=== PATIENT | female | born 1960 | race Caucasian/White ===

== ENCOUNTER 2017-01-16 11:20 | Inpatient (IN) | payer OTHER, SELFPAY ==
[2017-01-16] MEDS ORDERED: methylPREDNISolone Sod Succ/PF 125 MG/2 ML VIAL ONE (12:02)
[2017-01-16] MEDS ORDERED: Nitroglycerin 2% Ointment 1 INCH/1 GM Packet ONE (12:02)
[2017-01-16] MEDS ORDERED: Water For Inject, Bacteriostat 30 ML ONE (12:03)
[2017-01-16 12:16] LABS: #Basophils 0.1 thou/uL (0.0-0.2); #Eosinphils 0.1 thou/uL (0.0-0.7); #Lymphocytes 2.2 thou/uL (1.20-3.40); #Monocytes 0.7 thou/uL (0.11-0.59); #Neutrophils 12.1 thou/uL (1.40-6.50); %Basophils 0.4 % (0.0-1.0); %Eosinophils 0.7 % (0.0-10.0); %Lymphocytes 14.3 % (21.0-51.0); %Monocytes 4.8 % (0.0-10.0); Hematocrit 49.2 % (36.0-47.0); Mean Platelet Volume 9.8 fL (7.4-10.4); Red Blood Cell (RBC) Count 5.67 mill/uL (4.20-5.40); White Blood Cell (WBC) Count 15.2 thou/uL (4.8-10.8)
[2017-01-16 12:44] LABS: Troponin I 0.015 ng/mL (< 0.028)
[2017-01-16 12:56] LABS: Calcium 8.9 mg/dL (7.8-10.44); Chloride 83 mmol/L (98-107)
[2017-01-16 12:57] LABS: Globulin 3.5 g/dL (2.4-3.5); Protein, Total 7.4 g/dL (6.0-8.3)
[2017-01-16 12:59] LABS: Anion Gap 14 mmol/L (10-20); Bilirubin, Total 1.8 mg/dL (0.2-1.2); Carbon Dioxide 23 mmol/L (22-29)
[2017-01-16 13:00] LABS: Alkaline Phosphatase 88 U/L (40-150)
[2017-01-16 13:01] LABS: BUN (Urea Nitrogen) 6 mg/dL (9.8-20.1); Calc. Creatinine Clearance 0 mL/min (70-130); Estimated GFR-MDRD Greater than 90
[2017-01-16 13:02] LABS: AST (SGOT) 30 U/L (5-34)
[2017-01-16 13:03] LABS: ALT (SGPT) 16 U/L (8-55)
[2017-01-16 13:04] LABS: Lactic Acid - Sepsis 1.1 mmol/L (0.5-2.2)
[2017-01-16] MEDS ORDERED: Labetalol HCl 100 MG/20 ML VIAL ONE (14:28)
[2017-01-16] MEDS ORDERED: Fentanyl 100 MCG/2 ML VIAL ONE ×2 (14:31→14:43)
[2017-01-16] MEDS ORDERED: EPINEPHrine 1 MG/ML AMP ONE (14:41)
[2017-01-16] MEDS ORDERED: Lidocaine 1% w/Epinephrine 1:200K 30 ML VIAL ONE (14:41)
[2017-01-16] MEDS ORDERED: Midazolam HCl 2 mg/2 ml Vial ONE (14:43)
[2017-01-16] MEDS ORDERED: Lidocaine 2% Jelly 5 ML TUBE ONE (15:14)
[2017-01-16] MEDS ORDERED: Heparin 1,000 UNITS/ML VIAL ONE (15:18)
[2017-01-16] MEDS ORDERED: Oxymetazoline HCl 0.05% ( 15 ML ) ONE (15:20)
[2017-01-16] MEDS ORDERED: Lidocaine Viscous Sol 2% 15 ml UD Cup ONE (15:22)
[2017-01-16] MEDS ORDERED: SUGAMMADEX SODIUM 500 MG/5 ML VIAL ONE (15:26)
--- NOTE | 2017-01-16 15:38 | RAD ---
SOFT TISSUES TWO VIEWS: HISTORY: Dyspnea. FINDINGS: The airway is patent on the frontal view. There is prominence of the tongue base and the tonsils on the lateral view. The epiglottis is obscured. No radiopaque foreign bodies are evident. IMPRESSION: Some soft tissue prominence at the tongue base and tonsils. POS: [facility]
--- NOTE | 2017-01-16 15:40 | RAD ---
CHEST ONE VIEW: HISTORY: Dyspnea. FINDINGS: The cardiac silhouette is magnified by projection. The pulmonary vasculature is slightly engorged. The mediastinum is midline. There is no lobar consolidation or evidence of pneumothorax. IMPRESSION: Mild pulmonary vascular congestion. POS: [facility]
[2017-01-16] MEDS ORDERED: ePHEDrine/0.9% NaCl/PF SYRINGE 50 mg/10 ml ONE (15:49)
[2017-01-16] MEDS ORDERED: PHENYLEPHRINE-NS 100 MCG/ML 10 ML SYRINGE ONE (15:49)
[2017-01-16] MEDS ORDERED: Ondansetron HCl/PF 4 MG/2 ML Vial ONE (15:49)
[2017-01-16] MEDS ORDERED: Propofol 200 MG/20 ML VIAL ONE ×2 (15:49)
[2017-01-16] MEDS ORDERED: Dexamethasone 20 MG/5 ML VIAL ONE (15:49)
[2017-01-16] MEDS ORDERED: Succinylcholine Chloride 20 MG/ML 10 ml SYRINGE FS ONE (15:49)
--- NOTE | 2017-01-16 17:23 | CON ---
DATE OF CONSULTATION: 01/16/2017 REASON FOR CONSULTATION: Airway distress or shortness of breath and stridor. CONSULTING PHYSICIAN: Dr. Bangura. HISTORY OF PRESENT ILLNESS: Ms. Parker is a 56-year-old obese female who has had a long history of th roat problems that has progressively worsened over the last 4 days and now presents with inability t o breathe. She has been complaining of a throat pain for at least a year and over the last 4 months she has been complaining of some hoarseness. Over the last 4 days she has had increased dysphagia to the point where she is not able to eat or drink very well and progressively worsening airway obst ruction. She is an 34-dylf-zpbv history of smoker. She denies any weight loss. She does not have a regular doctor and does not seek medical care and has no significant past medical history. I was asked to evaluate for her worsening airway. PAST MEDICAL HISTORY: Negative. PAST SURGICAL HISTORY: Negative. MEDICATIONS: She uses Astelin, and Tessalon Perles for her cough. ALLERGIES: No known allergies. SOCIAL HISTORY: She is an 73-ztyh-weed history smoker, denies alcohol use. PHYSICAL EXAMINATION: GENERAL: Obese white female in moderate distress, having difficulty breathing with increased respir atory effort and rate. HEENT: Head is normocephalic, atraumatic. Eyes: Pupils are equal, round, reactive to light. Extr aocular movements are intact. Ears: Tympanic membranes intact, mobile and clear. Nose: Mucosa lo oks normal without any drainage or obstruction. Oral cavity and oropharynx shows very poor dentitio n with multiple missing teeth and remaining appeared to be very carious. There was no mucosal lesio ns in the mouth. The tongue appears to be normal with normal mobility. Palate also shows normal mo bility, no lesions noted. There is no postnasal drainage, erythema or exudate, ulcerations or leuko plakia. NECK: Without significant lymphadenopathy or masses. Thyroid is palpably normal. LUNGS: Breath sounds are equal, but she has inspiratory and expiratory stridor and wheezing. HEART: Rate and rhythm regular, without murmur or gallop. ABDOMEN: Soft, without mass, distention, or hepatosplenomegaly. EXTREMITIES: She has venous stasis in her legs, but no evidence of any cyanosis, clubbing, or edema . Flexible laryngoscopy was performed using a flexible laryngoscope after spraying down the nose with Gabo-Synephrine and 4% lidocaine. The scope was passed through the right nostril. The nose appeared to be open without any evidence of infection or lesions. Nasopharynx was also clear. Hypopharynx showed a large mass encompassing the left aryepiglottic fold and covering over the false vocal cord and the glottis. I was able to see some of the right vocal cord, there seem to be adequate movement of the right vocal cord, but could not visualize the airway very well. The lesion did appear to be involving the left piriform sinus. There was no other lesions in the vallecula, right side appeare d to be clear. No other lesions were noted. 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 PLAN: Take her to the OR emergently and secure airway with tracheostomy. Do a direct laryngoscopy and biopsy and then admitted to the hospital for trach care. She appears to have other medical prob lems such as she is hyponatremic, is hypertensive in the ER, does have some venous stasis in her leg s and will need to be evaluated for those problems also. Hospitalist consult will be made to help mary torres with those problems. The patient understands the indications, benefits, risks and complications and consents to the procedure.
[2017-01-16 17:50] LABS: Oxyhemoglobin 89.2 % (94.0-97.0); Sodium 117 mmol/L (135-148)
[2017-01-16 17:51] LABS: Mechanical Tidal Volume 500 ml; Mode SIMV.PSV; Modified Allen's Test POSITIVE; Pressure Support 10 cmH2O; Vent YES
[2017-01-16] MEDS ORDERED: Acetaminophen 325 MG Suppository PR PRN (17:54)
[2017-01-16] MEDS ORDERED: Morphine 10 MG/ML VIAL SLOW IVP PRN (17:54)
[2017-01-16] MEDS: NS 0.9% w/ 20 MEQ KCL 1,000 ML IV SCH (18:04)
--- NOTE | 2017-01-16 18:17 | RAD ---
SINGLE VIEW OF THE CHEST 01/16/17 COMPARISON: 01/16/17 HISTORY: Postoperative patient status post tracheostomy. Respiratory failure. FINDINGS: Single view of the chest shows a cardiomediastinal silhouette which is upper limits of normal in siz e. There has been interval placement of a tracheostomy with its tip in the midline overlying the tra edwin. No pneumothorax is seen. There is no evidence of consolidation, mass, or pleural effusion. IMPRESSION: Status post tracheostomy placement without evidence of complication. POS: [facility]
[2017-01-16] MEDS ORDERED: Fentanyl 20 MCG/ML 250 ML IVPB SCH (19:51)
[2017-01-16] MEDS ORDERED: DISCONTINUE PREVIOUS NARCOTIC PAIN MEDICATIONS AND BENZODIAZEPINES FS SCH (19:51)
[2017-01-16] MEDS ORDERED: Lorazepam 2 MG/ML VIAL SLOW IVP PRN (19:51)
[2017-01-16] MEDS: Propofol 1,000 MG/100 ML VIAL IV PRN (20:03)
--- NOTE | 2017-01-16 20:06 | OP ---
DATE OF OPERATION: 01/16/2017 PREOPERATIVE DIAGNOSIS: Airway obstruction, stridor and supraglottic mass. POSTOPERATIVE DIAGNOSIS: Airway obstruction, stridor and supraglottic mass. OPERATIVE PROCEDURE: Emergency tracheostomy and direct laryngoscopy with biopsy. ANESTHESIA: General: PREOPERATIVE NOTE: Ms. Parker is a 56-year-old female with an 20-[id number]-qqjt history of smoking who has had throat pain for about a year and had hoarseness for about 4 months and over last 4 days has pro gressively worsening airway and cough. She presented to the emergency room in respiratory distress and stridor. She was found to have a supraglottic mass, obstructing airway and now presents for tra cheostomy tube placement and direct laryngoscopy and biopsy. OPERATIVE NOTE: After the patient received adequate general anesthesia with an endotracheal tube, t he patient was placed in supine position. Shoulder roll was placed under shoulder and neck was exte nded. The area just below the cricoid was identified and an area was prepped and draped and an inci adair was then made just below the cricoid and carried down to the strap muscles. The right anterior jugular vein was ligated and the strap muscles were divided in the midline and retracted laterally. An incision was then made and soft tissue just below the cricoid and carried down to the trachea. A hemostat was used to elevate the isthmus and the isthmus was incised using a Bovie cautery in a s etting of 45. After incising through the isthmus, the thyroid was retracted laterally, exposing the trachea. Trach hook was placed underneath the cricoid. The space between the second and third tra cheal ring was identified. After putting cuff down, incision was made with Bovie cautery and then a window was created inferiorly with Solano scissors. The cuff was then reinflated, 2 stick ties were placed with 2-0 nylon sutures, one superiorly, one inferiorly. The endotracheal tube was then pulle d out at least partially. Once this was pulled past the tracheostomy opening, the #6 Shiley tracheo stomy tube was placed through the window and the cuff was inflated. The endotracheal tube was remov ed the rest of the way. She was hooked up to the ventilator and ventilated well. Breath sounds wer e equal on both sides. The trach tube was then sewn to the skin with 2-0 nylon sutures. Trach tie was applied and attention was then turned to the direct laryngoscopy. The table was turned. She fox d very poor dentition. Using a Jako laryngoscope, the oral cavity was examined, no lesions were not ed. Base of tongue was clear. Vallecula was clear. Epiglottis was clear on the left aryepiglottic fold, there was a large tumor involving the supraglottic structures. This tumor went down and inva ded into the vocal cord. Vocal cord was fixed in the midline, firm and involved with tumor, could n ot tell how far subglottically the tumor got restricted and how much I could visualize in this area. I took multiple biopsies of these lesions to be sent for pathology for identification. Postcricoi d area was clear. No other lesions were noted. Bimanual palpation of the floor of mouth, base of t ongue and pharynx showed no evidence of any other lesions or masses. The patient was then awakened and taken to ICU in stable condition. She tolerated the procedure well. ESTIMATED BLOOD LOSS: 30 mL. SPONGE AND NEEDLE COUNT: Correct at the end of the case. COMPLICATIONS: No complications.
[2017-01-17] MEDS: Propofol 1,000 MG/100 ML VIAL IV PRN ×2 (00:47→05:40)
[2017-01-17] MEDS: Morphine 2 MG/ML SYRINGE SLOW IVP PRN ×2 (00:48→05:26)
[2017-01-17] MEDS: NS 0.9% w/ 20 MEQ KCL 1,000 ML IV SCH ×2 (03:41→13:13)
[2017-01-17] MEDS ORDERED: Albuterol Sulfate 2.5 mg/3 ml Neb NEB PRN (12:53)
[2017-01-17 14:23] LABS: Anion Gap 17 mmol/L (10-20); BUN (Urea Nitrogen) 9 mg/dL (9.8-20.1); Calc. Creatinine Clearance 196 mL/min (70-130); Calcium 8.8 mg/dL (7.8-10.44); Carbon Dioxide 19 mmol/L (22-29); Chloride 105 mmol/L (98-107); Estimated GFR-MDRD 87
--- NOTE | 2017-01-17 14:57 | CON ---
DATE OF CONSULTATION: 01/17/2017 HISTORY OF PRESENT ILLNESS: Ms. Parker is a pleasant 56-year-old female, who has had a prolonged yari od of symptoms. Her daughter tells me she has been unable to lie down in bed. She has had difficul ty swallowing. She has been taken and ensure mashed potatoes and soup, but not been able to swallow for quite some time. She has been having throat discomfort for several months. She is heavy smoker. She presented with upper airway symptoms and underwent a tracheostomy with Dr. Dubois last night. S he slept all night on the ventilator and now has been weaned and is alert. She says she feels best she has felt in quite sometime. As I have explained to her, she probably was not getting good sleep with her upper airway obstructio n. PAST MEDICAL HISTORY: Prior to this was remarkable mainly for allergies. She is a smoker, nondrinker. PHYSICAL EXAMINATION: GENERAL: She is very pleasant. VITAL SIGNS: Afebrile, heart rate 76, respiratory rate is 22, and oximetry is 95. HEENT: Pupils are equal. Sclerae is anicteric. She has old blood around the tracheostomy, but she is breathing well for tracheostomy with humidity in place. LUNGS: Clear. HEART: Regular rhythm. ABDOMEN: Soft. EXTREMITIES: Without asymmetry. Chest radiograph shows no infiltrates or pulmonary nodules. IMPRESSION: Upper airway obstruction, most likely from malignancy. Pathology is obviously pending. She is doing well post-tracheostomy, she is off mechanical ventilation and I would think it would be unlikely that we would have to deal with mechanical ventilation again. We will start her on deep venous thrombosis prophylaxis. We will do a swallowing evaluation and see if we can just treat her with ensure and avoid placement of a feeding tube at this time. Speech Pathology will be consulted .
[2017-01-17] MEDS: Enoxaparin Sodium 40 MG/0.4 ML SYRINGE SC SCH (17:33)
[2017-01-17] MEDS: Sodium Chloride 0.9% 1,000 ML IV SCH (17:33)
[2017-01-17] MEDS: Famotidine/PF 20 mg/2ml Vial SLOW IVP SCH (21:12)
[2017-01-18] MEDS: Sodium Chloride 0.9% 1,000 ML IV SCH (02:30)
[2017-01-18] MEDS: Famotidine/PF 20 mg/2ml Vial SLOW IVP SCH ×2 (08:08→20:16)
[2017-01-18] MEDS ORDERED: Hydrocodone-Acetamin 15 ML UDCUP PO PRN ×2 (08:23→08:24)
[2017-01-18] MEDS ORDERED: Morphine 2 MG/ML SYRINGE SLOW IVP PRN (08:23)
[2017-01-18] MEDS: Dextrose 5 % And 0.9 % NaCl 1,000 ML IV SCH ×2 (08:24→18:03)
[2017-01-18 08:35] LABS: Anion Gap 16 mmol/L (10-20); BUN (Urea Nitrogen) 10 mg/dL (9.8-20.1); Calc. Creatinine Clearance 183 mL/min (70-130); Calcium 8.9 mg/dL (7.8-10.44); Carbon Dioxide 20 mmol/L (22-29); Chloride 105 mmol/L (98-107); Estimated GFR-MDRD 80
--- NOTE | 2017-01-18 08:51 | PRG ---
DATE OF SERVICE: 01/18/2017 The patient is doing well. She cannot speak with an occluded trachea yet. She does not indicate an y problems with her writing this morning. PHYSICAL EXAMINATION: VITAL SIGNS: Temperature 98.3, pulse 67, respirations 17, O2 saturation 97%, blood pressure 154/87. HEENT: Unremarkable. NECK: Trach in good position without bleeding. CARDIAC: S1 and S2 regular. LUNGS: Clear. ABDOMEN: Soft. EXTREMITIES: No edema. LABORATORY DATA: Sodium 136, potassium 4.5, chloride 105, CO2 20, BUN 10, creatinine 0.7, glucose 8 0. ASSESSMENT: Supraglottic tumor -- likely cancerous. PLAN: 1. Await biopsy results. 2. Tracheostomy has been placed and this will likely be permanent. 3. Could transfer out of ICU when okay with ENT.
--- NOTE | 2017-01-18 15:43 | CT ---
CT NECK WITH CONTRAST: HISTORY: Post tracheostomy placement due to supraglottic tumor. COMPARISON: No comparison. FINDINGS: Parotid glands, submandibular glands, and thyroid appear unremarkable. Nasopharynx unremarkable. Oropharynx and base of tongue show mild prominence of Waldeyer's ring. Tonsillar tissue is symmetri c, however, with no mass. There is abnormal soft tissue density on the left in the supraglottic region. This begins at the re gion of the aryepiglottic folds on the left and it obscures the left piriform sinus. This mass dens ity measures approximately 3 cm AP dimension and extends to the hyoid bone anteriorly. It extends i nferiorly to the glottis. Tracheostomy device in the subglottic region is noted in adequate position. Subcutaneous emphysema is seen at the site of the insertions. [place] Player space and parapharyngeal space appear unremarkable. Retropharyngeal space and carotid sp eugenie unremarkable. Nonspecific level I submandibular lymph nodes. Level II jugulodigastric nodes are also nonspecific measuring up to 1.2 cm on both sides. There is a posterior level II B node measuring a total dimension of 1.5 cm. No significant level III or leve l IV adenopathy. No significant level V adenopathy. Cervical spine shows degenerative change. Evidence of odontogenic disease with lucency seen at the roots of several of the remaining teeth. IMPRESSION: Supraglottic mass which begins at the aryepiglottic fold on the left and extends inferiorly to the s upraglottic region. Tracheostomy device appears adequately positioned. Nonspecific cervical chain lymph nodes. POS: [facility]
[2017-01-18] MEDS: Enoxaparin Sodium 40 MG/0.4 ML SYRINGE SC SCH (18:02)
--- NOTE | 2017-01-18 19:39 | PDOC.EVN ---
Event Note - Event Note Event Note: Patient seen and examined.
--- NOTE | 2017-01-18 20:02 | CON ---
DATE OF CONSULTATION: 01/18/2017 Please note that this consult was called on 01/18/2017 at 6:30 p.m. REASON FOR CONSULTATION: Medical management. HISTORY OF PRESENT ILLNESS: Patient is a 56-year-old female with ongoing tobacco abuse, who present ed to the emergency room on 01/16 with shortness of breath. Her workup was consistent with supraglo ttic mass with upper airway obstruction, requiring emergent tracheostomy with biopsy. She was monit ored in the Intensive Care Unit and was transferred to the surgical floor today. Patient denies any medical issues in the past. She has been smoking for a long time and has an 80-p ack-year smoking history. She denies any chest pain, shortness of breath, palpitations, fever or ch ills. No recent immobilization, travel, nausea, vomiting, diarrhea or weight loss reported. PAST MEDICAL HISTORY: 1. Tobacco abuse. 2. Morbid obesity with a BMI of 51.8. PAST SURGICAL HISTORY: Reviewed with the patient and none. ALLERGIES: Patient denies any drug allergies. CURRENT HOME MEDICATIONS: Jphv-ynn-[id number] cough and cold medication. SOCIAL HISTORY: As discussed above. No alcohol or drug use. FAMILY HISTORY: Positive for heart disease. REVIEW OF SYSTEMS: Review of systems was somewhat limited due to tracheostomy. She denies any foca l neurologic deficit. PHYSICAL EXAMINATION: VITAL SIGNS: Today showed temperature 100.2, pulse rate of 93, respiration of 22 with O2 saturation 93% on trach collar with blood pressure 158/81. GENERAL: A 56-year-old female status post tracheostomy. Denies any pain. HEENT: Head atraumatic, normocephalic. Sclerae are anicteric. Tracheostomy noted. NECK: Supple as discussed above. LUNGS: Clear to auscultation bilaterally. HEART: S1, S2 present. Regular rate and rhythm. No rubs or gallops appreciated. ABDOMEN: Soft, obese, bowel sounds present. EXTREMITIES: No edema or calf tenderness. NEUROLOGIC: Grossly nonfocal, moves all 4 extremities. PSYCHIATRY: Alert, awake, oriented x3. SKIN: Warm and dry. LYMPH NODES: No palpable lymph nodes in the neck. PERIPHERAL VASCULAR: Radial pulses palpable bilaterally. MUSCULOSKELETAL: No joint swelling or tenderness. LABORATORY FINDINGS Telemetry monitoring from the tracing earlier today showed sinus rhythm. CT sc an of the soft tissue of the neck was consistent with supraglottic mass. Chest x-ray by my review was negative for infiltrate. IMPRESSION: 1. Supraglottic mass causing airway obstruction, status post emergent tracheostomy. 2. Acute hypoxic and hypercapnic respiratory failure secondary to #1. ABGs in the ER showed pH 7.3 4 with a pO2 59.9, pCO2 of 47.9. 3. Hyponatremia with sodium of 116 on admission. Her sodium has normalized to 136 today. 4. Hyperkalemia with potassium 5.2 yesterday. The potassium is normal today. 5. Morbid obesity with a BMI of 51.8. 6. Abnormal liver function tests with total bilirubin 1.8 with normal AST, ALT, alkaline phosphatas e. 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 7. Leukocytosis on admission with low grade fever. Suspected systemic inflammatory response syndro me. 8. Ongoing tobacco abuse with 22-rply-pewc smoking history. 9. Family history of heart disease. PLAN: 1. The patient is currently admitted to the surgical floor. She underwent supraglottic mass biopsy , which is pending at this time. ENT and Pulmonary team is following. We will repeat labs in a.m. Tobacco cessation was extensively emphasized. Electrolytes have been normalized. 2. Due to low grade fever, we will continue to monitor. She may require antibiotics if she persist ently has fever. Continuous pulse oximetry. Plan of care was discussed with the patient. She stated understanding. Thank you Dr. Dubois for this consultation.
[2017-01-18] MEDS: Nystatin Powder 15 GM BOT TOP SCH (20:45)
[2017-01-19] MEDS: Dextrose 5 % And 0.9 % NaCl 1,000 ML IV SCH ×2 (04:04→21:55)
[2017-01-19 06:59] LABS: Band 15 % (5-11); Hematocrit 47.3 % (36.0-47.0); Mean Platelet Volume 9.3 fL (7.4-10.4); Neutrophil 81 % (42-75); Red Blood Cell (RBC) Count 5.15 mill/uL (4.20-5.40); White Blood Cell (WBC) Count 21.4 thou/uL (4.8-10.8)
[2017-01-19 07:06] LABS: ALT (SGPT) 15 U/L (8-55); AST (SGOT) 18 U/L (5-34); Alkaline Phosphatase 76 U/L (40-150); Anion Gap 16 mmol/L (10-20); BUN (Urea Nitrogen) 9 mg/dL (9.8-20.1); Bilirubin, Total 2.3 mg/dL (0.2-1.2); Calc. Creatinine Clearance 181 mL/min (70-130); Calcium 9.1 mg/dL (7.8-10.44); Carbon Dioxide 19 mmol/L (22-29); Chloride 103 mmol/L (98-107); Estimated GFR-MDRD 79; Globulin 3.5 g/dL (2.4-3.5); Magnesium 1.8 mg/dL (1.6-2.6); Protein, Total 6.8 g/dL (6.0-8.3)
[2017-01-19 07:11] LABS: Phosphorus 1.3 mg/dL (2.3-4.7)
[2017-01-19] MEDS ORDERED: Potassium Phosphate 15 MMOL in Sodium Chloride 0.9% 250 ML 250 ML IVPB SCH (07:30)
[2017-01-19] MEDS: Nystatin Powder 15 GM BOT TOP SCH ×3 (08:18→21:58)
[2017-01-19] MEDS: Famotidine/PF 20 mg/2ml Vial SLOW IVP SCH ×2 (08:18→21:50)
--- NOTE | 2017-01-19 13:57 | PRG ---
DATE OF SERVICE: 01/19/2017 SUBJECTIVE: Erika Parker is undergoing a swallowing evaluation. Both my gut feeling and speech pathol ogist's gut feeling is that of modified barium swallow. We will show that she is going to be able t o take in adequate nutrition with her swallowing dysfunction associated with her tumor. She is telling me she does not want to go through chemoradiation, but also not sure surgery is an op tion in this setting, as I have encouraged the family has to be discussed with Dr. Dubois. OBJECTIVE: LUNGS: From a lung standpoint, she is doing well. HEART: Regular rhythm. ABDOMEN: Soft. IMPRESSION: Laryngeal carcinoma with pathology pending, status post tracheostomy done semi-emergent ly. PLAN: Continue current care, modified barium swallow. Further recommendations to follow.
--- NOTE | 2017-01-19 15:58 | RAD ---
MODIFIED BARIUM SWALLOW: 01/19/17 CLINICAL HISTORY: Dysphagia oropharyngeal phase. Feeding difficult. RADIATION EXPOSURE DATA: 0.9 minutes of intermittent fluoroscopy. 0.582 Gy*cm2. Evaluation performed in conjunction with speech pathology. Reference speech pathology report for fur ther details. FINDINGS: Varying consistencies of barium contrast were administered to the patient with real time fluoroscopy performed. There is tracheal aspiration visualized during each swallowing attempt. IMPRESSION: Recurrent tracheal aspiration. Reference speech pathology report for further detail. POS: [facility]
[2017-01-19] MEDS ORDERED: EPINEPHrine 1 MG/10 ML Abboject SYRINGE ONE (18:00)
[2017-01-19] MEDS ORDERED: Heparin 5,000 UNITS/ML VIAL SC SCH (18:45)
--- NOTE | 2017-01-19 18:48 | PDOC.EVN ---
Event Note - Event Note Event Note: Patient was sitting up talking to her and then suddenly lost consciousness- code blue called- ACLS performed, and pulse recovered and transferred to the ICU. Dr. braden who is on-call for Pulmonary has been notified, EKG noted some ST- Elevation- II, AVF, V5 and V6- Dr. Street has been Consulted, and notified.
[2017-01-19] MEDS: Albuterol Sulfate 2.5 mg/3 ml Neb NEB SCH (19:36)
[2017-01-19] MEDS ORDERED: Aspirin 300 MG Suppository PR SCH (19:45)
[2017-01-19 20:05] LABS: Oxyhemoglobin 84.6 % (94.0-97.0); Sodium 138 mmol/L (135-148)
[2017-01-19 20:07] LABS: Mechanical Tidal Volume 530 ml; Mode SIMV; Pressure Support 10 cmH2O; Vent YES
--- NOTE | 2017-01-19 20:15 | RAD ---
PORTABLE CHEST: 01/19/17 PROVIDED CLINICAL HISTORY: Status post Code Blue. FINDINGS: Comparison is made with the study dated 01/16/17. Interval development of moderate right sided pneumothorax. There is probable passive atelectatic mikel nge versus infiltrate at the right lower lung zone. Pleural opacity at the right lung base cannot be excluded versus overlying material. The cardiac and mediastinal silhouette is not definitely change d in appearance. Tracheostomy appearance is again seen in similar position. External defibrillator p ad overlies the left chest. Blunting of the left costophrenic angle may reflect left sided pleural f luid. IMPRESSION: Moderate right sided pneumothorax with pleural and/or parenchymal opacity at the right lung base. Th e findings regarding the presence of pneumothorax were communicated to the charge nurse of the CCU gabriel t 7:49 p.m., 01/19/17. Code CR POS: [facility]
--- NOTE | 2017-01-19 20:33 | PDOC.PN ---
- Subjective Encounter Start Date: 01/19/17 Encounter Start Time: 11:00 Patient seen and examined around 11 am. Sitting on chair. No CP/SOB. No new complaints. No overnight events - Objective MAR Reviewed: Yes Vital Signs & Weight: Vital Signs (12 hours) Temp Pulse Resp BP BP Pulse Ox 01/19/17 19:36 105 H 29 H 88 L 01/19/17 19:05 111 H 93/53 L 01/19/17 17:27 91 28 H 88 L 01/19/17 16:49 97.9 F 95 22 H 104/72 92 L 01/19/17 11:25 99.8 F H 84 22 H 95 Weight Admit Weight 301 lb Weight 301 lb 9.478 oz Most Recent Monitor Data Heart Rate from ECG 92 NIBP 172/97 NIBP BP-Mean 122 Respiration from ECG 15 SpO2 91 I&O: 01/18/17 01/19/17 01/20/17 06:59 06:59 06:59 Intake Total 1700 800 Output Total 2982 790 Balance -1282 10 Result Diagrams: 01/19/17 19:01 01/20/17 04:20 Phys Exam - Physical Examination Constitutional: NAD tracheostomy + Respiratory: no wheezing, no rales B/L rhonchi Cardiovascular: RRR, no rub Gastrointestinal: soft, non-tender, positive bowel sounds Musculoskeletal: no edema Neurological: non-focal, moves all 4 limbs Psychiatric: A&O x 3 Dx/Plan - Plan cont current plan of care, DVT proph w/lovenox, DVT proph w/SCDs IMPRESSION: 1. Supraglottic mass causing airway obstruction, status post emergent tracheostomy. ENT/Pulmo following. 2. Acute hypoxic and hypercapnic respiratory failure secondary to #1. 3. Hyponatremia with sodium of 116 on admission. improved 4. Hyperkalemia. improved 6. Abnormal liver function tests with total bilirubin 1.8 with normal AST, ALT , alkaline phosphatase. 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 7. Leukocytosis on admission with low grade fever. Suspected systemic inflammatory response syndrome. 8. Ongoing tobacco abuse with 94-hwir-pmzn smoking history. Counselled. 9. Family history of heart disease. PLAN : * Cont to monitor * Cont supportive care * COMPLIANCE CLERK following * Cont current meds as below Review of Systems - Review of Systems Constitutional: negative: Fever, Chills, Sweats, Weakness, Malaise, Other Respiratory: negative: Cough, Dry, Shortness of Breath, Hemoptysis, SOB with Excertion, Pleuritic Pain, Sputum, Wheezing Cardiovascular: negative: Chest Pain, Palpitations, Orthopnea, Paroxysmal Noc. Dyspnea, Edema, Light Headedness, Other Gastrointestinal: negative: Nausea, Vomiting, Abdominal Pain, Diarrhea, Constipation, Melena, Hematochezia, Other Genitourinary: negative: Dysuria, Frequency, Incontinence, Hematuria, Retention , Other - Medications/Allergies Allergies/Adverse Reactions: Allergies Allergy/AdvReac Type Severity Reaction Status Date / Time No Known Drug Allergies Allergy Verified 01/16/17 18:32 Medications: Current Medications Acetaminophen (Tylenol) 500 mg PO Q4H PRN PRN Reason: TEMP>=101.5 Hydrocodone Bitart/Acetaminophen (Hydrocodone-Apap 7.5-325/15) 15 ml PO Q6H PRN PRN Reason: PAIN 1-5 Hydrocodone Bitart/Acetaminophen (Hydrocodone-Apap 7.5-325/15) 30 ml PO Q6H PRN PRN Reason: PAIN 6-10 Albuterol Sulfate (Ventolin) 2.5 mg NEB Q6H PRN PRN Reason: SOB &/or Wheezing Last Admin: 01/19/17 17:27 Dose: 2.5 mg Albuterol Sulfate (Ventolin) 2.5 mg NEB [id number]-AR [facility] Last Admin: 01/19/17 19:36 Dose: 2.5 mg Aspirin (Aspirin) 300 mg ME NOW [facility] Stop: 01/19/17 21:00 Last Admin: 01/19/17 19:39 Dose: 300 mg Enoxaparin Sodium (Lovenox) 40 mg SC 1800 [facility] Last Admin: 01/18/17 18:02 Dose: 40 mg Famotidine (Pepcid) 20 mg SLOW IVP BID [facility] Last Admin: 01/19/17 08:18 Dose: 20 mg Dextrose/Sodium Chloride (D5 0.9% Ns) 1,000 mls @ 100 mls/hr IV .Q10H [facility] Last Admin: 01/19/17 04:04 Dose: 1,000 mls Meropenem 1 gm/ Sodium (Chloride) 100 mls @ 200 mls/hr IVPB Q8H [facility] Morphine Sulfate (Morphine Sulfate) 2 mg SLOW IVP Q2H PRN PRN Reason: Pain Last Admin: 01/19/17 00:30 Dose: 2 mg Nystatin (Mycostatin Powder) 0 gm TOP BID [facility] Last Admin: 01/19/17 09:23 Dose: Not Given
[2017-01-19] MEDS ORDERED: Heparin 20,000 units/D5W 500 ML IVPB SCH (21:00)
--- NOTE | 2017-01-19 21:15 | RAD ---
PORTABLE CHEST 01/19/17 PROVIDED CLINICAL HISTORY: Central line and chest tube placement. FINDINGS: Comparison is made with the study performed earlier same date, time 7:43 p.m. Current study is timed 9 p.m. Interval placement of the small caliber right sided chest tube without residual right sided pneumoth orax apparent. Interval placement of right subclavian central line, the tip of which projects over t he expected location of the right atrium. Persistent right basilar pleural parenchymal opacity. No e vidence for left sided pneumothorax. Tracheostomy appliance remains in similar position. IMPRESSION: 1. Interval placement of right sided chest tube without residual pneumothorax apparent. 2. Interval placement of right sided central line. POS: [facility]
[2017-01-19 21:18] LABS: Hematocrit 47.9 % (36.0-47.0); Mean Platelet Volume 10.1 fL (7.4-10.4)
[2017-01-19 21:25] LABS: PTT 208.4 SEC (22.9-36.1)
[2017-01-19 21:41] LABS: Band 16 % (5-11); Metamyelocyte 4 % (0-0); Neutrophil 68 % (42-75)
[2017-01-19 21:42] LABS: ALT (SGPT) 77 U/L (8-55); AST (SGOT) 122 U/L (5-34); Alkaline Phosphatase 73 U/L (40-150); Anion Gap 23 mmol/L (10-20); BUN (Urea Nitrogen) 19 mg/dL (9.8-20.1); Bilirubin, Total 2.4 mg/dL (0.2-1.2); Calc. Creatinine Clearance 91 mL/min (70-130); Carbon Dioxide 10 mmol/L (22-29); Chloride 108 mmol/L (98-107); Estimated GFR-MDRD 36; Globulin 3.4 g/dL (2.4-3.5); Magnesium 2.1 mg/dL (1.6-2.6); Phosphorus 4.6 mg/dL (2.3-4.7); Protein, Total 6.4 g/dL (6.0-8.3)
[2017-01-19] MEDS: Enoxaparin Sodium 40 MG/0.4 ML SYRINGE SC SCH (21:45)
[2017-01-19] MEDS: Meropenem 1 GM, Admixture Fee 1 EACH in Sodium Chloride 0.9% 100 ML IVPB SCH (21:50)
[2017-01-19] MEDS: Sodium Chloride 0.9% 1,000 ML IV SCH ×3 (21:51→22:14)
[2017-01-19] MEDS: Heparin 5,000 UNITS/ML VIAL SLOW IVP SCH (22:15)
[2017-01-19 22:24] LABS: BF Reference Range Comment Note:
--- NOTE | 2017-01-19 22:27 | PRG ---
DATE OF SERVICE: 01/19/2017 SERVICE: Pulmonary Medicine. INTERVAL HISTORY: The patient had a ventricular tachycardia arrest on the floor. Shortly following this, she had spontaneous return of circulation. She was ultimately placed on mechanical ventilati on. A tracheostomy and/or cricothyroidotomy was already in place. Following the code event, she st arted to wake up a little bit. I was called in because of difficult IV access. She became increasi ngly hypoxemic and we got a chest x-ray demonstrating right-sided pneumothorax. Under emergent cond itions, the right-sided chest tube and a central line was placed. The right-sided chest tube was sm all bore catheter as I was under the impression, this was just a simple pneumothorax. That being sa id, purulent material was withdrawn from the chest tube and an empyema was considered. As such, bro ad spectrum antibiotics were initiated and a mcduffie culture was obtained. Because her blood pressures were extremely marginal/very low, central line was placed, so that pressors could be emergently prov ided if necessary after her fluid bolus. ASSESSMENT: 1. Acute hypoxic respiratory failure. 2. Hydropneumothorax, likely secondary to empyema. 3. Community-acquired pneumonia. 4. Pharyngeal mass. 5. Septic shock. PLAN: The patient really is requiring much in the way of sedation. As such, we will put her on pre ssure control ventilation. She seems to tolerate this best for the time being. A repeat chest x-ra y demonstrated reexpansion of the lung. I will put a Cardiothoracic Surgery consultation in place. Empiric antibiotics for both meropenem and vancomycin will be initiated as we got report that there was gram positive cocci on the Gram stain. Pressors will be initiated if her MAPs are not above 65 after her bolus. Critical care time: 95 minutes, unbundled from procedures.
[2017-01-19 23:05] LABS: BF Color Brown
[2017-01-19 23:06] LABS: RBC Count-Automated 180000 /cumm
[2017-01-19] MEDS: Norepinephrine 8 MG/250 ML BAG IVPB PRN ×2 (23:32)
[2017-01-20] MEDS: Albuterol Sulfate 2.5 mg/3 ml Neb NEB SCH ×2 (01:05→07:25)
[2017-01-20] MEDS: Dextrose 5 % And 0.9 % NaCl 1,000 ML IV SCH ×2 (02:01→08:19)
[2017-01-20 04:03] LABS: Blood, Urine Large (Negative); Glucose, Urine (Dipstick) Negative (Negative); Ketone, Urine Trace mg/dL (Negative); Nitrite Positive (Negative); Protein, Urine (Dipstick) 100 mg/dL (Neg-Trace)
[2017-01-20 04:07] LABS: Bacteria/HPF 1+ HPF (None Seen); Bilirubin Positive (Negative)
[2017-01-20 04:31] LABS: Hyaline Casts/LPF 0-3 HYALINE CAST LPF (0-3 Hyaline)
[2017-01-20 04:33] LABS: Renal Epithelial 0-3 HPF (0-3)
[2017-01-20 05:07] LABS: ALT (SGPT) 559 U/L (8-55); AST (SGOT) 758 U/L (5-34); Alkaline Phosphatase 54 U/L (40-150); Anion Gap 16 mmol/L (10-20); BUN (Urea Nitrogen) 28 mg/dL (9.8-20.1); Bilirubin, Total 2.1 mg/dL (0.2-1.2); Calc. Creatinine Clearance 68 mL/min (70-130); Calcium 8.1 mg/dL (7.8-10.44); Carbon Dioxide 16 mmol/L (22-29); Chloride 110 mmol/L (98-107); Estimated GFR-MDRD 26; Globulin 2.8 g/dL (2.4-3.5); Magnesium 1.6 mg/dL (1.6-2.6); Phosphorus 4.4 mg/dL (2.3-4.7); Protein, Total 5.3 g/dL (6.0-8.3)
[2017-01-20 05:12] LABS: Troponin I 1.793 ng/mL (< 0.028)
[2017-01-20 05:30] LABS: Band 54 % (5-11); Hematocrit 43.3 % (36.0-47.0); Mean Platelet Volume 10.2 fL (7.4-10.4); Metamyelocyte 2 % (0-0); Neutrophil 14 % (42-75); Red Blood Cell (RBC) Count 4.64 mill/uL (4.20-5.40); White Blood Cell (WBC) Count 10.4 thou/uL (4.8-10.8)
[2017-01-20] MEDS: Meropenem 1 GM, Admixture Fee 1 EACH in Sodium Chloride 0.9% 100 ML IVPB SCH ×3 (05:43→20:28)
--- NOTE | 2017-01-20 06:38 | CON ---
DATE OF CONSULTATION: 01/19/2017 REASON FOR CONSULTATION: Possible myocardial infarction and ventricular fibrillation. HISTORY OF PRESENT ILLNESS: Ms. Erika Parker is a 56-year-old woman admitted to the hospital with uppe r airway obstruction and requiring an emergency tracheostomy. She was found to have mass of her tra edwin likely a malignancy. This evening, she had loss of consciousness and ventricular fibrillation and was defibrillated. Her EKG did show some ST elevation in the anterior chest leads, but she was also severely acidotic as will be outlined below. The patient denied chest pain or pressure. The patient was very short of breath. PAST MEDICAL HISTORY: The patient has morbid obesity. Her BMI is over 50. She has an 16-urum-hdly history of smoking. MEDICATIONS: She was given a dose of amiodarone upstairs, but this has not been continued. REVIEW OF SYSTEMS: Not obtainable. FAMILY HISTORY: Not obtainable currently. SOCIAL HISTORY: The patient is accompanied by a \\\\"significant other\\\\" and a young lady who she fox s been like a mother too. PHYSICAL EXAMINATION: GENERAL: A critically ill patient is a very obese, 5 foot 4 inches tall, 301 pounds. BMI is over 5 0. VITAL SIGNS: Blood pressure in the 90 systolic and pulse 110, sinus. LUNGS: Distant. I do not hear any wheezing. CARDIAC: Tachycardic for rest. No murmur, rub or gallop. Hard to hear as the heart sounds are dis tant. ABDOMEN: Very obese, nontender. EXTREMITIES: 1+ edema. Extremities are cool at her feet. Femoral pulses; I can feel right femoral pulse, but she is extremely obese, left femoral pulses palpable. I do not feel popliteal pulses. LABORATORY AND DIAGNOSTIC DATA: Arterial blood gas; pH 7.34 and the second is 7.17 on this admissio n. A pCO2 is 50, pO2 of 62 on 100% oxygen. Potassium was 3.6. EKG just after the code did show so me ST elevation in V3 and V4 and V5, Q-waves in lead II, ST elevation in lead II. Followup EKG show s ST segments have improved, EKG changes now are borderline. Chest x-ray reveals a right-sided pneu mothorax, she is very rotated, atelectasis. ASSESSMENT: 1. 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 2. Respiratory failure. 3. Pneumothorax. PLAN: 1. The chest tube is being placed as we speak. 2. We will do cardiac enzymes. 3. Discontinue amiodarone. 4. We will follow with you. At this time, I think the risk of going to the catheterization lab out weighs potential benefit, it is not clear. This is a myocardial infarction and also Dr. Yogi bird he aspirated some brownish foul smelling material from the right side of her chest. She may be se ptic as well. She has multiple medical problems. Prognosis guarded.
--- NOTE | 2017-01-20 07:29 | RAD ---
ABDOMEN 1 VIEW: Date: 01/20/17 HISTORY: 56-year-old female with shortness of breath. FINDINGS: There is considerable motion artifact. Dobbhoff tube has been placed with tip in the stomach. There is an abnormal, poorly circumscribed opacity overlying the left upper quadrant. There is pleural and parenchymal change in both lower lung zones, worse on the right side, certainly concerning for pneu monia with some effusion. No overt bowel obstruction. Lumbothoracic spondylosis. IMPRESSION: Dobbhoff tube with the tip in the stomach. Bilateral lower lobe pulmonary and pleural changes concer rosa isela for pneumonia. Abnormal opacity overlying the left upper quadrant. POS: [facility]
[2017-01-20 07:54] LABS: Oxyhemoglobin 81.6 % (94.0-97.0); Sodium 137 mmol/L (135-148)
[2017-01-20 07:56] LABS: I Time 0.79 sec; Mode AC/PC; PIP 21 cmH2O; Pressure Support 10 cmH2O; Vent YES
[2017-01-20] MEDS: Famotidine/PF 20 mg/2ml Vial SLOW IVP SCH ×2 (08:19→20:27)
[2017-01-20] MEDS: Nystatin Powder 15 GM BOT TOP SCH ×2 (08:19→20:30)
--- NOTE | 2017-01-20 08:34 | RAD ---
CHEST ONE VIEW: History: Dyspnea. Follow up. Comparison: 01-19-17 FINDINGS: Cardiac silhouette remains magnified, enlarged, and partially obscured by increasing patchy bibasila r infiltrates. Mediastinum is midline. Pulmonary vasculature is more engorged than on the previous s tudy. Lines and tubes appear unchanged in position. quality assurance monitor leads overlie the chest. IMPRESSION: 1. Worsening pulmonary edema. POS: [facility]
[2017-01-20] MEDS ORDERED: Vancomycin HCl 1 GM in Premix Bag 1 BAG IVPB SCH (09:00)
[2017-01-20] MEDS: Sodium Bicarbonate 150 MEQ in Dextrose 5% in Water 1,000 ML IV SCH ×6 (09:15→20:26)
[2017-01-20] MEDS: Sodium Bicarb 50 MEQ/50 ML Abboject 8.4% SYRINGE ONE ×2 (09:15→09:24)
[2017-01-20] MEDS: Heparin 5,000 UNITS/ML VIAL SLOW IVP SCH (09:16)
[2017-01-20] MEDS: Enoxaparin Sodium 80 MG/0.8 ML SYRINGE SC SCH ×2 (09:30→09:48)
[2017-01-20] MEDS ORDERED: Enoxaparin Sodium 40 MG/0.4 ML SYRINGE SC SCH (09:30)
--- NOTE | 2017-01-20 09:47 | PRG ---
DATE OF SERVICE: 01/20/2017 Ms. Parker is on the ventilator, intubated. She is on Levophed. PHYSICAL EXAMINATION: VITAL SIGNS: Blood pressure is in the 70s systolic. GENERAL: She is awake and alert. LUNGS: Clear anteriorly and laterally. CARDIAC: Distant. ABDOMEN: Obese, nontender. EXTREMITIES: Cool, but not cold. PERTINENT LABORATORY: The patient is still acidotic, pH 7.22. Creatinine went to 2.02. Lactic aci d is down to 3.8. Troponin level 1.793. EKG shows T-wave inversion now on echocardiogram. No pericardial effusion. Grossly normal left desiree tricular function. Technically limited study due to body size and intubated on the ventilator with pneumothorax. ASSESSMENT: 1. Laryngeal mass. 2. Infected pleural space. 3. Probable sepsis. 4. Hypotension. 5. Metabolic acidosis. 6. Morbid obesity. PLAN: Continue supportive care. Prognosis guarded to poor.
[2017-01-20] MEDS ORDERED: Enoxaparin Sodium 80 MG/0.8 ML SYRINGE SC SCH (10:00)
[2017-01-20] MEDS ORDERED: Sodium Chloride 0.9% 2,000 ML IV SCH (11:00)
[2017-01-20] MEDS ORDERED: Lidocaine 1% (PF) 30 ML VIAL ONE (11:21)
--- NOTE | 2017-01-20 11:23 | CON ---
DATE OF CONSULTATION: 01/20/2017 REASON FOR CONSULTATION: Right empyema. 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 She underwent emergent tracheostomy and biopsy. Pathology is pending. Last evening she had a V-tach arrest. She was moved to the ICU and placed on mechanical ventilation and vasopressor support. Chest x-ray at that time revealed a moderate right pneumothorax. A small pneumothorax catheter was placed which did provide reexpansion, however, did drain purulent fluid which on analysis had low pH, elevated LDH, and elevated WBC's. Drainage total at this time is 700 mL. PAST MEDICAL HISTORY: 1. Morbid obesity. 2. Longstanding tobacco abuse. PAST SURGICAL HISTORY: None. ALLERGIES: None. SOCIAL HISTORY: 80+ pack year history of cigarette smoking. REVIEW OF SYSTEMS: No documented medical problems, however, the patient apparently does not see a physician on a regular basis. MEDICATIONS PRIOR TO ADMISSION: None. CURRENT MEDICATIONS: Lovenox 80 mg q.12 h., aspirin 325 mg per rectum daily, Pepcid 20 mg b.i.d., meropenem 1 gram IV q.12 h., Levophed drip at 15 mcg per minute, bicarbonate drip, and vancomycin 1.5 grams IV daily. LABORATORY AND X-RAY FINDINGS: Current white blood cell count 10.4 down from high of 21.4 yesterday. Hemoglobin 13.9. Platelet count 188,000. Creatinine elevated today at 2.02 with normal creatinine on admission. Blood and pleural fluid cultures are pending. The pleural Gram stain does show many gram positive cocci in chains. PHYSICAL EXAMINATION: HEIGHT: 5 feet 7 inches. WEIGHT: 301 pounds. VITAL SIGNS: Blood pressure noninvasive 92/68, heart rate 90, temperature 98.6. GENERAL: Obese female, mechanically ventilated with tracheostomy. She is fully responsive. HEENT: Significant for extremely poor dentition. NECK: Neck with tracheostomy in place. LUNGS: Coarse breath sounds bilaterally. HEART: Regular rate and rhythm without murmur. ABDOMEN: Soft and nondistended. EXTREMITIES: Without appreciable edema. VASCULAR: Nonpalpable radial or ankle pulses bilaterally. NEUROLOGIC: No focal deficits. IMPRESSION: Right empyema. RECOMMENDATIONS: Discuss with the patient's kitchen designer, Dr. Lainez. At this juncture large bore chest tube placement would appear to be most prudent. She is currently too ill to take to formal decortication due to her hemodynamic instability and mechanical ventilation requirements including 100% FiO2 and 10 of PEEP. MTDD
[2017-01-20] MEDS: Norepinephrine 8 MG/250 ML BAG IVPB PRN ×4 (11:44→20:27)
[2017-01-20] MEDS ORDERED: Midazolam HCl 2 mg/2 ml Vial SLOW IVP SCH (11:45)
[2017-01-20] MEDS: Albumin 25% 25 GM/100 ML BOT IVPB SCH ×2 (12:05→17:58)
[2017-01-20 12:15] LABS: Oxyhemoglobin 90.2 % (94.0-97.0); Sodium 140 mmol/L (135-148)
[2017-01-20 12:16] LABS: I Time 0.79 sec; Mode AC/PC; PIP 21 cmH2O; Spontaneous Rate 15 min; Vent YES
--- NOTE | 2017-01-20 14:24 | RAD ---
RADIOGRAPH CHEST 1 VIEW: Date: 01/20/2017 Time: 1:04 p.m. HISTORY: A 56-year-old female, status post chest tube insertion. COMPARISON: 01/20/2017 at 5:40 a.m. FINDINGS: There is a new right-sided, large caliber chest tube entering the right mid to lower rib cage and as cending to the right upper lung zone, overlying the lateral aspect of the right lung. Then, this ch est tube becomes kinked at the right upper lung zone where it takes an abrupt turn, and then the dis shama 7.5 to 8 cm of this tube descends such that the distal tip overlies the right lower lobe bronchu s, and right cardiac shadow or right mediastinum. No pneumothorax is visualized, but the positionin g is supine, which would be insensitive for pneumothorax detection. Air space density/consolidation s remain at the base of the left lower lobe and at the medial base of the right lower lobe. The trac heostomy tube and a right subclavian central vascular catheter remain. A Dobhoff feeding tube has b een placed, with the distal tip inferior to the diaphragm, outside the field of view. IMPRESSION: 1. Right-sided, large caliber thoracostomy tube placement. 2. Dobhoff feeding tube placement. 3. No interval change in right subclavian central venous catheter and tracheostomy tube. 4. Broad air space densities/consolidations at the left lower lobe and the right medial base remain . DEUCE [] POS: [facility]
[2017-01-20] MEDS: Clindamycin/D5W 900 MG in Premix Bag 1 BAG IVPB SCH ×2 (14:26→21:34)
[2017-01-20] MEDS ORDERED: Vecuronium Bromide 20 MG VIAL IV PRN (14:39)
--- NOTE | 2017-01-20 14:50 | RAD ---
PORTABLE SUPINE CHEST: History: Tube adjustment. Comparison: 01-20-17 at 1:04 p.m. FINDINGS: Tracheostomy device is unchanged. NG tube is noted. The tip appears to pass through the EG junction and appears to overlie the upper gastric fundus, not completely imaged. Cardiomegaly. Bibasilar atelectasis and/or infiltrates. Volume loss in the right chest with right ch est tube. A central line on the right overlies the SVC and is unchanged. IMPRESSION: No significant interval change from earlier film. POS: [facility]
--- NOTE | 2017-01-20 15:11 | PDOC.PN ---
- Subjective Encounter Start Date: 01/20/17 Encounter Start Time: 15:07 Patient seen and examined. On [facility] Vent. - Objective MAR Reviewed: Yes Vital Signs & Weight: Vital Signs (12 hours) Temp Pulse Resp Pulse Ox 01/20/17 13:48 86 01/20/17 12:29 85 01/20/17 09:52 93 01/20/17 08:00 98.6 F 01/20/17 07:26 67 87 L 01/20/17 06:00 34 H 01/20/17 04:00 32 H 01/20/17 03:38 86 Weight Admit Weight 301 lb Weight 299 lb 13.259 oz Most Recent Monitor Data Heart Rate from ECG 86 NIBP 76/58 NIBP BP-Mean 61 Respiration from ECG 34 SpO2 95 I&O: 01/19/17 01/20/17 01/21/17 06:59 06:59 06:59 Intake Total 800 4511 2595.5 Output Total 790 725 225 Balance 10 3786 2370.5 Result Diagrams: 01/20/17 04:20 01/20/17 04:20 Additional Labs: Accuchecks 01/19/17 18:21 POC Glucose 169 H EKG Reviewed by me: Yes (Tele SR) Phys Exam - Physical Examination Sedated on Vent/ chest tube +, On Levophed/bicarb drip Respiratory: no wheezing B/L rhonchi/rales at bases Cardiovascular: RRR, no rub Gastrointestinal: soft, positive bowel sounds Musculoskeletal: no edema Dx/Plan - Plan IMPRESSION: 1. Severe sepsis with acute organ dysfunction/Septic shock due to Empyema - On Vanc/Meropenem/Clindamycin 2. Acute hypoxic and hypercapnic respiratory failurr. 3. 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 4. s/p Code blue/Vtach arrest 01/19/17 6. Hydropneumothorax s/p chest tube 7. Abn Cardiac enzyme due to demand ischemia 8. Ongoing tobacco abuse with [id number] smoking history. Counselled. 9. Family history of heart disease. 10 Abnormal liver function tests - prob due to sepsis PLAN: * Critical care/CT/ENT/Cardio following * On Empiric Atbx * Cont supportive care * AM labs * ABGs/CXR in AM Review of Systems - Review of Systems Other: Cannot obtain due to current clinical status - Medications/Allergies Allergies/Adverse Reactions: Allergies Allergy/AdvReac Type Severity Reaction Status Date / Time No Known Drug Allergies Allergy Verified 01/16/17 18:32 Medications: Current Medications Acetaminophen (Tylenol) 500 mg PO Q4H PRN PRN Reason: TEMP>=101.5 Hydrocodone Bitart/Acetaminophen (Hydrocodone-Apap 7.5-325/15) 15 ml PO Q6H PRN PRN Reason: PAIN 1-5 Hydrocodone Bitart/Acetaminophen (Hydrocodone-Apap 7.5-325/15) 30 ml PO Q6H PRN PRN Reason: PAIN 6-10 Albumin Human (Albumin 25%) 25 gm IVPB Q6HR [facility] Stop: 01/22/17 12:01 Last Admin: 01/20/17 12:05 Dose: 25 gm Albuterol Sulfate (Ventolin) 2.5 mg NEB Q6H PRN PRN Reason: SOB &/or Wheezing Last Admin: 01/19/17 17:27 Dose: 2.5 mg Albuterol/Ipratropium (Duoneb) 3 ml NEB [id number] [facility] Last Admin: 01/20/17 13:47 Dose: 3 ml Aspirin (Aspirin) 300 mg WV QPM JARROD Enoxaparin Sodium (Lovenox) 30 mg SC 0600,1800 [facility] Famotidine (Pepcid) 20 mg SLOW IVP BID [facility] Last Admin: 01/20/17 08:19 Dose: 20 mg Norepinephrine Bitartrate 8 mg (/ Sodium Chloride) 258 mls @ 0 mls/hr IVPB INF PRN; Protocol; Titrate PRN Reason: TO KEEP SBP > 90, MAP > 60 Last Admin: 01/20/17 11:44 Dose: 258 mls Vancomycin HCl 1.5 gm/ Sodium (Chloride) 300 mls @ 200 mls/hr IVPB 2200 JARROD Meropenem 1 gm/ Miscellaneous Medication 1 each/ Sodium Chloride 100 mls @ 200 mls/hr IVPB Q12HR [facility] Last Admin: 01/20/17 08:18 Dose: 100 mls Sodium Bicarbonate 150 meq/ (Dextrose/Water) 1,150 mls @ 100 mls/hr IV .[id number] [facility] Last Admin: 01/20/17 09:40 Dose: 1,150 mls Midazolam HCl (Versed) 100 mls @ 0 mls/hr IVPB INF PRN; Protocol; Titrate PRN Reason: Sedation Last Admin: 01/20/17 11:57 Dose: 100 mls Clindamycin Phosphate/Dextrose (900 mg/ Device) 50 mls @ 100 mls/hr IVPB Q8HR [facility] Last Admin: 01/20/17 14:26 Dose: 50 mls Methylprednisolone Sodium Succinate (Solu-Medrol) 40 mg IVP Q6HR [facility] Last Admin: 01/20/17 11:16 Dose: 40 mg Miscellaneous Medication (Pharmacy To Dose) 1 each IVPB ONE PRN PRN Reason: Pharmacy to dose Stop: 01/30/17 05:16 Morphine Sulfate (Morphine Sulfate) 10 mg SLOW IVP Q4H PRN PRN Reason: Pain Nystatin (Mycostatin Powder) 0 gm TOP BID [facility] Last Admin: 01/20/17 08:19 Dose: 1 applic Sodium Chloride (Flush - Normal Saline) 10 ml IVF Q12HR [facility] Sodium Chloride (Flush - Normal Saline) 10 ml IVF PRN PRN PRN Reason: Saline Flush Vecuronium [place] (Vecuronium M[place]ank) 10 mg IV Q1H PRN PRN Reason: Anxiety/Agitation
[2017-01-20] MEDS ORDERED: Vecuronium 10 MG VIAL ONE (15:14)
--- NOTE | 2017-01-20 15:25 | OP ---
DATE OF SURGERY: 01/20/2017 PREOPERATIVE DIAGNOSIS: Right empyema. POSTPROCEDURE DIAGNOSIS: Right empyema. INFORMATION SYSTEMS COORDINATOR: Barney Bauer M.D. ANESTHESIA: Intravenous sedation and local at tube insertion site. PROCEDURE PERFORMED: Right tube thoracostomy (36-Canadian straight chest tube). DESCRIPTION OF PROCEDURE: Large bore right tube thoracostomy was performed at the bedside in the CCU following informed consent from the patient's appointed guardian. The patient was sedated with intravenous Versed with ongoing mechanical ventilation. The patient was prepped and draped in the usual sterile fashion. At the proposed tube insertion site, local anesthesia was achieved with 1% Xylocaine. A small stab incision was made. Dissection was carried down to the chest wall. Over the decided upon rib, the pleural space was entered confirmed by digital exploration. The 36 Canadian straight chest tube was then positioned without difficulty. It was connected to pleurovac suction. It was secured to the skin with silk sutures. Standard dressing was applied. The patient appeared to tolerate the procedure without evident problems. Chest x-ray will be obtained immediately to ascertain position and result. BLOOD LOSS: None. MTDD
[2017-01-20] MEDS ORDERED: Vecuronium 10 MG VIAL IV PRN (15:29)
--- NOTE | 2017-01-20 17:08 | PRG ---
DATE OF SERVICE: 01/20/2017 SUBJECTIVE: Ms. Parker's events have been noted through the morning. I have examined her at the bedside multiple times throughout the day. She remains pressor dependent. She received 2 liters of saline boluses this morning. She has been switched to bilevel ventilation and is sedated with Versed drip and now she has been chemically paralyzed. We are having some difficulty getting good reliable oximetry reading, but gas exchange is reasonably intact, although she is still on a high FiO2. Surprisingly, she had pus in her pleural space with a pneumothorax catheter. A large bore chest tube was placed and only bloody fluid was removed out of the pleural space. Her last blood gas, pH 7.22, CO2 of 35, pO2 of 38, pCO2 of 62 and creatinine is 2.02. IMPRESSION: Gram stain shows gram-positive cocci in chains on the pleural fluid. I suspect this is an anaerobic strep, but it also could be pneumococcus. Hopefully, we can hold the vancomycin tomorrow. We have a better idea of what organisms are growing in her pleural space. I added Cleocin earlier today. Blood cultures from last night are negative. I met with the family and answered all their questions. 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 She did bump her troponin, but I doubt this is a myocardial infarction on top of pneumothorax and empyema, so we will cut her Lovenox dose back to 30 twice a day. Hopefully, we will see stabilization of her renal function. CRITICAL CARE TIME: 40 minutes. MTDD
[2017-01-20] MEDS: Enoxaparin Sodium 30 MG/0.3 ML SYRINGE SC SCH (17:58)
--- NOTE | 2017-01-20 20:06 | OP ---
DATE OF PROCEDURE: 01/19/2017 SERVICE: Pulmonary Medicine. PROCEDURE PERFORMED: Right-sided 8.5 Monegasque triple-lumen subclavian central venous catheter placeme nt under ultrasound guidance. CONSENT: The risks and benefits of the procedure were explained to the patient and medical decision maker prior to initiating this procedure. All questions were answered and alternative options expl ained. STAFF PHYSICIAN: Segundo Calix M.D. MEDICATIONS: Lidocaine 1% without epinephrine, total quantity 5 mL. PREOPERATIVE DIAGNOSES: 1. Septic shock. 2. Acute hypoxic respiratory failure. POSTPROCEDURE DIAGNOSES: 1. Septic shock. 2. Acute hypoxic respiratory failure. DESCRIPTION OF PROCEDURE: Vital sign monitoring was accomplished by noninvasive hemodynamic monitor ing, pulse oximetry, and telemetry. A timeout was performed. The patient was positively identified by name and date of . The procedure site was marked. The patient was placed in supine positi on and the right neck was prepped and draped in sterile fashion. The overlying skin was anesthetize d with 1% lidocaine, without epinephrine. Decannulation needle was passed in the subclavian vein on the second attempt with return of dark red, nonpulsatile blood. A J-shaped guidewire was threaded with minimal difficulty through the cannulation needle. A small incision was made and the dilator a nd 8.5-Monegasque triple-lumen central venous catheter were serially threaded over the guidewire. The c atheter was sutured to the skin at 17 cm with 3-0 silk sutures x4. All three ports withdrew and flu shed without difficulty. A sterile dressing was applied and the procedure was terminated. Post-pro cedure chest x-ray demonstrated adequate location with the tip of the catheter. ESTIMATED BLOOD LOSS: 4 mL COMPLICATIONS: None.
[2017-01-20] MEDS: Aspirin 300 MG Suppository PR SCH (20:27)
[2017-01-20] MEDS ORDERED: Vancomycin HCl 1.5 GM in Sodium Chloride 0.9% 250 ML 300 ML IVPB SCH (22:00)
[2017-01-21] MEDS: Albumin 25% 25 GM/100 ML BOT IVPB SCH ×4 (00:34→17:46)
[2017-01-21] MEDS: Norepinephrine 8 MG/250 ML BAG IVPB PRN ×2 (00:35)
--- NOTE | 2017-01-21 01:10 | OP ---
DATE OF SERVICE: 01/19/2017 SERVICE: Pulmonary Medicine. PROCEDURE: Right-sided chest tube placement in the second anterior intercostal space. CONSENT: I briefly discussed the risks and benefits of this procedure with the patient while she wa s on mechanical ventilation. Either way, it was under emergent circumstances that we perform this p rocedure. STAFF PHYSICIAN: Segundo Calix M.D. MEDICATIONS USED: Lidocaine 1% without epinephrine, total quantity 5 mL. PREOPERATIVE DIAGNOSES: 1. Acute hypoxic respiratory failure. 2. Pneumothorax. POSTPROCEDURE DIAGNOSES: 1. Acute hypoxic respiratory failure. 2. Empyema. DESCRIPTION OF PROCEDURE: A timeout was performed by the procedure team and the patient. The patie nt was positively identified using name and date of . The procedure site was marked. Vital si gn monitoring was accomplished by noninvasive hemodynamic monitoring, pulse oximetry, and telemetry. In the seated position, the right anterior chest was palpated to find the second rib. We went to th e mid clavicular line and a julianna was made. The skin was subsequently prepped and draped in usual st erile fashion and anesthetized with 1% lidocaine without epinephrine. A finder needle was inserted in the pleural space with return of air. A chest tube was then inserted in the same location and a significant amount of air came out of the chest. This was followed by a foul smelling, very cloudy/ yellow fluid. A sample was sent for analysis. The chest tube was then subsequently hooked up to ky cutainer and a total of 800 mL of the purulent fluid was evacuated. Oxygen saturation slowly improv ed. Post-procedure chest x-ray demonstrated reexpansion of the right lung. ESTIMATED BLOOD LOSS: 2 mL. COMPLICATIONS: None.
[2017-01-21 05:08] LABS: ALT (SGPT) 412 U/L (8-55); AST (SGOT) 256 U/L (5-34); Alkaline Phosphatase 49 U/L (40-150); Anion Gap 18 mmol/L (10-20); BUN (Urea Nitrogen) 43 mg/dL (9.8-20.1); Bilirubin, Total 2.2 mg/dL (0.2-1.2); Calc. Creatinine Clearance 53 mL/min (70-130); Calcium 8.3 mg/dL (7.8-10.44); Carbon Dioxide 19 mmol/L (22-29); Chloride 107 mmol/L (98-107); Estimated GFR-MDRD 19; Globulin 2.5 g/dL (2.4-3.5); Magnesium 1.7 mg/dL (1.6-2.6); Phosphorus 4.1 mg/dL (2.3-4.7); Protein, Total 5.6 g/dL (6.0-8.3)
[2017-01-21 05:25] LABS: Band 44 % (5-11); Dohle Bodies SLIGHT; Hematocrit 37.7 % (36.0-47.0); Mean Platelet Volume 9.6 fL (7.4-10.4); Metamyelocyte 24 % (0-0); Neutrophil 23 % (42-75); Red Blood Cell (RBC) Count 4.08 mill/uL (4.20-5.40)
[2017-01-21] MEDS: Enoxaparin Sodium 30 MG/0.3 ML SYRINGE SC SCH ×2 (05:43→17:47)
[2017-01-21] MEDS: Clindamycin/D5W 900 MG in Premix Bag 1 BAG IVPB SCH ×3 (05:43→21:16)
[2017-01-21 07:14] LABS: Oxyhemoglobin 92.4 % (94.0-97.0); Sodium 140 mmol/L (135-148)
[2017-01-21 07:16] LABS: Modified Allen's Test POSITIVE; Vent YES
[2017-01-21 07:17] LABS: Mode BILEVEL 38/12; Pressure Support 10 cmH2O
[2017-01-21] MEDS: Sodium Bicarbonate 150 MEQ in Dextrose 5% in Water 1,000 ML IV SCH ×4 (08:35→21:16)
[2017-01-21] MEDS: Meropenem 1 GM, Admixture Fee 1 EACH in Sodium Chloride 0.9% 100 ML IVPB SCH ×2 (08:35→21:29)
[2017-01-21] MEDS: Famotidine/PF 20 mg/2ml Vial SLOW IVP SCH (08:35)
[2017-01-21] MEDS: Nystatin Powder 15 GM BOT TOP SCH ×2 (08:36→21:17)
--- NOTE | 2017-01-21 08:40 | RAD ---
SINGLE VIEW OF THE CHEST: Comparison: 01-20-17 History: Shortness of breath. FINDINGS: Single view of the chest shows a normal sized cardiomediastinal silhouette. The lines and tubes are unchanged in position. There is a small to moderate right pleural effusion. Right sided chest tubes are seen without evidence of pneumothorax. IMPRESSION: Stable exam. POS: [facility]
--- NOTE | 2017-01-21 09:32 | PRG ---
DATE OF SERVICE: 01/21/2017 Ms. Parker is intubated and on the ventilator and sedated. Review of systems not available due to intubation. PHYSICAL EXAMINATION: VITAL SIGNS: Blood pressure 115/72. She is still on intravenous Levophed. Pulse 88. LUNGS: Clear anteriorly and laterally. CARDIAC: Distant, no new murmur, rub or gallop. ABDOMEN: Soft, nontender. EXTREMITIES: Warm and dry. PERTINENT LABORATORY DATA: Hemoglobin was 12.5. WBC 13, creatinine is 2.59. Liver function tests are decreasing, AST went from 758 to 256. The EKG yesterday did show biphasic T waves in V2, inverted T waves in lead II and AVF and inverted T waves in V4 through V6. ASSESSMENT: 1. Respiratory failure likely mostly related to a pneumothorax and a pulmonary infection. 2. Probable underlying coronary disease. 3. Morbid obesity. 4. Laryngeal mass. 5. Status post emergency tracheostomy for airway obstruction. PLAN: Continue supportive therapy. She is on aspirin and enoxaparin. We will continue to follow delonte coker. Prognosis remains guarded.
--- NOTE | 2017-01-21 10:23 | PRG ---
DATE OF SERVICE: 01/21/2017 Ms. Parker is sedated for mechanical ventilation. PHYSICAL EXAMINATION: VITAL SIGNS: Heart rate 88, blood pressure 115/72, respiratory rate 28. LUNGS: Lungs are Clear anteriorly. HEART: Regular rhythm. ABDOMEN: Abdomen is soft. Intake and output is positive 3786 yesterday, positive 5469 today. Chest tube drainage was 300 mL. Chest tube is inserted. Blood cultures remain negative. Identification of gram positives in the pleural space is not back y et. LABORATORY DATA: White count 13, hemoglobin 12.5, platelets 157. Sodium 140, potassium 3.7, chloride 107, bicarb 19, BUN 43, creatinine 2.59, pH 7.33, CO2 37, pO2 of 65, it had gone from 100% yesterday morning down to 50% FIO2 now. Chest radiograph is unchanged. IMPRESSION: 1. Empyema. 2. Status post transient arrest secondary to pneumothorax, now with a large bore chest tube. 3. Laryngeal carcinoma. 4. Status post emergent tracheostomy on admission after several months of symptoms. 5. Metabolic acidosis that is improving. 6. Acute kidney injury on top of ? chronic kidney disease. 7. Abnormal troponin likely stress mediated. 8. Elevated liver enzymes, most likely secondary to her clinical sepsis. It appears to be improvin g. PLAN: Continue current supportive care measures. Await cultures and sensitivities.
--- NOTE | 2017-01-21 14:07 | PDOC.PN ---
- Subjective Encounter Start Date: 01/21/17 Encounter Start Time: 11:15 Patient seen and examined. Intubated/Sedated on Vent. Tube feeds started today. On Pressors - Objective MAR Reviewed: Yes Vital Signs & Weight: Vital Signs (12 hours) Temp Pulse Resp BP 01/21/17 13:45 95 96/66 01/21/17 10:43 83 121/78 01/21/17 06:58 88 115/72 01/21/17 06:00 28 H 01/21/17 04:00 28 H 01/21/17 03:00 98.8 F 01/21/17 02:20 90 112/68 Weight Admit Weight 301 lb Weight 302 lb 7.587 oz Most Recent Monitor Data Heart Rate from ECG 87 NIBP 114/76 NIBP BP-Mean 88 Respiration from ECG 29 SpO2 97 I&O: 01/20/17 01/21/17 01/22/17 06:59 06:59 06:59 Intake Total 4511 6039.9 Output Total 725 570 Balance 3786 5469.9 Result Diagrams: 01/21/17 04:30 01/21/17 04:30 EKG Reviewed by me: Yes (Tele SR) Phys Exam - Physical Examination Intubated/Sedated on Vent/ Tube feeds/ Chest tube + Respiratory: no wheezing, no rhonchi Bibasilar rales with scat rhonchi Cardiovascular: RRR, no rub Gastrointestinal: soft, positive bowel sounds Musculoskeletal: no edema Dx/Plan - Plan IMPRESSION: 1. Severe sepsis with acute organ dysfunction/Septic shock due to Empyema - On Vanc/Meropenem/Clindamycin. Chest tube + 2. Acute hypoxic and hypercapnic respiratory failure - on Mech Ventilation 3. 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 4. s/p Code blue/Vtach arrest 01/19/17 6. Hydropneumothorax/Empyema s/p chest tube 7. Abn Cardiac enzyme due to demand ischemia 8. Ongoing tobacco abuse with [id number] smoking history. Counselled. 9. Family history of heart disease. 10 Abnormal liver function tests - prob due to sepsis PLAN: * Critical care/CT/ENT/Cardio following * On Empiric Atbx * Cont supportive care * AM labs * Cont current meds as below * Add Probiotics Review of Systems - Review of Systems Other: Cannot obtain due to sedation - Medications/Allergies Allergies/Adverse Reactions: Allergies Allergy/AdvReac Type Severity Reaction Status Date / Time No Known Drug Allergies Allergy Verified 01/16/17 18:32 Medications: Current Medications Acetaminophen (Tylenol) 500 mg PO Q4H PRN PRN Reason: TEMP>=101.5 Hydrocodone Bitart/Acetaminophen (Hydrocodone-Apap 7.5-325/15) 15 ml PO Q6H PRN PRN Reason: PAIN 1-5 Hydrocodone Bitart/Acetaminophen (Hydrocodone-Apap 7.5-325/15) 30 ml PO Q6H PRN PRN Reason: PAIN 6-10 Albumin Human (Albumin 25%) 25 gm IVPB Q6HR [facility] Stop: 01/22/17 12:01 Last Admin: 01/21/17 12:04 Dose: 25 gm Albuterol Sulfate (Ventolin) 2.5 mg NEB Q6H PRN PRN Reason: SOB &/or Wheezing Last Admin: 01/19/17 17:27 Dose: 2.5 mg Albuterol/Ipratropium (Duoneb) 3 ml NEB [id number] [facility] Last Admin: 01/21/17 10:43 Dose: 3 ml Aspirin (Aspirin) 300 mg RI QPM [facility] Last Admin: 01/20/17 20:27 Dose: 300 mg Enoxaparin Sodium (Lovenox) 30 mg SC 0600,1800 [facility] Last Admin: 01/21/17 05:43 Dose: 30 mg Famotidine (Pepcid) 20 mg SLOW IVP DAILY [facility] Norepinephrine Bitartrate 8 mg (/ Sodium Chloride) 258 mls @ 0 mls/hr IVPB INF PRN; Protocol; Titrate PRN Reason: TO KEEP SBP > 90, MAP > 60 Last Admin: 01/21/17 00:35 Dose: 258 mls Meropenem 1 gm/ Miscellaneous Medication 1 each/ Sodium Chloride 100 mls @ 200 mls/hr IVPB Q12HR [facility] Last Admin: 01/21/17 08:35 Dose: 100 mls Sodium Bicarbonate 150 meq/ (Dextrose/Water) 1,150 mls @ 100 mls/hr IV .[id number] [facility] Last Admin: 01/21/17 08:35 Dose: 1,150 mls Midazolam HCl (Versed) 100 mls @ 0 mls/hr IVPB INF PRN; Protocol; Titrate PRN Reason: Sedation Last Admin: 01/20/17 11:57 Dose: 100 mls Clindamycin Phosphate/Dextrose (900 mg/ Device) 50 mls @ 100 mls/hr IVPB Q8HR [facility] Last Admin: 01/21/17 05:43 Dose: 50 mls Methylprednisolone Sodium Succinate (Solu-Medrol) 20 mg IVP Q6HR [facility] Last Admin: 01/21/17 12:04 Dose: 20 mg Morphine Sulfate (Morphine Sulfate) 10 mg SLOW IVP Q4H PRN PRN Reason: Pain Nystatin (Mycostatin Powder) 0 gm TOP BID [facility] Last Admin: 01/21/17 08:36 Dose: 1 applic Saccharomyces Boulardii (Florastor) 250 mg PER TUBE DAILY [facility] Sodium Chloride (Flush - Normal Saline) 10 ml IVF Q12HR [facility] Last Admin: 01/21/17 08:41 Dose: 10 ml Sodium Chloride (Flush - Normal Saline) 10 ml IVF PRN PRN PRN Reason: Saline Flush
--- NOTE | 2017-01-21 15:02 | EKG ---
Test Reason : DIAGNOSING PURPOSES Blood Pressure : / mmHG Vent. Rate : 077 BPM Atrial Rate : 077 BPM P-R Int : 134 ms QRS Dur : 076 ms QT Int : 420 ms P-R-T Axes : 045 007 030 degrees QTc Int : 475 ms Normal sinus rhythm Possible Left atrial enlargement Nonspecific ST abnormality Abnormal ECG Confirmed by ROBERT HUDSON, ROGER ([id number]), clinical editor SHARONA EDOUARD ([id number]) on 01/21/2017 3:02:11 PM Referred By: Confirmed By:ROGER JONES MD
[2017-01-21] MEDS ORDERED: Norepinephrine 8 MG/250 ML BAG IVPB PRN (16:34)
[2017-01-21] MEDS ORDERED: Enoxaparin Sodium 60 MG/0.6 ML SYRINGE SC SCH (18:00)
--- NOTE | 2017-01-21 20:25 | EKG ---
Test Reason : Blood Pressure : / mmHG Vent. Rate : 142 BPM Atrial Rate : 142 BPM P-R Int : 128 ms QRS Dur : 094 ms QT Int : 286 ms P-R-T Axes : 074 070 039 degrees QTc Int : 439 ms Age and gender specific ECG analysis Sinus tachycardia with Premature atrial complexes ST elevation consider anterolateral injury or acute infarct ST elevation consider inferior injury or acute infarct ACUTE MN / STEMI Abnormal ECG When compared with ECG of 16-JAN-2017 11:26, (Unconfirmed) Significant changes have occurred Confirmed by AARON HUDSON, DR. Mckeon ([id number]) on 01/21/2017 8:24:53 PM Referred By: JEMIMA Confirmed By:DR. Mike WALKER MD
--- NOTE | 2017-01-21 20:25 | EKG ---
Test Reason : STAT Blood Pressure : / mmHG Vent. Rate : 108 BPM Atrial Rate : 108 BPM P-R Int : 114 ms QRS Dur : 098 ms QT Int : 364 ms P-R-T Axes : 045 005 017 degrees QTc Int : 487 ms Age and gender specific ECG analysis Sinus tachycardia ST elevation consider inferolateral injury or acute infarct ACUTE MS / STEMI Abnormal ECG When compared with ECG of 19-JAN-2017 18:30, (Unconfirmed) Premature atrial complexes are no longer Present Questionable change in QRS axis ST more elevated in Lateral leads Confirmed by AARON HUDSON, DR. Mckeon ([id number]) on 01/21/2017 8:25:32 PM Referred By: JOSEF Confirmed By:DR. Mike WALKER MD
--- NOTE | 2017-01-21 20:28 | EKG ---
Test Reason : Blood Pressure : / mmHG Vent. Rate : 091 BPM Atrial Rate : 091 BPM P-R Int : 116 ms QRS Dur : 094 ms QT Int : 408 ms P-R-T Axes : 053 047 264 degrees QTc Int : 501 ms Normal sinus rhythm T wave abnormality, consider inferior ischemia T wave abnormality, consider anterolateral ischemia Prolonged QT Abnormal ECG When compared with ECG of 19-JAN-2017 19:15, (Unconfirmed) ST no longer elevated in Anterolateral leads Inverted T waves have replaced nonspecific T wave abnormality in Inferior leads T wave inversion now evident in Anterolateral leads Confirmed by AARON HUDSON, DR. Mckeon ([id number]) on 01/21/2017 8:28:18 PM Referred By: KARLO Confirmed By:DR. Mike WALKER MD
[2017-01-21] MEDS: Aspirin 300 MG Suppository PR SCH (21:16)
[2017-01-22] MEDS: Albumin 25% 25 GM/100 ML BOT IVPB SCH ×2 (00:11→05:31)
[2017-01-22 05:18] LABS: Band 18 % (5-11); Hematocrit 32.4 % (36.0-47.0); Mean Platelet Volume 9.9 fL (7.4-10.4); Metamyelocyte 1 % (0-0); Neutrophil 62 % (42-75); Red Blood Cell (RBC) Count 3.55 mill/uL (4.20-5.40); White Blood Cell (WBC) Count 7.9 thou/uL (4.8-10.8)
[2017-01-22 05:24] LABS: ALT (SGPT) 271 U/L (8-55); AST (SGOT) 134 U/L (5-34); Alkaline Phosphatase 45 U/L (40-150); Anion Gap 15 mmol/L (10-20); BUN (Urea Nitrogen) 62 mg/dL (9.8-20.1); Bilirubin, Total 1.6 mg/dL (0.2-1.2); Calc. Creatinine Clearance 42 mL/min (70-130); Calcium 8.6 mg/dL (7.8-10.44); Carbon Dioxide 25 mmol/L (22-29); Chloride 103 mmol/L (98-107); Estimated GFR-MDRD 16; Globulin 2.2 g/dL (2.4-3.5); Protein, Total 5.6 g/dL (6.0-8.3)
[2017-01-22] MEDS: Enoxaparin Sodium 30 MG/0.3 ML SYRINGE SC SCH (05:31)
[2017-01-22] MEDS: Clindamycin/D5W 900 MG in Premix Bag 1 BAG IVPB SCH ×3 (05:31→17:12)
[2017-01-22] MEDS: Sodium Bicarbonate 150 MEQ in Dextrose 5% in Water 1,000 ML IV SCH ×4 (05:36→18:53)
[2017-01-22] MEDS ORDERED: Potassium Chloride 20 MEQ/100 ML PREMIX BAG IVPB SCH (07:30)
--- NOTE | 2017-01-22 08:07 | RAD ---
SINGLE VIEW OF THE CHEST: COMPARISON: 01/21/17. HISTORY: Shortness of breath. FINDINGS: A single view of the chest shows a normal-size cardiomediastinal silhouette. The lines and tubes ar e unchanged in position. There is a small right pleural effusion. There may also be a small left p leural effusion. IMPRESSION: Small bilateral pleural effusions. POS: [facility]
[2017-01-22] MEDS ORDERED: Potassium Chloride 40 MEQ in Premix Bag 1 BAG IVPB SCH (08:30)
--- NOTE | 2017-01-22 08:54 | PRG ---
DATE OF SERVICE: 01/22/2017 Ms. Parker appears more alert today. She is more comfortable. She is intubated. The review of systems is not available or obtainable. PHYSICAL EXAMINATION: VITAL SIGNS: Blood pressure is in the mid 90s systolic. Pulse is 80 and sinus. LUNGS: Clear of any wheezing. There is scattered rhonchi. CARDIAC: Normal S1 and S2. ABDOMEN: Obese, nontender. EXTREMITIES: Warm. LABORATORY: Potassium was 2.8. ASSESSMENT: 1. Status post respiratory arrest. 2. Laryngeal cancer. 3. Renal failure. Creatinine is 3.1. 4. Probable underlying coronary artery disease. PLAN: 1. Continue aspirin. 2. Reduce enoxaparin dose. 3. She has ET tube in place. 4. Replete potassium. Prognosis remains guarded.
[2017-01-22] MEDS ORDERED: Famotidine/PF 20 mg/2ml Vial SLOW IVP SCH (09:00)
[2017-01-22 10:20] LABS: Fungus Smear Status Final report (.)
[2017-01-22] MEDS: Meropenem 1 GM, Admixture Fee 1 EACH in Sodium Chloride 0.9% 100 ML IVPB SCH ×2 (11:03→20:44)
[2017-01-22] MEDS: Saccharomyces boulardii 250 MG CAP PER TUBE SCH (11:04)
[2017-01-22] MEDS: Nystatin Powder 15 GM BOT TOP SCH ×2 (11:05→20:46)
[2017-01-22] MEDS ORDERED: Famotidine 40 MG/4 ML VIAL SLOW IVP SCH (11:45)
--- NOTE | 2017-01-22 11:54 | PRG ---
DATE OF SERVICE: 01/22/2017 Ms. Parker remains sedated for mechanical ventilation. PHYSICAL EXAMINATION: VITAL SIGNS: Heart rate 82, blood pressure 95/67, respiratory rate 28. Oximetry is in the high 90s . Intake and output is positive 4338. Her urine output is only 198 mL for the last 24 hours. Nephrology has been consulted. LUNGS: Clear anteriorly. HEART: Regular rhythm. ABDOMEN: Abdomen is soft. EXTREMITIES: Without asymmetry. Chest radiograph shows bilateral effusions as expected with her positive fluid balance. Chest tube output is only 90 mL in the last 24 hours. LABORATORY DATA: White count 7.9, hemoglobin 10.9, platelets 103,000. Sodium 140, potassium 2.8, chloride 103, bicarbonate 25, BUN 16, creatinine 3.1. Liver enzymes are plateauing and trending shanique nward. Albumin is 3.4. Microbiology shows group B Strep agalactiae and nonhemolytic strep from the pleural fluid. There is one respiratory culture showing Staph. Blood cultures are negative. I cabello spect the Staph is an endotracheal tube colonizer. IMPRESSION: 1. Status post presentation after several months decline with head and neck cancer requiring emerge nt tracheostomy. 2. Empyema that is polymicrobial secondary to aspiration. 3. Poor nutritional intake leading up to this admission secondary to inability to swallow solids wi th her upper airway tumor. 4. Poor dentition. This contributes to her aspiration pneumonia risk. 5. Respiratory failure after a pneumothorax, now large bore chest tube. 6. Empyema that probably was a pneumonia that ate through into the pleural space. 7. Status post hypotension with pressor requirements leading to acute tubular necrosis. 8. Long history of smoking leading up to this on steroids and nebulizer treatments. 9. Abnormal EKG with her brief arrest. She was neurologically intact after her arrest. Cardiology is following and has a high index of suspicion that she may have coronary vascular disease. PLAN: Nephrology input. Hopefully, her renal function will plateau. Her blood gas has been reviewed and she still has an acid base disorder associated with her renal fa ilure and her sepsis so we will continue with bicarbonate drip for now. Critical care time was 30 minutes.
[2017-01-22] MEDS: Sterile Water 10 ML ONE (12:03)
--- NOTE | 2017-01-22 13:35 | CON ---
DATE OF CONSULTATION: 01/22/2017 HISTORY OF PRESENT ILLNESS: Ms. Parker is a 56-year-old white female who was admitted several days ag o for obstructing left supraglottic piriform sinus tumor. She underwent emergent tracheostomy at at time with the current pathologies pending. Her hospitalization has been marked by hemodynamic in stability, V-tach cardiac arrest. She was also noted to have a right empyema and has undergone a ch est tube placement. She has current acute respiratory arrest and currently is intubated. We are no w being consulted for her acute kidney injury. REVIEW OF SYSTEMS: Not obtainable since the patient is sedated and on ventilator support. PAST MEDICAL HISTORY: The patient has history of morbid obesity and recent diagnosis of laryngeal t umor. PAST SURGICAL HISTORY: 1. The patient recently has undergone chest tube placement. 2. She has undergone a tracheostomy. SOCIAL HISTORY: The patient has history of heavy smoking. No IV drug abuse. No previous blood tra nsfusion. Alcohol unknown. ALLERGIES: No known drug allergies. TRAUMA: None. IMMUNIZATIONS: Unknown. HOSPITALIZATIONS: Please see past medical history. FAMILY HISTORY: Positive history of coronary artery disease. PHYSICAL EXAMINATION: VITAL SIGNS: Blood pressure is 95/67 ranging to as high as 105/64, heart rate is 82, O2 sat 98%. GENERAL: Sedated on ventilator support. HEENT: The patient has pinkish conjunctivae, anicteric sclerae. NECK: No neck mass, no carotid bruits, no JVD. Positive for tracheostomy. LUNGS: Decreased breath sounds. CHEST: Positive for right chest tube. HEART: Normal sinus rhythm. No murmur, no gallops or rubs. ABDOMEN: Globular, soft, nontender, no masses. EXTREMITIES: Trace edema. MEDICATIONS: 01/22/2017 - Showed the following; albumin 25 grams IV q.6 h., Ventolin 2.5 mg q.6 h. neb treatment, aspirin 300 mg q.p.m., Pepcid 20 mg IV daily, Lovenox 30 mg subcu daily, meropenem 1 gram q.12 h., Solu-Medrol 20 mg IV q.6 h., p.r.n. Versed, sodium bicarbonate drip at 100 mL per hour . LABORATORY: 01/22/2017 - White count 7.9, hemoglobin 10.9. Sodium 140, potassium 2.8, chloride 103 , carbon dioxide 25, BUN 62, creatinine 3.1, glucose 232, calcium 8.6, AST 134, ALT 271, albumin 3.4 . White count 7.9, hemoglobin 10.9. Urinalysis of 01/20/2017, protein is 100. Positive for fine g ranular casts. ASSESSMENT AND PLAN: 1. Acute kidney injury - consider the possibility of ischemic acute tubular necrosis as suggested b y a history of hemodynamic instability and the findings of granular casts in the urine. The patient is still making some urine. She most likely has nonoliguric acute tubular necrosis. Continue supp ortive care, optimize hemodynamics. Currently on isotonic bicarbonate drip and add salt poor albumi n. I anticipate the kidney to worsen. We will anticipate possible dialysis with this patient. We will reevaluate her on a daily basis. 2. Hypokalemia p.r.n. correction. 3. Sepsis. Currently on IV antibiotics. I agree with current management.
--- NOTE | 2017-01-22 16:12 | PDOC.PN ---
- Subjective Encounter Start Date: 01/22/17 Encounter Start Time: 14:30 Patient seen and examined. Sedated on Vent. No overnight events - Objective MAR Reviewed: Yes Vital Signs & Weight: Vital Signs (12 hours) Temp Pulse Resp BP 01/22/17 15:15 83 115/75 01/22/17 14:00 28 H 01/22/17 13:00 98.5 F 01/22/17 12:00 28 H 01/22/17 11:09 83 103/66 01/22/17 10:00 28 H 01/22/17 08:31 82 95/67 01/22/17 08:00 98.4 F 28 H 01/22/17 06:00 28 H Weight Admit Weight 301 lb Weight 286 lb 9.615 oz Most Recent Monitor Data Heart Rate from ECG 79 NIBP 100/68 NIBP BP-Mean 79 Respiration from ECG 28 SpO2 96 I&O: 01/21/17 01/22/17 01/23/17 06:59 06:59 06:59 Intake Total 6039.9 4626.7 72.3 Output Total 570 288 137 Balance 5469.9 4338.7 -64.7 Result Diagrams: 01/22/17 04:46 01/22/17 04:46 EKG Reviewed by me: Yes (Tele SR) Phys Exam - Physical Examination on Vent Respiratory: no wheezing, no rales B/L rhonchi Cardiovascular: RRR, no rub Gastrointestinal: soft, positive bowel sounds Musculoskeletal: no edema Dx/Plan - Plan IMPRESSION: 1. Severe sepsis with acute organ dysfunction/Septic shock due to Empyema - On Meropenem/Clindamycin. Chest tube + 2. Acute hypoxic and hypercapnic respiratory failure - on Mech Ventilation 3. 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 4. s/p Code blue/Vtach arrest 01/19/17 6. Hydropneumothorax/Empyema s/p chest tube 7. Abn Cardiac enzyme due to demand ischemia 8. Ongoing tobacco abuse with [id number] smoking history. Counselled. 9. Family history of heart disease. 10 Abnormal liver function tests - prob due to sepsis PLAN: * Cont current supportive care * On Bicarb drip * Critical care/CT/ENT/Cardio following * AM labs * Cont current meds as below Review of Systems - Review of Systems Other: Cannot obtain due to sedation - Medications/Allergies Allergies/Adverse Reactions: Allergies Allergy/AdvReac Type Severity Reaction Status Date / Time No Known Drug Allergies Allergy Verified 01/16/17 18:32 Medications: Current Medications Acetaminophen (Tylenol) 500 mg PO Q4H PRN PRN Reason: TEMP>=101.5 Albuterol Sulfate (Ventolin) 2.5 mg NEB Q6H PRN PRN Reason: SOB &/or Wheezing Last Admin: 01/19/17 17:27 Dose: 2.5 mg Albuterol/Ipratropium (Duoneb) 3 ml NEB Q9CL-IE [facility] Last Admin: 01/22/17 15:14 Dose: 3 ml Aspirin (Aspirin) 300 mg HI QPM [facility] Last Admin: 01/21/17 21:16 Dose: 300 mg Enoxaparin Sodium (Lovenox) 30 mg SC 0600 [facility] Famotidine (Pepcid) 20 mg SLOW IVP DAILY [facility] Meropenem 1 gm/ Miscellaneous Medication 1 each/ Sodium Chloride 100 mls @ 200 mls/hr IVPB Q12HR [facility] Last Admin: 01/22/17 11:03 Dose: 100 mls Sodium Bicarbonate 150 meq/ (Dextrose/Water) 1,150 mls @ 100 mls/hr IV .[id number] [facility] Last Admin: 01/22/17 05:36 Dose: 1,150 mls Midazolam HCl (Versed) 100 mls @ 0 mls/hr IVPB INF PRN; Protocol; Titrate PRN Reason: Sedation Last Admin: 01/20/17 11:57 Dose: 100 mls Clindamycin Phosphate/Dextrose (900 mg/ Device) 50 mls @ 100 mls/hr IVPB Q8HR [facility] Last Admin: 01/22/17 05:31 Dose: 50 mls Methylprednisolone Sodium Succinate (Solu-Medrol) 20 mg IVP Q6HR [facility] Last Admin: 01/22/17 12:03 Dose: 20 mg Morphine Sulfate (Morphine Sulfate) 10 mg SLOW IVP Q4H PRN PRN Reason: Pain Nystatin (Mycostatin Powder) 0 gm TOP BID [facility] Last Admin: 01/22/17 11:05 Dose: 1 applic Saccharomyces Boulardii (Florastor) 250 mg PER TUBE DAILY [facility] Last Admin: 01/22/17 11:04 Dose: 250 mg Sodium Chloride (Flush - Normal Saline) 10 ml IVF Q12HR [facility] Last Admin: 01/22/17 11:05 Dose: 10 ml Sodium Chloride (Flush - Normal Saline) 10 ml IVF PRN PRN PRN Reason: Saline Flush
[2017-01-22] MEDS ORDERED: Sodium Bicarbonate Tab 325 MG TAB PER TUBE PRN (17:41)
[2017-01-22] MEDS ORDERED: Pancrelipase DR 12000 1 CAP FS PRN (17:41)
[2017-01-22] MEDS: Aspirin 300 MG Suppository PR SCH (20:44)
[2017-01-23] MEDS: Clindamycin/D5W 900 MG in Premix Bag 1 BAG IVPB SCH ×4 (01:30→19:01)
[2017-01-23 04:29] LABS: ALT (SGPT) 187 U/L (8-55); AST (SGOT) 70 U/L (5-34); Alkaline Phosphatase 48 U/L (40-150); Anion Gap 16 mmol/L (10-20); BUN (Urea Nitrogen) 79 mg/dL (9.8-20.1); Bilirubin, Total 1.2 mg/dL (0.2-1.2); Calc. Creatinine Clearance 47 mL/min (70-130); Calcium 8.4 mg/dL (7.8-10.44); Carbon Dioxide 28 mmol/L (22-29); Chloride 99 mmol/L (98-107); Estimated GFR-MDRD 18; Globulin 2.4 g/dL (2.4-3.5); Protein, Total 5.5 g/dL (6.0-8.3)
[2017-01-23 04:42] LABS: Band 11 % (5-11); Hematocrit 32.8 % (36.0-47.0); Mean Platelet Volume 10.4 fL (7.4-10.4); Neutrophil 71 % (42-75); White Blood Cell (WBC) Count 8.6 thou/uL (4.8-10.8)
[2017-01-23] MEDS: Enoxaparin Sodium 30 MG/0.3 ML SYRINGE SC SCH (05:48)
[2017-01-23] MEDS: Sodium Bicarbonate 150 MEQ in Dextrose 5% in Water 1,000 ML IV SCH ×2 (05:50)
[2017-01-23 07:44] LABS: Oxyhemoglobin 87.6 % (94.0-97.0); Sodium 137 mmol/L (135-148); Vent YES
[2017-01-23 07:45] LABS: Mode B-LEVEL; PIP 17 cmH2O; Pressure Support 10 cmH2O
[2017-01-23] MEDS ORDERED: Potassium Chloride 40 MEQ in Premix Bag 1 BAG IVPB SCH (09:30)
--- NOTE | 2017-01-23 09:38 | PRG ---
DATE OF SERVICE: 01/23/2017 CRITICAL CARE PROGRESS NOTE Thirty minutes of critical care time. SUBJECTIVE: Ms. Parker remains intubated on mechanical ventilation. She will arouse to and follow co mmands. PHYSICAL EXAMINATION: VITAL SIGNS: Her temperature is 98.8, pulse 86, blood pressure 109/70. A 24 hour intake 4583 and o utput 649 mL HEENT: Unremarkable. NECK: Trach in good position. LUNGS: Coarse breath sounds. She has a chest tube on the right draining purulent fluid. ABDOMEN: Soft, obese, nontender, nondistended. EXTREMITIES: Edematous throughout. LABORATORY DATA: White blood cell count 8.6, hematocrit 32.8, platelet count 86. A pH 7.48, pCO2 o f 38, pO2 of 51 as on bilevel rate 28, FiO2 40%, high pressure 32, low pressure 17. Sodium 140, pot assium 3.1, chloride 99, CO2 28, BUN 79, creatinine 2.7, and glucose 222. Cultures are growing out Streptococcus from the blood and pleural fluid. Additionally, she has Staphylococcus in the pleural fluid. ASSESSMENT: 1. Acute respiratory failure requiring mechanical ventilation. 2. Status post tracheostomy placement for head and neck cancer. 3. Empyema that it is polymicrobial and thought secondary to aspiration. 4. Morbid obesity. 5. Acute renal insufficiency. 6. Mild hypokalemia. PLAN: 1. I believe her bicarbonate drip can be stopped. 2. Continue bilevel at current settings. 3. Continue IV antibiotics, which include meropenem and clindamycin. 4. She is not weanable at this time.
[2017-01-23] MEDS: Meropenem 1 GM, Admixture Fee 1 EACH in Sodium Chloride 0.9% 100 ML IVPB SCH ×2 (10:21→21:05)
[2017-01-23] MEDS: Saccharomyces boulardii 250 MG CAP PER TUBE SCH (10:21)
[2017-01-23] MEDS: Nystatin Powder 15 GM BOT TOP SCH ×2 (10:24→21:14)
[2017-01-23] MEDS: Sodium Chloride 0.45% 1,000 ML IV SCH ×3 (10:27→23:42)
--- NOTE | 2017-01-23 10:27 | RAD ---
PORTABLE CHEST: Date: 01/23/17 COMPARISON: Prior day's study. HISTORY: Shortness of breath. FINDINGS: The tracheostomy tube is in place. A Dobbhoff tube is seen below the hemidiaphragm. Right chest tube and right-sided subclavian line remain in position. Pleural and parenchymal changes appear stable. IMPRESSION: Stable chest. POS: OFF
[2017-01-23] MEDS: Famotidine 40 MG/4 ML VIAL SLOW IVP SCH (10:29)
[2017-01-23] MEDS: Sterile Water 10 ML ONE (11:39)
--- NOTE | 2017-01-23 14:22 | PDOC.CTH ---
Cardiology Progress Note - Subjective Pt. seen and evaluated. Remains on ventilator. - ROS not able to obtain ROS - Objective Vital Signs Temp Pulse Resp BP Pulse Ox 01/23/17 13:44 84 114/71 01/23/17 11:20 85 128/76 01/23/17 07:31 84 01/23/17 06:00 28 H 01/23/17 04:00 98.8 F 28 H 01/23/17 02:23 78 28 H 94 L Admit Weight 301 lb Weight 323 lb 13.745 oz 01/22/17 01/23/17 01/24/17 06:59 06:59 06:59 Intake Total 4626.7 4583.3 Output Total 288 649 Balance 4338.7 3934.3 - Physical Examination General/Neuro: other: (sedated on the ventilator.) Neck: no JVD present Lungs: other: (clear anteriorly.) Heart: PMI normal Abdomen: no HSM - Labs Result Diagrams: 01/23/17 03:45 01/23/17 03:45 Troponin/CKMB CK-MB (CK-2) 11.0 ng/mL (0-6.6) H* 01/20/17 04:20 Troponin I 1.793 ng/mL (< 0.028) H* 01/20/17 04:20 - Assessment/Plan IMPRESSION: 1. Severe sepsis with acute organ dysfunction/Septic shock due to Empyema - On Meropenem/Clindamycin. Chest tube + 2. Acute hypoxic and hypercapnic respiratory failure - on Mech Ventilation 3. 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 4. s/p Code blue/Vtach arrest 01/19/17 6. Hydropneumothorax/Empyema s/p chest tube 7. Abn Cardiac enzyme due to demand ischemia 8. Ongoing tobacco abuse with [id number] smoking history.. 9. Family history of heart disease. 10 Abnormal liver function tests - prob due to sepsis 11. Hypokalemia. 12. Acute renal insuff.
--- NOTE | 2017-01-23 16:35 | PDOC.PN ---
- Subjective Encounter Start Date: 01/23/17 Encounter Start Time: 15:30 -: non-verbal Patient seen and examined. No overnight events. On [facility] Vent - Objective MAR Reviewed: Yes Vital Signs & Weight: Vital Signs (12 hours) Temp Pulse Resp BP Pulse Ox 01/23/17 14:00 28 H 01/23/17 13:44 84 114/71 01/23/17 12:00 99.0 F 28 H 01/23/17 11:20 85 128/76 01/23/17 10:00 28 H 01/23/17 08:00 98.7 F 79 28 H 96 01/23/17 07:31 84 01/23/17 06:00 28 H Weight Admit Weight 301 lb Weight 323 lb 13.745 oz Most Recent Monitor Data Heart Rate from ECG 82 NIBP 118/76 NIBP BP-Mean 84 Respiration from ECG 28 SpO2 96 I&O: 01/22/17 01/23/17 01/24/17 06:59 06:59 06:59 Intake Total 4626.7 4583.3 1029.5 Output Total 288 649 590 Balance 4338.7 3934.3 439.5 Result Diagrams: 01/24/17 04:45 01/24/17 04:45 EKG Reviewed by me: Yes (Tele SR) Phys Exam - Physical Examination Constitutional: NAD (on Vent) Respiratory: no wheezing, no rhonchi chest tube + Cardiovascular: RRR, no rub Gastrointestinal: soft, non-tender, positive bowel sounds Musculoskeletal: no edema Dx/Plan - Plan IMPRESSION: 1. Severe sepsis with acute organ dysfunction/Septic shock due to Empyema - On Meropenem/Clindamycin. Chest tube + 2. Acute hypoxic and hypercapnic respiratory failure - on [facility] Ventilation 3. 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 4. s/p Code blue/Vtach arrest 01/19/17 6. Hydropneumothorax/Empyema s/p chest tube 7. Abn Cardiac enzyme due to demand ischemia 8. Ongoing tobacco abuse with [id number] smoking history. 9. Family history of heart disease. 10 Abnormal liver function tests - prob due to sepsis PLAN: * Cont current supportive care * Cont current Atbx * Critical care/CT/ENT/Cardio following * AM labs * Cont current meds as below * On [facility] Vent Review of Systems - Review of Systems Other: Cannot obtain due to current clinical status - Medications/Allergies Allergies/Adverse Reactions: Allergies Allergy/AdvReac Type Severity Reaction Status Date / Time No Known Drug Allergies Allergy Verified 01/16/17 18:32 Medications: Current Medications Acetaminophen (Tylenol) 500 mg PO Q4H PRN PRN Reason: TEMP>=101.5 Albuterol Sulfate (Ventolin) 2.5 mg NEB Q6H PRN PRN Reason: SOB &/or Wheezing Last Admin: 01/19/17 17:27 Dose: 2.5 mg Albuterol/Ipratropium (Duoneb) 3 ml NEB [id number] [facility] Last Admin: 01/23/17 16:34 Dose: 3 ml Lipase/Protease/Amylase (Lisa Shaw [id number]) 1 cap FS .PER PROTOCOL PRN PRN Reason: TUBE OCCLUSION PROTOCOL Aspirin (Aspirin) 300 mg AR QPM [facility] Last Admin: 01/22/17 20:44 Dose: 300 mg Enoxaparin Sodium (Lovenox) 30 mg SC 0600 [facility] Last Admin: 01/23/17 05:48 Dose: 30 mg Famotidine (Pepcid) 20 mg SLOW IVP DAILY [facility] Last Admin: 01/23/17 10:29 Dose: 20 mg Meropenem 1 gm/ Miscellaneous Medication 1 each/ Sodium Chloride 100 mls @ 200 mls/hr IVPB Q12HR [facility] Last Admin: 01/23/17 10:21 Dose: 100 mls Midazolam HCl (Versed) 100 mls @ 0 mls/hr IVPB INF PRN; Protocol; Titrate PRN Reason: Sedation Last Admin: 01/22/17 15:21 Dose: 100 mls Clindamycin Phosphate/Dextrose (900 mg/ Device) 50 mls @ 100 mls/hr IVPB 0100, 0900,1700 [facility] Last Admin: 01/23/17 11:33 Dose: 50 mls Sodium Chloride (1/2 Normal Saline) 1,000 mls @ 75 mls/hr IV .[id number] [facility] Last Admin: 01/23/17 10:27 Dose: 1,000 mls Methylprednisolone Sodium Succinate (Solu-Medrol) 20 mg IVP Q6HR [facility] Last Admin: 01/23/17 11:38 Dose: 20 mg Morphine Sulfate (Morphine Sulfate) 10 mg SLOW IVP Q4H PRN PRN Reason: Pain Nystatin (Mycostatin Powder) 0 gm TOP BID [facility] Last Admin: 01/23/17 10:24 Dose: 1 applic Saccharomyces Boulardii (Florastor) 250 mg PER TUBE DAILY [facility] Last Admin: 01/23/17 10:21 Dose: 250 mg Sodium Bicarbonate (Bicarbonate, Sodium) 650 mg PER TUBE .PER PROTOCOL PRN PRN Reason: ENTERAL TUBE OCCLUSION Sodium Chloride (Flush - Normal Saline) 10 ml IVF Q12HR [facility] Last Admin: 01/23/17 10:23 Dose: 10 ml Sodium Chloride (Flush - Normal Saline) 10 ml IVF PRN PRN PRN Reason: Saline Flush
--- NOTE | 2017-01-23 18:19 | PRG ---
DATE OF SERVICE: 01/23/2017 SUBJECTIVE: Ms. Parker is a 56-year-old white female who was found to be septic and renal consultatio n has been done due to acute kidney injury. Working diagnosis is she may have had acute tubular nec rosis as suggested by her urinalysis with findings of granular casts. Supportive management is bein g done. Over the last 24 hours, her urine output has improved and has become less concentrated. Sh mary is currently on IV fluid as well as previously placed on pressor support. Her renal function is n oted to be slowly improving. PHYSICAL EXAMINATION: VITAL SIGNS: Blood pressure is 128/76, heart rate 89, respiratory rate 28, pulse ox 98%. GENERAL: Sedated, on vent support. HEENT: Pinkish conjunctivae, anicteric sclerae. NECK: No neck mass, no carotid bruits, no JVD, positive for tracheostomy. LUNGS: Decreased breath sounds. Positive for chest tube - right. HEART: Normal sinus rhythm. No murmur, no gallops or rubs. ABDOMEN: Globular, soft, nontender. EXTREMITIES: Trace edema. MEDICATIONS: Medications of 01/23/2017 reviewed. LABORATORY DATA: Laboratories of 01/23/2017; white count 8.6, hemoglobin 11, sodium 140, potassium 3.1, chloride 99, carbon dioxide 28, BUN 79, creatinine 2.77, GFR 18 mL per minute, calcium 8.4, AST 70, ALT 187. ASSESSMENT AND PLAN: 1. Acute kidney injury - consider ischemic acute tubular necrosis. Renal function is stabilizing. As a matter of fact, creatinine has slightly improved from 3.1-2.77. Continue supportive care. Co ntinue to optimize hemodynamics. At the present time, there is no indication for any dialytic inter vention with this patient. 2. Metabolic acidosis, much improved. IV fluid has been changed from sodium bicarbonate to D5 half normal saline. 3. Sepsis - on IV antibiotics. Continue supportive care. Overall, agree with current management.
[2017-01-23] MEDS: Aspirin 325 MG TAB PER TUBE SCH (21:04)
[2017-01-23] MEDS: Morphine 10 MG/ML VIAL SLOW IVP PRN (23:43)
[2017-01-24] MEDS: Clindamycin/D5W 900 MG in Premix Bag 1 BAG IVPB SCH ×3 (00:52→17:25)
[2017-01-24 06:33] LABS: ALT (SGPT) 133 U/L (8-55); AST (SGOT) 54 U/L (5-34); Alkaline Phosphatase 57 U/L (40-150); Anion Gap 16 mmol/L (10-20); BUN (Urea Nitrogen) 88 mg/dL (9.8-20.1); Bilirubin, Total 1.2 mg/dL (0.2-1.2); Calc. Creatinine Clearance 70 mL/min (70-130); Calcium 8.8 mg/dL (7.8-10.44); Carbon Dioxide 29 mmol/L (22-29); Chloride 100 mmol/L (98-107); Estimated GFR-MDRD 24; Globulin 2.7 g/dL (2.4-3.5); Protein, Total 5.7 g/dL (6.0-8.3)
[2017-01-24 06:44] LABS: Band 6 % (5-11); Hematocrit 36.3 % (36.0-47.0); Mean Platelet Volume 10.4 fL (7.4-10.4); Neutrophil 79 % (42-75); Red Blood Cell (RBC) Count 3.95 mill/uL (4.20-5.40)
[2017-01-24] MEDS: Enoxaparin Sodium 30 MG/0.3 ML SYRINGE SC SCH (06:46)
[2017-01-24] MEDS: Famotidine 40 MG/4 ML VIAL SLOW IVP SCH (08:55)
[2017-01-24] MEDS: Meropenem 1 GM, Admixture Fee 1 EACH in Sodium Chloride 0.9% 100 ML IVPB SCH ×2 (08:58→20:07)
[2017-01-24] MEDS: Saccharomyces boulardii 250 MG CAP PER TUBE SCH (09:03)
[2017-01-24] MEDS: Morphine 10 MG/ML VIAL SLOW IVP PRN (09:07)
[2017-01-24] MEDS: Nystatin Powder 15 GM BOT TOP SCH ×2 (09:27→20:09)
--- NOTE | 2017-01-24 10:42 | PRG ---
DATE OF SERVICE: 01/24/2017 Thirty-five minutes critical care time. The patient remains intubated on mechanical ventilation. There have been no acute changes overnight . PHYSICAL EXAMINATION: VITAL SIGNS: On exam, temperature is 98.9, pulse 82, blood pressure 116/71, O2 sat is generally in the low 90s. 24 hour intake 4032, output 1600. HEENT: Unremarkable except for hirsutism neck. Tracheostomy in place. LUNGS: Diminished breath sounds in the right base. She has chest tube on the right, draining out purulent drainage; left side, fairly clear. CARDIAC: S1, S2 regular. ABDOMEN: Soft, obese, nontender, nondistended. EXTREMITIES: Generalized edema throughout. LABORATORY DATA: White blood cell count 12, hematocrit 36.3, and platelet count 102,000. Sodium 14 1, potassium 3.7, chloride 100, CO2 29, BUN 88, creatinine 2.1 and glucose 182. Chest x-ray demonst rates continued right pleural fluid. ASSESSMENT: 1. Acute respiratory failure requiring mechanical ventilation. 2. Status post tracheostomy placement for head and neck cancer. 3. Right-sided empyema. 4. Acute renal insufficiency with worsening BUN. PLAN: 1. Not weanable at this time. Continue IV antibiotics. 2. She may actually need a little more fluid than what she is actually getting, given the appearanc e of her BUN and creatinine. 3. Prognosis remains quite poor.
--- NOTE | 2017-01-24 11:14 | PRG ---
DATE OF SERVICE: 01/24/2017 SUBJECTIVE: Ms. Parker is a 56-year-old white female seen by the renal service for an acute kidney in [facility] secondary to a presumed acute tubular necrosis. Her renal function has remained stable for the last 24-48 hours with slight improvement. She continues to be volume replete. No acute events not ed last night. Please note that the patient continues to make adequate urine output at the present time with less than 4-hour urine output being 1.5 liters. A hemodynamic is being supported with flu id and as needed with pressors. OBJECTIVE: VITAL SIGNS: Blood pressure is 116/71, heart rate 73, respiratory rate 15, pulse ox 93%. GENERAL: Sedated on ventilator support. SKIN: Adequate turgor. HEENT: She has pinkish conjunctivae, anicteric sclerae. NECK: No neck mass, no carotid bruits, no JVD. Positive for tracheostomy. LUNGS: Decreased breath sounds. CHEST: Positive for chest tube. HEART: Normal sinus rhythm. No murmur, no gallops or rubs. ABDOMEN: Globular, soft, nontender, no masses. EXTREMITIES: Trace edema. MEDICATIONS: Medications of 01/24/2017 was reviewed. LABORATORY DATA: Laboratories of 01/24/2017; white count 12, hemoglobin 11.7, sodium 141, potassium 2.7, chloride 100, carbon dioxide 29, BUN 88, creatinine 2.11, glucose 182, calcium is 8.8, AST 54, ALT 133, albumin 3.0. ASSESSMENT AND PLAN: 1. Acute kidney injury secondary to presumed ischemic acute tubular necrosis. Continue supportive care. Continue optimizing hemodynamics. There is no indication for any acute dialytic intervention with this patient. Renal function is stabilizing in the last few days. Please note that creatinin e peaked at 3.1, and is currently 2.11. No new recommendations. Continue to optimize hemodynamics. 2. Sepsis - the patient currently on IV antibiotics. Agree with current management.
--- NOTE | 2017-01-24 11:52 | RAD ---
RADIOGRAPH CHEST 1 VIEW: Date: 01/24/2017 Time: 4:40 a.m. HISTORY: Respiratory failure. COMPARISON: 01/23/2017 at 4:38 a.m. FINDINGS: There has been no significant interval change. IMPRESSION: 1. Bilateral pleural effusions, right much larger than left. 2. Dense opacification of the bilateral lower lung zones. 3. No change in left support lines, including right-sided chest tube. 4. No interval change overall. DEUCE [] POS: ZULY
--- NOTE | 2017-01-24 14:06 | PDOC.CTH ---
Cardiology Progress Note - Subjective pt. seen and evaluated. No physical changes noted. Still on ventilator. - ROS not able to obtain ROS - Objective Vital Signs Temp Pulse Resp BP Pulse Ox 01/24/17 13:28 89 122/80 01/24/17 11:17 87 132/84 01/24/17 10:00 28 H 01/24/17 08:00 98.8 F 01/24/17 06:58 83 116/71 01/24/17 06:00 28 H 01/24/17 04:00 98.9 F 28 H 01/24/17 02:19 84 01/24/17 02:18 82 28 H 94 L Admit Weight 301 lb Weight 326 lb 4.546 oz 01/23/17 01/24/17 01/25/17 06:59 06:59 06:59 Intake Total 4583.3 4032.5 110 Output Total 649 1600 460 Balance 3934.3 2432.5 -350 - Physical Examination Lungs: CTA Heart: RRR Abdomen: soft Extremities: other: Other PE findings: mild edema. - Labs Result Diagrams: 01/24/17 04:45 01/24/17 04:45 Troponin/CKMB CK-MB (CK-2) 11.0 ng/mL (0-6.6) H* 01/20/17 04:20 Troponin I 1.793 ng/mL (< 0.028) H* 01/20/17 04:20 - Assessment/Plan IMPRESSION: 1. Severe sepsis with acute organ dysfunction/Septic shock due to Empyema - On Meropenem/Clindamycin. Chest tube + 2. Acute hypoxic and hypercapnic respiratory failure - [facility] 3. 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 4. s/p Code blue/Vtach arrest 01/19/17 6. Hydropneumothorax/Empyema s/p chest tube 7. Abn Cardiac enzyme due to demand ischemia 8. Ongoing tobacco abuse with [id number] smoking history.. 9. Family history of heart disease. 10 Abnormal liver function tests - prob due to sepsis . Improved. 11. Hypokalemia. 12. Acute renal insuff. BUN/Creat. improving slowing.
--- NOTE | 2017-01-24 17:23 | PDOC.PN ---
- Subjective Encounter Start Date: 01/24/17 Encounter Start Time: 14:30 [facility] and examined[facility] No overnight events - Objective MAR Reviewed: Yes Vital Signs & Weight: Vital Signs (12 hours) Temp Pulse Resp BP Pulse Ox 01/24/17 16:13 86 132/80 01/24/17 16:00 98.2 F 28 H 01/24/17 14:00 29 H 01/24/17 13:28 89 122/80 01/24/17 12:00 98.9 F 29 H 01/24/17 11:17 87 132/84 01/24/17 10:00 28 H 01/24/17 08:00 98.8 F 90 28 H 90 L 01/24/17 06:58 83 116/71 01/24/17 06:00 28 H Weight Admit Weight 301 lb Weight 326 lb 4.546 oz Most Recent Monitor Data Heart Rate from ECG 85 NIBP 132/80 NIBP BP-Mean 90 Respiration from ECG 16 SpO2 90 I&O: 01/23/17 01/24/17 01/25/17 06:59 06:59 06:59 Intake Total 4583.3 4032.5 110 Output Total 649 1600 975 Balance 3934.3 2432.5 -865 Result Diagrams: 01/25/17 04:00 01/25/17 04:00 EKG Reviewed by me: Yes (Tele SR) Phys Exam - Physical Examination [facility]/ sedated/ tube feeds Respiratory: no wheezing Scat rhonchi Cardiovascular: RRR, no rub Gastrointestinal: soft, positive bowel sounds Dx/Plan - Plan IMPRESSION: 1. Severe sepsis with acute organ dysfunction/Septic shock due to Empyema - On Meropenem/Clindamycin. Chest tube + 2. Acute hypoxic and hypercapnic respiratory failure - on [facility] Ventilation 3. Supraglottic mass/Laryngeal Ca causing airway obstruction, status post emergent tracheostomy on admission. 4. s/p Code blue/Vtach arrest 01/19/17 6. Hydropneumothorax/Empyema s/p chest tube - on Atbx 7. Abn Cardiac enzyme due to demand ischemia 8. Ongoing tobacco abuse with [id number] smoking history. 9. Family history of heart disease. 10 Abnormal liver function tests - prob due to sepsis. improving PLAN: * Cont current Atbx * Critical care/CT/ENT/Cardio following * Cont current meds as below * [facility] * Cont current supportive care * AM labs Review of Systems - Review of Systems Other: Cannot obtain due to sedation - Medications/Allergies Allergies/Adverse Reactions: Allergies Allergy/AdvReac Type Severity Reaction Status Date / Time No Known Drug Allergies Allergy Verified 01/16/17 18:32 Medications: Current Medications Acetaminophen (Tylenol) 500 mg PO Q4H PRN PRN Reason: TEMP>=101.5 Albuterol Sulfate (Ventolin) 2.5 mg NEB Q6H PRN PRN Reason: SOB &/or Wheezing Last Admin: 01/19/17 17:27 Dose: 2.5 mg Albuterol/Ipratropium (Duoneb) 3 ml NEB [id number] [facility] Last Admin: 01/24/17 16:12 Dose: 3 ml Lipase/Protease/Amylase ([place] [id number]) 1 cap FS .PER PROTOCOL PRN PRN Reason: TUBE OCCLUSION PROTOCOL Aspirin (Aspirin) 325 mg PER TUBE QPM [facility] Last Admin: 01/23/17 21:04 Dose: 325 mg Enoxaparin Sodium (Lovenox) 30 mg SC 0600 [facility] Last Admin: 01/24/17 06:46 Dose: 30 mg Famotidine (Pepcid) 20 mg SLOW IVP DAILY [facility] Last Admin: 01/24/17 08:55 Dose: 20 mg Meropenem 1 gm/ Miscellaneous Medication 1 each/ Sodium Chloride 100 mls @ 200 mls/hr IVPB Q12HR [facility] Last Admin: 01/24/17 08:58 Dose: 100 mls Midazolam HCl (Versed) 100 mls @ 0 mls/hr IVPB INF PRN; Protocol; Titrate PRN Reason: Sedation Last Admin: 01/22/17 15:21 Dose: 100 mls Clindamycin Phosphate/Dextrose (900 mg/ Device) 50 mls @ 100 mls/hr IVPB 0100, 0900,1700 [facility] Last Admin: 01/24/17 08:55 Dose: 50 mls Sodium Chloride (1/2 Normal Saline) 1,000 mls @ 75 mls/hr IV .[id number] [facility] Last Admin: 01/23/17 23:42 Dose: Not Given Methylprednisolone Sodium Succinate (Solu-Medrol) 20 mg IVP Q6HR [facility] Last Admin: 01/24/17 12:30 Dose: 20 mg Morphine Sulfate (Morphine Sulfate) 10 mg SLOW IVP Q4H PRN PRN Reason: Pain Last Admin: 01/24/17 09:07 Dose: 10 mg Nystatin (Mycostatin Powder) 0 gm TOP BID [facility] Last Admin: 01/24/17 09:27 Dose: 1 applic Saccharomyces Boulardii (Florastor) 250 mg PER TUBE DAILY [facility] Last Admin: 01/24/17 09:03 Dose: 250 mg Sodium Bicarbonate (Bicarbonate, Sodium) 650 mg PER TUBE .PER PROTOCOL PRN PRN Reason: ENTERAL TUBE OCCLUSION Sodium Chloride (Flush - Normal Saline) 10 ml IVF Q12HR [facility] Last Admin: 01/24/17 09:03 Dose: 10 ml Sodium Chloride (Flush - Normal Saline) 10 ml IVF PRN PRN PRN Reason: Saline Flush Last Admin: 01/23/17 23:42 Dose: 10 ml
[2017-01-24] MEDS: Sodium Chloride 0.45% 1,000 ML IV SCH (17:26)
[2017-01-24] MEDS: Aspirin 325 MG TAB PER TUBE SCH (20:08)
[2017-01-25] MEDS: Sodium Chloride 0.45% 1,000 ML IV SCH (00:08)
[2017-01-25] MEDS: Clindamycin/D5W 900 MG in Premix Bag 1 BAG IVPB SCH ×3 (01:23→16:28)
[2017-01-25 04:40] LABS: ALT (SGPT) 103 U/L (8-55); AST (SGOT) 46 U/L (5-34); Alkaline Phosphatase 61 U/L (40-150); Anion Gap 17 mmol/L (10-20); BUN (Urea Nitrogen) 93 mg/dL (9.8-20.1); Bilirubin, Total 1.4 mg/dL (0.2-1.2); Calc. Creatinine Clearance 96 mL/min (70-130); Calcium 8.8 mg/dL (7.8-10.44); Carbon Dioxide 28 mmol/L (22-29); Chloride 100 mmol/L (98-107); Estimated GFR-MDRD 35; Globulin 3.2 g/dL (2.4-3.5); Protein, Total 6.2 g/dL (6.0-8.3)
[2017-01-25 05:26] LABS: Band 5 % (5-11); Hematocrit 36.8 % (36.0-47.0); Mean Platelet Volume 10.3 fL (7.4-10.4); Neutrophil 84 % (42-75); Reactive Lymphocytes 3 % (0-10); Red Blood Cell (RBC) Count 3.98 mill/uL (4.20-5.40); White Blood Cell (WBC) Count 15.1 thou/uL (4.8-10.8)
[2017-01-25] MEDS: Enoxaparin Sodium 30 MG/0.3 ML SYRINGE SC SCH (05:50)
[2017-01-25 08:09] LABS: Modified Allen's Test POSITIVE; Oxyhemoglobin 90.3 % (94.0-97.0); Sodium 139 mmol/L (135-148); Vent YES
[2017-01-25 08:10] LABS: Mode BI-LEVEL 32/12; Pressure Support 10 cmH2O
[2017-01-25] MEDS: Saccharomyces boulardii 250 MG CAP PER TUBE SCH (09:42)
[2017-01-25] MEDS: Nystatin Powder 15 GM BOT TOP SCH ×2 (09:43→20:56)
[2017-01-25] MEDS: Meropenem 1 GM, Admixture Fee 1 EACH in Sodium Chloride 0.9% 100 ML IVPB SCH ×2 (09:43→20:54)
[2017-01-25] MEDS: Famotidine 40 MG/4 ML VIAL SLOW IVP SCH (09:52)
--- NOTE | 2017-01-25 10:00 | RAD ---
PORTABLE CHEST: COMPARISON: 01/24/17 study. HISTORY: Shortness of breath. FINDINGS: Heart size is enlarged. Tracheostomy tube and Dobbhoff feeding tube are again noted. Pleural and p arenchymal changes in the lung bases are stable. There is no new process. IMPRESSION: Stable chest. POS: CET
[2017-01-25] MEDS: Famotidine 20 MG TAB PER TUBE SCH (10:57)
[2017-01-25] MEDS ORDERED: Sodium Chloride 0.45% 1,000 ML IV SCH (12:12)
[2017-01-25] MEDS ORDERED: Metoprolol Tartrate 5 MG/5 ML VIAL IVP SCH (12:55)
[2017-01-25] MEDS ORDERED: Metoprolol Tartrate 5 MG/5 ML VIAL ONE (13:00)
[2017-01-25] MEDS ORDERED: Metoprolol Tartrate 5 MG/5 ML VIAL IVP PRN (13:00)
[2017-01-25] MEDS ORDERED: Amiodarone HCl 150 MG, Admixture Fee 1 EACH in Dextrose 5% in Water 100 ML IVPB SCH ×3 (13:15)
[2017-01-25] MEDS: Amiodarone HCl 450 MG, Admixture Fee 1 EACH in Dextrose 5% in Water 250 ML IVPB SCH ×6 (13:32→20:57)
--- NOTE | 2017-01-25 13:58 | PRG ---
DATE OF SERVICE: 01/25/2017 Ms. Parker remains on the ventilator. She developed atrial fibrillation with a rapid ventricular resp onse, rate of 140 and 160 beats per minute, irregularly irregular. LUNGS: Clear. CARDIAC: She is very tachycardic and irregular. ABDOMEN: Obese, nontender. EXTREMITIES: Warm and dry. ASSESSMENT: 1. Respiratory failure. 2. Atrial fibrillation with a rapid ventricular response. 3. History of ventricular arrhythmia. PLAN: 1. Intravenous metoprolol. 2. Intravenous amiodarone to slow heart rate down.
--- NOTE | 2017-01-25 13:58 | PRG ---
DATE OF SERVICE: 01/25/2017 Erika Parker will awaken and move all of her extremities. PHYSICAL EXAMINATION: VITAL SIGNS: Heart rate is in the 80s, respiratory rate is in the 20s. Blood pressure is 145/82. I turned her ventilator rate down from 28 to 22. LUNGS: She has equal coarse breath sounds. HEART: Regular rhythm. ABDOMEN: Soft. EXTREMITIES: Without asymmetry. LABORATORY DATA: White count 15.1, hemoglobin 12.1, platelets 122. Chest radiograph is unchanged. Sodium 141, potassium 4.3, chloride 100, bicarbonate 28, BUN 93, creatinine 1.55. IMPRESSION: 1. Polymicrobial empyema secondary to aspiration. 2. Strep intermedius bacteremia, most likely associated with her aspiration pneumonia. 3. Head and neck cancer that has been symptomatic for quite some time. 4. Obesity. 5. Respiratory failure. 6. Acute kidney injury. 7.? Coronary disease. PLAN: Continue nutritional support, slowly decrease ventilatory support. The Staph that was isolat ed from her respiratory cultures is likely a colonizer that happens to be oxacillin sensitive. We will continue with overlapping anaerobic gram negative coverage with meropenem and Cleocin for no w. We will decrease her steroid dosing.
--- NOTE | 2017-01-25 16:44 | PDOC.PN ---
- Subjective Encounter Start Date: 01/25/17 Encounter Start Time: 13:30 -: non-verbal Patient seen and examined. Awake - on Vent. Following commands. - Objective MAR Reviewed: Yes Vital Signs & Weight: Vital Signs (12 hours) Temp Pulse Resp BP Pulse Ox 01/25/17 16:12 83 113/72 01/25/17 16:00 28 H 01/25/17 15:00 98.4 F 01/25/17 14:00 131 H 23 H 99 01/25/17 12:55 168 H 145/82 H 01/25/17 12:00 22 H 01/25/17 11:00 98.3 F 01/25/17 10:12 86 161/85 H 01/25/17 10:00 28 H 01/25/17 08:00 98.5 F 88 28 H 01/25/17 07:59 88 146/84 H 01/25/17 07:00 98.5 F 01/25/17 06:00 28 H Weight Admit Weight 301 lb Weight 334 lb 0.005 oz Most Recent Monitor Data Heart Rate from ECG 77 NIBP 113/72 NIBP BP-Mean 82 Respiration from ECG 27 SpO2 94 I&O: 01/24/17 01/25/17 01/26/17 06:59 06:59 06:59 Intake Total 4032.5 2840 100 Output Total 1600 2430 1145 Balance 2432.5 410 -1045 Result Diagrams: 01/25/17 04:00 01/25/17 04:00 Radiology Reviewed by me: Yes (CXR - no new infiltrate) EKG Reviewed by me: Yes (Tele Afib RVR) Phys Exam - Physical Examination Constitutional: NAD Respiratory: no wheezing B/L rhonchi Cardiovascular: no significant murmur, irregular Gastrointestinal: soft, positive bowel sounds Musculoskeletal: no edema Neurological: moves all 4 limbs Dx/Plan - Plan IMPRESSION: 1. Severe sepsis with acute organ dysfunction/Septic shock due to Empyema/ Strep bacteremia - On Meropenem/Clindamycin. 2. Acute hypoxic and hypercapnic respiratory failure - on [facility] Ventilation 3. Supraglottic mass/Laryngeal Ca causing airway obstruction, status post emergent tracheostomy on admission. 4. s/p Code blue/Vtach arrest 01/19/17 6. Hydropneumothorax/Empyema s/p chest tube - on Atbx 7. Afib with RVR - Started on Amiodarone/Metoprolol 8. Ongoing tobacco abuse with [id number] smoking history. 9. Family history of heart disease. 10 Abnormal liver function tests - prob due to sepsis. improving 11. Abn Cardiac enzyme due to demand ischemia PLAN: * on [facility] Vent * Critical care/CT/ENT/Cardio following * Cont current meds as below * Cont current supportive care * AM labs * Palliative care following * On Lovenox for DVT prophylaxis Review of Systems - Review of Systems Constitutional: negative: Fever, Chills, Sweats, Weakness, Malaise, Other Respiratory: negative: Cough, Dry, Shortness of Breath, Hemoptysis, SOB with Excertion, Pleuritic Pain, Sputum, Wheezing Cardiovascular: negative: Chest Pain, Palpitations, Orthopnea, Paroxysmal Noc. Dyspnea, Edema, Light Headedness, Other Gastrointestinal: negative: Nausea, Vomiting, Abdominal Pain, Diarrhea, Constipation, Melena, Hematochezia, Other - Medications/Allergies Allergies/Adverse Reactions: Allergies Allergy/AdvReac Type Severity Reaction Status Date / Time No Known Drug Allergies Allergy Verified 01/16/17 18:32 Medications: Current Medications Acetaminophen (Tylenol) 500 mg PO Q4H PRN PRN Reason: TEMP>=101.5 Albuterol Sulfate (Ventolin) 2.5 mg NEB Q6H PRN PRN Reason: SOB &/or Wheezing Last Admin: 01/19/17 17:27 Dose: 2.5 mg Albuterol/Ipratropium (Duoneb) 3 ml NEB [id number] [facility] Last Admin: 01/25/17 14:00 Dose: 3 ml Lipase/Protease/Amylase ([place] [id number]) 1 cap FS .PER PROTOCOL PRN PRN Reason: TUBE OCCLUSION PROTOCOL Aspirin (Aspirin) 325 mg PER TUBE QPM [facility] Last Admin: 01/24/17 20:08 Dose: 325 mg Enoxaparin Sodium (Lovenox) 30 mg SC DAILY [facility] Famotidine (Pepcid) 20 mg PER TUBE DAILY [facility] Last Admin: 01/25/17 10:57 Dose: Not Given Meropenem 1 gm/ Miscellaneous Medication 1 each/ Sodium Chloride 100 mls @ 200 mls/hr IVPB Q12HR [facility] Last Admin: 01/25/17 09:43 Dose: 100 mls Midazolam HCl (Versed) 100 mls @ 0 mls/hr IVPB INF PRN; Protocol; Titrate PRN Reason: Sedation Last Admin: 01/22/17 15:21 Dose: 100 mls Clindamycin Phosphate/Dextrose (900 mg/ Device) 50 mls @ 100 mls/hr IVPB 0100, 0900,1700 [facility] Last Admin: 01/25/17 16:28 Dose: 50 mls Sodium Chloride (1/2 Normal Saline) 1,000 mls @ 0 mls/hr IV .Q0M [facility] PRN Reason: KVO Amiodarone HCl 450 mg/Miscellaneous Medication 1 each/ Dextrose/Water 259 mls @ 0 mls/hr IVPB INF [facility]; As Directed PRN Reason: Protocol Last Admin: 01/25/17 13:32 Dose: 259 mls Methylprednisolone Sodium Succinate (Solu-Medrol) 20 mg IVP Q12HR [facility] Metoprolol Tartrate (Lopressor) 5 mg IVP PRN PRN PRN Reason: tachycardia Morphine Sulfate (Morphine Sulfate) 10 mg SLOW IVP Q4H PRN PRN Reason: Pain Last Admin: 01/24/17 09:07 Dose: 10 mg Nystatin (Mycostatin Powder) 0 gm TOP BID [facility] Last Admin: 01/25/17 09:43 Dose: 1 applic Saccharomyces Boulardii (Florastor) 250 mg PER TUBE DAILY [facility] Last Admin: 01/25/17 09:42 Dose: 250 mg Sodium Bicarbonate (Bicarbonate, Sodium) 650 mg PER TUBE .PER PROTOCOL PRN PRN Reason: ENTERAL TUBE OCCLUSION Sodium Chloride (Flush - Normal Saline) 10 ml IVF Q12HR [facility] Last Admin: 01/25/17 09:44 Dose: 10 ml Sodium Chloride (Flush - Normal Saline) 10 ml IVF PRN PRN PRN Reason: Saline Flush Last Admin: 01/25/17 09:44 Dose: 10 ml
[2017-01-25] MEDS: Aspirin 325 MG TAB PER TUBE SCH (20:54)
[2017-01-26] MEDS: Clindamycin/D5W 900 MG in Premix Bag 1 BAG IVPB SCH ×3 (00:25→17:50)
[2017-01-26 07:24] LABS: Oxyhemoglobin 92.4 % (94.0-97.0); Sodium 141 mmol/L (135-148)
[2017-01-26 07:27] LABS: Modified Allen's Test POSITIVE; Pressure Support 10 cmH2O; Vent YES
[2017-01-26 07:28] LABS: Mode BILEVEL 32/12
[2017-01-26] MEDS ORDERED: Enoxaparin Sodium 30 MG/0.3 ML SYRINGE SC SCH (09:00)
--- NOTE | 2017-01-26 09:02 | RAD ---
ONE VIEW CHEST: Comparison: 01-25-17 History: Shortness of breath. FINDINGS: Portable semi upright chest demonstrate an endotracheal tube, Dobbhoff feeding tube, right sided PIC C line and right sided chest tube. Stable pleural and parenchymal changes in the right lung base. In terval development of pleural and parenchymal changes in the left lung base. Interval development of a left sided pneumothorax. No osseous abnormalities. IMPRESSION: 1. Interval development of left sided pneumothorax. 2. Results of study discussed with Jeanne, patient's nurse, 01-26-17 at 0746 a.m. Code CR POS: [facility]
--- NOTE | 2017-01-26 09:07 | RAD ---
CHEST ONE VIEW: History: Question pneumothorax. Comparison: Same day at 0432 hours. FINDINGS: Central venous catheter is in place with tip at the inferior superior vena cava. Large left pneumoth orax is present. Right sided thoracotomy tube is in place. There is a layering right effusion. Tracheostomy tube is present. IMPRESSION: Moderate to large left sided pneumothorax, similar. POS: [facility]
--- NOTE | 2017-01-26 09:16 | PRG ---
DATE OF SERVICE: 01/26/2017 Ms. Parker is in sinus rhythm this morning. She was in atrial fibrillation with a rapid rate yesterda y, went into it again last night, but now she is back in sinus rhythm. She is on intravenous amioda cristhian. REVIEW OF SYSTEMS: Not obtainable. PHYSICAL EXAMINATION: VITAL SIGNS: Blood pressure is high 160 systolic. Pulse now is 88, sinus on the monitor. LUNGS: Clear. CARDIAC: Normal S1 and S2. ABDOMEN: Soft, nontender. EXTREMITIES: There is only minimal edema. ASSESSMENT: 1. Respiratory failure. 2. She also has a pneumothorax on the left. 3. Paroxysmal atrial fibrillation. PLAN: 1. Continue intravenous amiodarone. 2. Will give her a dose of Lasix, probably volume overloaded.
[2017-01-26] MEDS: Famotidine 20 MG TAB PER TUBE SCH (09:29)
[2017-01-26] MEDS: Furosemide 20 MG/2 ML VIAL SLOW IVP SCH (09:29)
[2017-01-26] MEDS: Saccharomyces boulardii 250 MG CAP PER TUBE SCH (09:30)
[2017-01-26] MEDS: Meropenem 1 GM, Admixture Fee 1 EACH in Sodium Chloride 0.9% 100 ML IVPB SCH ×2 (09:30→20:47)
[2017-01-26] MEDS: Nystatin Powder 15 GM BOT TOP SCH ×2 (09:31→20:55)
[2017-01-26] MEDS ORDERED: Lidocaine 1% w/Epinephrine 1:200K 30 ML VIAL ONE (12:05)
--- NOTE | 2017-01-26 12:22 | RAD ---
ONE VIEW CHEST: History: Left sided pneumothorax. Comparison: 01-26-17 at 7:59 a.m. FINDINGS: Interval placement of a left sided chest tube. Limited evaluation for left pneumothorax due to prese nce of technique and patient position. IMPRESSION: Interval placement of left sided chest tube. Obvious left sided pneumothorax is not appreciated. Schultz ited evaluation due to technique and patient position. POS: [facility]
[2017-01-26] MEDS: Amiodarone HCl 450 MG, Admixture Fee 1 EACH in Dextrose 5% in Water 250 ML IVPB SCH ×3 (13:39)
--- NOTE | 2017-01-26 13:42 | OP ---
DATE OF PROCEDURE: 01/26/2017 PREPROCEDURE DIAGNOSIS: Left pneumothorax. POST-PROCEDURE DIAGNOSIS: Left pneumothorax. DRAINAGE INSPECTOR: Barney Bauer M.D. ANESTHESIA: Intravenous sedation and local at tube insertion site. PROCEDURE PERFORMED: Left tube thoracostomy (32-Eritrean straight chest tube). DESCRIPTION OF PROCEDURE: Following informed consent from the patient's appointed guardian left tub e thoracostomy was performed at the bedside. The patient was sedated with intravenous Versed with o ngoing mechanical ventilation. The patient was prepped and draped in the usual sterile fashion. At the proposed tube insertion site, local anesthesia was achieved with 1% Xylocaine. A small stab in cision was made. Dissection was carried down to the chest wall. Over the decided upon rib, the ple ural space was entered without difficulty and confirmed by digital exploration. There was immediate egress of purulent fluid. The 32-Eritrean straight chest tube was placed without difficulty. It was connected to pleurovac suction. Volume of purulent fluid retrieved was approximately 800 mL. It w as sent for culture. Tube was secured to the skin with silk sutures. Standard dressing was applied . The patient appeared to tolerate the procedure well without evident problems. Chest x-ray will b e obtained immediately to ascertain position and result.
--- NOTE | 2017-01-26 15:26 | PDOC.PN ---
- Subjective Encounter Start Date: 01/26/17 Encounter Start Time: 11:30 Patient seen and examined. Chest tube being placed for left pneumothorax. - Objective Resuscitation Status: Resuscitation Status CHEM:Chem Code Only MAR Reviewed: Yes Vital Signs & Weight: Vital Signs (12 hours) Temp Pulse Resp BP 01/26/17 14:37 79 128/71 01/26/17 14:00 29 H 01/26/17 12:00 99.0 F 29 H 01/26/17 10:28 89 174/90 H 01/26/17 10:00 24 H 01/26/17 08:00 99.0 F 22 H 01/26/17 07:14 79 137/96 H 01/26/17 06:00 28 H 01/26/17 04:00 97.8 F 24 H Weight Admit Weight 301 lb Weight 321 lb 6.943 oz Most Recent Monitor Data Heart Rate from ECG 82 NIBP 128/77 NIBP BP-Mean 83 Respiration from ECG 28 SpO2 95 I&O: 01/25/17 01/26/17 01/27/17 06:59 06:59 06:59 Intake Total 2840 2702.2 275.7 Output Total 2430 2740 1120 Balance 410 -37.8 -844.3 Result Diagrams: 01/25/17 04:00 01/25/17 04:00 EKG Reviewed by me: Yes (Tele SR) Phys Exam - Physical Examination On [facility] Vent Respiratory: no rales B/L rhonchi Cardiovascular: RRR, no rub Gastrointestinal: soft, positive bowel sounds Musculoskeletal: no edema Dx/Plan - Plan IMPRESSION: 1. Severe sepsis with acute organ dysfunction/Septic shock due to Empyema/ Strep bacteremia - On Meropenem/Clindamycin. 2. Acute hypoxic and hypercapnic respiratory failure - on [facility] Ventilation 3. Supraglottic mass/Laryngeal Ca causing airway obstruction, status post emergent tracheostomy on admission. 4. s/p Code blue/Vtach arrest 01/19/17 6. B/L pneumothorax/Empyema s/p chest tube - on Atbx 7. Afib with RVR - Started on Amiodarone/Metoprolol 8. Ongoing tobacco abuse with [id number] smoking history. 9. Family history of heart disease. 10 Abnormal liver function tests - prob due to sepsis. improving 11. Abn Cardiac enzyme due to demand ischemia PLAN: * on [facility] Vent * Left chest tube being placed. * Critical care/CT/ENT/Cardio following * Cont current meds as below * Cont current supportive care * AM labs * Palliative care following * On Lovenox for DVT prophylaxis * Chem code * Cont Atbx Review of Systems - Review of Systems Other: Cannot obtain due to current status - Medications/Allergies Allergies/Adverse Reactions: Allergies Allergy/AdvReac Type Severity Reaction Status Date / Time No Known Drug Allergies Allergy Verified 01/16/17 18:32 Medications: Current Medications Acetaminophen (Tylenol) 500 mg PO Q4H PRN PRN Reason: TEMP>=101.5 Albuterol Sulfate (Ventolin) 2.5 mg NEB Q6H PRN PRN Reason: SOB &/or Wheezing Last Admin: 01/19/17 17:27 Dose: 2.5 mg Albuterol/Ipratropium (Duoneb) 3 ml NEB [id number] Last Admin: 01/26/17 14:36 Dose: 3 ml Lipase/Protease/Amylase (Lisa Shaw [id number]) 1 cap FS .PER PROTOCOL PRN PRN Reason: TUBE OCCLUSION PROTOCOL Aspirin (Aspirin) 325 mg PER TUBE QPM [facility] Last Admin: 01/25/17 20:54 Dose: 325 mg Enoxaparin Sodium (Lovenox) 40 mg SC 0900 [facility] Famotidine (Pepcid) 20 mg PER TUBE DAILY [facility] Last Admin: 01/26/17 09:29 Dose: 20 mg Furosemide (Lasix) 20 mg SLOW IVP DAILY [facility] Last Admin: 01/26/17 09:29 Dose: 20 mg Meropenem 1 gm/ Miscellaneous Medication 1 each/ Sodium Chloride 100 mls @ 200 mls/hr IVPB Q12HR JARROD Last Admin: 01/26/17 09:30 Dose: 100 mls Midazolam HCl (Versed) 100 mls @ 0 mls/hr IVPB INF PRN; Protocol; Titrate PRN Reason: Sedation Last Admin: 01/26/17 03:12 Dose: 100 mls Clindamycin Phosphate/Dextrose (900 mg/ Device) 50 mls @ 100 mls/hr IVPB 0100, 0900,1700 [facility] Last Admin: 01/26/17 09:29 Dose: 50 mls Sodium Chloride (1/2 Normal Saline) 1,000 mls @ 0 mls/hr IV .Q0M JARROD PRN Reason: KVO Amiodarone HCl 450 mg/Miscellaneous Medication 1 each/ Dextrose/Water 259 mls @ 0 mls/hr IVPB INF JARROD; As Directed PRN Reason: Protocol Last Admin: 01/26/17 13:39 Dose: 259 mls Methylprednisolone Sodium Succinate (Solu-Medrol) 20 mg IVP Q12HR JARROD Last Admin: 01/26/17 09:29 Dose: 20 mg Metoprolol Tartrate (Lopressor) 5 mg IVP PRN PRN PRN Reason: tachycardia Morphine Sulfate (Morphine Sulfate) 10 mg SLOW IVP Q4H PRN PRN Reason: Pain Last Admin: 01/24/17 09:07 Dose: 10 mg Nystatin (Mycostatin Powder) 0 gm TOP BID JARROD Last Admin: 01/26/17 09:31 Dose: 1 applic Saccharomyces Boulardii (Florastor) 250 mg PER TUBE DAILY [facility] Last Admin: 01/26/17 09:30 Dose: 250 mg Sodium Bicarbonate (Bicarbonate, Sodium) 650 mg PER TUBE .PER PROTOCOL PRN PRN Reason: ENTERAL TUBE OCCLUSION Sodium Chloride (Flush - Normal Saline) 10 ml IVF Q12HR JARROD Last Admin: 01/26/17 09:31 Dose: 10 ml Sodium Chloride (Flush - Normal Saline) 10 ml IVF PRN PRN PRN Reason: Saline Flush Last Admin: 01/25/17 09:44 Dose: 10 ml
[2017-01-26] MEDS: Aspirin 325 MG TAB PER TUBE SCH (20:47)
--- NOTE | 2017-01-26 21:41 | PRG ---
DATE OF SERVICE: 01/26/2017 SUBJECTIVE: Ms. Parker switched to volume ventilation this morning. She noted to have a pneumothorax on chest radiograph. Chest tube was placed by Dr. Bauer, which revealed 800 mL of purulent exudat e evacuated. OBJECTIVE: VITAL SIGNS: Blood pressure is currently 120/71, heart rate 79, respiratory rate was 20. She is se dated for ventilation. She did awaken and nod for me this morning. Moves all of her extremities. LUNGS: Clear anteriorly. HEART: Regular rhythm. ABDOMEN: Soft. LABORATORY DATA: White count 15.1, hemoglobin 12.1, platelets 122,000. Sodium 141, potassium 4.3, chloride 100, bicarbonate 28, BUN 93, creatinine 1.55. IMPRESSION: 1. Status post emergent tracheostomy for throat cancer. 2. Status post spontaneous pneumothorax on the right is a presenting manifestation of her right-asad ed empyema that is polymicrobial. 3. Status post spontaneous pneumothorax on the left for similar reasons with the purulent exudate e vacuated through chest tube. Gram stains pending, cultures are pending. 4. Swallowing dysfunction. This most likely is the cause of bilateral empyema. I doubt she has es ophageal perforation. Gastroenterology will be consulted for PEG placement and direct visualization of her esophagus. I met with her significant other and answered all of his questions by phone today.
[2017-01-26] MEDS ORDERED: Digoxin 0.5 MG/2 ML AMP SLOW IVP SCH (23:45)
[2017-01-27] MEDS: Clindamycin/D5W 900 MG in Premix Bag 1 BAG IVPB SCH ×3 (00:55→17:10)
[2017-01-27] MEDS: Amiodarone HCl 450 MG, Admixture Fee 1 EACH in Dextrose 5% in Water 250 ML IVPB SCH ×6 (01:45→17:10)
[2017-01-27 03:59] LABS: Anion Gap 14 mmol/L (10-20); BUN (Urea Nitrogen) 77 mg/dL (9.8-20.1); Calc. Creatinine Clearance 151 mL/min (70-130); Calcium 8.8 mg/dL (7.8-10.44); Carbon Dioxide 30 mmol/L (22-29); Chloride 104 mmol/L (98-107); Estimated GFR-MDRD 60; Phosphorus 4.2 mg/dL (2.3-4.7)
[2017-01-27] MEDS ORDERED: Digoxin 0.5 MG/2 ML AMP SLOW IVP SCH ×2 (04:00→21:00)
--- NOTE | 2017-01-27 04:33 | CON ---
DATE OF CONSULTATION: 01/26/2017 GASTROENTEROLOGY CONSULTATION SUBJECTIVE: Ms. Parker is a 56-year-old woman who presented to the emergency room on 01/16/2017 with respiratory distress. She was evaluated by ENT and was found to have a supraglottic tumor, causing airway obstruction. She underwent tracheostomy for that. Biopsies confirmed squamous cell carcinom a. She has a heavy smoking history. Her hospital stay has been complicated by sepsis and empyema a nd pneumothorax, requiring chest tube placement. She had a code blue for cardiac V-tach arrest. Darian hernandez currently remains on the ventilator with tracheostomy. She is sedated with a Versed drip, but botello s wake up and answer some questions. Her comprehension is limited. Her decision has been made by h er common law . GI was consulted for gastrostomy tube placement. Currently, she has an NG t ube in place through which she is tolerating feeds well. PAST MEDICAL HISTORY: Morbid obesity. PAST SURGICAL HISTORY: Negative. She did have a laryngoscopy and tracheostomy and chest tube place ments in this hospital stay. FAMILY HISTORY: Negative for GI malignancies. SOCIAL HISTORY: She has a heavy smoking history. No alcohol or drugs. ALLERGIES: No known drug allergies. CURRENT INPATIENT MEDICATIONS: Include DuoNeb, aspirin, clindamycin, enoxaparin, famotidine, furose mide, meropenem, methylprednisolone, Florastor. REVIEW OF SYSTEMS: Unable to be obtained due to the patient's sedation and difficulty communicating with the tracheostomy in place. OBJECTIVE: VITAL SIGNS: Temperature is 97.8, pulse 85, blood pressure 117/67. GENERAL: She is in no acute distress. She is arousable and arousable. HEENT: Her eyes have no scleral icterus. Oropharynx is clear without lesions. She has an NG tube in place. She has tracheostomy in place. NECK: She has no cervical or supraclavicular lymphadenopathy. LUNGS: Clear to auscultation bilaterally. HEART: Regular rate and rhythm. ABDOMEN: Soft, nontender, nondistended. Bowel sounds are present. Her abdomen is obese. EXTREMITIES: No lower extremity edema. LABORATORY DATA: White blood cell count 15.1, hemoglobin 12.1, platelets 122. Creatinine 1.55, mariposa irubin 1.4, AST 46, ALT 103. Her liver tests did acutely rise after the cardiac arrest, which was l ikely from ischemic hepatopathy. IMPRESSION: 1. Dysphagia. 2. 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 She is status post tracheostomy. 3. Empyema and pneumothorax, status post chest tubes. 4. Ventricular tachycardia, cardiac arrest earlier this hospital stay. 5. Acute renal failure, improving. 6. Ischemic hepatopathy improving. RECOMMENDATIONS: EGD with PEG tube placement tomorrow. She is on broad spectrum antibiotics. She does have a significantly obese abdomen and this could limit transillumination for attempted percuta neous endoscopic gastrostomy tube.
[2017-01-27 05:03] LABS: Band 6 % (5-11); Hematocrit 37.9 % (36.0-47.0); Neutrophil 83 % (42-75); Reactive Lymphocytes 1 % (0-10); Red Blood Cell (RBC) Count 4.05 mill/uL (4.20-5.40); White Blood Cell (WBC) Count 12.9 thou/uL (4.8-10.8)
[2017-01-27 07:16] LABS: Oxyhemoglobin 91.1 % (94.0-97.0); Sodium 143 mmol/L (135-148)
[2017-01-27 07:19] LABS: Mechanical Tidal Volume 500 ml; Modified Allen's Test POSITIVE; Pressure Support 15 cmH2O; Vent YES
[2017-01-27 07:20] LABS: Mode PSIMV
[2017-01-27] MEDS: Furosemide 20 MG/2 ML VIAL SLOW IVP SCH (08:57)
[2017-01-27] MEDS: Meropenem 1 GM, Admixture Fee 1 EACH in Sodium Chloride 0.9% 100 ML IVPB SCH ×2 (08:57→21:07)
[2017-01-27] MEDS: Nystatin Powder 15 GM BOT TOP SCH ×2 (09:00→21:07)
--- NOTE | 2017-01-27 09:28 | PRG ---
DATE OF SERVICE: 01/27/2017 SUBJECTIVE: Ms. Parker remains on the ventilator. She is awake and appears alert. PHYSICAL EXAMINATION: VITAL SIGNS: Blood pressure 145/80, pulse 74. LUNGS: Clear anteriorly and laterally. CARDIAC: Normal S1, normal S2. Distant. ABDOMEN: Soft, nontender. EXTREMITIES: Cool, but not cold. The patient had a chest tube placed on the left, there is brownish discolored fluid. The patient is still having intermittent atrial fibrillation. ASSESSMENT: 1. Atrial fibrillation. Continues to be paroxysmal and rapid at times. 2. Renal failure is improved, creatinine is down to 0.97, probably still volume overloaded. PLAN: 1. I will give furosemide 20 mg x1. 2. Continue aspirin. 3. Continue intravenous antibiotics.
[2017-01-27] MEDS ORDERED: acetaZOLAMIDE Sodium 500 mg Vial IVP SCH (09:45)
[2017-01-27] MEDS: Enoxaparin Sodium 40 MG/0.4 ML SYRINGE SC SCH (16:05)
[2017-01-27] MEDS: Saccharomyces boulardii 250 MG CAP PER TUBE SCH (16:06)
[2017-01-27] MEDS: Famotidine 20 MG TAB PER TUBE SCH (16:06)
--- NOTE | 2017-01-27 17:12 | PRG ---
DATE OF SERVICE: 01/27/2017 SUBJECTIVE: Erika Parker is hemodynamics stable overnight. She appears more comfortable on the ventil ator. OBJECTIVE: VITAL SIGNS: She is afebrile, heart rate is 82, blood pressure 141/78, respiratory rate is 27. LUNGS: She has equal breath sounds. HEART: Regular rhythm. ABDOMEN: Soft. LABORATORY DATA: White count 12.9, hemoglobin 12.1 and platelets 157,000. Sodium 143, potassium 5, chloride 104, bicarb 30, BUN 77, creatinine 0.97. PH 7.44, pCO2 45, and pO2 is 60. IMPRESSION: 1. Respiratory failure associated with bilateral empyemas, bilateral pneumothoraces as a result of empyemas. 2. Bilateral empyema secondary to aspiration pneumonia, it has probably been going on at home for q uite some time. 3. Throat cancer symptomatic for quite some time. It is interesting that the purulent exudate out of her left chest tubes culture negative suggesting perhaps antibiotic penetration into the pleural spaces preventing growth. PLAN: Consultation was placed for Gastroenterology for consideration for PEG placement. We have de creased ventilatory support some more today. May be within the next 24-48 hours, we consider trach collar trial.
--- NOTE | 2017-01-27 18:57 | PDOC.PN ---
- Subjective Encounter Start Date: 01/27/17 Encounter Start Time: 14:30 -: non-verbal Patient seen and examined. On Amiodarone drip/Vent - Objective Resuscitation Status: Resuscitation Status CHEM:Chem Code Only MAR Reviewed: Yes Vital Signs & Weight: Vital Signs (12 hours) Temp Pulse Resp BP Pulse Ox 01/27/17 18:19 80 114/70 01/27/17 18:00 24 H 01/27/17 16:00 99.0 F 26 H 01/27/17 15:44 82 141/78 H 01/27/17 15:43 81 32 H 95 01/27/17 14:00 27 H 01/27/17 12:00 98.2 F 26 H 01/27/17 11:23 91 132/82 01/27/17 11:22 83 29 H 91 L 01/27/17 10:00 28 H 01/27/17 09:38 83 130/72 01/27/17 08:00 98.4 F 80 22 H 92 L Weight Admit Weight 301 lb Weight 329 lb 9.457 oz Most Recent Monitor Data Heart Rate from ECG 83 NIBP 110/66 NIBP BP-Mean 77 Respiration from ECG 28 SpO2 96 I&O: 01/26/17 01/27/17 01/28/17 06:59 06:59 06:59 Intake Total 2702.2 2376.9 493 Output Total 2740 4215 2285 Balance -37.8 -1838.1 -1792 Result Diagrams: 01/27/17 03:24 01/27/17 03:24 EKG Reviewed by me: Yes (Tele SR) Phys Exam - Physical Examination Constitutional: NAD (on Vent/ Chest tube +/on tube feeds) Respiratory: no wheezing B/L rhonchi Cardiovascular: RRR, no rub Gastrointestinal: soft, non-tender Musculoskeletal: no edema Neurological: moves all 4 limbs Dx/Plan - Plan IMPRESSION: 1. Severe sepsis with acute organ dysfunction/Septic shock due to Empyema/ Strep bacteremia - On Meropenem/Clindamycin. 2. Acute hypoxic and hypercapnic respiratory failure - on Mech Ventilation 3. Supraglottic mass/Laryngeal Ca causing airway obstruction, status post emergent tracheostomy on admission. 4. s/p Code blue/Vtach arrest 01/19/17 6. B/L pneumothorax/Empyema s/p chest tube - on Atbx 7. Afib with RVR - Started on Amiodarone/Metoprolol 8. Ongoing tobacco abuse with [id number] smoking history. 9. Family history of heart disease. 10 Abnormal liver function tests - prob due to sepsis. improving 11. Abn Cardiac enzyme due to demand ischemia PLAN: * on Mech Vent * PEG tube planned * Critical care/CT/ENT/Cardio following * Cont current meds as below * Cont current supportive care * AM labs * Palliative care following * On Lovenox for DVT prophylaxis * Chem code * Cont Atbx Review of Systems - Review of Systems Other: Cannot obtain due to current clinical status. - Medications/Allergies Allergies/Adverse Reactions: Allergies Allergy/AdvReac Type Severity Reaction Status Date / Time No Known Drug Allergies Allergy Verified 01/16/17 18:32 Medications: Current Medications Acetaminophen (Tylenol) 500 mg PO Q4H PRN PRN Reason: TEMP>=101.5 Albuterol Sulfate (Ventolin) 2.5 mg NEB Q6H PRN PRN Reason: SOB &/or Wheezing Last Admin: 01/19/17 17:27 Dose: 2.5 mg Albuterol/Ipratropium (Duoneb) 3 ml NEB [id number] JARROD Last Admin: 01/27/17 18:18 Dose: 3 ml Lipase/Protease/Amylase (Lisa Shaw [id number]) 1 cap FS .PER PROTOCOL PRN PRN Reason: TUBE OCCLUSION PROTOCOL Aspirin (Aspirin) 325 mg PER TUBE QPM [facility] Last Admin: 01/26/17 20:47 Dose: 325 mg Enoxaparin Sodium (Lovenox) 40 mg SC 0900 [facility] Last Admin: 01/27/17 16:05 Dose: Not Given Meropenem 1 gm/ Miscellaneous Medication 1 each/ Sodium Chloride 100 mls @ 200 mls/hr IVPB Q12HR JARROD Last Admin: 01/27/17 08:57 Dose: 100 mls Midazolam HCl (Versed) 100 mls @ 0 mls/hr IVPB INF PRN; Protocol; Titrate PRN Reason: Sedation Last Admin: 01/26/17 03:12 Dose: 100 mls Clindamycin Phosphate/Dextrose (900 mg/ Device) 50 mls @ 100 mls/hr IVPB 0100, 0900,1700 [facility] Last Admin: 01/27/17 17:10 Dose: 50 mls Sodium Chloride (1/2 Normal Saline) 1,000 mls @ 0 mls/hr IV .Q0M JARROD PRN Reason: KVO Amiodarone HCl 450 mg/Miscellaneous Medication 1 each/ Dextrose/Water 259 mls @ 0 mls/hr IVPB INF JARROD; As Directed PRN Reason: Protocol Last Admin: 01/27/17 17:10 Dose: 259 mls Methylprednisolone Sodium Succinate (Solu-Medrol) 20 mg IVP Q12HR [facility] Last Admin: 01/27/17 08:57 Dose: 20 mg Metoprolol Tartrate (Lopressor) 5 mg IVP PRN PRN PRN Reason: tachycardia Morphine Sulfate (Morphine Sulfate) 10 mg SLOW IVP Q4H PRN PRN Reason: Pain Last Admin: 01/24/17 09:07 Dose: 10 mg Nystatin (Mycostatin Powder) 0 gm TOP BID JARROD Last Admin: 01/27/17 09:00 Dose: 1 applic Pantoprazole Sodium (Protonix) 40 mg IVP Q12HR [facility] Saccharomyces Boulardii (Florastor) 250 mg PER TUBE DAILY [facility] Last Admin: 01/27/17 16:06 Dose: Not Given Sodium Bicarbonate (Bicarbonate, Sodium) 650 mg PER TUBE .PER PROTOCOL PRN PRN Reason: ENTERAL TUBE OCCLUSION Sodium Chloride (Flush - Normal Saline) 10 ml IVF Q12HR JARROD Last Admin: 01/27/17 09:00 Dose: 10 ml Sodium Chloride (Flush - Normal Saline) 10 ml IVF PRN PRN PRN Reason: Saline Flush Last Admin: 01/25/17 09:44 Dose: 10 ml
--- NOTE | 2017-01-27 20:44 | OP ---
PREOPERATIVE DIAGNOSIS: Oropharyngeal dysphagia secondary to laryngeal cancer. PROCEDURE: After informed consent was obtained, the patient was placed in the left lateral decubitu s position. Anesthesia was administered per the Anesthesia Department. Forward-viewing endoscope w as inserted into the esophagus under direct visualization with ease and passed to the second portion of the duodenum with ease. Second portion of the duodenum and duodenal bulb were normal. There di d appear to be some old blood in the stomach. No active bleeding sites were noted. The area was pr epped and draped in usual manner. Anesthesia was applied with 1% lidocaine without epinephrine. A needle was inserted through the abdominal wall into the gastric lumen. A wire was passed, snared, a nd brought out of the mouth. The PEG was attached and brought through the abdominal wall after a sm all incision was made. Reinsertion of the endoscope showed the PEG bumper to be in good position. ASSESSMENT: 1. Successful percutaneous endoscopic gastrostomy. 2. Old blood in the stomach. RECOMMENDATIONS: 1. Switch to proton pump inhibitor. 2. Begin tube feedings in 8 hours.
[2017-01-27] MEDS: Pantoprazole 40 MG VIAL IVP SCH (21:06)
[2017-01-27] MEDS: Aspirin 325 MG TAB PER TUBE SCH (21:26)
[2017-01-27] MEDS ORDERED: Sodium Chloride 0.9% 500 ML IVPB SCH (21:30)
[2017-01-28] MEDS: Clindamycin/D5W 900 MG in Premix Bag 1 BAG IVPB SCH ×2 (00:49→08:31)
[2017-01-28 07:32] LABS: Oxyhemoglobin 90.6 % (94.0-97.0); Sodium 142 mmol/L (135-148)
[2017-01-28 07:33] LABS: Mechanical Tidal Volume 500 ml; Mode SIMV.PSV; Modified Allen's Test POSITIVE; Pressure Support 15 cmH2O; Vent YES
[2017-01-28] MEDS: Pantoprazole 40 MG VIAL IVP SCH ×2 (08:31→20:59)
[2017-01-28] MEDS: Saccharomyces boulardii 250 MG CAP PER TUBE SCH (08:31)
[2017-01-28] MEDS: Meropenem 1 GM, Admixture Fee 1 EACH in Sodium Chloride 0.9% 100 ML IVPB SCH (08:32)
[2017-01-28] MEDS: Nystatin Powder 15 GM BOT TOP SCH ×2 (08:32→20:59)
[2017-01-28] MEDS ORDERED: Magnesium 2 GM/NS 0.9% 100 ML 2 GM in Premix Bag 1 BAG IVPB SCH (08:45)
[2017-01-28] MEDS: Amiodarone HCl 450 MG, Admixture Fee 1 EACH in Dextrose 5% in Water 250 ML IVPB SCH ×6 (09:13→23:38)
[2017-01-28 09:34] LABS: Digoxin 1.53 ng/mL (0.8-2.0)
--- NOTE | 2017-01-28 09:48 | PRG ---
DATE OF SERVICE: 01/28/2017 Ms. Parker remains intubated on the ventilator. The patient had another episode of atrial fibrillation with a rapid ventricular response last night. She received additional intravenous digoxin. Looking at the rhythm strips I do not see the strips showing this, but verbally it was told that she had rate up to 160. PHYSICAL EXAMINATION: GENERAL: She is intubated on ventilator. LUNGS: Clear. CARDIAC: Normal S1, normal S2. They are just distant. ABDOMEN: Obese, nontender. EXTREMITIES: 1+ edema. LABORATORY: Hemoglobin is 12, potassium was 5 yesterday, not measured today, magnesium yesterday wa s 2. The patient still has lot of brownish material draining from around each lung. ASSESSMENT: 1. Laryngeal cancer. 2. Infected pleural spaces. 3. Liver function tests have improved. 4. Recurrent atrial fibrillation. 5. Renal failure, improved. PLAN: 1. We will recheck electrolytes in the morning. 2. Give intravenous magnesium. 3. P.r.n., diltiazem. 4. Check digoxin level.
--- NOTE | 2017-01-28 09:54 | PDOC.PN ---
- Subjective Encounter Start Date: 01/28/17 Encounter Start Time: 09:53 Patient seen at bedside. No overnight events, tolerating her tube feeds. - Objective Resuscitation Status: Resuscitation Status CHEM:Chem Code Only MAR Reviewed: Yes Vital Signs & Weight: Vital Signs (12 hours) Temp Pulse Resp BP Pulse Ox 01/28/17 08:00 27 H 01/28/17 07:44 97.4 F L 76 29 H 97 01/28/17 07:09 76 129/81 01/28/17 07:08 78 30 H 94 L 01/28/17 07:00 97.4 F L 01/28/17 06:00 26 H 01/28/17 04:00 98.7 F 23 H 01/28/17 02:34 76 100/52 L 01/28/17 02:00 26 H 01/28/17 00:00 30 H 01/27/17 22:00 25 H Weight Admit Weight 301 lb Weight 319 lb 3.669 oz Most Recent Monitor Data Heart Rate from ECG 85 NIBP 125/77 NIBP BP-Mean 93 Respiration from ECG 32 SpO2 99 I&O: 01/27/17 01/28/17 01/29/17 06:59 06:59 06:59 Intake Total 2376.9 873.5 200 Output Total 4215 4150 400 Balance -1838.1 -3276.5 -200 Result Diagrams: 01/27/17 03:24 01/27/17 03:24 Phys Exam - Physical Examination Constitutional: NAD Tracheostomy in place Neck: supple crackles Gastrointestinal: soft PEG in place Musculoskeletal: pulses present Neurological: moves all 4 limbs Psychiatric: A&O x 3 Dx/Plan (1) Supraglottic mass Code(s): J38.7 - OTHER DISEASES OF LARYNX Status: Acute (2) Acute respiratory failure Code(s): J96.00 - ACUTE RESPIRATORY FAILURE, UNSP W HYPOXIA OR HYPERCAPNIA Status: Acute (3) Pneumothorax Code(s): J93.9 - PNEUMOTHORAX, UNSPECIFIED Status: Acute (4) Dysphagia Code(s): R13.10 - DYSPHAGIA, UNSPECIFIED Status: Resolved Qualifiers: Dysphagia type: oropharyngeal phase Qualified Code(s): R13.12 - Dysphagia, oropharyngeal phase (5) Atrial fibrillation Code(s): I48.91 - UNSPECIFIED ATRIAL FIBRILLATION Status: Acute - Plan cont current plan of care, childers catheter, continue antibiotics, social media specialist , respiratory therapy, DVT proph w/lovenox * Continue with ventilator management per PCCM. * Chest tube management for bilateral pneumothoraces * Clindamycin/Meropenem * Continue Amiodarone/Diltiazem for atrial fibrillation * Tube Feeds * Daily Labs * Supportive Care
[2017-01-28 10:03] LABS: #Lymphocytes 1.3 thou/uL (1.20-3.40); #Monocytes 0.7 thou/uL (0.11-0.59); %Basophils 0.1 % (0.0-1.0); %Eosinophils 0.2 % (0.0-10.0); %Lymphocytes 7.8 % (21.0-51.0); %Monocytes 3.9 % (0.0-10.0); Hematocrit 41.1 % (36.0-47.0); Mean Platelet Volume 9.8 fL (7.4-10.4); Red Blood Cell (RBC) Count 4.36 mill/uL (4.20-5.40); White Blood Cell (WBC) Count 17.1 thou/uL (4.8-10.8)
[2017-01-28] MEDS: Enoxaparin Sodium 40 MG/0.4 ML SYRINGE SC SCH (10:06)
--- NOTE | 2017-01-28 13:35 | RAD ---
PORTABLE AP CHEST: Date: 01-28-17 History: Empyema. Comparison: 01-26-17 FINDINGS: Tracheostomy device and right subclavian central venous catheter as well as bilateral thoracotomy tu bes remain in place and unchanged in position. Pleural and parenchymal changes are again seen at eac h lung base, overall unchanged from the prior exam. No pneumothorax is seen. Cardiac silhouette and mediastinal structures are magnified by projection but stable in appearance from prior study. IMPRESSION: Stable chest. POS: [facility]
--- NOTE | 2017-01-28 19:06 | PRG ---
DATE OF SERVICE: 01/28/2017 SUBJECTIVE: She is tolerating her tube feeds well. No abdominal pain. OBJECTIVE: The PEG site is clear. The skin appears healthy around it. Loosen the external bumper between 4.5 and 5 cm. PLAN: 1. Continue PEG tube feeds. 2. I will sign off. Please call if GI can be of assistance.
[2017-01-28] MEDS: Diltiazem HCl 125 MG, Admixture Fee 1 EACH in Sodium Chloride 0.9% 100 ML SLOW IVP PRN (20:12)
[2017-01-28] MEDS: Aspirin 325 MG TAB PER TUBE SCH (20:58)
[2017-01-28] MEDS: Amoxicillin/Potassium Clav 875 MG TAB PO SCH (20:58)
--- NOTE | 2017-01-29 | PRG ---
DATE OF SERVICE: 01/28/2017 SUBJECTIVE: Ms. Parker is unchanged. She is sedated for ventilation. She is extremely weak, turned up her respiratory rate on the ventilator because small tidal volume breathing between volume breath s. OBJECTIVE: VITAL SIGNS: Her hemodynamics have been stable. She is afebrile, heart rate is 76, respiratory rat e is 20, blood pressure 131/86. LUNGS: Remarkable for equal breath sounds. HEART: Regular rhythm. ABDOMEN: Soft. PEGs in place. LABORATORY DATA: White count 17.1, hemoglobin 12.5 and platelets 225,000. Sodium 143, potassium 5, chloride 104, bicarbonate 30, BUN 77, creatinine 0.97. PH 7.42, CO2 is 44, and pO2 is 16. Chest radiograph is essentially unchanged, still hazy at the right base. IMPRESSION: 1. Bilateral empyemas. 2. Head and neck cancer. 3. Respiratory failure. 4. Obesity. 5. Tracheostomy. 6. PEG placement. PLAN: Noncontrast CT of the chest in the morning to rule out loculated fluid, continue slow weaning . I suspect she will be mechanically ventilated for several more weeks.
[2017-01-29 05:02] LABS: Anion Gap 12 mmol/L (10-20); BUN (Urea Nitrogen) 48 mg/dL (9.8-20.1); Calc. Creatinine Clearance 201 mL/min (70-130); Calcium 8.8 mg/dL (7.8-10.44); Carbon Dioxide 28 mmol/L (22-29); Chloride 109 mmol/L (98-107); Estimated GFR-MDRD 85
[2017-01-29 08:00] LABS: Oxyhemoglobin 92.9 % (94.0-97.0); Sodium 142 mmol/L (135-148)
[2017-01-29 08:01] LABS: Mechanical Tidal Volume 500 ml; Mode SIMV.PSV; Modified Allen's Test POSITIVE; Pressure Support 15 cmH2O; Vent YES
[2017-01-29] MEDS: Enoxaparin Sodium 40 MG/0.4 ML SYRINGE SC SCH (09:18)
[2017-01-29] MEDS: Saccharomyces boulardii 250 MG CAP PER TUBE SCH (09:18)
[2017-01-29] MEDS: Pantoprazole 40 MG VIAL IVP SCH ×2 (09:18→20:49)
[2017-01-29] MEDS: Amoxicillin/Potassium Clav 875 MG TAB PO SCH (09:18)
[2017-01-29] MEDS: Nystatin Powder 15 GM BOT TOP SCH ×2 (09:18→20:48)
[2017-01-29] MEDS: predniSONE 20 MG TAB PO SCH (09:18)
--- NOTE | 2017-01-29 09:37 | RAD ---
PORTABLE CHEST: HISTORY: Respiratory distress. COMPARISON: Studies from 01/26/2017 and 01/28/2017. FINDINGS: Heart size is enlarged. Tracheostomy tube, bilateral chest tubes, and right subclavian line all mauro ear unchanged in position. Pleural and parenchymal changes appear relatively stable. IMPRESSION: Stable chest. POS: [facility]
--- NOTE | 2017-01-29 11:49 | CT ---
CT CHEST WITHOUT CONTRAST: HISTORY: Bilateral empyema. CORRELATION: Multiple prior chest films. TECHNIQUE: Multiple axial tomograms obtained through the chest without IV enhancement. FINDINGS: There are small bilateral effusions. There is suggestion of loculation of the posterior medial righ t effusion, in a paravertebral location. There is dense atelectasis/consolidation of the lung paren chyma and the lung bases. There are bilateral chest tubes. No significant pneumothorax. There are tiny bilateral pneumothoraces. The upper lung marinelli are aerated and clear. Nonspecific mediastinal lymph nodes are seen. There is pneumomediastinum with tiny gas pockets seen in the superior mediastinum, and tiny gas pock ets radiating superiorly into the lower neck region. Images through the upper abdomen show a distended gallbladder with at least one large gallstone and evidence of mild gallbladder wall thickening. The visualized liver and pancreas appear unremarkable . There are numerous small pockets of free intraperitoneal air seen on images through the upper abdome n. There is a PEG tube in place, which appears adequately positioned. IMPRESSION: 1. Small bilateral effusions. There may be loculation of portions of the posterior medial right pl eural fluid. There is associated dense basilar atelectasis/consolidation. 2. Bilateral chest tubes with small bilateral pneumothoraces. 3. Pneumomediastinum is noted. 4. Free intraperitoneal air is seen on images through the upper abdomen. 5. The gallbladder is abnormal with gallbladder distention and gallstones noted. Dr. Lainez is paged for notification of this finding. POS: [facility]
--- NOTE | 2017-01-29 12:18 | PRG ---
DATE OF SERVICE: 01/29/2017 Ms. Parker awakens. She moves all of her extremities. She is still weak. PHYSICAL EXAMINATION: LUNGS: Her lungs are clear earlier this morning, but she has some faint wheezes now, I suspect this is just secondary to mucous plugging. HEART: Regular rhythm. ABDOMEN: Abdomen is soft. CT of her chest shows loculated posterior medial fluid, small amount on the right and left. Chest i s remarkable for small effusion. She has a pneumomediastinum and pneumoperitoneum I suspect becau se of a benign abdominal exam that this is just air that has dissected down from her tracheobronchia l tree. IMPRESSION: 1. Respiratory failure associated with spontaneous pneumothorax and empyema on the right. 2. Status post emergent tracheostomy for laryngeal cancer. 3. Status post pneumothorax on the left with seropurulent exudate evacuated via chest tube. 4. 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 She required paralytics and steroids with her pneumonia ear ly on in this illness. Her steroids are down to 20 mg of prednisone a day. We have not used paraly tics in over a week I believe. Her strength should start gradually improving. I plan to just turn her IMV down by 2 breaths each day and keep her on pressure support of 15, hopef ully we will see gradual improvement in her strength. Placing her in reverse Trendelenburg will pro bably facilitate her work of breathing.
--- NOTE | 2017-01-29 14:30 | PRG ---
DATE OF SERVICE: 01/29/2017 SUBJECTIVE: Ms. Parker remains intubated on the ventilator. REVIEW OF SYSTEMS: Not obtainable. PHYSICAL EXAMINATION: VITAL SIGNS: Blood pressure 137/90. Pulse is 70, it is currently sinus, but she did go back in atr ial fibrillation yet last night. LUNGS: Distant. CARDIAC: Irregularly irregular, but distant. ABDOMEN: Soft, nontender. EXTREMITIES: Cool. LABORATORY DATA: Potassium is 4.5. IMAGING: CT scan reveals pneumothorax, but the final reports are still pending, but there is appare ntly pneumothorax suspected and also some pericardial effusion. ASSESSMENT: 1. Congestive heart failure, diastolic, acute. 2. Renal failure is improved. 3. Bilateral pleural fluid infections and pneumonia. 4. Paroxysmal atrial fibrillation. PLAN: We will repeat echocardiogram looking for pericardial fluid. Prognosis is guarded in this pa tient.
--- NOTE | 2017-01-29 14:37 | PDOC.PN ---
- Subjective Encounter Start Date: 01/29/17 Encounter Start Time: 14:36 Ms. Parker is intubated. She will respond by nodding or shaking her head. She indicates no acute concerns at this time. - Objective Resuscitation Status: Resuscitation Status CHEM:Chem Code Only MAR Reviewed: Yes Vital Signs & Weight: Vital Signs (12 hours) Temp Pulse Resp BP Pulse Ox 01/29/17 14:14 79 148/88 H 01/29/17 14:13 81 32 H 95 01/29/17 14:00 16 01/29/17 12:00 97.0 F L 27 H 01/29/17 10:06 75 120/80 01/29/17 10:04 74 28 H 93 L 01/29/17 10:00 28 H 01/29/17 08:00 38 H 01/29/17 07:44 96.9 F L 74 29 H 98 01/29/17 07:35 74 126/75 01/29/17 07:32 73 33 H 99 01/29/17 07:00 96.9 F L 01/29/17 06:00 26 H 01/29/17 04:00 20 01/29/17 03:00 97.4 F L Weight Admit Weight 301 lb Weight 314 lb 2.539 oz Most Recent Monitor Data Heart Rate from ECG 79 NIBP 148/88 NIBP BP-Mean 110 Respiration from ECG 27 SpO2 94 I&O: 01/28/17 01/29/17 01/30/17 06:59 06:59 06:59 Intake Total 873.5 2604.6 120 Output Total 4150 2930 660 Balance -3276.5 -325.4 -540 Result Diagrams: 01/28/17 09:58 01/29/17 03:30 Phys Exam - Physical Examination HEENT: PERRLA Respiratory: no wheezing + coarse breath sounds. Cardiovascular: RRR, no significant murmur Gastrointestinal: soft, non-tender, positive bowel sounds Musculoskeletal: no edema Dx/Plan (1) Empyema Code(s): J86.9 - PYOTHORAX WITHOUT FISTULA Status: Acute (2) Acute respiratory failure Code(s): J96.00 - ACUTE RESPIRATORY FAILURE, UNSP W HYPOXIA OR HYPERCAPNIA Status: Acute (3) Atrial fibrillation Code(s): I48.91 - UNSPECIFIED ATRIAL FIBRILLATION Status: Acute (4) Supraglottic mass Code(s): J38.7 - OTHER DISEASES OF LARYNX Status: Acute - Plan * Patient admitted with supraglottic mass requiring emergent tracheostomy. She also developed acute respiratory distress due to Pneumothorax and empyema with sepsis ( likely due to aspiration) * She continues to require Ventilator support * Antibiotics have been de-escalated to Augmentin * She has also been placed on steroids via PEG tube * AFIB- rate is controlled with Cardizem and Amiodarone * Nutritional support with tube feeding.
[2017-01-29] MEDS: Amiodarone HCl 450 MG, Admixture Fee 1 EACH in Dextrose 5% in Water 250 ML IVPB SCH ×3 (16:50)
[2017-01-29] MEDS: Amoxicillin/Potassium Clav 400 mg/5 ml Oral Suspension PER TUBE SCH (20:47)
[2017-01-29] MEDS: Aspirin 325 MG TAB PER TUBE SCH (20:48)
--- NOTE | 2017-01-29 21:17 | ULT ---
BILATERAL LOWER EXTREMITY ARTERIAL DOPPLER ULTRASOUND: 01/29/17 COMPARISON: None. HISTORY: Loss of peripheral pulses, discoloration, cold feet. TECHNIQUE: Multiplanar renee scale sonographic imaging of the arterial structures of bilateral lower extremities obtained with color flow and spectral analysis. FINDINGS: The common femoral artery, profunda femoral artery, femoral artery, popliteal artery, anterior tibia l artery, posterior tibial artery, and dorsalis pedis arteries are patent. Bilateral common femoral arteries, profunda femoral arteries, superficial femoral arteries, and popliteal arteries demonstrat e normal triphasic waveforms. Biphasic waveforms are noted within bilateral anterior tibial arteries and dorsalis pedis arteries. A triphasic waveform is noted within the right posterior tibial artery and a biphasic waveform is seen within the left posterior tibial artery. VESSEL PEAK SYSTOLIC VELOCITY (cm/s) RIGHT LOWER EXTREMITY Common femoral artery 70 Profunda femoral artery 50 Superficial femoral artery proximal 91 Superficial femoral artery mid 64 Superficial femoral artery distally 101 Popliteal artery 76 Anterior tibial artery 48 Posterior tibial artery 76 Dorsalis pedis artery 27 LEFT LOWER EXTREMITY Common femoral artery 96 Profunda femoral artery 68 Superficial femoral artery proximal 106 Superficial femoral artery mid 94 Superficial femoral artery distally 66 Popliteal artery 57 Anterior tibial artery 52 Posterior tibial artery 54 Dorsalis pedis artery 37 IMPRESSION: Patent bilateral lower extremity arterial structures as detailed above. POS: [facility]
[2017-01-30] MEDS ORDERED: Digoxin 0.5 MG/2 ML AMP SLOW IVP SCH (08:30)
--- NOTE | 2017-01-30 09:21 | RAD ---
FRONTAL VIEW CHEST: COMPARISON: 01/29/17. CLINICAL HISTORY: Ventilated patient. FINDINGS: Right-sided chest tube located laterally within the right hemithorax is again seen as is tracheostom y tube and right subclavian venous catheter. There is a stable left chest tube terminating at the l eft apex. Cardiac silhouette remains markedly enlarged. Pleural and parenchymal densities are pres ent at the mid to inferior right hemithorax and at the left lung base. IMPRESSION: Grossly stable chest comparing to previous day. POS: [facility]
[2017-01-30] MEDS: Amiodarone HCl 450 MG, Admixture Fee 1 EACH in Dextrose 5% in Water 250 ML IVPB SCH ×3 (10:40)
[2017-01-30] MEDS: Saccharomyces boulardii 250 MG CAP PER TUBE SCH (10:41)
[2017-01-30] MEDS: predniSONE 20 MG TAB PO SCH (10:41)
[2017-01-30] MEDS: Pantoprazole 40 MG VIAL IVP SCH ×2 (10:42→21:19)
[2017-01-30] MEDS: Enoxaparin Sodium 40 MG/0.4 ML SYRINGE SC SCH (10:43)
[2017-01-30] MEDS: Nystatin Powder 15 GM BOT TOP SCH ×2 (10:46→21:00)
--- NOTE | 2017-01-30 10:47 | PDOC.PN ---
- Subjective Encounter Start Date: 01/30/17 Encounter Start Time: 10:45 Ms. Parker is intubated, but is awake and alert, and able to communicate her needs. She indicated that she is tired, but denies having any chest pain, she feels comfortable on the vent. - Objective Resuscitation Status: Resuscitation Status CHEM:Chem Code Only MAR Reviewed: Yes Vital Signs & Weight: Vital Signs (12 hours) Temp Pulse Resp BP Pulse Ox 01/30/17 10:27 125 H 132/73 01/30/17 10:25 117 H 33 H 97 01/30/17 07:04 128 H 130/84 01/30/17 07:02 116 H 35 H 99 01/30/17 06:00 25 H 01/30/17 04:00 25 H 01/30/17 02:54 78 01/30/17 02:53 76 34 H 01/30/17 02:00 22 H 01/30/17 00:00 97.8 F 20 01/29/17 22:55 78 01/29/17 22:54 80 30 H 93 L Weight Admit Weight 301 lb Weight 307 lb 15.772 oz Most Recent Monitor Data Heart Rate from ECG 115 NIBP 116/80 NIBP BP-Mean 84 Respiration from ECG 20 SpO2 98 I&O: 01/29/17 01/30/17 01/31/17 06:59 06:59 06:59 Intake Total 2604.6 1691.6 Output Total 2930 2205 Balance -325.4 -513.4 Result Diagrams: 01/28/17 09:58 01/29/17 03:30 Phys Exam - Physical Examination HEENT: PERRLA Respiratory: no wheezing, no rales, no rhonchi, clear to auscultation bilateral Cardiovascular: RRR, no significant murmur Gastrointestinal: soft, non-tender, no distention Musculoskeletal: edema present trace pedal edema Dx/Plan (1) Empyema Code(s): J86.9 - PYOTHORAX WITHOUT FISTULA Status: Acute (2) Acute respiratory failure Code(s): J96.00 - ACUTE RESPIRATORY FAILURE, UNSP W HYPOXIA OR HYPERCAPNIA Status: Acute (3) Atrial fibrillation Code(s): I48.91 - UNSPECIFIED ATRIAL FIBRILLATION Status: Acute (4) Supraglottic mass Code(s): J38.7 - OTHER DISEASES OF LARYNX Status: Acute - Plan * Acute respiratory failure due to spontaneous pneumothorax, with empyema- continue Augmentin, and Prednisone * Slow wena of ventilator support per Pulmonary Medicine * 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
[2017-01-30] MEDS: Amoxicillin/Potassium Clav 400 mg/5 ml Oral Suspension PER TUBE SCH ×2 (11:14→21:20)
--- NOTE | 2017-01-30 15:56 | PRG ---
DATE OF SERVICE: 01/30/2017 SUBJECTIVE: Ms. Parker remains intubated on the ventilator. She seems more alert. She is intermitte ntly back in atrial fibrillation with a rate of about 110-120. Now, she is in sinus rhythm. OBJECTIVE: VITAL SIGNS: Her blood pressure is 140/80. LUNGS: I do not hear any wheezing, rales or rhonchi. CARDIAC: Distant. No murmur, rub or gallop. ABDOMEN: Soft and nontender. EXTREMITIES: Cool but not cold. ASSESSMENT: 1. Paroxysmal atrial fibrillation. 2. Respiratory failure. 3. Bilateral pleural effusions. PLAN: 1. Continue intravenous amiodarone. 2. Continue supportive care.
--- NOTE | 2017-01-30 16:39 | PRG ---
DATE OF SERVICE: 01/30/2017 SERVICE: Pulmonary Medicine. INTERVAL HISTORY: The patient is doing okay from a respiratory standpoint. She denies any current fevers, chills, nausea, vomiting. She is breathing comfortably with the assistance of mechanical ventilation. She actually has fairly high respiratory support requirements. Her lungs are noncompliant. Her oxygen requirements, however, are improving. PHYSICAL EXAMINATION: VITAL SIGNS: Afebrile, pulse 73, blood pressure 132/73, respirations 20, saturation 98% on 37% FiO2 and a PEEP of 5. GENERAL: The patient is awake and alert. She follows commands, on mechanical ventilation. HEENT: Normocephalic, atraumatic. Sclerae are white, conjunctivae pink. Oral and nasal mucosa is moist without lesions. Tracheostomy in place. HEART: Normal rate, regular. ABDOMEN: Soft, nontender, nondistended. Bowel sounds positive. MUSCULOSKELETAL: No cyanosis or clubbing. No pitting in the bilateral lower extremities. NEUROLOGIC: Grossly nonfocal. LABORATORY DATA: Glucose 206. Otherwise, lab holiday has been performed. Pleural fluid is content consistent with an empyema. Nose is growing Staph aureus, which is sensitive to ofloxacin. Blood culture is growing Strep intermedius. Multiple strep species as well as anaerobic organisms are growing in the pleural fluid. Most of these are pansensitive organisms. IMAGIN. Chest x-ray demonstrates bilateral thoracostomy drains in decent position. 2. Ultrasound of the bilateral lower extremities demonstrates patent bilateral lower extremity arterial structures. ASSESSMENT: 1. Septic shock. 2. Empyema. 3. Acute hypoxic respiratory failure. 4. Metabolic encephalopathy, improving. 5. Laryngeal cancer. PLAN: We will continue supportive care and wean ventilator support as tolerated. I have dropped her oxygen and her rate today slightly. Supportive care including tube feeds, and antibiotics will be continued. This is going to be turning to most likely a very protracted hospital course and the patient is going to require aggressive physical therapy and mobility exercises moving forward for the next several months before she returns to her previous state. Critical Care will continue to follow. Critical care time: 30 minutes. [facility]
[2017-01-30] MEDS: Diltiazem HCl 125 MG, Admixture Fee 1 EACH in Sodium Chloride 0.9% 100 ML SLOW IVP PRN (18:55)
[2017-01-30] MEDS: clonazePAM 1 MG TAB PO SCH (21:19)
[2017-01-30] MEDS: Aspirin 325 MG TAB PER TUBE SCH (21:20)
[2017-01-31] MEDS: Amiodarone HCl 450 MG, Admixture Fee 1 EACH in Dextrose 5% in Water 250 ML IVPB SCH ×6 (01:00→20:25)
[2017-01-31 04:45] LABS: Anion Gap 12 mmol/L (10-20); BUN (Urea Nitrogen) 48 mg/dL (9.8-20.1); Calc. Creatinine Clearance 203 mL/min (70-130); Calcium 9.1 mg/dL (7.8-10.44); Carbon Dioxide 27 mmol/L (22-29); Chloride 110 mmol/L (98-107); Estimated GFR-MDRD 88; Magnesium 1.6 mg/dL (1.6-2.6); Phosphorus 3.6 mg/dL (2.3-4.7)
[2017-01-31 05:26] LABS: #Eosinphils 0.1 thou/uL (0.0-0.7); #Lymphocytes 1.3 thou/uL (1.20-3.40); #Monocytes 0.7 thou/uL (0.11-0.59); #Neutrophils 13.5 thou/uL (1.40-6.50); %Basophils 0.1 % (0.0-1.0); %Eosinophils 0.7 % (0.0-10.0); %Lymphocytes 8.1 % (21.0-51.0); %Monocytes 4.5 % (0.0-10.0); Hematocrit 36.9 % (36.0-47.0); Mean Platelet Volume 9.9 fL (7.4-10.4); Red Blood Cell (RBC) Count 3.89 mill/uL (4.20-5.40); White Blood Cell (WBC) Count 15.6 thou/uL (4.8-10.8)
--- NOTE | 2017-01-31 08:39 | RAD ---
FRONTAL VIEW CHEST: COMPARISON: Previous day. INDICATION: Ventilated patient. FINDINGS: There is enlargement of the cardiac silhouette. Bilateral perihilar and bibasilar opacities are pre sent with bilateral pleural fluid. Tracheostomy remains. There is a right subclavian venous cathet er partially visualized as well as bilateral thoracostomy tubes. Numerous extrinsic artifacts limit detail. Otherwise, no significant interval change. IMPRESSION: Stable bilateral pleural and parenchymal opacities, and supportive lines and tubes, when comparing t o previous day. POS: [facility]
[2017-01-31] MEDS: predniSONE 20 MG TAB PO SCH (09:04)
[2017-01-31] MEDS: Saccharomyces boulardii 250 MG CAP PER TUBE SCH (09:04)
[2017-01-31] MEDS: Pantoprazole 40 MG VIAL IVP SCH ×2 (09:04→20:23)
[2017-01-31] MEDS: Nystatin Powder 15 GM BOT TOP SCH ×2 (09:04→20:24)
[2017-01-31] MEDS: Enoxaparin Sodium 40 MG/0.4 ML SYRINGE SC SCH (09:05)
[2017-01-31] MEDS: Amoxicillin/Potassium Clav 400 mg/5 ml Oral Suspension PER TUBE SCH ×2 (09:21→20:22)
--- NOTE | 2017-01-31 09:46 | PDOC.PN ---
- Subjective Encounter Start Date: 01/31/17 Encounter Start Time: 09:44 Ms. Parker is intubated , she does not indicate that she is experiencing any discomfort. - Objective Resuscitation Status: Resuscitation Status CHEM:Chem Code Only MAR Reviewed: Yes Vital Signs & Weight: Vital Signs (12 hours) Temp Pulse Resp BP Pulse Ox 01/31/17 08:00 98.4 F 01/31/17 06:56 65 147/85 H 01/31/17 06:55 68 31 H 98 01/31/17 06:00 21 H 01/31/17 04:00 97.7 F 21 H 01/31/17 02:26 59 L 01/31/17 02:25 59 L 21 H 97 01/31/17 02:00 21 H 01/31/17 00:00 97.8 F 21 H 01/30/17 22:45 65 01/30/17 22:44 91 21 H 97 01/30/17 22:00 21 H Weight Admit Weight 301 lb Weight 307 lb 15.772 oz Most Recent Monitor Data Heart Rate from ECG 66 NIBP 161/77 NIBP BP-Mean 97 Respiration from ECG 21 SpO2 98 I&O: 01/30/17 01/31/17 02/01/17 06:59 06:59 06:59 Intake Total 1691.6 2577.3 60 Output Total 2205 2255 340 Balance -513.4 322.3 -280 Result Diagrams: 01/31/17 05:00 01/31/17 03:30 Additional Labs: Accuchecks 01/30/17 12:25 POC Glucose 209 H Phys Exam - Physical Examination HEENT: PERRLA Respiratory: no rales, no rhonchi + coarse breath sounds Cardiovascular: RRR, no significant murmur, no rub Gastrointestinal: soft, non-tender, positive bowel sounds Musculoskeletal: no edema trace pedal edema Neurological: non-focal Dx/Plan (1) Empyema Code(s): J86.9 - PYOTHORAX WITHOUT FISTULA Status: Acute (2) Acute respiratory failure Code(s): J96.00 - ACUTE RESPIRATORY FAILURE, UNSP W HYPOXIA OR HYPERCAPNIA Status: Acute (3) Atrial fibrillation Code(s): I48.91 - UNSPECIFIED ATRIAL FIBRILLATION Status: Acute (4) Supraglottic mass Code(s): J38.7 - OTHER DISEASES OF LARYNX Status: Acute - Plan * Supraglottic mass requiring emergent tracheostomy- pathology consistent with squamous cell carcinoma * Acute respiratory failure- due to spontaneous pneumothorax, and empyem, requiring ventilator support- she is being slowly wean from the ventilator * Continue Augmentin, and Prednisone. * Paroxysmal Atrial Fibrillation- stable on Amiodarone * Nutritional support with tube feeds
[2017-01-31] MEDS ORDERED: Furosemide 20 MG/2 ML VIAL SLOW IVP SCH (11:15)
--- NOTE | 2017-01-31 13:58 | PRG ---
DATE OF SERVICE: 01/31/2017 SERVICE: Pulmonary Medicine. INTERVAL HISTORY: The patient is doing fine from a cardiovascular and respiratory standpoint. She requires pretty significant support on the ventilator. That being said, she is improving slightly. She denies any current fevers, chills or shortness of breath. There were no overnight events. PHYSICAL EXAMINATION: VITAL SIGNS: Afebrile. Pulse 67, blood pressure 164/81, respirations 23, saturation 97% on 37% FIO 2 and a PEEP of 5. HEENT: Normocephalic, atraumatic. Sclerae are white, conjunctivae pink. Oral and nasal mucosa is moist without lesions. LUNGS: Decent air entry. There is no prolonged expiratory phase, wheezing, rhonchi or crackles. HEART: Normal rate, regular. ABDOMEN: Soft, nontender, nondistended. Bowel sounds positive. MUSCULOSKELETAL: No cyanosis or clubbing. No pitting in the bilateral lower extremities. NEUROLOGIC: Grossly nonfocal. LABORATORY DATA: WBC 15.6, hemoglobin 11.8, platelets 197,000 and roughly stable. Basic metabolic profile is essentially unremarkable. Magnesium 1.6, phosphorus 3.6. Blood culture is growing Strep tococcus in 1 out of 2. Body fluid culture is growing Streptococcus. IMAGING: Soft tissue attenuation is evident. There is possibly pulmonary vascular congestion. Ove rall, it is roughly stable, but I do question whether or not the tracheostomy has become shifted out sharpe slightly. ASSESSMENT: 1. Septic shock, improving. 2. Empyema. 3. Acute hypoxic respiratory failure. 4. Metabolic encephalopathy, improving. 5. Laryngeal cancer. PLAN: Supportive care will be continued. We will continue to wean ventilator as tolerated. Tube f eeds, ventilator support, antibiotics will be continued. We will get her into a neuro chair at [facility] twice daily and increase as tolerated. Hopefully, we will be able to meaningfully move her within a week or two. CRITICAL CARE TIME: 30 minutes.
--- NOTE | 2017-01-31 14:28 | PRG ---
DATE OF SERVICE: 01/31/2017 SUBJECTIVE: Ms. Parker is still having intermittent atrial fibrillation. She is in sinus rhythm now. She is intubated on the ventilator. The patient even has had some atrial fibrillation early this morning at 7:00 a.m. OBJECTIVE: VITAL SIGNS: Blood pressure 165/81, pulse 68 and regular. LUNGS: Some expiratory wheezing and rhonchi. CARDIAC: Normal S1, S2. ABDOMEN: Soft, nontender. EXTREMITIES: No edema. ASSESSMENT: 1. Morbid obesity. 2. Paroxysmal atrial fibrillation, persists. 2. Respiratory failure. PLAN: 1. We will reduce intravenous amiodarone. 2. Begin NG amiodarone. 3. Beta-blockers. Reluctant to stop IV amiodarone now and I am not sure how much oral amioda cristhian.
[2017-01-31] MEDS: Carvedilol 3.125 MG TAB PO SCH (16:38)
[2017-01-31] MEDS: Aspirin 325 MG TAB PER TUBE SCH (20:23)
[2017-01-31] MEDS: clonazePAM 1 MG TAB PO SCH (20:23)
[2017-02-01 05:44] LABS: #Eosinphils 0.1 thou/uL (0.0-0.7); #Lymphocytes 1.2 thou/uL (1.20-3.40); #Monocytes 0.6 thou/uL (0.11-0.59); #Neutrophils 12.4 thou/uL (1.40-6.50); %Basophils 0.1 % (0.0-1.0); %Eosinophils 0.6 % (0.0-10.0); %Lymphocytes 8.4 % (21.0-51.0); %Monocytes 4.3 % (0.0-10.0); Mean Platelet Volume 10.2 fL (7.4-10.4); Red Blood Cell (RBC) Count 3.91 mill/uL (4.20-5.40); White Blood Cell (WBC) Count 14.3 thou/uL (4.8-10.8)
[2017-02-01 06:15] LABS: Anion Gap 11 mmol/L (10-20); BUN (Urea Nitrogen) 43 mg/dL (9.8-20.1); Calc. Creatinine Clearance 216 mL/min (70-130); Calcium 8.9 mg/dL (7.8-10.44); Carbon Dioxide 26 mmol/L (22-29); Chloride 112 mmol/L (98-107); Estimated GFR-MDRD Greater than 90; Magnesium 1.7 mg/dL (1.6-2.6); Phosphorus 3.4 mg/dL (2.3-4.7)
--- NOTE | 2017-02-01 07:44 | PRG ---
DATE OF SERVICE: 02/01/2017 Ms. Parker is resting comfortably now. She is in the bed. She is awake, looks alert. PHYSICAL EXAMINATION: VITAL SIGNS: Blood pressure 120/64, pulse 64, it is sinus. LUNGS: Few rhonchi, no wheezing. CARDIAC: Normal S1, normal S2. ABDOMEN: Obese, nontender. EXTREMITIES: No new findings. ASSESSMENT: 1. Paroxysmal atrial fibrillation, improved. 2. Respiratory failure. PLAN: She is on NG amiodarone, maintaining sinus rhythm. We will stop IV amiodarone after the pres ent bag is in.
[2017-02-01] MEDS: Carvedilol 3.125 MG TAB PO SCH ×2 (09:23→17:00)
[2017-02-01] MEDS: predniSONE 20 MG TAB PO SCH (09:24)
[2017-02-01] MEDS: Saccharomyces boulardii 250 MG CAP PER TUBE SCH (09:24)
[2017-02-01] MEDS: Enoxaparin Sodium 40 MG/0.4 ML SYRINGE SC SCH (09:24)
[2017-02-01] MEDS: Pantoprazole 40 MG VIAL IVP SCH ×2 (09:25→21:46)
[2017-02-01] MEDS: Nystatin Powder 15 GM BOT TOP SCH ×2 (09:25→21:46)
[2017-02-01] MEDS: Amoxicillin/Potassium Clav 400 mg/5 ml Oral Suspension PER TUBE SCH ×2 (09:25→21:45)
--- NOTE | 2017-02-01 10:27 | RAD ---
AP VIEW CHEST: HISTORY: Ventilator-dependent patient. DATE: 02/01/17. COMPARISON: Comparison is made to previous exam from 01/29/17. FINDINGS: AP view chest demonstrates bilateral chest tubes seen. The patient has a tracheostomy tube in place . A right subclavian central line is seen. EKG leads seen over the chest. There is blunting of the costophrenic angles bilaterally compatible with bilateral pleural effusions . Pulmonary vascular congestion is seen. No significant interval change is noted since the previou s comparison exam. IMPRESSION: 1. Multiple lines and tubes in good position. 2. Bilateral pleural effusions. 3. Pulmonary vascular congestion. 4. Cardiomegaly. POS: [facility]
--- NOTE | 2017-02-01 11:44 | PDOC.PN ---
- Subjective Encounter Start Date: 02/01/17 Encounter Start Time: 11:42 Ms. Parker is sitting up in a chair. She indicates that she is comfortable on the ventilator. She denies feeling any discomfort. - Objective Resuscitation Status: Resuscitation Status CHEM:Chem Code Only MAR Reviewed: Yes Vital Signs & Weight: Vital Signs (12 hours) Temp Pulse Resp BP Pulse Ox 02/01/17 11:23 62 131/74 02/01/17 11:21 62 31 H 98 02/01/17 10:00 24 H 02/01/17 08:00 97.9 F 02/01/17 07:10 65 121/64 02/01/17 07:07 67 28 H 98 02/01/17 06:00 18 02/01/17 04:00 97.8 F 26 H 02/01/17 02:35 65 133/66 02/01/17 02:00 27 H 02/01/17 00:00 97.7 F 23 H Weight Admit Weight 301 lb Weight 313 lb 4.43 oz Most Recent Monitor Data Heart Rate from ECG 63 NIBP 131/74 NIBP BP-Mean 79 Respiration from ECG 33 SpO2 97 I&O: 01/31/17 02/01/17 02/02/17 06:59 06:59 06:59 Intake Total 2577.3 1807.1 140 Output Total 2255 2138 300 Balance 322.3 -330.9 -160 Result Diagrams: 02/01/17 04:50 02/01/17 04:50 Phys Exam - Physical Examination HEENT: PERRLA Respiratory: no wheezing, no rales, no rhonchi + rhonchi bilaterally Cardiovascular: RRR, no significant murmur, no rub Gastrointestinal: soft, non-tender, positive bowel sounds Musculoskeletal: no edema Dx/Plan (1) Empyema Code(s): J86.9 - PYOTHORAX WITHOUT FISTULA Status: Acute (2) Acute respiratory failure Code(s): J96.00 - ACUTE RESPIRATORY FAILURE, UNSP W HYPOXIA OR HYPERCAPNIA Status: Acute (3) Atrial fibrillation Code(s): I48.91 - UNSPECIFIED ATRIAL FIBRILLATION Status: Acute (4) Supraglottic mass Code(s): J38.7 - OTHER DISEASES OF LARYNX Status: Acute - Plan * Acute respiratory failure form a spontaneous pneumothorax, and empyema ( she now has bilateral pneumothoraces) - she is being slowly weaned from the ventilator as tolerated * Sepsis- from #1 resolving- continue Augmentin and Prednisone * Supraglottic mass from squamous cell carcinoma- treatment is deferred until the resolution of this present condition * AFIB- she is being transitioned to Amiodarone via the PEG tube.
--- NOTE | 2017-02-01 17:36 | SPC ---
PICC LINE PLACEMENT: History: Need for long-term IV access. Comparison: Chest one view, same day. Technique/Findings: The exam was performed bedside. Informed consent was obtained. Left arm was prepped and draped in normal sterile fashion. Using ultrasound guidance, the left brachial vein was accessed using a micropuncture kit. Wire was p laced at the tip of the right atrium. A dual-lumen PICC was placed with the tip at the inferior SVC. No complication. Patient tolerated th e procedure well. IMPRESSION: Technically successful PICC line placement without complication. POS: [facility]
--- NOTE | 2017-02-01 19:29 | PRG ---
DATE OF SERVICE: 02/01/2017 SUBJECTIVE: Ms. Parker continues to do better. She is up in neuro chair today. She breathes better sitting up in a chair. She apparently sleeps up in the chair at home. OBJECTIVE: VITAL SIGNS: Blood pressure 151/77, heart rate 69, respiratory rate 20s to 30s. LUNGS: Remarkable for equal breath sounds. HEART: Regular rhythm. ABDOMEN: Soft. She has bilateral chest tubes. LABORATORY DATA: White count 14.3, hemoglobin 11.7, platelets 206,000. Sodium 145, potassium 4.3, chloride 112, bicarbonate 26, BUN 43, creatinine 0.66. IMPRESSION: 1. Squamous cell carcinoma of the head and neck. 2. Respiratory failure. 3. Tracheostomy. 4. Obesity. 5. Bilateral empyema. The cultures from the left are negative. Cultures from the right show that the empyema is polymicrobial consistent with aspiration. 6. Status post PICC line placement. 7. Anemia secondary to blood loss, i.e., blood draws here and chronic disease. 8. ? coronary artery disease with an abnormal EKG after code. 9. Distended gallbladder. Not a candidate for intervention at this point in time of either her cor onaries or gallbladder. PLAN: Continue slow weaning attempts. We will try progress towards just nocturnal ventilation and eventually T-collar trials during the day. Critical care time was 30 minutes.
[2017-02-01] MEDS: Aspirin 325 MG TAB PER TUBE SCH (21:45)
[2017-02-01] MEDS: clonazePAM 1 MG TAB PO SCH (21:45)
[2017-02-02 05:14] LABS: #Basophils 0.1 thou/uL (0.0-0.2); #Eosinphils 0.1 thou/uL (0.0-0.7); #Lymphocytes 1.2 thou/uL (1.20-3.40); #Monocytes 0.6 thou/uL (0.11-0.59); #Neutrophils 10.4 thou/uL (1.40-6.50); %Basophils 0.5 % (0.0-1.0); %Eosinophils 0.7 % (0.0-10.0); %Lymphocytes 9.6 % (21.0-51.0); %Monocytes 4.8 % (0.0-10.0); Hematocrit 34.8 % (36.0-47.0); Mean Platelet Volume 10.2 fL (7.4-10.4); Red Blood Cell (RBC) Count 3.66 mill/uL (4.20-5.40); White Blood Cell (WBC) Count 12.3 thou/uL (4.8-10.8)
[2017-02-02 05:32] LABS: Anion Gap 12 mmol/L (10-20); BUN (Urea Nitrogen) 41 mg/dL (9.8-20.1); Calc. Creatinine Clearance 230 mL/min (70-130); Carbon Dioxide 26 mmol/L (22-29); Chloride 113 mmol/L (98-107); Estimated GFR-MDRD Greater than 90; Magnesium 1.7 mg/dL (1.6-2.6); Phosphorus 3.6 mg/dL (2.3-4.7)
[2017-02-02] MEDS: Pantoprazole 40 MG VIAL IVP SCH ×2 (08:29→20:53)
[2017-02-02] MEDS: Carvedilol 3.125 MG TAB PO SCH ×2 (08:30→18:12)
[2017-02-02] MEDS: Enoxaparin Sodium 40 MG/0.4 ML SYRINGE SC SCH (08:30)
[2017-02-02] MEDS: predniSONE 20 MG TAB PO SCH (08:30)
[2017-02-02] MEDS: Saccharomyces boulardii 250 MG CAP PER TUBE SCH (08:30)
[2017-02-02] MEDS: Nystatin Powder 15 GM BOT TOP SCH ×2 (08:32→20:53)
[2017-02-02] MEDS: Amoxicillin/Potassium Clav 400 mg/5 ml Oral Suspension PER TUBE SCH ×2 (08:35→20:52)
--- NOTE | 2017-02-02 08:48 | RAD ---
PORTABLE CHEST: History: Dyspnea, CCU follow up. On ventilator. Comparison: 02-01-17 FINDINGS: A tracheostomy device is unchanged. Bilateral chest tubes again noted. There are bilateral effusions and bibasilar atelectasis and mild vascular engorgement with cardiomegaly. IMPRESSION: The above findings do not appear significantly changed from yesterday. POS: [facility]
--- NOTE | 2017-02-02 10:26 | PDOC.PN ---
- Subjective Encounter Start Date: 02/02/17 Encounter Start Time: 10:25 Ms. Parker indicates that she is feeling fine. She would like to try some physical therapy. - Objective Resuscitation Status: Resuscitation Status CHEM:Chem Code Only MAR Reviewed: Yes Vital Signs & Weight: Vital Signs (12 hours) Temp Pulse Resp BP 02/02/17 08:00 24 H 02/02/17 07:00 97.6 F 02/02/17 06:18 62 02/02/17 06:00 29 H 02/02/17 04:00 97.4 F L 28 H 02/02/17 02:12 60 105/56 L 02/02/17 02:00 17 02/02/17 00:00 97.7 F 16 Weight Admit Weight 301 lb Weight 318 lb 2.032 oz Most Recent Monitor Data Heart Rate from ECG 61 NIBP 135/84 NIBP BP-Mean 114 Respiration from ECG 28 SpO2 91 I&O: 02/01/17 02/02/17 02/03/17 06:59 06:59 06:59 Intake Total 1807.1 1703.2 Output Total 2138 1855 280 Balance -330.9 -151.8 -280 Result Diagrams: 02/02/17 04:50 02/02/17 04:50 Phys Exam - Physical Examination HEENT: PERRLA Respiratory: no wheezing + rhonchi Cardiovascular: RRR, no significant murmur Gastrointestinal: soft, positive bowel sounds Musculoskeletal: no edema Dx/Plan (1) Empyema Code(s): J86.9 - PYOTHORAX WITHOUT FISTULA Status: Acute (2) Acute respiratory failure Code(s): J96.00 - ACUTE RESPIRATORY FAILURE, UNSP W HYPOXIA OR HYPERCAPNIA Status: Acute (3) Atrial fibrillation Code(s): I48.91 - UNSPECIFIED ATRIAL FIBRILLATION Status: Acute (4) Supraglottic mass Code(s): J38.7 - OTHER DISEASES OF LARYNX Status: Acute - Plan * Acute respiratory failure-patient is slowly being weaned from the ventilator * Empyema, and bilateral oneumothoraces- chest tubes are in place, and she is receiving Augmenting, and Prednison via the PEG tube * AFIB- her heart rate is stable * Will consult PT.
--- NOTE | 2017-02-02 16:36 | EKG ---
Test Reason : Blood Pressure : / mmHG Vent. Rate : 148 BPM Atrial Rate : 141 BPM P-R Int : 000 ms QRS Dur : 096 ms QT Int : 296 ms P-R-T Axes : 000 015 -55 degrees QTc Int : 464 ms Atrial fibrillation with rapid ventricular response Nonspecific T wave abnormality , probably digitalis effect Abnormal ECG When compared with ECG of 20-JAN-2017 10:09, Atrial fibrillation has replaced Sinus rhythm Vent. rate has increased BY 57 BPM Nonspecific T wave abnormality has replaced inverted T waves in Inferior leads T wave inversion no longer evident in Anterior leads Confirmed by Usha ESCOBAR ([id number]) on 02/02/2017 4:35:53 PM Referred By: KARLO Confirmed By:Usha ESCOBAR
--- NOTE | 2017-02-02 17:44 | PRG ---
DATE OF SERVICE: 02/02/2017 SUBJECTIVE: Ms. Parker is awake and cooperative. She denies being short of breath or uncomfortable. She sat up in the chair all morning and does actually quite well sitting up in a chair. I have exp lained to the nurses that she has been sleeping in a chair for several months at home. OBJECTIVE: VITAL SIGNS: Blood pressure 131/81 this afternoon, heart rate 60 and respiratory rate in the 30s. LUNGS: Clear anteriorly. HEART: Regular rhythm. ABDOMEN: Soft. LABORATORY DATA: White count 12.3, hemoglobin 11.3 and platelets 186,000. Sodium 147, potassium 4.2, chloride 113, bicarb 26, BUN 41 and creatinine 0.63. IMPRESSION: Respiratory failure associated with bilateral empyemas, throat cancer, aspiration and s tatus post percutaneous endoscopic gastrostomy placement, clinically doing well. PLAN: Continue slow weaning from mechanical ventilation with nocturnal support. She is on enteral amiodarone now for atrial fibrillation.
[2017-02-02] MEDS: Aspirin 325 MG TAB PER TUBE SCH (20:52)
[2017-02-02] MEDS: clonazePAM 1 MG TAB PO SCH (20:52)
[2017-02-03 04:04] LABS: #Basophils 0.1 thou/uL (0.0-0.2); #Eosinphils 0.1 thou/uL (0.0-0.7); #Lymphocytes 1.1 thou/uL (1.20-3.40); #Monocytes 0.6 thou/uL (0.11-0.59); #Neutrophils 9.4 thou/uL (1.40-6.50); %Basophils 0.5 % (0.0-1.0); %Eosinophils 0.7 % (0.0-10.0); %Lymphocytes 9.5 % (21.0-51.0); %Monocytes 5.3 % (0.0-10.0); Mean Platelet Volume 9.9 fL (7.4-10.4); Red Blood Cell (RBC) Count 3.72 mill/uL (4.20-5.40); White Blood Cell (WBC) Count 11.2 thou/uL (4.8-10.8)
[2017-02-03 04:30] LABS: Anion Gap 10 mmol/L (10-20); BUN (Urea Nitrogen) 39 mg/dL (9.8-20.1); Calc. Creatinine Clearance 230 mL/min (70-130); Calcium 9.1 mg/dL (7.8-10.44); Carbon Dioxide 29 mmol/L (22-29); Chloride 113 mmol/L (98-107); Estimated GFR-MDRD Greater than 90; Magnesium 1.8 mg/dL (1.6-2.6)
--- NOTE | 2017-02-03 09:17 | PRG ---
DATE OF SERVICE: 02/03/2017 SUBJECTIVE: Ms. Parker is up in a chair at the bedside. She looks comfortable. PHYSICAL EXAMINATION: VITAL SIGNS: Blood pressure 147/87, pulse 90 and it is regular. LUNGS: I do not hear any wheezing and they sound clearer today. CARDIAC: Distant. I do not hear any new murmur, rub or gallop. The patient is maintaining sinus r hythm. ABDOMEN: Soft, nontender. EXTREMITIES: Warm and dry. ASSESSMENT: 1. Respiratory failure. 2. Paroxysmal atrial fibrillation, maintaining sinus rhythm off of intravenous amiodarone. PLAN: 1. Continue on amiodarone 200 mg 3 times a day by the gastric tube. 2. On low dose carvedilol. 3. Continue current medical regimen. No changes at this time.
[2017-02-03] MEDS: Pantoprazole 40 MG VIAL IVP SCH ×2 (09:26→21:54)
[2017-02-03] MEDS: Saccharomyces boulardii 250 MG CAP PER TUBE SCH (09:27)
[2017-02-03] MEDS: Amoxicillin/Potassium Clav 400 mg/5 ml Oral Suspension PER TUBE SCH ×2 (09:27→21:54)
[2017-02-03] MEDS: predniSONE 20 MG TAB PO SCH (09:27)
[2017-02-03] MEDS: Enoxaparin Sodium 40 MG/0.4 ML SYRINGE SC SCH (09:27)
[2017-02-03] MEDS: Carvedilol 3.125 MG TAB PO SCH ×2 (09:28→18:07)
[2017-02-03] MEDS: Nystatin Powder 15 GM BOT TOP SCH ×2 (09:28→23:00)
--- NOTE | 2017-02-03 09:28 | RAD ---
SEMI UPRIGHT PORTABLE CHEST ONE VIEW: History: 56-year-old female for respiratory insufficiency. FINDINGS: Tracheostomy tube, left PICC line, right chest tube and left chest tube in place. Cardiomegaly with bilateral vascular congestion and some bilateral pleural changes. No significant pneumothorax. IMPRESSION: Stable bilateral pleural and parenchymal opacity changes and bilateral chest tubes without significa nt pneumothorax. Continued short term follow up. POS: [facility]
--- NOTE | 2017-02-03 10:07 | PDOC.PN ---
- Subjective Encounter Start Date: 02/03/17 Encounter Start Time: 10:05 Ms. Parker is currently on T-collar. she says she feels a little tired, but she was sitting up in the Neuro-chair for 3 hours. She indicates no pain. - Objective Resuscitation Status: Resuscitation Status CHEM:Chem Code Only MAR Reviewed: Yes Vital Signs & Weight: Vital Signs (12 hours) Temp Pulse Resp BP Pulse Ox 02/03/17 08:00 97.8 F 89 22 H 96 02/03/17 07:14 89 148/95 H 02/03/17 05:49 25 H 02/03/17 04:00 97.7 F 27 H 02/03/17 02:13 57 L 109/61 02/03/17 02:00 15 02/03/17 00:00 97.8 F 21 H 02/02/17 22:16 60 105/61 Weight Admit Weight 301 lb Weight 318 lb 12.615 oz Most Recent Monitor Data Heart Rate from ECG 67 NIBP 147/87 NIBP BP-Mean 88 Respiration from ECG 30 SpO2 96 I&O: 02/02/17 02/03/17 02/04/17 06:59 06:59 06:59 Intake Total 1703.2 1266 50 Output Total 1855 1825 160 Balance -151.8 -559 -110 Result Diagrams: 02/03/17 03:50 02/03/17 03:50 Phys Exam - Physical Examination HEENT: PERRLA Respiratory: no wheezing, no rales + coarse breath sounds Cardiovascular: RRR, no significant murmur Gastrointestinal: soft, positive bowel sounds Musculoskeletal: no edema Dx/Plan (1) Empyema Code(s): J86.9 - PYOTHORAX WITHOUT FISTULA Status: Acute (2) Acute respiratory failure Code(s): J96.00 - ACUTE RESPIRATORY FAILURE, UNSP W HYPOXIA OR HYPERCAPNIA Status: Acute (3) Atrial fibrillation Code(s): I48.91 - UNSPECIFIED ATRIAL FIBRILLATION Status: Acute (4) Supraglottic mass Code(s): J38.7 - OTHER DISEASES OF LARYNX Status: Acute - Plan * Patient initially admitted with acute respiratory failure due to a supraglottic mass in which she had an emergent tracheostomy. The mass is due to squamous cell carcinoma. She then developed respiratory distress due to a spontaneous pneumothorax, and empyema. She now bilateral pneumothoraces and bilateral chest tube placed. * Respiratory failure- she has been placed on a T-collar. Continue slow wean from the ventilator. * She is currently receiving Augmentin, and Prednisone for the empyema * Nutritional support is via PEG tube * AFIB- heart rate is controlled- on Amiodarone. she is not currently on anticoagulation due to surgeries- * Hypernatremia- sodium is creeping up- will add some additional free water via the PEG tube
--- NOTE | 2017-02-03 16:11 | PRG ---
DATE OF SERVICE: 02/03/2017 SUBJECTIVE: Ms. Parker did well overnight. She did 4 hours on a trach collar this morning. She allyn ed being short of breath, but started having some exam finding suggestive of respiratory muscle fati mya. OBJECTIVE: VITAL SIGNS: Heart rate in the 60s. Blood pressure 119/69, respiratory rates in the 20. She is ba ck on pressure support ventilation and will go to full volume ventilation at night. LUNGS: Clear. HEART: Regular rhythm. ABDOMEN: Soft. LABORATORY DATA: White count 11.2, hemoglobin 11.5, platelets 177. Sodium 148, potassium 4.4, chlo ride 113, bicarb 29, BUN 39, creatinine 0.6, glucose 190. IMPRESSION: 1. Respiratory failure associated with bilateral empyemas. 2. Throat cancer. 3. Status post emergent tracheostomy. 4. 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 5. Status post PEG placement. 6. Obesity likely sleep apnea. PLAN: Continue weaning attempts, she was sitting in the chair on a daily basis physical therapy.
[2017-02-03] MEDS: Aspirin 325 MG TAB PER TUBE SCH (21:53)
[2017-02-03] MEDS: clonazePAM 1 MG TAB PO SCH (21:54)
[2017-02-04 04:19] LABS: #Eosinphils 0.1 thou/uL (0.0-0.7); #Lymphocytes 0.9 thou/uL (1.20-3.40); #Monocytes 0.6 thou/uL (0.11-0.59); #Neutrophils 8.1 thou/uL (1.40-6.50); %Basophils 0.5 % (0.0-1.0); %Eosinophils 0.7 % (0.0-10.0); %Lymphocytes 9.5 % (21.0-51.0); %Monocytes 6.2 % (0.0-10.0); Hematocrit 34.7 % (36.0-47.0); Mean Platelet Volume 9.8 fL (7.4-10.4); Red Blood Cell (RBC) Count 3.58 mill/uL (4.20-5.40); White Blood Cell (WBC) Count 9.8 thou/uL (4.8-10.8)
[2017-02-04 04:44] LABS: Anion Gap 8 mmol/L (10-20); BUN (Urea Nitrogen) 40 mg/dL (9.8-20.1); Calc. Creatinine Clearance 230 mL/min (70-130); Calcium 8.8 mg/dL (7.8-10.44); Carbon Dioxide 31 mmol/L (22-29); Chloride 111 mmol/L (98-107); Estimated GFR-MDRD Greater than 90; Magnesium 1.7 mg/dL (1.6-2.6); Phosphorus 3.4 mg/dL (2.3-4.7)
--- NOTE | 2017-02-04 07:49 | PRG ---
DATE OF SERVICE: 02/04/2017 Ms. Parker is on the ventilator with tracheostomy in place. PHYSICAL EXAMINATION: VITAL SIGNS: Blood pressure 136/66, pulse 62, it is sinus. LUNGS: Clear. CARDIAC: Normal S1, S2. ABDOMEN: Soft, nontender. EXTREMITIES: No edema. ASSESSMENT: 1. Respiratory failure. 2. Atrial fibrillation better, she still has occasional atrial fibrillation, but the rates are bett er in the rate of 110. 3. Possible underlying coronary artery disease. PLAN: 1. She is on NG amiodarone. 2. Low-dose beta blockers. 3. Low dose enoxaparin. 4. Continue current medical regimen. 5. Also on aspirin.
--- NOTE | 2017-02-04 08:21 | RAD ---
AP VIEW OF THE CHEST: INDICATION: Intubation. COMPARISON: Prior exam dated 02/03/17. FINDINGS: The right and left side thoracostomy tubes are unchanged. No pneumothorax is evident. Left-sided P ICC line and tracheostomy are similar. Cardiomegaly and mild pulmonary vascular congestion remain. Bilateral pleural effusions are similar. IMPRESSION: Stable exam. POS: [facility]
[2017-02-04] MEDS: Carvedilol 3.125 MG TAB PO SCH ×2 (08:34→16:20)
[2017-02-04] MEDS: Enoxaparin Sodium 40 MG/0.4 ML SYRINGE SC SCH (08:34)
[2017-02-04] MEDS: Pantoprazole 40 MG VIAL IVP SCH ×2 (08:34→20:29)
[2017-02-04] MEDS: Amoxicillin/Potassium Clav 400 mg/5 ml Oral Suspension PER TUBE SCH ×2 (08:34→20:29)
[2017-02-04] MEDS: predniSONE 20 MG TAB PO SCH (08:34)
[2017-02-04] MEDS: Saccharomyces boulardii 250 MG CAP PER TUBE SCH (08:34)
[2017-02-04] MEDS: Nystatin Powder 15 GM BOT TOP SCH ×2 (08:46→20:33)
--- NOTE | 2017-02-04 11:55 | PDOC.PN ---
- Subjective Encounter Start Date: 02/04/17 Encounter Start Time: 08:40 Pt seen and examined on rounds earlier this morning. Chart reviewed in its entirety. This is my first visit with the patient. During rounds, pt was placed on trach collar, and on review of records at the time of this note, lasted about 2 hours before requesting to be put back on the vent. Afebrile, no acute events overnight, no new complaints, denies any pain, no F/C, no n/V/D/C. 10 point ROS performed and neg for all systems except as above - Objective Resuscitation Status: Resuscitation Status CHEM:Chem Code Only MAR Reviewed: Yes Vital Signs & Weight: Vital Signs (12 hours) Temp Pulse Resp BP Pulse Ox 02/04/17 10:00 16 02/04/17 09:45 104 H 105/52 L 02/04/17 08:00 97.8 F 72 24 H 90 L 02/04/17 07:19 61 136/66 02/04/17 06:00 22 H 02/04/17 04:00 97.5 F L 16 02/04/17 02:13 70 99/61 02/04/17 02:00 15 02/04/17 00:00 15 Weight Admit Weight 301 lb Weight 310 lb 13.628 oz Most Recent Monitor Data Heart Rate from ECG 64 NIBP 113/61 NIBP BP-Mean 69 Respiration from ECG 24 SpO2 96 I&O: 02/03/17 02/04/17 02/05/17 06:59 06:59 06:59 Intake Total 1266 1739 Output Total 1825 2040 290 Balance -559 -301 -290 Result Diagrams: 02/04/17 04:10 02/04/17 04:10 Radiology Reviewed by me: Yes EKG Reviewed by me: Yes Phys Exam - Physical Examination Constitutional: NAD HEENT: PERRLA, moist MMs, sclera anicteric, oral pharynx no lesions Neck: no nodes, no JVD, supple, full ROM trach site C/D/I Respiratory: no wheezing, no rhonchi coarse bilaterla crackles, no rhonchi. bilateral chest tubes intact Cardiovascular: RRR, no significant murmur, no rub Gastrointestinal: soft, non-tender, no distention, positive bowel sounds PEG site c/D/I Musculoskeletal: pulses present, edema present Neurological: non-focal, normal sensation, moves all 4 limbs Lymphatic: no nodes Psychiatric: normal affect, A&O x 3 Skin: no rash, normal turgor, cap refill <2 seconds Dx/Plan (1) Acute respiratory failure Code(s): J96.00 - ACUTE RESPIRATORY FAILURE, UNSP W HYPOXIA OR HYPERCAPNIA Status: Acute Comment: trached, on vent weaning per pulm. (2) Atrial fibrillation Code(s): I48.91 - UNSPECIFIED ATRIAL FIBRILLATION Status: Resolved (3) Empyema Code(s): J86.9 - PYOTHORAX WITHOUT FISTULA Status: Acute Comment: S/P decortication. cx with multiple GP organisms, on augmentin now (4) Pneumothorax Code(s): J93.9 - PNEUMOTHORAX, UNSPECIFIED Status: Acute Qualifiers: Pneumothorax type: spontaneous, primary Qualified Code(s): J93.11 - Primary spontaneous pneumothorax Comment: bilateral CT in. Per pulm/CT curgery. appreciate their assistance (5) Supraglottic mass Code(s): J38.7 - OTHER DISEASES OF LARYNX Status: Acute Comment: Squamous Cell cacinoma. (6) Dysphagia Code(s): R13.10 - DYSPHAGIA, UNSPECIFIED Status: Resolved Qualifiers: Dysphagia type: oropharyngeal phase Qualified Code(s): R13.12 - Dysphagia, oropharyngeal phase (7) Squamous cell cancer of hypopharynx Code(s): C13.9 - MALIGNANT NEOPLASM OF HYPOPHARYNX, UNSPECIFIED Status: Acute - Plan cont current plan of care, childers catheter, continue antibiotics, PT/OT, respiratory therapy, incentive spirometry, DVT proph w/lovenox * .
--- NOTE | 2017-02-04 14:07 | PRG ---
DATE OF SERVICE: 02/04/2017 Erika Parker is awake. She was still on the ventilator when I evaluated her this morning. She was goi ng to the chair to be put on a trach collar. I have encouraged to stay up as long she can today. S he made it a little over 4 hours yesterday. Hopefully she will do longer today. PHYSICAL EXAMINATION: VITAL SIGNS: Blood pressure 105/52, heart rate in the 70s, respiratory rate in the teens to low 20s . LUNGS: Clear. HEART: Regular rhythm. ABDOMEN: Soft. Chest radiograph is unchanged. LABORATORY DATA: White count 9.8, hemoglobin 10.9, platelets 178. Sodium 148, potassium 4.4, chlor jeb 113, bicarb 29, BUN 39, creatinine 0.6. Intake and output is negative 301 mL. IMPRESSION: Respiratory failure associated with bilateral aspiration pneumonias with bilateral empy radha's. She is clinically stable at this point in time. Her left thoracentesis never did grow out p athogens, but was purulent and I suspect was at some point infected. She still has bilateral chest tubes. We are making progress from a weaning standpoint. I do believe she has critical illness myop athy associated with this. Still have a throat cancer that needs to be dealt with at a later date.
[2017-02-04] MEDS: clonazePAM 1 MG TAB PO SCH (20:29)
[2017-02-04] MEDS: Aspirin 325 MG TAB PER TUBE SCH (20:29)
[2017-02-05 04:45] LABS: #Eosinphils 0.1 thou/uL (0.0-0.7); #Lymphocytes 0.9 thou/uL (1.20-3.40); #Monocytes 0.5 thou/uL (0.11-0.59); %Basophils 0.3 % (0.0-1.0); %Monocytes 6.4 % (0.0-10.0); Hematocrit 33.3 % (36.0-47.0); Mean Platelet Volume 10.5 fL (7.4-10.4); Red Blood Cell (RBC) Count 3.43 mill/uL (4.20-5.40); White Blood Cell (WBC) Count 8.5 thou/uL (4.8-10.8)
[2017-02-05 05:09] LABS: Anion Gap 10 mmol/L (10-20); BUN (Urea Nitrogen) 42 mg/dL (9.8-20.1); Calc. Creatinine Clearance 236 mL/min (70-130); Calcium 8.7 mg/dL (7.8-10.44); Carbon Dioxide 30 mmol/L (22-29); Chloride 111 mmol/L (98-107); Estimated GFR-MDRD Greater than 90; Magnesium 1.7 mg/dL (1.6-2.6); Phosphorus 2.6 mg/dL (2.3-4.7)
[2017-02-05] MEDS ORDERED: Digoxin 0.5 MG/2 ML AMP SLOW IVP SCH (08:00)
[2017-02-05] MEDS ORDERED: Magnesium 2 GM/NS 0.9% 100 ML 2 GM in Premix Bag 1 BAG IVPB SCH (08:00)
--- NOTE | 2017-02-05 08:00 | PRG ---
DATE OF SERVICE: 02/05/2017 Ms. Parker is up in the neuro chair. She looks comfortable. She is still on the ventilator. REVIEW OF SYSTEMS: Not obtainable. PHYSICAL EXAMINATION: VITAL SIGNS: Blood pressure is 106/55. The pulse is now 100-110. It is atrial fibrillation. LUNGS: Clear. CARDIAC: Irregular, irregular. ABDOMEN: Obese, nontender. EXTREMITIES: Cool, but not cold. ASSESSMENT: 1. Respiratory failure. 2. Paroxysmal atrial fibrillation persists, but the rates are much lower now when she goes into fib rillation. 3. Bilateral chest tubes in place. PLAN: 1. Will give her a single dose of digoxin IV today and then maintenance dose daily. 2. Continue amiodarone. 3. Continue carvedilol. 4. Low dose Lovenox. Previously when higher doses were used she had some bleeding issues.
[2017-02-05] MEDS: Saccharomyces boulardii 250 MG CAP PER TUBE SCH (09:00)
[2017-02-05] MEDS: Pantoprazole 40 MG VIAL IVP SCH ×2 (09:00→20:57)
[2017-02-05] MEDS: Carvedilol 3.125 MG TAB PO SCH ×2 (09:00→15:48)
[2017-02-05] MEDS: predniSONE 20 MG TAB PO SCH (09:00)
[2017-02-05] MEDS: Nystatin Powder 15 GM BOT TOP SCH ×2 (09:01→21:53)
[2017-02-05] MEDS: Enoxaparin Sodium 40 MG/0.4 ML SYRINGE SC SCH (09:01)
[2017-02-05] MEDS: Amoxicillin/Potassium Clav 400 mg/5 ml Oral Suspension PER TUBE SCH ×2 (09:07→21:49)
--- NOTE | 2017-02-05 12:49 | PDOC.PN ---
- Subjective Encounter Start Date: 02/05/17 Encounter Start Time: 12:15 Subjective: Expresses no specific complaint. - Objective Resuscitation Status: Resuscitation Status CHEM:Chem Code Only Vital Signs & Weight: Vital Signs (12 hours) Temp Pulse Resp BP Pulse Ox 02/05/17 11:55 77 35 H 91 L 02/05/17 09:00 62 02/05/17 08:00 97.8 F 62 24 H 92 L 02/05/17 07:03 62 35 H 92 L 02/05/17 06:00 20 02/05/17 04:00 97.7 F 18 02/05/17 02:29 72 106/55 L 02/05/17 02:00 23 H Weight Admit Weight 301 lb Weight 310 lb 8 oz Most Recent Monitor Data Heart Rate from ECG 132 NIBP 144/89 NIBP BP-Mean 105 Respiration from ECG 35 SpO2 90 I&O: 02/04/17 02/05/17 02/06/17 06:59 06:59 06:59 Intake Total 1739 1217 Output Total 0 2089 215 Balance -301 -873 -215 Result Diagrams: 02/05/17 03:30 02/05/17 03:30 Phys Exam - Physical Examination HEENT: sclera anicteric Neck: supple (Tracheal mask in place..) Respiratory: clear to auscultation bilateral Cardiovascular: irregular Gastrointestinal: soft Musculoskeletal: edema present Neurological: moves all 4 limbs Psychiatric: normal affect Dx/Plan (1) Acute respiratory failure Code(s): J96.00 - ACUTE RESPIRATORY FAILURE, UNSP W HYPOXIA OR HYPERCAPNIA Status: Acute Comment: trached, on vent weaning per pulm. (2) Empyema Code(s): J86.9 - PYOTHORAX WITHOUT FISTULA Status: Acute Comment: S/P decortication. cx with multiple GP organisms, on augmentin now (3) Pneumothorax Code(s): J93.9 - PNEUMOTHORAX, UNSPECIFIED Status: Acute Qualifiers: Pneumothorax type: spontaneous, primary Qualified Code(s): J93.11 - Primary spontaneous pneumothorax Comment: bilateral CT in. Per pulm/CT curgery. 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 (6) Atrial fibrillation Code(s): I48.91 - UNSPECIFIED ATRIAL FIBRILLATION Status: Resolved (7) Dysphagia Code(s): R13.10 - DYSPHAGIA, UNSPECIFIED Status: Resolved Qualifiers: Dysphagia type: oropharyngeal phase Qualified Code(s): R13.12 - Dysphagia, oropharyngeal phase - Plan * .
--- NOTE | 2017-02-05 18:14 | PRG ---
DATE OF SERVICE: 02/05/2017 SUBJECTIVE: Erika Parker is up in a chair earlier this morning. She has been on trach collar all morn ing and doing reasonably well. She denies being short of breath. OBJECTIVE: VITAL SIGNS: Heart rate is in the 60s, blood pressure 123/80, respiratory rates in the low 30s to h igh 20s. Intake and output is negative 873. LUNGS: Remarkable for equal breath sounds. She is not wheezing. HEART: Regular rhythm. ABDOMEN: Soft and nontender. IMPRESSION: 1. Respiratory failure after a code associated with spontaneous pneumothorax on the right. She has no anoxic insult. 2. Bilateral empyema secondary to chronic aspiration secondary to dysphagia because of her upper ai rway tumor. 3. Status post tracheostomy. 4. Status post percutaneous endoscopic gastrostomy tube. 5. Critical illness myopathy. PLAN: Continue current care with gastrostomy tube trials during the day.
[2017-02-05] MEDS: clonazePAM 1 MG TAB PO SCH (20:56)
[2017-02-05] MEDS: Aspirin 325 MG TAB PER TUBE SCH (20:57)
[2017-02-06 06:06] LABS: #Eosinphils 0.1 thou/uL (0.0-0.7); #Monocytes 0.5 thou/uL (0.11-0.59); #Neutrophils 5.9 thou/uL (1.40-6.50); %Basophils 0.3 % (0.0-1.0); %Eosinophils 1.1 % (0.0-10.0); %Lymphocytes 13.2 % (21.0-51.0); Hematocrit 34.2 % (36.0-47.0); Mean Platelet Volume 9.8 fL (7.4-10.4); Red Blood Cell (RBC) Count 3.54 mill/uL (4.20-5.40); White Blood Cell (WBC) Count 7.5 thou/uL (4.8-10.8)
[2017-02-06 06:45] LABS: Anion Gap 10 mmol/L (10-20); BUN (Urea Nitrogen) 38 mg/dL (9.8-20.1); Calc. Creatinine Clearance 226 mL/min (70-130); Calcium 8.7 mg/dL (7.8-10.44); Carbon Dioxide 31 mmol/L (22-29); Chloride 110 mmol/L (98-107); Estimated GFR-MDRD Greater than 90; Phosphorus 2.5 mg/dL (2.3-4.7)
[2017-02-06] MEDS: Enoxaparin Sodium 40 MG/0.4 ML SYRINGE SC SCH (09:06)
[2017-02-06] MEDS: Digoxin 0.5 MG/2 ML AMP SLOW IVP SCH (09:07)
[2017-02-06] MEDS: predniSONE 20 MG TAB PO SCH (09:14)
[2017-02-06] MEDS: Carvedilol 3.125 MG TAB PO SCH ×2 (09:14→18:04)
[2017-02-06] MEDS: Saccharomyces boulardii 250 MG CAP PER TUBE SCH (09:16)
[2017-02-06] MEDS: Pantoprazole 40 MG VIAL IVP SCH ×2 (09:25→21:44)
[2017-02-06] MEDS: Amoxicillin/Potassium Clav 400 mg/5 ml Oral Suspension PER TUBE SCH ×2 (10:35→21:44)
[2017-02-06] MEDS: Nystatin Powder 15 GM BOT TOP SCH ×2 (10:35→21:44)
--- NOTE | 2017-02-06 11:23 | PDOC.CTH ---
Cardiology Progress Note - Subjective No new issues. - Objective Vital Signs Temp Pulse Resp Pulse Ox 02/06/17 09:07 61 02/06/17 09:00 58 L 32 H 98 02/06/17 08:00 95.7 F L 02/06/17 04:00 97.6 F 02/06/17 02:18 63 21 H 99 02/06/17 00:00 98.1 F Admit Weight 301 lb Weight 308 lb 6.827 oz 02/05/17 02/06/17 02/07/17 06:59 06:59 06:59 Intake Total 1217 1491 Output Total 2090 1231 250 Balance -873 260 -250 - Physical Examination General/Neuro: NAD Neck: no JVD present Lungs: unlabored respirations Heart: RRR Abdomen: NT/ND Extremities: + edema B (1+) - Telemetry Telemetry Rhythm: NSR - Labs Result Diagrams: 02/06/17 05:21 02/06/17 05:21 Troponin/CKMB CK-MB (CK-2) 11.0 ng/mL (0-6.6) H* 01/20/17 04:20 Troponin I 1.793 ng/mL (< 0.028) H* 01/20/17 04:20 - Assessment/Plan 1. Paroxysmal afib 2. Respiratoruy insufficiency 3. Bilateral chest tubes. PLAN: - No new recs. - Continue current meds
--- NOTE | 2017-02-06 13:41 | PDOC.PN ---
- Subjective Encounter Start Date: 02/06/17 Encounter Start Time: 13:39 Patient seen and examined, nods 'yes' when asked if she's feeling ok and nods ' no' when asked if theres any new issues or complaints in the last 24 hours. - Objective Resuscitation Status: Resuscitation Status CHEM:Chem Code Only Vital Signs & Weight: Vital Signs (12 hours) Temp Pulse Pulse Pulse Resp BP BP 02/06/17 13:07 64 33 H 02/06/17 12:00 97.8 F 02/06/17 09:55 69 74 150/82 H 160/89 H 02/06/17 09:07 61 02/06/17 09:00 58 L 32 H 02/06/17 08:00 97.9 F 61 28 H 02/06/17 04:00 97.6 F 02/06/17 02:18 63 21 H Pulse Ox Pulse Ox Pulse Ox 02/06/17 13:07 97 02/06/17 12:00 02/06/17 09:55 93 L 92 L 02/06/17 09:07 02/06/17 09:00 98 02/06/17 08:00 95 02/06/17 04:00 02/06/17 02:18 99 Weight Admit Weight 301 lb Weight 308 lb 6.827 oz Most Recent Monitor Data Heart Rate from ECG 64 NIBP 122/72 NIBP BP-Mean 92 Respiration from ECG 31 SpO2 95 I&O: 02/05/17 02/06/17 02/07/17 06:59 06:59 06:59 Intake Total 1217 1491 100 Output Total 2090 1231 375 Balance -873 260 -275 Result Diagrams: 02/06/17 05:21 02/06/17 05:21 Phys Exam - Physical Examination Constitutional: NAD sitting up in a chair HEENT: PERRLA, moist MMs Neck: no nodes, no JVD T pieace coarse breath sounds B/L, increased AP diameter, chest tubes in place x 2 Cardiovascular: RRR, no significant murmur Gastrointestinal: soft, non-tender, no distention Musculoskeletal: pulses present, edema present (1+ pitting B/L LE) Neurological: non-focal, normal sensation Psychiatric: normal affect Deviation from normal: answering questions properly Dx/Plan (1) Acute respiratory failure Code(s): J96.00 - ACUTE RESPIRATORY FAILURE, UNSP W HYPOXIA OR HYPERCAPNIA Status: Acute Comment: trached, on vent weaning per pulm. (2) Empyema Code(s): J86.9 - PYOTHORAX WITHOUT FISTULA Status: Acute Comment: S/P decortication. cx with multiple GP organisms, on augmentin now (3) Pneumothorax Code(s): J93.9 - PNEUMOTHORAX, UNSPECIFIED Status: Acute Qualifiers: Pneumothorax type: spontaneous, primary Qualified Code(s): J93.11 - Primary spontaneous pneumothorax Comment: bilateral CT in. Per pulm/CT curgery. 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 (6) Atrial fibrillation Code(s): I48.91 - UNSPECIFIED ATRIAL FIBRILLATION Status: Resolved - Plan * Vent management per pulmonary * cont w/ chest tubes * cont abx * childers care * afebrile, vital signs stable * no other changes in plan for now * case and plan d/w patient at length, she nods her head 'yes' when asked if she understands and agrees with this plan * further management as per consultants
--- NOTE | 2017-02-06 13:58 | PRG ---
DATE OF SERVICE: 02/06/2017 SUBJECTIVE: Erika Love this morning sitting in the chair, bilateral chest tubes. Denies any pain or shortness of breath. She is breathing about 30 times. OBJECTIVE: VITAL SIGNS: Pulse is 61, blood pressure 148/75, temperature is 98.5. I's and O's 1217 in and 2093 out. CHEST: Bilateral rhonchi. CARDIAC: Sinus tachycardia. ABDOMEN: Soft. LABORATORY: White count 7000, hemoglobin and hematocrit 10 and 34, and platelet count 160. Electro lytes are normal. IMPRESSION: 1. Bilateral chest tube empyema, status post respiratory failure. 2. Tracheostomy and percutaneous endoscopic gastrostomy. 3. Severe deconditioning. 4. Morbid obesity. PLAN: Continue nutrition, PT, supportive care, eventually placement.
[2017-02-06] MEDS: clonazePAM 1 MG TAB PO SCH (21:43)
[2017-02-06] MEDS: Aspirin 325 MG TAB PER TUBE SCH (21:43)
[2017-02-07 04:42] LABS: #Eosinphils 0.1 thou/uL (0.0-0.7); #Lymphocytes 0.9 thou/uL (1.20-3.40); #Monocytes 0.5 thou/uL (0.11-0.59); #Neutrophils 4.3 thou/uL (1.40-6.50); %Basophils 0.1 % (0.0-1.0); %Eosinophils 1.2 % (0.0-10.0); %Lymphocytes 15.4 % (21.0-51.0); %Monocytes 8.4 % (0.0-10.0); Hematocrit 31.3 % (36.0-47.0); Mean Platelet Volume 10.3 fL (7.4-10.4); Red Blood Cell (RBC) Count 3.21 mill/uL (4.20-5.40); White Blood Cell (WBC) Count 5.8 thou/uL (4.8-10.8)
[2017-02-07 04:50] LABS: Anion Gap 10 mmol/L (10-20); BUN (Urea Nitrogen) 39 mg/dL (9.8-20.1); Calc. Creatinine Clearance 238 mL/min (70-130); Calcium 8.8 mg/dL (7.8-10.44); Carbon Dioxide 32 mmol/L (22-29); Chloride 111 mmol/L (98-107); Estimated GFR-MDRD Greater than 90; Phosphorus 2.7 mg/dL (2.3-4.7)
[2017-02-07] MEDS: Digoxin 0.5 MG/2 ML AMP SLOW IVP SCH (09:27)
[2017-02-07] MEDS: Enoxaparin Sodium 40 MG/0.4 ML SYRINGE SC SCH (09:28)
[2017-02-07] MEDS: Pantoprazole 40 MG VIAL IVP SCH ×2 (09:28→20:02)
[2017-02-07] MEDS: Carvedilol 3.125 MG TAB PO SCH ×2 (09:28→17:29)
[2017-02-07] MEDS: Saccharomyces boulardii 250 MG CAP PER TUBE SCH (09:28)
[2017-02-07] MEDS: predniSONE 20 MG TAB PO SCH (09:28)
[2017-02-07] MEDS: Nystatin Powder 15 GM BOT TOP SCH ×2 (09:29→20:02)
[2017-02-07] MEDS: Amoxicillin/Potassium Clav 400 mg/5 ml Oral Suspension PER TUBE SCH ×2 (09:31→20:07)
--- NOTE | 2017-02-07 12:08 | PDOC.PN ---
- Subjective Encounter Start Date: 02/07/17 Encounter Start Time: 12:06 Patient seen and examined, back on the ventilator, tolerated T-piece for 3 hours earlier today, no other issues or complaitns. - Objective Resuscitation Status: Resuscitation Status CHEM:Chem Code Only Vital Signs & Weight: Vital Signs (12 hours) Temp Pulse Resp BP Pulse Ox 02/07/17 11:52 64 129/80 02/07/17 10:00 24 H 02/07/17 09:41 78 25 H 98 02/07/17 09:27 72 02/07/17 08:50 81 124/72 02/07/17 08:00 98.1 F 02/07/17 07:19 98.1 F 72 24 H 93 L 02/07/17 06:25 72 117/73 02/07/17 06:24 74 25 H 100 02/07/17 06:00 20 02/07/17 04:00 97.9 F 20 02/07/17 02:38 63 106/63 02/07/17 02:34 70 26 H 100 02/07/17 02:00 19 Weight Admit Weight 301 lb Weight 305 lb 5.443 oz Most Recent Monitor Data Heart Rate from ECG 65 NIBP 109/78 NIBP BP-Mean 96 Respiration from ECG 23 SpO2 100 I&O: 02/06/17 02/07/17 02/08/17 06:59 06:59 06:59 Intake Total 1491 1420 Output Total 1231 1245 225 Balance 260 175 -225 Result Diagrams: 02/07/17 03:14 02/07/17 03:14 Phys Exam - Physical Examination Constitutional: NAD obese HEENT: PERRLA, moist MMs ventilator Neck: no nodes, no JVD Respiratory: no wheezing, no rales Cardiovascular: RRR, no significant murmur Gastrointestinal: soft, non-tender rotund Musculoskeletal: pulses present, edema present (1+) Neurological: non-focal, normal sensation Psychiatric: normal affect Deviation from normal: nods 'yes' and 'no' appropriately Skin: no rash, normal turgor Dx/Plan (1) Acute respiratory failure Code(s): J96.00 - ACUTE RESPIRATORY FAILURE, UNSP W HYPOXIA OR HYPERCAPNIA Status: Acute Comment: trached, on vent weaning per pulm. (2) Empyema Code(s): J86.9 - PYOTHORAX WITHOUT FISTULA Status: Acute Comment: S/P decortication. cx with multiple GP organisms, on augmentin now (3) Pneumothorax Code(s): J93.9 - PNEUMOTHORAX, UNSPECIFIED Status: Acute Qualifiers: Pneumothorax type: spontaneous, primary Qualified Code(s): J93.11 - Primary spontaneous pneumothorax Comment: bilateral CT in. Per pulm/CT curgery. 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 (6) Atrial fibrillation Code(s): I48.91 - UNSPECIFIED ATRIAL FIBRILLATION Status: Resolved - Plan * continue current plan of care * vent management per pulmonary * no other changes in plan from medical perspective * case and plan d/w patient at length, she understands and agrees with this plan
--- NOTE | 2017-02-07 12:20 | PRG ---
DATE OF SERVICE: 02/07/2017 SUBJECTIVE: Ms. Parker on the vent, intubated, trach, peg in place. She is awake, responsive. Denie s any pain or difficulty breathing. OBJECTIVE: VITAL SIGNS: Blood pressure 133/78, respiratory rate of 30. I's and O's are 1491 in and 123 out. CHEST: Reveals bilateral rhonchi. CARDIAC: Sinus tachycardia. ABDOMEN: Soft. NEUROLOGIC: She is awake and responsive. She is weak. LABORATORY DATA: White count 5.8, hemoglobin and hematocrit are 10 and 31, platelet count 141. Divya ctrolytes are normal. X-RAY FINDINGS: No recent chest x-ray. IMPRESSION: Respiratory failure, bilateral empyema, bilateral chest tube, pneumothorax. PLAN: Continue vent support, continue PT and eventually placement. We will follow.
--- NOTE | 2017-02-07 14:14 | PDOC.CTH ---
Cardiology Progress Note - Subjective No new issues. In afib now, in RVR. - Objective Vital Signs Temp Pulse Resp BP Pulse Ox 02/07/17 13:54 66 125/59 L 02/07/17 13:53 67 23 H 97 02/07/17 12:00 98.5 F 21 H 02/07/17 11:52 64 129/80 02/07/17 10:00 24 H 02/07/17 09:41 78 25 H 98 02/07/17 09:27 72 02/07/17 08:50 81 124/72 02/07/17 08:00 98.1 F 02/07/17 07:19 98.1 F 72 24 H 93 L 02/07/17 06:25 72 117/73 02/07/17 06:24 74 25 H 100 02/07/17 06:00 20 02/07/17 04:00 97.9 F 20 02/07/17 02:38 63 106/63 02/07/17 02:34 70 26 H 100 Admit Weight 301 lb Weight 305 lb 5.443 oz 02/06/17 02/07/17 02/08/17 06:59 06:59 06:59 Intake Total 1491 1420 Output Total 1231 1245 275 Balance 260 175 -275 - Physical Examination General/Neuro: alert & oriented x3, NAD Neck: no JVD present Lungs: unlabored respirations Heart: other: (Irregular) Abdomen: NT/ND Extremities: other: (1+) - Telemetry Telemetry Rhythm: Afib - Labs Result Diagrams: 02/07/17 03:14 02/07/17 03:14 Troponin/CKMB CK-MB (CK-2) 11.0 ng/mL (0-6.6) H* 01/20/17 04:20 Troponin I 1.793 ng/mL (< 0.028) H* 01/20/17 04:20 - Assessment/Plan 1. Paroxysmal afib 2. Respiratoruy insufficiency 3. Bilateral chest tubes. PLAN: - Will add digoxin - Continue current meds
[2017-02-07] MEDS: clonazePAM 1 MG TAB PO SCH (20:02)
[2017-02-07] MEDS: Aspirin 325 MG TAB PER TUBE SCH (20:02)
[2017-02-08 04:47] LABS: #Eosinphils 0.1 thou/uL (0.0-0.7); #Monocytes 0.5 thou/uL (0.11-0.59); #Neutrophils 3.8 thou/uL (1.40-6.50); %Basophils 0.3 % (0.0-1.0); %Eosinophils 1.7 % (0.0-10.0); %Lymphocytes 17.7 % (21.0-51.0); Hematocrit 33.1 % (36.0-47.0); Mean Platelet Volume 9.6 fL (7.4-10.4); White Blood Cell (WBC) Count 5.4 thou/uL (4.8-10.8)
[2017-02-08 05:14] LABS: Anion Gap 11 mmol/L (10-20); BUN (Urea Nitrogen) 34 mg/dL (9.8-20.1); Calc. Creatinine Clearance 229 mL/min (70-130); Calcium 8.7 mg/dL (7.8-10.44); Carbon Dioxide 31 mmol/L (22-29); Chloride 111 mmol/L (98-107); Estimated GFR-MDRD Greater than 90; Magnesium 1.9 mg/dL (1.6-2.6); Phosphorus 2.6 mg/dL (2.3-4.7)
[2017-02-08] MEDS: Nystatin Powder 15 GM BOT TOP SCH ×2 (09:00→19:54)
[2017-02-08] MEDS: Pantoprazole 40 MG VIAL IVP SCH ×2 (09:00→19:55)
[2017-02-08] MEDS: Saccharomyces boulardii 250 MG CAP PER TUBE SCH (09:00)
[2017-02-08] MEDS: predniSONE 20 MG TAB PO SCH (09:00)
[2017-02-08] MEDS: Amoxicillin/Potassium Clav 400 mg/5 ml Oral Suspension PER TUBE SCH ×2 (09:00→19:54)
[2017-02-08] MEDS: Carvedilol 3.125 MG TAB PO SCH ×2 (09:00→16:47)
[2017-02-08] MEDS: Enoxaparin Sodium 40 MG/0.4 ML SYRINGE SC SCH (10:16)
[2017-02-08] MEDS: Digoxin 0.5 MG/2 ML AMP SLOW IVP SCH (10:16)
--- NOTE | 2017-02-08 10:45 | PDOC.PN ---
- Subjective Encounter Start Date: 02/08/17 Encounter Start Time: 09:10 Pt seen and examined, chart reviewed, i havent seen the patient in several days. On SIMV vent still, tolerated 5 hours yesterday, but then droppd sats and became tachypneic. 8 hours the day prior. No C, no n/V/d/C, no F/c. complains of pain to left hip, wants to be repositioned 10 point ROS performed and neg for all systems except as above - Objective Resuscitation Status: Resuscitation Status CHEM:Chem Code Only Vital Signs & Weight: Vital Signs (12 hours) Temp Pulse Resp BP Pulse Ox 02/08/17 10:16 64 02/08/17 09:51 64 24 H 98 02/08/17 09:09 63 129/72 02/08/17 08:00 98 F 65 12 98 02/08/17 06:47 60 111/60 02/08/17 06:46 64 26 H 97 02/08/17 06:00 16 02/08/17 04:00 19 02/08/17 03:03 57 L 02/08/17 03:00 98.5 F 02/08/17 02:00 14 02/08/17 00:00 15 02/07/17 23:00 98.6 F 02/07/17 22:52 54 L 104/51 L Weight Admit Weight 301 lb Weight 306 lb 0.026 oz Most Recent Monitor Data Heart Rate from ECG 65 NIBP 150/76 NIBP BP-Mean 91 Respiration from ECG 23 SpO2 97 I&O: 02/07/17 02/08/17 02/09/17 06:59 06:59 06:59 Intake Total 1420 1435 Output Total 1245 1210 215 Balance 175 225 -215 Result Diagrams: 02/08/17 04:11 02/08/17 04:11 Radiology Reviewed by me: Yes EKG Reviewed by me: Yes Phys Exam - Physical Examination Constitutional: NAD HEENT: PERRLA, moist MMs, sclera anicteric, oral pharynx no lesions Neck: no nodes, no JVD, supple, full ROM Respiratory: no wheezing, no rales, no rhonchi, clear to auscultation bilateral poor bilateral air movement, bilateral chest tubes in place Cardiovascular: RRR, no significant murmur, no rub Gastrointestinal: soft, non-tender, no distention, positive bowel sounds PEG site c/D/I Musculoskeletal: pulses present, edema present Neurological: non-focal, normal sensation, moves all 4 limbs Lymphatic: no nodes Psychiatric: normal affect, A&O x 3 Skin: no rash, normal turgor, cap refill <2 seconds Dx/Plan (1) Acute respiratory failure Code(s): J96.00 - ACUTE RESPIRATORY FAILURE, UNSP W HYPOXIA OR HYPERCAPNIA Status: Acute Comment: trached, on vent weaning per pulm. (2) Atrial fibrillation Code(s): I48.91 - UNSPECIFIED ATRIAL FIBRILLATION Status: Resolved (3) Empyema Code(s): J86.9 - PYOTHORAX WITHOUT FISTULA Status: Acute Comment: S/P decortication. cx with multiple GP organisms, abx completed. Ct manageemnt per CT surgery. Dr Bauer to see today, nursing says minimal outpaut, can hopefully remove soon (4) Pneumothorax Code(s): J93.9 - PNEUMOTHORAX, UNSPECIFIED Status: Acute Qualifiers: Pneumothorax type: spontaneous, primary Qualified Code(s): J93.11 - Primary spontaneous pneumothorax Comment: bilateral CT in. Per pulm/CT curgery. appreciate their assistance (5) Supraglottic mass Code(s): J38.7 - OTHER DISEASES OF LARYNX Status: Acute Comment: Squamous Cell cacinoma. (6) Dysphagia Code(s): R13.10 - DYSPHAGIA, UNSPECIFIED Status: Resolved Qualifiers: Dysphagia type: oropharyngeal phase Qualified Code(s): R13.12 - Dysphagia, oropharyngeal phase (7) Squamous cell cancer of hypopharynx Code(s): C13.9 - MALIGNANT NEOPLASM OF HYPOPHARYNX, UNSPECIFIED Status: Acute - Plan cont current plan of care, childers catheter, PT/OT, marriage and family social worker, respiratory therapy, incentive spirometry * .
--- NOTE | 2017-02-08 14:14 | PRG ---
DATE OF SERVICE: 02/08/2017 Ms. Parker did well over the weekend. She spent about 5 hours off the ventilator yesterday. PHYSICAL EXAMINATION: VITAL SIGNS: She is afebrile, heart rate 69, blood pressure 144/81. LUNGS: She has bilateral equal breath sounds. HEART: Regular rhythm. ABDOMEN: Abdomen is soft. EXTREMITIES: She can lift her arms up off of the chair now, where she could not early last week. LABORATORY: White count 5.4, hemoglobin 10.3, platelets 128. Sodium 149, potassium 4.1, chloride 1 11, bicarbonate 32, BUN 39, creatinine 0.59. Intake and output is positive 225. IMPRESSION: Respiratory failure associated with bilateral empyema's deconditioning, chronic aspirat ion and head and neck cancer. She still has bilateral chest tubes in place. PLAN: We will continue slow weaning from mechanical ventilation.
[2017-02-08] MEDS: clonazePAM 1 MG TAB PO SCH (19:54)
[2017-02-08] MEDS: Aspirin 325 MG TAB PER TUBE SCH (19:54)
[2017-02-09 04:40] LABS: #Eosinphils 0.1 thou/uL (0.0-0.7); #Monocytes 0.4 thou/uL (0.11-0.59); #Neutrophils 3.5 thou/uL (1.40-6.50); %Basophils 0.1 % (0.0-1.0); %Eosinophils 2.4 % (0.0-10.0); %Monocytes 8.8 % (0.0-10.0); Mean Platelet Volume 9.8 fL (7.4-10.4); Red Blood Cell (RBC) Count 3.37 mill/uL (4.20-5.40); White Blood Cell (WBC) Count 5.1 thou/uL (4.8-10.8)
[2017-02-09 05:08] LABS: Anion Gap 9 mmol/L (10-20); BUN (Urea Nitrogen) 32 mg/dL (9.8-20.1); Calc. Creatinine Clearance 0 mL/min (70-130); Calcium 8.7 mg/dL (7.8-10.44); Carbon Dioxide 33 mmol/L (22-29); Chloride 110 mmol/L (98-107); Estimated GFR-MDRD Greater than 90; Magnesium 1.9 mg/dL (1.6-2.6); Phosphorus 2.6 mg/dL (2.3-4.7)
[2017-02-09] MEDS: Carvedilol 3.125 MG TAB PO SCH ×2 (08:02→17:51)
[2017-02-09] MEDS: predniSONE 20 MG TAB PO SCH (08:02)
[2017-02-09] MEDS: Digoxin 0.5 MG/2 ML AMP SLOW IVP SCH (08:02)
[2017-02-09] MEDS: Saccharomyces boulardii 250 MG CAP PER TUBE SCH (08:03)
[2017-02-09] MEDS: Enoxaparin Sodium 40 MG/0.4 ML SYRINGE SC SCH (08:03)
[2017-02-09] MEDS: Pantoprazole 40 MG VIAL IVP SCH ×2 (08:03→20:59)
[2017-02-09] MEDS: Nystatin Powder 15 GM BOT TOP SCH ×2 (08:09→20:59)
--- NOTE | 2017-02-09 09:42 | PDOC.PN ---
- Subjective Encounter Start Date: 02/09/17 Encounter Start Time: 09:40 Patient seen and examined. No new complaints. No overnight events. On trach collar sitting up in chair still tachypneic mild distress No fever or chills. No abd pain. leg swelling present - Objective Resuscitation Status: Resuscitation Status CHEM:Chem Code Only MAR Reviewed: Yes Vital Signs & Weight: Vital Signs (12 hours) Temp Pulse Resp BP Pulse Ox 02/09/17 08:02 131 H 02/09/17 06:31 67 147/70 H 02/09/17 06:30 64 18 97 02/09/17 06:00 17 02/09/17 04:00 18 02/09/17 03:00 98.7 F 02/09/17 02:53 55 L 16 98 02/09/17 02:00 19 02/09/17 00:00 18 02/08/17 23:00 98.5 F 02/08/17 22:06 57 L 17 99 02/08/17 22:00 15 Weight Admit Weight 301 lb Weight 4.917 oz Most Recent Monitor Data Heart Rate from ECG 65 NIBP 124/70 NIBP BP-Mean 93 Respiration from ECG 15 SpO2 99 I&O: 02/08/17 02/09/17 02/10/17 06:59 06:59 06:59 Intake Total 1435 1206 Output Total 1210 1445 Balance 225 -239 Result Diagrams: 02/09/17 04:29 02/09/17 04:29 Phys Exam - Physical Examination mild distress tachypneic and labored breathing on trach collar HEENT: sclera anicteric Neck: supple coarse breath sounds Gastrointestinal: soft Musculoskeletal: edema present Neurological: non-focal, moves all 4 limbs Psychiatric: normal affect, A&O x 3 Skin: no rash Dx/Plan (1) Edema Code(s): R60.9 - EDEMA, UNSPECIFIED Status: Acute (2) Acute respiratory failure Code(s): J96.00 - ACUTE RESPIRATORY FAILURE, UNSP W HYPOXIA OR HYPERCAPNIA Status: Acute Comment: trached, on vent weaning per pulm. (3) Empyema Code(s): J86.9 - PYOTHORAX WITHOUT FISTULA Status: Acute Comment: S/P decortication. cx with multiple GP organisms, abx completed. Ct manageemnt per CT surgery. Dr Bauer to see today, nursing says minimal outpaut, can hopefully remove soon (4) Pneumothorax Code(s): J93.9 - PNEUMOTHORAX, UNSPECIFIED Status: Acute Qualifiers: Pneumothorax type: spontaneous, primary Qualified Code(s): J93.11 - Primary spontaneous pneumothorax Comment: bilateral CT in. Per pulm/CT curgery. appreciate their assistance (5) Squamous cell cancer of hypopharynx Code(s): C13.9 - MALIGNANT NEOPLASM OF HYPOPHARYNX, UNSPECIFIED Status: Acute (6) Supraglottic mass Code(s): J38.7 - OTHER DISEASES OF LARYNX Status: Acute Comment: Squamous Cell cacinoma. (7) Atrial fibrillation Code(s): I48.91 - UNSPECIFIED ATRIAL FIBRILLATION Status: Resolved (8) Hypernatremia Code(s): E87.0 - HYPEROSMOLALITY AND HYPERNATREMIA Status: Acute - Plan cont current plan of care, DVT proph w/lovenox * . on bilateral CT Appreciate input from CV surgery and PCCM. On trach collar during day time and vent on night. Vent management per PCCM. will check CXR in AM. on rate control agent for Afib On lovenox on oral steroids. Abx stopped ? will check with PCCM. Increase free water as tolerated AM labs.
--- NOTE | 2017-02-09 10:13 | PRG ---
DATE OF SERVICE: 02/09/2017 HISTORY: Ms. Parker is sitting up in the neuro chair today, looks comfortable. PHYSICAL EXAMINATION: VITAL SIGNS: Blood pressure is 122/64, pulse 68, it is sinus on the monitor. LUNGS: Clear. CARDIAC: Normal S1 and S2. ABDOMEN: Obese. EXTREMITIES: Mild edema. ASSESSMENT: 1. Paroxysmal atrial fibrillation, mostly in sinus rhythm now. 2. Morbid obesity. 3. Respiratory failure. 4. Head and neck cancer. PLAN: 1. Continue amiodarone. 2. Continue digoxin. 3. Continue low dose beta-sita. 4. We will continue to follow with you.
--- NOTE | 2017-02-09 18:46 | PRG ---
DATE OF SERVICE: 02/09/2017 SUBJECTIVE: Ms. Parker remains stable. Her spirits remain good. She was up for 8 hours yesterday, b ut she is really tired today. PHYSICAL EXAMINATION: VITAL SIGNS: As a result of her blood pressure 150/71, heart rate 66, respiratory rate is in the 20 s. LUNGS: Remarkable for equal breath sounds. HEART: Regular rhythm. ABDOMEN: Soft. LABORATORY DATA: White count 5.1, hemoglobin 10.2, platelets 123,000. Sodium 148, potassium 3.8, c hloride 110, bicarbonate 33, BUN 32, creatinine 0.5. IMPRESSION: 1. Respiratory failure associated with critical illness myopathy. 2. Bilateral empyemas. 3. Aspiration pneumonias bilaterally. 4. Status post emergent tracheostomy for laryngeal cancer. I had a long discussion with Palliative care today about the timing of evaluation for radiation ther apjulio cesar. Since she is not reliably off mechanical ventilation, I do not think transfer over for radiati on would be feasible at this point in time, although would be nice to get this started while she is recovering. Continue current care.
[2017-02-09] MEDS: clonazePAM 1 MG TAB PO SCH (20:59)
[2017-02-09] MEDS: Aspirin 325 MG TAB PER TUBE SCH (20:59)
[2017-02-10 04:30] LABS: #Eosinphils 0.1 thou/uL (0.0-0.7); #Lymphocytes 1.1 thou/uL (1.20-3.40); #Monocytes 0.6 thou/uL (0.11-0.59); #Neutrophils 3.7 thou/uL (1.40-6.50); %Basophils 0.1 % (0.0-1.0); %Eosinophils 1.8 % (0.0-10.0); %Lymphocytes 20.5 % (21.0-51.0); %Monocytes 10.4 % (0.0-10.0); Hematocrit 33.7 % (36.0-47.0); Mean Platelet Volume 9.6 fL (7.4-10.4); Red Blood Cell (RBC) Count 3.42 mill/uL (4.20-5.40); White Blood Cell (WBC) Count 5.5 thou/uL (4.8-10.8)
[2017-02-10 04:52] LABS: Anion Gap 11 mmol/L (10-20); BUN (Urea Nitrogen) 32 mg/dL (9.8-20.1); Calc. Creatinine Clearance 241 mL/min (70-130); Calcium 8.8 mg/dL (7.8-10.44); Carbon Dioxide 32 mmol/L (22-29); Chloride 108 mmol/L (98-107); Estimated GFR-MDRD Greater than 90; Magnesium 2.1 mg/dL (1.6-2.6); Phosphorus 2.4 mg/dL (2.3-4.7)
--- NOTE | 2017-02-10 08:23 | RAD ---
SINGLE VIEW OF THE CHEST: COMPARISON: 02/04/17. HISTORY: Chest tube placement. FINDINGS: A single view of the chest shows an enlarged but stable cardiomediastinal silhouette. The PICC line , tracheostomy, and right chest tube are unchanged in position. There is also a left-sided chest tu be, unchanged in position. There are small bilateral pleural effusions, right greater than left. T hese are unchanged compared to the prior exam. IMPRESSION: Bilateral pleural effusions. POS: CONNER
[2017-02-10] MEDS: Pantoprazole 40 MG VIAL IVP SCH ×2 (08:28→21:03)
[2017-02-10] MEDS: predniSONE 20 MG TAB PO SCH (08:28)
[2017-02-10] MEDS: Carvedilol 3.125 MG TAB PO SCH ×2 (08:28→16:33)
[2017-02-10] MEDS: Saccharomyces boulardii 250 MG CAP PER TUBE SCH (08:28)
[2017-02-10] MEDS: Enoxaparin Sodium 40 MG/0.4 ML SYRINGE SC SCH (08:29)
[2017-02-10] MEDS: Nystatin Powder 15 GM BOT TOP SCH ×2 (08:32→22:00)
[2017-02-10] MEDS: Digoxin 0.5 MG/2 ML AMP SLOW IVP SCH (08:33)
--- NOTE | 2017-02-10 10:00 | PRG ---
DATE OF SERVICE: 02/10/2017 SUBJECTIVE: Ms. Parker is up in the neuro chair again. PHYSICAL EXAMINATION: VITAL SIGNS: Blood pressure is 149/76, pulse 66 regular. LUNGS: Clear. CARDIAC: Normal S1, S2. ASSESSMENT: 1. Respiratory failure. 2. Atrial fibrillation, currently in sinus rhythm. 3. Cannot be fully anticoagulated, had drops in blood counts and bleeding when we tried to give her meier doses of anticoagulation. PLAN: Continue current medical regimen. No changes at this time.
--- NOTE | 2017-02-10 14:19 | CT ---
CT THORAX NONCONTRAST: DATE: 02/10/2017 TIME: 11:41 a.m. HISTORY: A 56-year-old female with bilateral empyema. Followup. COMPARISON: 01/29/2017 FINDINGS: Bilateral large bore chest tubes remain, unchanged in position. Loculated bilateral posterior pleur al fluid collections are again noted. The one located in the posteromedial right lower zone has dec reased in size, and currently measures approximately 4 x 7 x 11 cm. The one at the left posterior l ower zone has two loculated components, and both have actually increased in volume. The larger, mor e posteromedial component currently measures 7 x 4.5 x 12 cm. The consolidated adjacent pulmonary p arenchyma with air bronchograms, broadly abutting these loculated pleural fluid collections, have no t significantly changed. They could represent atelectasis, pneumonia, or aspiration. The bilateral chest tubes are not in contact with the loculated pleural fluid collections, and are in fact distan t from them. The multiple pockets of gas in the right anterior upper pericardial space and in the b ilateral anterior paracardial fat pads have shifted in distribution. Overall, this has increased in volume since the previous CT. There is a small pericardial effusion. There is cardiomegaly. The previously demonstrated small bilateral pneumothoraces are no longer present. Again noted is the distended gallbladder lumen and the rim-calcified gallstones proximally. No yari cholecystic fat stranding. Tracheostomy tube remains. There has been interval insertion of a left-sided PICC, with the distal tip in the upper portion of the SVC. IMPRESSION: 1. Bilateral loculated pleural fluid collections: evidence for bilateral empyemas. 2. The one on the right has decreased in volume, while the one on the left has increased in volume. 3. The bilateral chest tubes are distant from, and do not contact, these empyemas. 4. The adjacent bilateral lower lobe consolidations are unchanged. 5. Interval resolution of pneumothorax bilaterally. 6. Interval increase in the volume of paracardial subcutaneous emphysema. 7. No significant interval change in the distended gallbladder and cholelithiasis. DEUCE Andrade POS: ZULY
--- NOTE | 2017-02-10 14:55 | PRG ---
DATE OF SERVICE: 02/10/2017 SUBJECTIVE: Erika Parker is off mechanical ventilation; although, yesterday she did reasonably well. She has no complaints. OBJECTIVE: VITAL SIGNS: Blood pressure 145/73, heart rate 65, respiratory rate 27. Intake and output is negat ronnie 58. LUNGS: Clear. HEART: Regular rhythm. ABDOMEN: Soft. LABORATORY DATA: No drainage out of her right chest tube. White count is 5.5, hemoglobin 10.5, platelets 117,000. Sodium 148, potassium 3.8, chloride 110, bicarbonate 33, BUN 32, creatinine 0.5. Chest radiograph d one today suggests more effusion on the right. We will repeat chest CT today to quantitate the effusion to see if the trial of DNA plus TPA versus thoracoscopy or thoracotomy would be in the patient's best interest concerned she still has loculate d infection in the pleural space on the right. Overnight, she seems to be progressing nicely considering her multiple complex medical problems. We will try to stay on a trach collar until 10:00 p.m. tonight and then nocturnal ventilator from 10 :00 p.m. to 6:00 a.m.
--- NOTE | 2017-02-10 14:57 | PDOC.PN ---
- Subjective Encounter Start Date: 02/10/17 Encounter Start Time: 14:55 Subjective: she responds by nodding.remains on trach collar - Objective Resuscitation Status: Resuscitation Status CHEM:Chem Code Only MAR Reviewed: Yes Vital Signs & Weight: Vital Signs (12 hours) Temp Pulse Pulse Pulse Pulse Resp BP 02/10/17 13:47 67 30 H 02/10/17 11:00 98.0 F 02/10/17 09:51 66 33 H 02/10/17 09:46 71 72 66 02/10/17 08:33 62 02/10/17 07:43 98.1 F 62 30 H 02/10/17 07:00 98.1 F 02/10/17 06:17 61 137/77 02/10/17 06:13 62 20 02/10/17 06:00 17 02/10/17 04:00 16 02/10/17 03:00 98.1 F BP BP BP Pulse Ox Pulse Ox Pulse Ox Pulse Ox 02/10/17 13:47 88 L 02/10/17 11:00 02/10/17 09:51 97 02/10/17 09:46 153/84 H 156/76 H 149/76 H 96 96 100 02/10/17 08:33 02/10/17 07:43 98 02/10/17 07:00 02/10/17 06:17 02/10/17 06:13 99 02/10/17 06:00 02/10/17 04:00 02/10/17 03:00 Weight Admit Weight 301 lb Weight 302 lb 4.06 oz Most Recent Monitor Data Heart Rate from ECG 66 NIBP 151/69 NIBP BP-Mean 111 Respiration from ECG 28 SpO2 88 I&O: 02/09/17 02/10/17 02/11/17 06:59 06:59 06:59 Intake Total 1206 1567 430 Output Total 1445 1625 528 Balance -239 -58 -98 Result Diagrams: 02/10/17 03:38 02/10/17 03:38 Additional Labs: Microbiology 01/26/17 13:26 Thoracentesis Fluid Body Fluid Culture - Final 01/20/17 03:10 Urine voided Urine Culture - Final NO GROWTH AT 36 HOURS 01/20/17 02:43 Sputum - Natural Respiratory Culture - Final Staphylococcus aureus 01/19/17 21:40 Central Line - Right Subclavian Vein Blood Culture - Final NO GROWTH IN 5 DAYS 01/19/17 21:15 Central Line - Right Subclavian Vein Blood Culture - Final Streptococcus intermedius 01/19/17 20:25 Pleural fluid Acid Fast Bacilli Smear - Final 01/19/17 20:16 Pleural fluid Body Fluid Culture - Final Streptococcus agalactiae Gp. B Streptococcus anginosus Group Alpha-Hemolytic Streptococcus Staphylococcus aureus 01/19/17 20:25 Pleural fluid Acid Fast Bacilli Culture - Preliminary EKG Reviewed by me: Yes (NSR on monitor) Phys Exam - Physical Examination Constitutional: NAD awake and follows simple commands HEENT: PERRLA, moist MMs, sclera anicteric, oral pharynx no lesions Neck: no nodes, no JVD, supple, full ROM Respiratory: no wheezing, no rales, no rhonchi, clear to auscultation bilateral Cardiovascular: RRR, no significant murmur Gastrointestinal: soft, non-tender, no distention, positive bowel sounds Musculoskeletal: pulses present, edema present Neurological: moves all 4 limbs Psychiatric: normal affect Skin: no rash Dx/Plan (1) Obesity Code(s): E66.9 - OBESITY, UNSPECIFIED Status: Acute (2) Acute respiratory failure Code(s): J96.00 - ACUTE RESPIRATORY FAILURE, UNSP W HYPOXIA OR HYPERCAPNIA Status: Acute Comment: trached, on vent weaning per pulm. (3) Edema Code(s): R60.9 - EDEMA, UNSPECIFIED Status: Acute (4) Empyema Code(s): J86.9 - PYOTHORAX WITHOUT FISTULA Status: Acute Comment: S/P decortication. cx with multiple GP organisms, abx completed. Ct manageemnt per CT surgery. Dr Bauer to see today, nursing says minimal outpaut, can hopefully remove soon (5) Hypernatremia Code(s): E87.0 - HYPEROSMOLALITY AND HYPERNATREMIA Status: Acute (6) Pneumothorax Code(s): J93.9 - PNEUMOTHORAX, UNSPECIFIED Status: Acute Qualifiers: Pneumothorax type: spontaneous, primary Qualified Code(s): J93.11 - Primary spontaneous pneumothorax Comment: bilateral CT in. Per pulm/CT curgery. 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 OF HYPOPHARYNX, UNSPECIFIED Status: Acute (8) Atrial fibrillation Code(s): I48.91 - UNSPECIFIED ATRIAL FIBRILLATION Status: Resolved Qualifiers: Atrial fibrillation type: chronic Qualified Code(s): I48.2 - Chronic atrial fibrillation Comment: Not a candidate for anticoagulation due to low platelets (9) Dysphagia Code(s): R13.10 - DYSPHAGIA, UNSPECIFIED Status: Resolved Qualifiers: Dysphagia type: oropharyngeal phase Qualified Code(s): R13.12 - Dysphagia, oropharyngeal phase - Plan childers catheter, PT/OT, manager social responsibility, respiratory therapy, incentive spirometry, DVT proph w/lovenox, DVT proph w/SCDs Cont chest tube per CTVS. PCCM following. -: HR controlled on Core,Digoxin and amiodarone. ASA for stroke prophylaxis. -: Vent support at night. Trach collar in day time. -: add free water substitution as sodium/chloride high.monitor. -: Oncology/rad Onc consult when stable. * .cont supportive care for now. * poor long-term prognosis Review of Systems - Review of Systems Other: unobtainable due to sickness, Tracheostomy - Medications/Allergies Allergies/Adverse Reactions: Allergies Allergy/AdvReac Type Severity Reaction Status Date / Time No Known Drug Allergies Allergy Verified 01/16/17 18:32 Medications: Current Medications Acetaminophen (Tylenol) 500 mg PO Q4H PRN PRN Reason: TEMP>=101.5 Albuterol Sulfate (Ventolin) 2.5 mg NEB Q6H PRN PRN Reason: SOB &/or Wheezing Last Admin: 01/19/17 17:27 Dose: 2.5 mg Albuterol/Ipratropium (Duoneb) 3 ml NEB [id number] [facility] Last Admin: 02/10/17 13:47 Dose: 3 ml Amiodarone HCl (Cordarone) 200 mg PO TID [facility] Last Admin: 02/10/17 14:20 Dose: 200 mg Lipase/Protease/Amylase ([place]isa Shaw [id number]) 1 cap FS .PER PROTOCOL PRN PRN Reason: TUBE OCCLUSION PROTOCOL Aspirin (Aspirin) 325 mg PER TUBE QPM [facility] Last Admin: 02/09/17 20:59 Dose: 325 mg Carvedilol (Coreg) 3.125 mg PO BID-WM [facility] Last Admin: 02/10/17 08:28 Dose: 3.125 mg Clonazepam (Klonopin) 1 mg PO HS [facility] Digoxin (Lanoxin) 0.125 mg SLOW IVP DAILY [facility] Last Admin: 02/10/17 08:33 Dose: Not Given Enoxaparin Sodium (Lovenox) 40 mg SC 0900 [facility] Last Admin: 02/10/17 08:29 Dose: 40 mg Sodium Chloride (1/2 Normal Saline) 1,000 mls @ 0 mls/hr IV .Q0M JARROD PRN Reason: KVO Metoprolol Tartrate (Lopressor) 5 mg IVP PRN PRN PRN Reason: tachycardia Nystatin (Mycostatin Powder) 0 gm TOP BID [facility] Last Admin: 02/10/17 08:32 Dose: 1 applic Pantoprazole Sodium (Protonix) 40 mg IVP Q12HR [facility] Last Admin: 02/10/17 08:28 Dose: 40 mg Prednisone (Prednisone) 10 mg PO QAM-WM [facility] Last Admin: 02/10/17 08:28 Dose: 10 mg Quetiapine Fumarate (Seroquel) 25 mg PO HS [facility] Last Admin: 02/09/17 20:59 Dose: 25 mg Saccharomyces Boulardii (Florastor) 250 mg PER TUBE DAILY [facility] Last Admin: 02/10/17 08:28 Dose: 250 mg Sodium Chloride (Flush - Normal Saline) 10 ml IVF Q12HR [facility] Last Admin: 02/10/17 08:28 Dose: 10 ml Sodium Chloride (Flush - Normal Saline) 10 ml IVF PRN PRN PRN Reason: Saline Flush Last Admin: 02/08/17 10:16 Dose: 10 ml
[2017-02-10] MEDS ORDERED: Sterile Water 10 ML VIAL FS SCH (17:00)
[2017-02-10] MEDS ORDERED: Sterile Water 10 ML VIAL IVP SCH (17:00)
[2017-02-10] MEDS: clonazePAM 1 MG TAB PO SCH (21:03)
[2017-02-10] MEDS: Aspirin 325 MG TAB PER TUBE SCH (21:03)
[2017-02-11 05:29] LABS: Anion Gap 11 mmol/L (10-20); BUN (Urea Nitrogen) 35 mg/dL (9.8-20.1); Calc. Creatinine Clearance 237 mL/min (70-130); Calcium 8.7 mg/dL (7.8-10.44); Carbon Dioxide 33 mmol/L (22-29); Chloride 108 mmol/L (98-107); Estimated GFR-MDRD Greater than 90; Phosphorus 2.6 mg/dL (2.3-4.7)
[2017-02-11 05:38] LABS: #Eosinphils 0.2 thou/uL (0.0-0.7); #Lymphocytes 1.3 thou/uL (1.20-3.40); #Monocytes 0.5 thou/uL (0.11-0.59); #Neutrophils 3.4 thou/uL (1.40-6.50); %Basophils 0.2 % (0.0-1.0); %Eosinophils 3.2 % (0.0-10.0); %Lymphocytes 23.9 % (21.0-51.0); Anisocytosis SLIGHT = 6-15 cells (100X) (0-5/hpf); Hematocrit 32.6 % (36.0-47.0); Mean Platelet Volume 9.5 fL (7.4-10.4); Red Blood Cell (RBC) Count 3.34 mill/uL (4.20-5.40); White Blood Cell (WBC) Count 5.3 thou/uL (4.8-10.8)
[2017-02-11] MEDS: predniSONE 20 MG TAB PO SCH (08:40)
[2017-02-11] MEDS: Saccharomyces boulardii 250 MG CAP PER TUBE SCH (08:40)
[2017-02-11] MEDS: Carvedilol 3.125 MG TAB PO SCH ×2 (08:41→16:40)
[2017-02-11] MEDS: Digoxin 0.5 MG/2 ML AMP SLOW IVP SCH (08:42)
[2017-02-11] MEDS: Enoxaparin Sodium 40 MG/0.4 ML SYRINGE SC SCH (08:43)
[2017-02-11] MEDS: Pantoprazole 40 MG GRANULES PACKET PER TUBE SCH ×2 (08:45→20:09)
[2017-02-11] MEDS: Nystatin Powder 15 GM BOT TOP SCH ×2 (08:53→20:10)
--- NOTE | 2017-02-11 12:41 | PDOC.PN ---
- Subjective Encounter Start Date: 02/11/17 Encounter Start Time: 12:39 Subjective: on trach collar for now. no overnight events. -: Vent at night. -: awake and nods w questions - Objective Resuscitation Status: Resuscitation Status CHEM:Chem Code Only MAR Reviewed: Yes Vital Signs & Weight: Vital Signs (12 hours) Temp Pulse Resp BP Pulse Ox 02/11/17 12:00 98.6 F 15 02/11/17 11:53 60 161/70 H 02/11/17 11:50 62 25 H 93 L 02/11/17 10:00 22 H 02/11/17 08:42 61 02/11/17 08:00 25 H 02/11/17 07:41 98.3 F 61 20 95 02/11/17 07:00 98.3 F 02/11/17 06:19 60 119/58 L 02/11/17 06:17 67 18 96 02/11/17 06:00 21 H 02/11/17 04:00 15 02/11/17 02:35 56 L 99/55 L 02/11/17 02:33 56 L 17 94 L 02/11/17 02:00 17 Weight Admit Weight 301 lb Weight 304 lb 14.389 oz Most Recent Monitor Data Heart Rate from ECG 61 NIBP 126/71 NIBP BP-Mean 99 Respiration from ECG 22 SpO2 94 I&O: 02/10/17 02/11/17 02/12/17 06:59 06:59 06:59 Intake Total 1567 2030 30 Output Total 1625 1421 270 Balance -58 609 -240 Result Diagrams: 02/11/17 04:50 02/11/17 04:50 Additional Labs: Microbiology 01/26/17 13:26 Thoracentesis Fluid Body Fluid Culture - Final 01/20/17 03:10 Urine voided Urine Culture - Final NO GROWTH AT 36 HOURS 01/20/17 02:43 Sputum - Natural Respiratory Culture - Final Staphylococcus aureus 01/19/17 21:40 Central Line - Right Subclavian Vein Blood Culture - Final NO GROWTH IN 5 DAYS 01/19/17 21:15 Central Line - Right Subclavian Vein Blood Culture - Final Streptococcus intermedius 01/19/17 20:25 Pleural fluid Acid Fast Bacilli Smear - Final 01/19/17 20:16 Pleural fluid Body Fluid Culture - Final Streptococcus agalactiae Gp. B Streptococcus anginosus Group Alpha-Hemolytic Streptococcus Staphylococcus aureus 01/19/17 20:25 Pleural fluid Acid Fast Bacilli Culture - Preliminary Phys Exam - Physical Examination Constitutional: NAD awake and follows simple commands HEENT: PERRLA, moist MMs, sclera anicteric, oral pharynx no lesions trach collar w supplemantal oxygen Neck: no nodes, no JVD, supple, full ROM Respiratory: no wheezing, no rales, no rhonchi, clear to auscultation bilateral Cardiovascular: RRR, no significant murmur Gastrointestinal: soft, non-tender, no distention, positive bowel sounds Musculoskeletal: pulses present, edema present Neurological: non-focal, normal sensation, moves all 4 limbs Psychiatric: normal affect, A&O x 3 Skin: no rash Dx/Plan (1) Acute respiratory failure Code(s): J96.00 - ACUTE RESPIRATORY FAILURE, UNSP W HYPOXIA OR HYPERCAPNIA Status: Acute Comment: trached, on vent weaning per pulm. (2) Empyema Code(s): J86.9 - PYOTHORAX WITHOUT FISTULA Status: Acute Comment: S/P decortication. cx with multiple GP organisms, abx completed. Ct manageemnt per CT surgery. (3) Edema Code(s): R60.9 - EDEMA, UNSPECIFIED Status: Acute (4) Hypernatremia Code(s): E87.0 - HYPEROSMOLALITY AND HYPERNATREMIA Status: Acute Comment: increase free water through PEG (5) Pneumothorax Code(s): J93.9 - PNEUMOTHORAX, UNSPECIFIED Status: Acute Qualifiers: Pneumothorax type: spontaneous, primary Qualified Code(s): J93.11 - Primary spontaneous pneumothorax Comment: bilateral CT in. Per pulm/CT curgery. 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 - MALIGNANT NEOPLASM OF HYPOPHARYNX, UNSPECIFIED Status: Acute (7) Atrial fibrillation Code(s): I48.91 - UNSPECIFIED ATRIAL FIBRILLATION Status: Resolved Qualifiers: Atrial fibrillation type: chronic Qualified Code(s): I48.2 - Chronic atrial fibrillation Comment: Not a candidate for anticoagulation due to low platelets (8) Dysphagia Code(s): R13.10 - DYSPHAGIA, UNSPECIFIED Status: Resolved Qualifiers: Dysphagia type: oropharyngeal phase Qualified Code(s): R13.12 - Dysphagia, oropharyngeal phase (9) Obesity Code(s): E66.9 - OBESITY, UNSPECIFIED Status: Acute - Plan continue antibiotics, PT/OT, social media job titles, respiratory therapy, incentive spirometry, DVT proph w/SCDs cont abx for now. Chest tube in place.may need repositinoing/decortication -: PCCM & CTVS following. -: follow lytes .supportive care. -: vent at night.nebs,O2 prn -: Oncology consult when stable for layngeal CA * . Review of Systems - Review of Systems Other: nods that she feels Ok but limited ROS as pt can not talk on trach collar - Medications/Allergies Allergies/Adverse Reactions: Allergies Allergy/AdvReac Type Severity Reaction Status Date / Time No Known Drug Allergies Allergy Verified 01/16/17 18:32 Medications: Current Medications Acetaminophen (Tylenol) 500 mg PO Q4H PRN PRN Reason: TEMP>=101.5 Albuterol Sulfate (Ventolin) 2.5 mg NEB Q6H PRN PRN Reason: SOB &/or Wheezing Last Admin: 01/19/17 17:27 Dose: 2.5 mg Albuterol/Ipratropium (Duoneb) 3 ml NEB [id number] [facility] Last Admin: 02/11/17 11:50 Dose: 3 ml Amiodarone HCl (Cordarone) 200 mg PO BID [facility] Lipase/Protease/[place]ylase ([place] [id number]) 1 cap FS .PER PROTOCOL PRN PRN Reason: TUBE OCCLUSION PROTOCOL Aspirin (Aspirin) 325 mg PER TUBE QPM [facility] Last Admin: 02/10/17 21:03 Dose: 325 mg Carvedilol (Coreg) 3.125 mg PO BID-WM [facility] Last Admin: 02/11/17 08:41 Dose: 3.125 mg Clonazepam (Klonopin) 1 mg PO HS [facility] Last Admin: 02/10/17 21:03 Dose: 1 mg Enoxaparin Sodium (Lovenox) 40 mg SC 0900 [facility] Last Admin: 02/11/17 08:43 Dose: 40 mg Sodium Chloride (1/2 Normal Saline) 1,000 mls @ 0 mls/hr IV .Q0M JARROD PRN Reason: KVO Metoprolol Tartrate (Lopressor) 5 mg IVP PRN PRN PRN Reason: tachycardia Nystatin (Mycostatin Powder) 0 gm TOP BID [facility] Last Admin: 02/11/17 08:53 Dose: 1 applic Pantoprazole Sodium (Protonix) 40 mg PER TUBE Q12HR [facility] Last Admin: 02/11/17 08:45 Dose: 40 mg Prednisone (Prednisone) 10 mg PO QAM-WM [facility] Last Admin: 02/11/17 08:40 Dose: 10 mg Quetiapine Fumarate (Seroquel) 25 mg PO HS [facility] Last Admin: 02/10/17 21:03 Dose: 25 mg Saccharomyces Boulardii (Florastor) 250 mg PER TUBE DAILY [facility] Last Admin: 02/11/17 08:40 Dose: 250 mg Sodium Chloride (Flush - Normal Saline) 10 ml IVF Q12HR [facility] Last Admin: 02/11/17 08:43 Dose: 10 ml Sodium Chloride (Flush - Normal Saline) 10 ml IVF PRN PRN PRN Reason: Saline Flush Last Admin: 02/08/17 10:16 Dose: 10 ml
[2017-02-11] MEDS: Acetaminophen 500 MG TAB PO PRN (13:32)
--- NOTE | 2017-02-11 19:25 | PRG ---
DATE OF SERVICE: 02/11/2017 SUBJECTIVE: Erika Parker has been on and off ventilator today. She can put this afternoon back on the ventilator. OBJECTIVE: VITAL SIGNS: Respiratory rate is in the teens. Blood pressure 106/58. Heart rate 56. LUNGS: Remarkable for equal breath sounds. CARDIOVASCULAR: Regular rhythm. ABDOMEN: Soft. Chest CT done yesterday shows improvement of the right effusion, bilateral loculated collections. T he chest tubes were in contact with them. It is unclear with best option at this point in time. I am not sure attempted thoracotomy or thorac oscopy is a good option given her weakness, extreme deconditioning. Streptokinase, TPA, DNAs were a ll options, but I am not sure that they will lead to improvement with radiograph or clinically. We will continue with current supportive care. Attempted weaning.
[2017-02-11] MEDS: clonazePAM 1 MG TAB PO SCH (20:09)
[2017-02-11] MEDS: Aspirin 325 MG TAB PER TUBE SCH (20:09)
[2017-02-12 04:51] LABS: #Eosinphils 0.1 thou/uL (0.0-0.7); #Monocytes 0.5 thou/uL (0.11-0.59); #Neutrophils 3.7 thou/uL (1.40-6.50); %Basophils 0.5 % (0.0-1.0); %Eosinophils 2.2 % (0.0-10.0); %Lymphocytes 18.5 % (21.0-51.0); %Monocytes 8.9 % (0.0-10.0); Hematocrit 32.5 % (36.0-47.0); Mean Platelet Volume 9.2 fL (7.4-10.4); Red Blood Cell (RBC) Count 3.34 mill/uL (4.20-5.40); White Blood Cell (WBC) Count 5.3 thou/uL (4.8-10.8)
[2017-02-12 04:59] LABS: Anion Gap 9 mmol/L (10-20); BUN (Urea Nitrogen) 30 mg/dL (9.8-20.1); Calc. Creatinine Clearance 248 mL/min (70-130); Calcium 8.4 mg/dL (7.8-10.44); Carbon Dioxide 34 mmol/L (22-29); Chloride 107 mmol/L (98-107); Estimated GFR-MDRD Greater than 90; Phosphorus 2.4 mg/dL (2.3-4.7)
--- NOTE | 2017-02-12 08:13 | PRG ---
DATE OF SERVICE: 02/12/2017 Ms. Parker is in the neuro chair again, sitting up, looks comfortable. PHYSICAL EXAMINATION: VITAL SIGNS: Heart rate is 61. Blood pressure 118/68. LUNGS: Clear. CARDIAC: Normal S1 and S2. ASSESSMENT: 1. Respiratory failure. 2. Morbid obesity. 3. Head and neck cancer. 4. Atrial fibrillation has not recurred. PLAN: 1. Stop digoxin. 2. We will stop Coreg as the heart rate is about 60. 3. Continue amiodarone 200 mg twice a day, skip this morning's dose.
[2017-02-12] MEDS: predniSONE 20 MG TAB PO SCH (08:27)
[2017-02-12] MEDS: Saccharomyces boulardii 250 MG CAP PER TUBE SCH (08:29)
[2017-02-12] MEDS: Pantoprazole 40 MG GRANULES PACKET PER TUBE SCH ×2 (08:29→20:20)
[2017-02-12] MEDS: Enoxaparin Sodium 40 MG/0.4 ML SYRINGE SC SCH (08:29)
[2017-02-12] MEDS: Nystatin Powder 15 GM BOT TOP SCH ×2 (08:31→20:20)
--- NOTE | 2017-02-12 11:02 | PDOC.PN ---
- Subjective Encounter Start Date: 02/12/17 Encounter Start Time: 11:00 Subjective: sitting up in neuro chair.awake and intercative - Objective Resuscitation Status: Resuscitation Status CHEM:Chem Code Only MAR Reviewed: Yes Vital Signs & Weight: Vital Signs (12 hours) Temp Pulse Resp BP Pulse Ox 02/12/17 10:47 66 31 H 92 L 02/12/17 08:00 21 H 02/12/17 07:07 98.2 F 56 L 18 96 02/12/17 07:00 98.2 F 02/12/17 06:28 62 113/62 02/12/17 06:22 64 21 H 96 02/12/17 06:00 16 02/12/17 04:00 98.1 F 17 02/12/17 02:12 66 104/58 L 02/12/17 02:00 13 02/12/17 00:00 98.1 F 21 H Weight Admit Weight 301 lb Weight 305 lb 9.6 oz Most Recent Monitor Data Heart Rate from ECG 57 NIBP 134/70 NIBP BP-Mean 78 Respiration from ECG 19 SpO2 96 I&O: 02/11/17 02/12/17 02/13/17 06:59 06:59 06:59 Intake Total 2030 1830 Output Total 1421 1250 180 Balance 609 580 -180 Result Diagrams: 02/12/17 04:25 02/12/17 04:25 Additional Labs: Microbiology 01/26/17 13:26 Thoracentesis Fluid Body Fluid Culture - Final 01/20/17 03:10 Urine voided Urine Culture - Final NO GROWTH AT 36 HOURS 01/20/17 02:43 Sputum - Natural Respiratory Culture - Final Staphylococcus aureus 01/19/17 21:40 Central Line - Right Subclavian Vein Blood Culture - Final NO GROWTH IN 5 DAYS 01/19/17 21:15 Central Line - Right Subclavian Vein Blood Culture - Final Streptococcus intermedius 01/19/17 20:25 Pleural fluid Acid Fast Bacilli Smear - Final 01/19/17 20:16 Pleural fluid Body Fluid Culture - Final Streptococcus agalactiae Gp. B Streptococcus anginosus Group Alpha-Hemolytic Streptococcus Staphylococcus aureus 01/19/17 20:25 Pleural fluid Acid Fast Bacilli Culture - Preliminary Phys Exam - Physical Examination Constitutional: NAD HEENT: PERRLA, moist MMs, sclera anicteric, oral pharynx no lesions Neck: no JVD, supple Respiratory: no wheezing, no rales, no rhonchi decreased ta bases Cardiovascular: RRR, no significant murmur Gastrointestinal: soft, non-tender, no distention, positive bowel sounds PEG in place Musculoskeletal: pulses present, edema present Neurological: non-focal, normal sensation, moves all 4 limbs Psychiatric: normal affect, A&O x 3 Dx/Plan (1) Acute respiratory failure Code(s): J96.00 - ACUTE RESPIRATORY FAILURE, UNSP W HYPOXIA OR HYPERCAPNIA Status: Acute Comment: trached, on vent weaning per pulm. (2) Empyema Code(s): J86.9 - PYOTHORAX WITHOUT FISTULA Status: Acute Comment: S/P decortication. cx with multiple GP organisms, abx completed. Ct manageemnt per CT surgery. (3) Edema Code(s): R60.9 - EDEMA, UNSPECIFIED Status: Acute (4) Hypernatremia Code(s): E87.0 - HYPEROSMOLALITY AND HYPERNATREMIA Status: Acute Comment: increase free water through PEG (5) Pneumothorax Code(s): J93.9 - PNEUMOTHORAX, UNSPECIFIED Status: Acute Qualifiers: Pneumothorax type: spontaneous, primary Qualified Code(s): J93.11 - Primary spontaneous pneumothorax Comment: bilateral CT in. Per pulm/CT curgery. 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 - MALIGNANT NEOPLASM OF HYPOPHARYNX, UNSPECIFIED Status: Acute (7) Atrial fibrillation Code(s): I48.91 - UNSPECIFIED ATRIAL FIBRILLATION Status: Resolved Qualifiers: Atrial fibrillation type: chronic Qualified Code(s): I48.2 - Chronic atrial fibrillation Comment: Not a candidate for anticoagulation due to low platelets (8) Dysphagia Code(s): R13.10 - DYSPHAGIA, UNSPECIFIED Status: Resolved Qualifiers: Dysphagia type: oropharyngeal phase Qualified Code(s): R13.12 - Dysphagia, oropharyngeal phase (9) Obesity Code(s): E66.9 - OBESITY, UNSPECIFIED Status: Acute - Plan continue antibiotics, PT/OT, respiratory therapy, incentive spirometry, out of bed/ambulate, DVT proph w/SCDs Cont supportive care for now. Vent at night,trach collar in day time -: Chest tubes in place with minimal drainage.still some loculated fluid on CT -: CTVS & PCCM following.follow recs. -: HR slower. Digoxin & Coreg stopped. cont amiodarone. Cardiology following. -: Oncology consult once stable for throat CA. Pt updated.am labs * . Review of Systems - Review of Systems Other: Feels Ok. Limited ROS due to Trach collar - Medications/Allergies Allergies/Adverse Reactions: Allergies Allergy/AdvReac Type Severity Reaction Status Date / Time No Known Drug Allergies Allergy Verified 01/16/17 18:32 Medications: Current Medications Acetaminophen (Tylenol) 500 mg PO Q4H PRN PRN Reason: TEMP>=101.5 Last Admin: 02/11/17 13:32 Dose: 500 mg Albuterol Sulfate (Ventolin) 2.5 mg NEB Q6H PRN PRN Reason: SOB &/or Wheezing Last Admin: 01/19/17 17:27 Dose: 2.5 mg Albuterol/Ipratropium (Duoneb) 3 ml NEB [id number] [facility] Last Admin: 02/12/17 10:47 Dose: 3 ml Amiodarone HCl (Cordarone) 200 mg PO BID [facility] Last Admin: 02/12/17 08:30 Dose: Not Given Lipase/Protease/Amylase ([place] [id number]) 1 cap FS .PER PROTOCOL PRN PRN Reason: TUBE OCCLUSION PROTOCOL Aspirin (Aspirin) 325 mg PER TUBE QPM [facility] Last Admin: 02/11/17 20:09 Dose: 325 mg Clonazepam (Klonopin) 1 mg PO HS [facility] Last Admin: 02/11/17 20:09 Dose: 1 mg Enoxaparin Sodium (Lovenox) 40 mg SC 0900 [facility] Last Admin: 02/12/17 08:29 Dose: 40 mg Sodium Chloride (1/2 Normal Saline) 1,000 mls @ 0 mls/hr IV .Q0M JARROD PRN Reason: KVO Metoprolol Tartrate (Lopressor) 5 mg IVP PRN PRN PRN Reason: tachycardia Nystatin (Mycostatin Powder) 0 gm TOP BID [facility] Last Admin: 02/12/17 08:31 Dose: 1 applic Pantoprazole Sodium (Protonix) 40 mg PER TUBE Q12HR [facility] Last Admin: 02/12/17 08:29 Dose: 40 mg Prednisone (Prednisone) 10 mg PO QAM-WM [facility] Last Admin: 02/12/17 08:27 Dose: 10 mg Quetiapine Fumarate (Seroquel) 25 mg PO HS [facility] Last Admin: 02/11/17 20:09 Dose: 25 mg Saccharomyces Boulardii (Florastor) 250 mg PER TUBE DAILY [facility] Last Admin: 02/12/17 08:29 Dose: 250 mg Sodium Chloride (Flush - Normal Saline) 10 ml IVF Q12HR [facility] Last Admin: 02/12/17 08:29 Dose: 10 ml Sodium Chloride (Flush - Normal Saline) 10 ml IVF PRN PRN PRN Reason: Saline Flush Last Admin: 02/08/17 10:16 Dose: 10 ml
--- NOTE | 2017-02-12 12:09 | PRG ---
DATE OF SERVICE: 02/12/2017 SUBJECTIVE: Ms. Parker'nikia vitals are stable. She was up in the chair this morning when I arrived. St ates she is still on the ventilator. She is afebrile. PHYSICAL EXAMINATION: VITAL SIGNS: Heart rate 56, respiratory rate is 21, blood pressure 118/68. LUNGS: Clear. HEART: Regular rhythm. ABDOMEN: Soft. LABORATORY DATA: White count is 5.3, hemoglobin 10.1, and platelets 91,000. Sodium 148, potassium 4, chloride 108, bicarbonate 33, BUN 35, creatinine 0.5. IMPRESSION AND PLAN: Respiratory failure secondary to critical illness myopathy after bilateral emp yema and bilateral pneumothoraces. She still has bilateral loculated fluid collections and the ches t tubes do not communicate with. I am not sure instilling DNAs, tPA, or streptokinase would help th is. We will continue with slow weaning for now. She is making progress, but has to be up in a demetrius r before we place her on a T-collar everyday.
[2017-02-12] MEDS: Aspirin 325 MG TAB PER TUBE SCH (20:19)
[2017-02-12] MEDS: clonazePAM 1 MG TAB PO SCH (20:20)
[2017-02-13 05:14] LABS: #Eosinphils 0.2 thou/uL (0.0-0.7); #Lymphocytes 1.3 thou/uL (1.20-3.40); #Monocytes 0.5 thou/uL (0.11-0.59); #Neutrophils 3.4 thou/uL (1.40-6.50); %Basophils 0.3 % (0.0-1.0); %Eosinophils 2.8 % (0.0-10.0); %Lymphocytes 23.9 % (21.0-51.0); %Monocytes 9.8 % (0.0-10.0); Hematocrit 33.3 % (36.0-47.0); Mean Platelet Volume 9.3 fL (7.4-10.4); Red Blood Cell (RBC) Count 3.42 mill/uL (4.20-5.40); White Blood Cell (WBC) Count 5.4 thou/uL (4.8-10.8)
[2017-02-13 05:39] LABS: Anion Gap 7 mmol/L (10-20); BUN (Urea Nitrogen) 28 mg/dL (9.8-20.1); Calc. Creatinine Clearance 248 mL/min (70-130); Calcium 8.4 mg/dL (7.8-10.44); Carbon Dioxide 35 mmol/L (22-29); Chloride 107 mmol/L (98-107); Estimated GFR-MDRD Greater than 90
[2017-02-13] MEDS: predniSONE 20 MG TAB PO SCH (07:57)
[2017-02-13] MEDS: Saccharomyces boulardii 250 MG CAP PER TUBE SCH (08:31)
[2017-02-13] MEDS: Pantoprazole 40 MG GRANULES PACKET PER TUBE SCH ×2 (08:31→20:20)
[2017-02-13] MEDS: Enoxaparin Sodium 40 MG/0.4 ML SYRINGE SC SCH (08:32)
[2017-02-13] MEDS: Nystatin Powder 15 GM BOT TOP SCH ×2 (08:33→20:19)
--- NOTE | 2017-02-13 10:04 | PRG ---
DATE OF SERVICE: 02/13/2017 SUBJECTIVE: The patient remains on mechanical ventilation through tracheostomy most of the day. Darian hernandez is able to get up into a chair and have ventilator taken off during those times. PHYSICAL EXAMINATION: VITAL SIGNS: Temperature is 98.2, pulse 58, blood pressure 132/76. A 24-hour intake 2447, output 1 115. HEENT: Remarkable for hirsutism. NECK: Trach in good position. LUNGS: Diminished breath sounds in both bases. CARDIOVASCULAR: S1, S2, slightly bradycardic. ABDOMEN: Soft, obese, nontender, nondistended. EXTREMITIES: Trace edema throughout. LABORATORY DATA: White blood cell count 5.4, hemoglobin 10, hematocrit 33, platelet count 86, sodiu m 145, potassium 4, chloride 107, CO2 35, BUN 28, creatinine 0.5, glucose 127. ASSESSMENT: 1. Respiratory failure requiring mechanical ventilation and tracheostomy placement. 2. Bilateral empyema. 3. Bilateral pneumothoraces. 4. Loculated fluid collections. PLAN: I have reviewed the CT scan, I do not think anything is going to make this problem better oth er than waiting and seeing if these loculations organize more. I think the areas are too small to t ap. She is continuing chest tube drainage of her pleural spaces bilaterally and continue weaning tr ials.
--- NOTE | 2017-02-13 12:33 | PDOC.PN ---
- Subjective Encounter Start Date: 02/13/17 Encounter Start Time: 12:32 Subjective: back in neuro chair this am on T -collar. -: no overnight events. -: nods that she feels Ok - Objective Resuscitation Status: Resuscitation Status CHEM:Chem Code Only MAR Reviewed: Yes Vital Signs & Weight: Vital Signs (12 hours) Temp Pulse Resp BP Pulse Ox 02/13/17 12:00 98.8 F 93 L 02/13/17 11:10 58 L 30 H 90 L 02/13/17 10:00 14 02/13/17 08:00 14 02/13/17 07:18 58 L 121/66 02/13/17 07:17 58 L 18 100 02/13/17 07:14 98.2 F 62 28 H 98 02/13/17 06:00 16 02/13/17 04:00 98.2 F 14 02/13/17 02:47 74 29 H 99 02/13/17 02:00 15 Weight Admit Weight 301 lb Weight 306 lb 14.4 oz Most Recent Monitor Data Heart Rate from ECG 67 NIBP 142/80 NIBP BP-Mean 89 Respiration from ECG 29 SpO2 91 I&O: 02/12/17 02/13/17 02/14/17 06:59 06:59 06:59 Intake Total 1830 2447 860 Output Total 1250 1115 220 Balance 580 1332 640 Result Diagrams: 02/13/17 04:40 02/13/17 04:40 Additional Labs: Microbiology 01/26/17 13:26 Thoracentesis Fluid Body Fluid Culture - Final 01/20/17 03:10 Urine voided Urine Culture - Final NO GROWTH AT 36 HOURS 01/20/17 02:43 Sputum - Natural Respiratory Culture - Final Staphylococcus aureus 01/19/17 21:40 Central Line - Right Subclavian Vein Blood Culture - Final NO GROWTH IN 5 DAYS 01/19/17 21:15 Central Line - Right Subclavian Vein Blood Culture - Final Streptococcus intermedius 01/19/17 20:25 Pleural fluid Acid Fast Bacilli Smear - Final 01/19/17 20:16 Pleural fluid Body Fluid Culture - Final Streptococcus agalactiae Gp. B Streptococcus anginosus Group Alpha-Hemolytic Streptococcus Staphylococcus aureus 01/19/17 20:25 Pleural fluid Acid Fast Bacilli Culture - Preliminary Phys Exam - Physical Examination Constitutional: NAD up in chair HEENT: PERRLA, moist MMs, sclera anicteric, oral pharynx no lesions Neck: no JVD, supple Respiratory: no wheezing, no rales, no rhonchi, clear to auscultation bilateral Cardiovascular: RRR, no significant murmur Gastrointestinal: soft, non-tender, no distention, positive bowel sounds Musculoskeletal: no edema, pulses present Neurological: non-focal, normal sensation, moves all 4 limbs Psychiatric: normal affect, A&O x 3 Skin: no rash Dx/Plan (1) Acute respiratory failure Code(s): J96.00 - ACUTE RESPIRATORY FAILURE, UNSP W HYPOXIA OR HYPERCAPNIA Status: Acute Comment: trached, on vent weaning per pulm. (2) Empyema Code(s): J86.9 - PYOTHORAX WITHOUT FISTULA Status: Acute Comment: S/P decortication. cx with multiple GP organisms, abx completed. Ct manageemnt per CT surgery. (3) Edema Code(s): R60.9 - EDEMA, UNSPECIFIED Status: Acute (4) Hypernatremia Code(s): E87.0 - HYPEROSMOLALITY AND HYPERNATREMIA Status: Acute Comment: increase free water through PEG (5) Pneumothorax Code(s): J93.9 - PNEUMOTHORAX, UNSPECIFIED Status: Acute Qualifiers: Pneumothorax type: spontaneous, primary Qualified Code(s): J93.11 - Primary spontaneous pneumothorax Comment: bilateral CT in. Per pulm/CT curgery. 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 - MALIGNANT NEOPLASM OF HYPOPHARYNX, UNSPECIFIED Status: Acute (7) Atrial fibrillation Code(s): I48.91 - UNSPECIFIED ATRIAL FIBRILLATION Status: Resolved Qualifiers: Atrial fibrillation type: chronic Qualified Code(s): I48.2 - Chronic atrial fibrillation Comment: Not a candidate for anticoagulation due to low platelets (8) Dysphagia Code(s): R13.10 - DYSPHAGIA, UNSPECIFIED Status: Resolved Qualifiers: Dysphagia type: oropharyngeal phase Qualified Code(s): R13.12 - Dysphagia, oropharyngeal phase (9) Obesity Code(s): E66.9 - OBESITY, UNSPECIFIED Status: Acute - Plan PT/OT, respiratory therapy, incentive spirometry, DVT proph w/SCDs Cont Nightly Vent w day time T-collar per PCCM -: chest tube b/l.discussed w Dr. Bauer.no chnage for now -: cont to monitor output from tubes. -: Vent weaning /management per PCC. 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 * daily labs.CXR etc * hemodynamically stable. * NSR.cardiology following.Cont Amiodarone. Coreg and digoxin stopped due to slower HR. stable now. * Review of Systems - Review of Systems Other: denies any discomfort but limited ROS d/t T -collar - Medications/Allergies Allergies/Adverse Reactions: Allergies Allergy/AdvReac Type Severity Reaction Status Date / Time No Known Drug Allergies Allergy Verified 01/16/17 18:32 Medications: Current Medications Acetaminophen (Tylenol) 500 mg PO Q4H PRN PRN Reason: TEMP>=101.5 Last Admin: 02/11/17 13:32 Dose: 500 mg Albuterol Sulfate (Ventolin) 2.5 mg NEB Q6H PRN PRN Reason: SOB &/or Wheezing Last Admin: 01/19/17 17:27 Dose: 2.5 mg Albuterol/Ipratropium (Duoneb) 3 ml NEB [id number] [facility] Last Admin: 02/13/17 11:10 Dose: 3 ml Amiodarone HCl (Cordarone) 200 mg PO BID [facility] Last Admin: 02/13/17 08:32 Dose: 200 mg Lipase/Protease/Amylase ([place] [id number]) 1 cap FS .PER PROTOCOL PRN PRN Reason: TUBE OCCLUSION PROTOCOL Aspirin (Aspirin) 325 mg PER TUBE QPM [facility] Last Admin: 02/12/17 20:19 Dose: 325 mg Clonazepam (Klonopin) 1 mg PO HS [facility] Last Admin: 02/12/17 20:20 Dose: 1 mg Enoxaparin Sodium (Lovenox) 40 mg SC 0900 [facility] Last Admin: 02/13/17 08:32 Dose: 40 mg Sodium Chloride (1/2 Normal Saline) 1,000 mls @ 0 mls/hr IV .Q0M [facility] PRN Reason: KVO Metoprolol Tartrate (Lopressor) 5 mg IVP PRN PRN PRN Reason: tachycardia Nystatin (Mycostatin Powder) 0 gm TOP BID [facility] Last Admin: 02/13/17 08:33 Dose: 1 applic Pantoprazole Sodium (Protonix) 40 mg PER TUBE Q12HR [facility] Last Admin: 02/13/17 08:31 Dose: 40 mg Prednisone (Prednisone) 10 mg PO QAM-WM [facility] Last Admin: 02/13/17 07:57 Dose: 10 mg Quetiapine Fumarate (Seroquel) 25 mg PO HS [facility] Last Admin: 02/12/17 20:19 Dose: 25 mg Saccharomyces Boulardii (Florastor) 250 mg PER TUBE DAILY [facility] Last Admin: 02/13/17 08:31 Dose: 250 mg Sodium Chloride (Flush - Normal Saline) 10 ml IVF Q12HR [facility] Last Admin: 02/13/17 08:32 Dose: 10 ml Sodium Chloride (Flush - Normal Saline) 10 ml IVF PRN PRN PRN Reason: Saline Flush Last Admin: 02/08/17 10:16 Dose: 10 ml
[2017-02-13] MEDS: Aspirin 325 MG TAB PER TUBE SCH (20:19)
[2017-02-13] MEDS: clonazePAM 1 MG TAB PO SCH (20:19)
[2017-02-14 05:41] LABS: #Eosinphils 0.1 thou/uL (0.0-0.7); #Lymphocytes 1.1 thou/uL (1.20-3.40); #Monocytes 0.4 thou/uL (0.11-0.59); #Neutrophils 4.1 thou/uL (1.40-6.50); %Basophils 0.8 % (0.0-1.0); %Eosinophils 2.2 % (0.0-10.0); %Lymphocytes 19.1 % (21.0-51.0); %Monocytes 7.6 % (0.0-10.0); Hematocrit 32.1 % (36.0-47.0); Mean Platelet Volume 9.4 fL (7.4-10.4); Red Blood Cell (RBC) Count 3.28 mill/uL (4.20-5.40); White Blood Cell (WBC) Count 5.8 thou/uL (4.8-10.8)
[2017-02-14 05:53] LABS: Anion Gap 7 mmol/L (10-20); BUN (Urea Nitrogen) 27 mg/dL (9.8-20.1); Calc. Creatinine Clearance 0 mL/min (70-130); Calcium 8.4 mg/dL (7.8-10.44); Carbon Dioxide 35 mmol/L (22-29); Chloride 107 mmol/L (98-107); Estimated GFR-MDRD Greater than 90; Magnesium 1.9 mg/dL (1.6-2.6); Phosphorus 3.1 mg/dL (2.3-4.7)
--- NOTE | 2017-02-14 07:48 | PRG ---
DATE OF SERVICE: 02/14/2017 SUBJECTIVE: Ms. Parker is up in a chair today. Mechanical ventilation has taken off while she is up in a chair. She seems to be in good spirits. PHYSICAL EXAMINATION: VITAL SIGNS: Temperature 97.6, pulse 58, blood pressure 98/56, 24- hour intake 2447, output 1115. HEENT: Unremarkable. NECK: Trach in good position. LUNGS: Diminished breath sounds in the bases. CARDIAC: S1, S2 regular. ABDOMEN: Soft, obese, nontender. EXTREMITIES: No clubbing, cyanosis, trace edema. LABORATORY DATA: White blood cell count 5.8, hematocrit 32, and platelet count 80. Sodium 145, pot assium 3.6, chloride 107, CO2 35, BUN 27, creatinine 0.5, and glucose 135. ASSESSMENT: 1. Respiratory failure requiring mechanical ventilation and tracheostomy placement. 2. Bilateral empyema and pneumothoraces. 3. Loculated fluid collections. 4. Thrombocytopenia. PLAN: 1. Recommend holding Lovenox temporarily until the platelet count improves. 2. Extend time of the ventilator as tolerated.
[2017-02-14] MEDS: Pantoprazole 40 MG GRANULES PACKET PER TUBE SCH ×2 (08:48→21:21)
[2017-02-14] MEDS: predniSONE 20 MG TAB PO SCH (08:48)
[2017-02-14] MEDS: Saccharomyces boulardii 250 MG CAP PER TUBE SCH (08:48)
[2017-02-14] MEDS: Nystatin Powder 15 GM BOT TOP SCH ×2 (08:50→21:23)
--- NOTE | 2017-02-14 10:18 | PDOC.PN ---
- Subjective Encounter Start Date: 02/14/17 Encounter Start Time: 09:45 Pt seen and examined. Chart reviewed, i have not seen the patient in several days Off vent on TBar, 2-1/2 hour snto a 3 hour block, tured and wants to get back on vent. Nursing reports her tolerating up to 3 hours morris daily no F/c, no N/V/D/C, pain well controlled, left CT still with clear ambe routput. 10 point ROS performed and neg for all except as above - Objective Resuscitation Status: Resuscitation Status CHEM:Chem Code Only MAR Reviewed: Yes Vital Signs & Weight: Vital Signs (12 hours) Temp Pulse Resp BP Pulse Ox 02/14/17 08:00 98.1 F 02/14/17 06:06 55 L 98/56 L 02/14/17 06:04 58 L 15 98 02/14/17 06:00 13 02/14/17 04:00 97.6 F 14 02/14/17 02:28 72 22 H 93 L 02/14/17 02:00 18 02/14/17 00:00 98.0 F 13 Weight Admit Weight 301 lb Weight 4.861 oz Most Recent Monitor Data Heart Rate from ECG 72 NIBP 146/90 NIBP BP-Mean 120 Respiration from ECG 30 SpO2 91 I&O: 02/13/17 02/14/17 02/15/17 06:59 06:59 06:59 Intake Total 2447 2921 Output Total 1115 945 60 Balance 1332 1976 -60 Result Diagrams: 02/14/17 04:55 02/14/17 04:55 Radiology Reviewed by me: Yes EKG Reviewed by me: Yes Phys Exam - Physical Examination Constitutional: NAD HEENT: PERRLA, moist MMs, sclera anicteric, oral pharynx no lesions trach site c/D/i, erythema to upper chest. Neck: no nodes, no JVD, supple Respiratory: no wheezing, no rhonchi coarse bilateral breath sounds Cardiovascular: RRR, no significant murmur, no rub Gastrointestinal: soft, non-tender, no distention, positive bowel sounds Musculoskeletal: pulses present, edema present Neurological: non-focal, normal sensation, moves all 4 limbs Lymphatic: no nodes Skin: no rash, normal turgor, cap refill <2 seconds Dx/Plan (1) Acute respiratory failure Code(s): J96.00 - ACUTE RESPIRATORY FAILURE, UNSP W HYPOXIA OR HYPERCAPNIA Status: Acute Comment: trached, on vent daily, weaning per pulm. SLOW progress (2) Atrial fibrillation Code(s): I48.91 - UNSPECIFIED ATRIAL FIBRILLATION Status: Resolved Qualifiers: Atrial fibrillation type: chronic Qualified Code(s): I48.2 - Chronic atrial fibrillation Comment: Not a candidate for anticoagulation due to low platelets. Lovenox on hold as well (3) Empyema Code(s): J86.9 - PYOTHORAX WITHOUT FISTULA Status: Acute Comment: S/P decortication. cx with multiple GP organisms, abx completed. Ct manageemnt per CT surgery. (4) Pneumothorax Code(s): J93.9 - PNEUMOTHORAX, UNSPECIFIED Status: Acute Qualifiers: Pneumothorax type: spontaneous, primary Qualified Code(s): J93.11 - Primary spontaneous pneumothorax Comment: bilateral CT in. Per pulm/CT curgery. appreciate their assistance (5) Supraglottic mass Code(s): J38.7 - OTHER DISEASES OF LARYNX Status: Acute Comment: Squamous Cell cacinoma. (6) Dysphagia Code(s): R13.10 - DYSPHAGIA, UNSPECIFIED Status: Resolved Qualifiers: Dysphagia type: oropharyngeal phase Qualified Code(s): R13.12 - Dysphagia, oropharyngeal phase (7) Squamous cell cancer of hypopharynx Code(s): C13.9 - MALIGNANT NEOPLASM OF HYPOPHARYNX, UNSPECIFIED Status: Acute - Plan cont current plan of care, PT/OT, respiratory therapy * .
[2017-02-14] MEDS: Aspirin 325 MG TAB PER TUBE SCH (21:21)
[2017-02-14] MEDS: clonazePAM 1 MG TAB PO SCH (21:21)
[2017-02-14] MEDS: Acetaminophen 500 MG TAB PO PRN (21:23)
[2017-02-15 05:17] LABS: #Eosinphils 0.1 thou/uL (0.0-0.7); #Lymphocytes 1.1 thou/uL (1.20-3.40); #Monocytes 0.5 thou/uL (0.11-0.59); #Neutrophils 4.7 thou/uL (1.40-6.50); %Basophils 0.3 % (0.0-1.0); %Eosinophils 1.9 % (0.0-10.0); %Lymphocytes 16.5 % (21.0-51.0); %Monocytes 8.1 % (0.0-10.0); Hematocrit 31.5 % (36.0-47.0); Mean Platelet Volume 9.7 fL (7.4-10.4); Red Blood Cell (RBC) Count 3.22 mill/uL (4.20-5.40); White Blood Cell (WBC) Count 6.4 thou/uL (4.8-10.8)
[2017-02-15 05:36] LABS: Anion Gap 5 mmol/L (10-20); BUN (Urea Nitrogen) 28 mg/dL (9.8-20.1); Calc. Creatinine Clearance 0 mL/min (70-130); Calcium 8.4 mg/dL (7.8-10.44); Carbon Dioxide 37 mmol/L (22-29); Chloride 106 mmol/L (98-107); Estimated GFR-MDRD Greater than 90
[2017-02-15] MEDS: Carvedilol 3.125 MG TAB PO SCH (08:17)
[2017-02-15] MEDS: Pantoprazole 40 MG GRANULES PACKET PER TUBE SCH ×2 (08:32→20:56)
[2017-02-15] MEDS: predniSONE 20 MG TAB PO SCH (08:32)
[2017-02-15] MEDS: Saccharomyces boulardii 250 MG CAP PER TUBE SCH (08:32)
[2017-02-15] MEDS: Nystatin Powder 15 GM BOT TOP SCH ×2 (08:33→20:57)
[2017-02-15] MEDS ORDERED: FLU VACC QS2017-18 36 mo. & older 0.5 ML SYRINGE IM ONE (09:00)
--- NOTE | 2017-02-15 09:51 | PRG ---
DATE OF SERVICE: 02/15/2017 Ms. Parker is intubated, had a trach in place. She had trach collar. This morning she denies any dif ficulty breathing. PHYSICAL EXAMINATION: VITAL SIGNS: Sats are 96, pulse 69, blood pressure 140/83, respirations 22. Temperature 97. CHEST : Chest reveals bilateral rhonchi. CARDIAC: Normal S1, S2. ABDOMEN: Soft, no masses. Last CT on 02/10/2017 shows bilateral loculated pleural effusion. White count 6000, H\T\H is 10 and 30, platelet count is 80,000. Electrolytes are normal. IMPRESSION: 1. Bilateral pleural effusion, status post chest tube loculated. PLAN: Continue trach collar and nocturnal vent. Supportive care and PT. She is off all antibiotics. I will follow.
[2017-02-15] MEDS: Clindamycin 150 MG CAP PO SCH ×2 (11:35→18:35)
--- NOTE | 2017-02-15 11:59 | PDOC.PN ---
- Subjective Encounter Start Date: 02/15/17 Encounter Start Time: 11:30 no acute night events. on vent via trach at this moment - Objective Resuscitation Status: Resuscitation Status CHEM:Chem Code Only Vital Signs & Weight: Vital Signs (12 hours) Temp Pulse Resp Pulse Ox 02/15/17 10:06 70 21 H 97 02/15/17 08:01 63 26 H 97 02/15/17 08:00 97.8 F 70 21 H 97 02/15/17 06:00 19 02/15/17 04:00 98.4 F 15 02/15/17 03:07 63 14 97 02/15/17 02:00 15 02/15/17 00:00 98.3 F 26 H Weight Admit Weight 301 lb Weight 4.857 oz Most Recent Monitor Data Heart Rate from ECG 66 NIBP 118/75 NIBP BP-Mean 81 Respiration from ECG 26 SpO2 95 I&O: 02/14/17 02/15/17 02/16/17 06:59 06:59 06:59 Intake Total 2921 2828 150 Output Total 955 780 180 Balance [employer] 2047 Result Diagrams: 02/15/17 04:50 02/15/17 04:50 Phys Exam - Physical Examination HEENT: PERRLA, sclera anicteric Neck: no JVD, supple bibasilar crackles Cardiovascular: RRR, no significant murmur Gastrointestinal: soft, non-tender Musculoskeletal: pulses present Dx/Plan - Plan cont current plan of care, childers catheter, respiratory therapy * . continue nocturnal vent/trach collar mgmt as per pulm/clinical documentation specialist completed course of antibiotics platelets still low- lovenox still on hold continue medications continue with Nebs contine PT first encounter-appears to be improving overall after reviewing chart
[2017-02-15] MEDS: clonazePAM 1 MG TAB PO SCH (20:56)
[2017-02-15] MEDS: Aspirin 325 MG TAB PER TUBE SCH (20:56)
[2017-02-16] MEDS: Clindamycin 150 MG CAP PO SCH ×5 (05:23→23:56)
[2017-02-16 06:06] LABS: #Eosinphils 0.1 thou/uL (0.0-0.7); #Lymphocytes 1.2 thou/uL (1.20-3.40); #Monocytes 0.5 thou/uL (0.11-0.59); #Neutrophils 4.6 thou/uL (1.40-6.50); %Basophils 0.1 % (0.0-1.0); %Eosinophils 1.5 % (0.0-10.0); %Lymphocytes 19.1 % (21.0-51.0); %Monocytes 7.4 % (0.0-10.0); Hematocrit 32.1 % (36.0-47.0); Mean Platelet Volume 9.6 fL (7.4-10.4); Red Blood Cell (RBC) Count 3.28 mill/uL (4.20-5.40); White Blood Cell (WBC) Count 6.5 thou/uL (4.8-10.8)
[2017-02-16 06:27] LABS: Anion Gap 10 mmol/L (10-20); BUN (Urea Nitrogen) 26 mg/dL (9.8-20.1); Calc. Creatinine Clearance 270 mL/min (70-130); Calcium 8.6 mg/dL (7.8-10.44); Carbon Dioxide 33 mmol/L (22-29); Chloride 102 mmol/L (98-107); Estimated GFR-MDRD Greater than 90; Magnesium 1.7 mg/dL (1.6-2.6); Phosphorus 2.7 mg/dL (2.3-4.7)
[2017-02-16] MEDS: Pantoprazole 40 MG GRANULES PACKET PER TUBE SCH ×2 (09:11→22:00)
[2017-02-16] MEDS: Saccharomyces boulardii 250 MG CAP PER TUBE SCH (09:11)
[2017-02-16] MEDS: predniSONE 20 MG TAB PO SCH (09:11)
[2017-02-16] MEDS: Nystatin Powder 15 GM BOT TOP SCH ×2 (09:12→22:01)
--- NOTE | 2017-02-16 09:59 | PRG ---
DATE OF SERVICE: 02/16/2017 SUBJECTIVE: Ms. Erika Parker this morning, awake, alert, responsive, on a trach piece OBJECTIVE: VITAL SIGNS: Sats are 100%, blood pressure 110/60, respiration rate 18. CHEST: Chest reveals decreased breath sounds, no wheezing. CARDIAC: Normal S1, S2. No gallops. ABDOMEN: Soft, no masses. LABORATORY DATA: White count 6.8, H\T\H is 10 and 32, platelet count is 74. Electrolytes are luis manuel l. IMPRESSION: 1. Bilateral empyema. 2. Respiratory failure with trach. PLAN: Continue supportive care and PT. We will follow.
--- NOTE | 2017-02-16 11:48 | PDOC.PN ---
- Subjective Encounter Start Date: 02/16/17 Encounter Start Time: 11:46 Subjective: up in neuro chair.feels tired but ok - Objective Resuscitation Status: Resuscitation Status CHEM:Chem Code Only MAR Reviewed: Yes Vital Signs & Weight: Vital Signs (12 hours) Temp Pulse Resp BP Pulse Ox 02/16/17 10:40 87 141/72 H 02/16/17 10:13 72 25 H 95 02/16/17 08:00 98.4 F 65 24 H 94 L 02/16/17 07:18 63 26 H 95 02/16/17 06:00 17 02/16/17 04:00 98.7 F 12 02/16/17 02:40 60 99/53 L 02/16/17 02:00 12 02/16/17 00:00 12 Weight Admit Weight 301 lb Weight 302 lb 11.115 oz Most Recent Monitor Data Heart Rate from ECG 62 NIBP 115/65 NIBP BP-Mean 79 Respiration from ECG 20 SpO2 97 I&O: 02/15/17 02/16/17 02/17/17 06:59 06:59 06:59 Intake Total 2828 2585 120 Output Total 780 1065 240 Balance 2048 1520 -120 Result Diagrams: 02/16/17 05:36 02/16/17 05:36 Additional Labs: Microbiology 01/26/17 13:26 Thoracentesis Fluid Body Fluid Culture - Final 01/20/17 03:10 Urine voided Urine Culture - Final NO GROWTH AT 36 HOURS 01/20/17 02:43 Sputum - Natural Respiratory Culture - Final Staphylococcus aureus 01/19/17 21:40 Central Line - Right Subclavian Vein Blood Culture - Final NO GROWTH IN 5 DAYS 01/19/17 21:15 Central Line - Right Subclavian Vein Blood Culture - Final Streptococcus intermedius 01/19/17 20:25 Pleural fluid Acid Fast Bacilli Smear - Final 01/19/17 20:16 Pleural fluid Body Fluid Culture - Final Streptococcus agalactiae Gp. B Streptococcus anginosus Group Alpha-Hemolytic Streptococcus Staphylococcus aureus 01/19/17 20:25 Pleural fluid Acid Fast Bacilli Culture - Preliminary Phys Exam - Physical Examination Constitutional: NAD HEENT: PERRLA, moist MMs, sclera anicteric, oral pharynx no lesions Neck: no nodes, no JVD, supple, full ROM Respiratory: no wheezing, no rales, no rhonchi, clear to auscultation bilateral Cardiovascular: RRR, no significant murmur Gastrointestinal: soft, non-tender, no distention, positive bowel sounds Musculoskeletal: pulses present, edema present Neurological: non-focal, normal sensation, moves all 4 limbs Psychiatric: normal affect, A&O x 3 Skin: no rash Dx/Plan (1) Acute respiratory failure Code(s): J96.00 - ACUTE RESPIRATORY FAILURE, UNSP W HYPOXIA OR HYPERCAPNIA Status: Acute Comment: trached, on vent daily, weaning per pulm. SLOW progress (2) Empyema Code(s): J86.9 - PYOTHORAX WITHOUT FISTULA Status: Acute Comment: S/P decortication. cx with multiple GP organisms, abx completed. Ct manageemnt per CT surgery. (3) Edema Code(s): R60.9 - EDEMA, UNSPECIFIED Status: Acute (4) Hypernatremia Code(s): E87.0 - HYPEROSMOLALITY AND HYPERNATREMIA Status: Acute Comment: increase free water through PEG (5) Pneumothorax Code(s): J93.9 - PNEUMOTHORAX, UNSPECIFIED Status: Acute Qualifiers: Pneumothorax type: spontaneous, primary Qualified Code(s): J93.11 - Primary spontaneous pneumothorax Comment: bilateral CT in. Per pulm/CT curgery. 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 Lovenox on hold as well (8) Dysphagia Code(s): R13.10 - DYSPHAGIA, UNSPECIFIED Status: Resolved Qualifiers: Dysphagia type: oropharyngeal phase Qualified Code(s): R13.12 - Dysphagia, oropharyngeal phase (9) Obesity Code(s): E66.9 - OBESITY, UNSPECIFIED Status: Acute - Plan PT/OT, social services technician, incentive spirometry, DVT proph w/SCDs slow progress.cont vent support at night.T-collar in day. -: chest tubes in position w minimal drainage. -: am labs. * . Review of Systems - Review of Systems Other: Limited ROS due to T-collar - Medications/Allergies Allergies/Adverse Reactions: Allergies Allergy/AdvReac Type Severity Reaction Status Date / Time No Known Drug Allergies Allergy Verified 01/16/17 18:32 Medications: Current Medications Acetaminophen (Tylenol) 500 mg PO Q4H PRN PRN Reason: TEMP>=101.5 Last Admin: 02/14/17 21:23 Dose: 500 mg Albuterol Sulfate (Ventolin) 2.5 mg NEB Q6H PRN PRN Reason: SOB &/or Wheezing Last Admin: 01/19/17 17:27 Dose: 2.5 mg Albuterol/Ipratropium (Duoneb) 3 ml NEB [id number] [facility] Last Admin: 02/16/17 10:13 Dose: 3 ml Amiodarone HCl (Cordarone) 200 mg PO BID [facility] Last Admin: 02/16/17 09:11 Dose: 200 mg Lipase/Protease/Amylase ([place] [id number]) 1 cap FS .PER PROTOCOL PRN PRN Reason: TUBE OCCLUSION PROTOCOL Aspirin (Aspirin) 325 mg PER TUBE QPM [facility] Last Admin: 02/15/17 20:56 Dose: 325 mg Clindamycin HCl (Cleocin) 300 mg PO Q6HR [facility] Last Admin: 02/16/17 11:34 Dose: 300 mg Clonazepam (Klonopin) 1 mg PO HS [facility] Last Admin: 02/15/17 20:56 Dose: 1 mg Sodium Chloride (1/2 Normal Saline) 1,000 mls @ 0 mls/hr IV .Q0M [facility] PRN Reason: KVO Metoprolol Tartrate (Lopressor) 5 mg IVP PRN PRN PRN Reason: tachycardia Nystatin (Mycostatin Powder) 0 gm TOP BID [facility] Last Admin: 02/16/17 09:12 Dose: 1 applic Pantoprazole Sodium (Protonix) 40 mg PER TUBE Q12HR [facility] Last Admin: 02/16/17 09:11 Dose: 40 mg Prednisone (Prednisone) 10 mg PO QAM-WM [facility] Last Admin: 02/16/17 09:11 Dose: 10 mg Quetiapine Fumarate (Seroquel) 25 mg PO HS [facility] Last Admin: 02/15/17 20:56 Dose: 25 mg Saccharomyces Boulardii (Florastor) 250 mg PER TUBE DAILY [facility] Last Admin: 10/03/17 09:11 Dose: 250 mg Sodium Chloride (Flush - Normal Saline) 10 ml IVF Q12HR [facility] Last Admin: 02/16/17 09:12 Dose: 10 ml Sodium Chloride (Flush - Normal Saline) 10 ml IVF PRN PRN PRN Reason: Saline Flush Last Admin: 02/08/17 10:16 Dose: 10 ml
[2017-02-16] MEDS: Aspirin 325 MG TAB PER TUBE SCH (21:59)
[2017-02-16] MEDS: clonazePAM 1 MG TAB PO SCH (22:00)
[2017-02-17] MEDS: Clindamycin 150 MG CAP PO SCH ×3 (05:21→18:19)
[2017-02-17 06:15] LABS: #Eosinphils 0.1 thou/uL (0.0-0.7); #Lymphocytes 1.5 thou/uL (1.20-3.40); #Monocytes 0.4 thou/uL (0.11-0.59); #Neutrophils 4.5 thou/uL (1.40-6.50); %Basophils 0.2 % (0.0-1.0); %Eosinophils 1.4 % (0.0-10.0); %Lymphocytes 22.6 % (21.0-51.0); %Monocytes 6.4 % (0.0-10.0); Hematocrit 32.1 % (36.0-47.0); Mean Platelet Volume 9.8 fL (7.4-10.4); Red Blood Cell (RBC) Count 3.28 mill/uL (4.20-5.40); White Blood Cell (WBC) Count 6.5 thou/uL (4.8-10.8)
[2017-02-17 06:29] LABS: Anion Gap 9 mmol/L (10-20); BUN (Urea Nitrogen) 28 mg/dL (9.8-20.1); Calc. Creatinine Clearance 274 mL/min (70-130); Calcium 8.6 mg/dL (7.8-10.44); Carbon Dioxide 35 mmol/L (22-29); Chloride 99 mmol/L (98-107); Estimated GFR-MDRD Greater than 90; Magnesium 1.7 mg/dL (1.6-2.6); Phosphorus 2.6 mg/dL (2.3-4.7)
[2017-02-17] MEDS: Saccharomyces boulardii 250 MG CAP PER TUBE SCH (08:32)
[2017-02-17] MEDS: predniSONE 20 MG TAB PO SCH (08:32)
[2017-02-17] MEDS: Pantoprazole 40 MG GRANULES PACKET PER TUBE SCH ×2 (08:32→21:35)
[2017-02-17] MEDS: Nystatin Powder 15 GM BOT TOP SCH ×2 (08:33→21:40)
--- NOTE | 2017-02-17 11:17 | PRG ---
DATE OF SERVICE: 02/17/2017 This morning she is awake, alert, responsive. PHYSICAL EXAMINATION: VITAL SIGNS: Blood pressure 161/90, pulse 101, sats are 93% on trach collar. I's and O's 2553 in, 1053 out. CHEST: Chest reveals decreased breath sounds, no wheezing. CARDIAC: Normal S1, S2, no gallops. ABDOMEN: Soft. IMPRESSION: 1. Respiratory failure, status post trach. 2. Bilateral pleural effusion, appears to be loculated. PLAN: She had clindamycin. I suggest repeating a CT on Wednesday to assess the loculation. The best option is if she is stable enough next week to do a decortication. I will follow.
[2017-02-17] MEDS: Acetaminophen 500 MG TAB PO PRN (11:50)
--- NOTE | 2017-02-17 16:06 | PDOC.PN ---
- Subjective Encounter Start Date: 02/17/17 Encounter Start Time: 16:04 Subjective: up in neuro chair this am.feels tired. -: denies any new symptoms - Objective Resuscitation Status: Resuscitation Status CHEM:Chem Code Only MAR Reviewed: Yes Vital Signs & Weight: Vital Signs (12 hours) Temp Pulse Resp BP Pulse Ox 02/17/17 14:49 70 154/75 H 02/17/17 14:48 73 28 H 95 02/17/17 14:00 16 02/17/17 12:00 97.6 F 26 H 02/17/17 11:03 67 19 92 L 02/17/17 08:00 97.9 F 60 17 94 L 02/17/17 07:07 60 116/68 02/17/17 07:05 58 L 24 H 96 02/17/17 07:00 97.9 F 02/17/17 05:58 14 Weight Admit Weight 301 lb Weight 306 lb 14.135 oz Most Recent Monitor Data Heart Rate from ECG 54 NIBP 110/61 NIBP BP-Mean 68 Respiration from ECG 16 SpO2 96 I&O: 02/16/17 02/17/17 02/18/17 06:59 06:59 06:59 Intake Total 2585 2553 250 Output Total 1065 1050 558 Balance 1520 1503 -308 Result Diagrams: 02/17/17 05:15 02/17/17 05:15 Phys Exam - Physical Examination Constitutional: NAD HEENT: PERRLA, moist MMs, sclera anicteric, oral pharynx no lesions Neck: no JVD T collar in place Respiratory: no wheezing, no rales, no rhonchi, clear to auscultation bilateral b/l chest tubes Cardiovascular: RRR, no significant murmur Gastrointestinal: soft, non-tender, no distention, positive bowel sounds Musculoskeletal: no edema, pulses present Neurological: non-focal, normal sensation, moves all 4 limbs Psychiatric: normal affect, A&O x 3 Skin: no rash Dx/Plan (1) Acute respiratory failure Code(s): J96.00 - ACUTE RESPIRATORY FAILURE, UNSP W HYPOXIA OR HYPERCAPNIA Status: Acute Comment: trached, on vent daily, weaning per pulm. SLOW progress (2) Empyema Code(s): J86.9 - PYOTHORAX WITHOUT FISTULA Status: Acute Comment: S/P decortication. cx with multiple GP organisms, abx restarted-Clindamycin. Ct manageemnt per CT surgery. (3) Edema Code(s): R60.9 - EDEMA, UNSPECIFIED Status: Acute (4) Hypernatremia Code(s): E87.0 - HYPEROSMOLALITY AND HYPERNATREMIA Status: Resolved Comment : increase free water through PEG (5) Pneumothorax Code(s): J93.9 - PNEUMOTHORAX, UNSPECIFIED Status: Acute Qualifiers: Pneumothorax type: spontaneous, primary Qualified Code(s): J93.11 - Primary spontaneous pneumothorax Comment: bilateral CT in. Per pulm/CT curgery. 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 Lovenox on hold as well (8) Dysphagia Code(s): R13.10 - DYSPHAGIA, UNSPECIFIED Status: Resolved Qualifiers: Dysphagia type: oropharyngeal phase Qualified Code(s): R13.12 - Dysphagia, oropharyngeal phase (9) Obesity Code(s): E66.9 - OBESITY, UNSPECIFIED Status: Acute - Plan continue antibiotics, PT/OT, social group worker, respiratory therapy, incentive spirometry, out of bed/ambulate, DVT proph w/SCDs cont chest tubes per PCCM w ABx. adela will need decortication -: cont Vent at night.will adela need LTACH if not weanable. -: cont supportive care. -: Oncology consult once stable. -: am labs * . Review of Systems - Review of Systems Other: limited ROS due to T-collar - Medications/Allergies Allergies/Adverse Reactions: Allergies Allergy/AdvReac Type Severity Reaction Status Date / Time No Known Drug Allergies Allergy Verified 01/16/17 18:32 Medications: Current Medications Acetaminophen (Tylenol) 500 mg PO Q4H PRN PRN Reason: TEMP>=101.5 Last Admin: 02/17/17 11:50 Dose: 500 mg Albuterol Sulfate (Ventolin) 2.5 mg NEB Q6H PRN PRN Reason: SOB &/or Wheezing Last Admin: 01/19/17 17:27 Dose: 2.5 mg Albuterol/Ipratropium (Duoneb) 3 ml NEB [id number] JARROD Last Admin: 02/17/17 14:48 Dose: 3 ml Amiodarone HCl (Cordarone) 200 mg PO BID [facility] Last Admin: 02/17/17 08:32 Dose: 200 mg Lipase/Protease/Amylase ([place] [id number]) 1 cap FS .PER PROTOCOL PRN PRN Reason: TUBE OCCLUSION PROTOCOL Aspirin (Aspirin) 325 mg PER TUBE QPM JARROD Last Admin: 02/16/17 21:59 Dose: 325 mg Clindamycin HCl (Cleocin) 300 mg PO Q6HR JARROD Last Admin: 02/17/17 11:49 Dose: 300 mg Clonazepam (Klonopin) 1 mg PO HS [facility] Last Admin: 02/16/17 22:00 Dose: 1 mg Sodium Chloride (1/2 Normal Saline) 1,000 mls @ 0 mls/hr IV .Q0M JARROD PRN Reason: KVO Metoprolol Tartrate (Lopressor) 5 mg IVP PRN PRN PRN Reason: tachycardia Nystatin (Mycostatin Powder) 0 gm TOP BID [facility] Last Admin: 02/17/17 08:33 Dose: 1 applic Pantoprazole Sodium (Protonix) 40 mg PER TUBE Q12HR JARROD Last Admin: 02/17/17 08:32 Dose: 40 mg Prednisone (Prednisone) 10 mg PO QAM-WM [facility] Last Admin: 02/17/17 08:32 Dose: 10 mg Quetiapine Fumarate (Seroquel) 25 mg PO HS [facility] Last Admin: 02/16/17 22:00 Dose: 25 mg Saccharomyces Boulardii (Florastor) 250 mg PER TUBE DAILY JARROD Last Admin: 02/17/17 08:32 Dose: 250 mg Sodium Chloride (Flush - Normal Saline) 10 ml IVF Q12HR JARROD Last Admin: 02/17/17 08:32 Dose: 10 ml Sodium Chloride (Flush - Normal Saline) 10 ml IVF PRN PRN PRN Reason: Saline Flush Last Admin: 02/08/17 10:16 Dose: 10 ml
[2017-02-17] MEDS: clonazePAM 1 MG TAB PO SCH (21:35)
[2017-02-17] MEDS: Aspirin 325 MG TAB PER TUBE SCH (21:35)
[2017-02-18] MEDS: Clindamycin 150 MG CAP PO SCH ×5 (00:21→23:55)
[2017-02-18 04:35] LABS: #Eosinphils 0.1 thou/uL (0.0-0.7); #Lymphocytes 1.4 thou/uL (1.20-3.40); #Monocytes 0.4 thou/uL (0.11-0.59); %Basophils 0.3 % (0.0-1.0); %Eosinophils 1.4 % (0.0-10.0); %Lymphocytes 23.4 % (21.0-51.0); %Monocytes 7.5 % (0.0-10.0); Hematocrit 30.8 % (36.0-47.0); Mean Platelet Volume 9.1 fL (7.4-10.4); Red Blood Cell (RBC) Count 3.16 mill/uL (4.20-5.40); White Blood Cell (WBC) Count 5.9 thou/uL (4.8-10.8)
[2017-02-18 04:41] LABS: Anion Gap 8 mmol/L (10-20); BUN (Urea Nitrogen) 26 mg/dL (9.8-20.1); Calc. Creatinine Clearance 291 mL/min (70-130); Calcium 8.4 mg/dL (7.8-10.44); Carbon Dioxide 35 mmol/L (22-29); Chloride 97 mmol/L (98-107); Estimated GFR-MDRD Greater than 90; Magnesium 1.8 mg/dL (1.6-2.6); Phosphorus 2.8 mg/dL (2.3-4.7)
[2017-02-18] MEDS: Saccharomyces boulardii 250 MG CAP PER TUBE SCH (08:08)
[2017-02-18] MEDS: Nystatin Powder 15 GM BOT TOP SCH ×2 (08:09→20:24)
[2017-02-18] MEDS: predniSONE 20 MG TAB PO SCH (08:09)
[2017-02-18] MEDS: Pantoprazole 40 MG GRANULES PACKET PER TUBE SCH ×2 (08:09→20:24)
--- NOTE | 2017-02-18 08:56 | PRG ---
DATE OF SERVICE: 02/18/2017 SUBJECTIVE: Ms. Parker is sitting up in the neuro chair, seems to be alert and awake. She looks comfortable. PHYSICAL EXAMINATION: VITAL SIGNS: Blood pressure 159/80, pulse is 70, it is sinus. LUNGS: Clear. CARDIAC: Normal S1, S2. ABDOMEN: Soft, nontender. EXTREMITIES: There is moderate to severe edema. ASSESSMENT: 1. Paroxysmal atrial fibrillation, maintaining sinus rhythm. 2. Appears volume overloaded. PLAN: 1. We will start furosemide. 2. Potassium. 3. Continue amiodarone low dose. We will probably reduce the dose tomorrow. She is currently off of the carvedilol.
--- NOTE | 2017-02-18 09:59 | PRG ---
DATE OF SERVICE: 02/18/2017 Erika Parker was back on the vent last night. She is still short of breath, weak, retained secretions. PHYSICAL EXAMINATION: VITAL SIGNS: Temperature 97, respirations 25%, sats 93%, trach collar. Blood pressure 159/80. I's and O's are 2553 in, 1050 out. CHEST: Chest revealed bilateral rhonchi. CARDIAC: Sinus tachycardia. ABDOMEN: Soft. Her electrolytes are normal. White count 5000. IMPRESSION: 1. Bilateral empyema. 2. Status post cardiopulmonary arrest. 3. Trach and PEG. 4. Severe deconditioning. CT of the chest is being ordered again tomorrow. Will make a decision regarding ongoing issues. In the meantime, nutrition and PT. I will follow.
[2017-02-18] MEDS ORDERED: Potassium Chloride 20 MEQ TAB PO SCH (12:00)
--- NOTE | 2017-02-18 13:13 | PDOC.PN ---
- Subjective Encounter Start Date: 02/18/17 Encounter Start Time: 13:11 Subjective: pt back on vent this morning.on and off on vent - Objective Resuscitation Status: Resuscitation Status CHEM:Chem Code Only MAR Reviewed: Yes Vital Signs & Weight: Vital Signs (12 hours) Temp Pulse Resp BP Pulse Ox 02/18/17 12:38 60 111/62 02/18/17 12:00 98.4 F 16 94 L 02/18/17 10:52 68 119/59 L 02/18/17 10:00 26 H 02/18/17 09:55 79 162/80 H 02/18/17 08:00 97.7 F 69 25 H 93 L 02/18/17 06:35 56 L 124/64 02/18/17 06:00 15 02/18/17 04:00 16 02/18/17 03:00 98.3 F 02/18/17 02:26 55 L 120/57 L 02/18/17 02:25 57 L 14 96 02/18/17 02:00 13 Weight Admit Weight 301 lb Weight 309 lb 15.519 oz Most Recent Monitor Data Heart Rate from ECG 66 NIBP 111/62 NIBP BP-Mean 77 Respiration from ECG 16 SpO2 96 I&O: 02/17/17 02/18/17 02/19/17 06:59 06:59 06:59 Intake Total 2553 2704 108 Output Total 1050 1408 944 Balance 1503 1296 -836 Result Diagrams: 02/18/17 04:05 02/18/17 04:05 Additional Labs: Microbiology 01/26/17 13:26 Thoracentesis Fluid Body Fluid Culture - Final 01/20/17 03:10 Urine voided Urine Culture - Final NO GROWTH AT 36 HOURS 01/20/17 02:43 Sputum - Natural Respiratory Culture - Final Staphylococcus aureus 01/19/17 21:40 Central Line - Right Subclavian Vein Blood Culture - Final NO GROWTH IN 5 DAYS 01/19/17 21:15 Central Line - Right Subclavian Vein Blood Culture - Final Streptococcus intermedius 01/19/17 20:25 Pleural fluid Acid Fast Bacilli Smear - Final 01/19/17 20:16 Pleural fluid Body Fluid Culture - Final Streptococcus agalactiae Gp. B Streptococcus anginosus Group Alpha-Hemolytic Streptococcus Staphylococcus aureus 01/19/17 20:25 Pleural fluid Acid Fast Bacilli Culture - Preliminary Radiology Reviewed by me: Yes (CXR-) Phys Exam - Physical Examination Constitutional: NAD HEENT: PERRLA, moist MMs, sclera anicteric, oral pharynx no lesions Neck: no nodes, no JVD, supple, full ROM Respiratory: no wheezing, no rales, no rhonchi, clear to auscultation bilateral Cardiovascular: RRR, no significant murmur Gastrointestinal: soft, non-tender, no distention, positive bowel sounds Musculoskeletal: pulses present, edema present Neurological: non-focal, normal sensation, moves all 4 limbs Psychiatric: normal affect, A&O x 3 Skin: no rash Dx/Plan (1) Acute respiratory failure Code(s): J96.00 - ACUTE RESPIRATORY FAILURE, UNSP W HYPOXIA OR HYPERCAPNIA Status: Acute Comment: trached, on vent daily, weaning per pulm. SLOW progress (2) Empyema Code(s): J86.9 - PYOTHORAX WITHOUT FISTULA Status: Acute Comment: S/P decortication. cx with multiple GP organisms, abx restarted-Clindamycin. Ct manageemnt per CT surgery. (3) Edema Code(s): R60.9 - EDEMA, UNSPECIFIED Status: Acute (4) Hypernatremia Code(s): E87.0 - HYPEROSMOLALITY AND HYPERNATREMIA Status: Resolved Comment : increase free water through PEG (5) Pneumothorax Code(s): J93.9 - PNEUMOTHORAX, UNSPECIFIED Status: Acute Qualifiers: Pneumothorax type: spontaneous, primary Qualified Code(s): J93.11 - Primary spontaneous pneumothorax Comment: bilateral CT in. Per pulm/CT curgery. 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 Lovenox on hold as well (8) Dysphagia Code(s): R13.10 - DYSPHAGIA, UNSPECIFIED Status: Resolved Qualifiers: Dysphagia type: oropharyngeal phase Qualified Code(s): R13.12 - Dysphagia, oropharyngeal phase (9) Obesity Code(s): E66.9 - OBESITY, UNSPECIFIED Status: Chronic (10) Laryngeal cancer Status: Chronic - Plan childers catheter, continue antibiotics, PT/OT, [employer] social science teacher, respiratory therapy, incentive spirometry, DVT proph w/SCDs CT scan to be repeated tomorrow. may need decortication if fluid loculated -: cont clindamycin for now.cont tube feeds.daily labs -: lasix per cardiology for fluid overload.cont amiodarone. -: PO steroids. vent support thru trach PRN.T-collar rest of the time. -: prolonged hospitalization.will need oncology once stable * . Review of Systems - Review of Systems Other: Limited ROS but reports feeling weak. - Medications/Allergies Allergies/Adverse Reactions: Allergies Allergy/AdvReac Type Severity Reaction Status Date / Time No Known Drug Allergies Allergy Verified 01/16/17 18:32 Medications: Current Medications Acetaminophen (Tylenol) 500 mg PO Q4H PRN PRN Reason: TEMP>=101.5 Last Admin: 02/17/17 11:50 Dose: 500 mg Albuterol Sulfate (Ventolin) 2.5 mg NEB Q6H PRN PRN Reason: SOB &/or Wheezing Last Admin: 01/19/17 17:27 Dose: 2.5 mg Albuterol/Ipratropium (Duoneb) 3 ml NEB [id number] JARROD Last Admin: 02/18/17 09:53 Dose: 3 ml Amiodarone HCl (Cordarone) 200 mg PO BID [facility] Last Admin: 02/18/17 08:09 Dose: 200 mg Lipase/Protease/Amylase ([place] [id number]) 1 cap FS .PER PROTOCOL PRN PRN Reason: TUBE OCCLUSION PROTOCOL Aspirin (Aspirin) 325 mg PER TUBE QPM [facility] Last Admin: 02/17/17 21:35 Dose: 325 mg Clindamycin HCl (Cleocin) 300 mg PO Q6HR AJRROD Last Admin: 02/18/17 12:05 Dose: 300 mg Clonazepam (Klonopin) 1 mg PO HS JARROD Last Admin: 02/17/17 21:35 Dose: 1 mg Furosemide (Lasix) 20 mg SLOW IVP 0600,1400 JARROD Sodium Chloride (1/2 Normal Saline) 1,000 mls @ 0 mls/hr IV .Q0M JARROD PRN Reason: KVO Metoprolol Tartrate (Lopressor) 5 mg IVP PRN PRN PRN Reason: tachycardia Nystatin (Mycostatin Powder) 0 gm TOP BID [facility] Last Admin: 02/18/17 08:09 Dose: 1 applic Pantoprazole Sodium (Protonix) 40 mg PER TUBE Q12HR [facility] Last Admin: 02/18/17 08:09 Dose: 40 mg Potassium Chloride (K-Dur) 20 meq PO BID-WM [facility] Potassium Chloride (K-Dur) 40 meq PO 1200 [facility] Stop: 02/18/17 14:00 Last Admin: 02/18/17 12:06 Dose: 40 meq Prednisone (Prednisone) 10 mg PO QAM-[facility] Last Admin: 02/18/17 08:09 Dose: 10 mg Quetiapine Fumarate (Seroquel) 25 mg PO HS [facility] Last Admin: 02/17/17 21:35 Dose: 25 mg Saccharomyces Boulardii (Florastor) 250 mg PER TUBE DAILY [facility] Last Admin: 02/18/17 08:08 Dose: 250 mg Sodium Chloride (Flush - Normal Saline) 10 ml IVF Q12HR [facility] Last Admin: 02/18/17 08:09 Dose: 10 ml Sodium Chloride (Flush - Normal Saline) 10 ml IVF PRN PRN PRN Reason: Saline Flush Last Admin: 02/08/17 10:16 Dose: 10 ml
[2017-02-18] MEDS: Furosemide 20 MG/2 ML VIAL SLOW IVP SCH (14:12)
[2017-02-18] MEDS: Potassium Chloride 20 MEQ TAB PO SCH (17:19)
[2017-02-18] MEDS: clonazePAM 1 MG TAB PO SCH (20:24)
[2017-02-18] MEDS: Aspirin 325 MG TAB PER TUBE SCH (20:24)
[2017-02-19 04:11] LABS: #Eosinphils 0.1 thou/uL (0.0-0.7); #Lymphocytes 1.2 thou/uL (1.20-3.40); #Monocytes 0.5 thou/uL (0.11-0.59); #Neutrophils 4.2 thou/uL (1.40-6.50); %Basophils 0.7 % (0.0-1.0); %Eosinophils 1.5 % (0.0-10.0); %Lymphocytes 19.4 % (21.0-51.0); %Monocytes 7.6 % (0.0-10.0); Hematocrit 31.3 % (36.0-47.0); Mean Platelet Volume 9.3 fL (7.4-10.4); Red Blood Cell (RBC) Count 3.22 mill/uL (4.20-5.40)
[2017-02-19 04:31] LABS: Anion Gap 7 mmol/L (10-20); BUN (Urea Nitrogen) 25 mg/dL (9.8-20.1); Calc. Creatinine Clearance 277 mL/min (70-130); Calcium 8.7 mg/dL (7.8-10.44); Carbon Dioxide 37 mmol/L (22-29); Chloride 98 mmol/L (98-107); Estimated GFR-MDRD Greater than 90; Magnesium 1.8 mg/dL (1.6-2.6)
[2017-02-19] MEDS: Clindamycin 150 MG CAP PO SCH ×4 (05:47→23:27)
[2017-02-19] MEDS: Furosemide 20 MG/2 ML VIAL SLOW IVP SCH (05:48)
[2017-02-19] MEDS: Clopidogrel Bisulfate 75 MG TAB ONE ×2 (05:48→06:04)
[2017-02-19] MEDS: predniSONE 20 MG TAB PO SCH (08:22)
[2017-02-19] MEDS: Pantoprazole 40 MG GRANULES PACKET PER TUBE SCH ×2 (08:22→20:37)
[2017-02-19] MEDS: Saccharomyces boulardii 250 MG CAP PER TUBE SCH (08:22)
[2017-02-19] MEDS: Potassium Chloride 20 MEQ TAB PO SCH (08:23)
--- NOTE | 2017-02-19 08:38 | CT ---
PRELIMINARY REPORT/[facility]/EMERGENCY AFTER HOURS PROCEDURE: EXAM: CT Chest Without Intravenous Contrast CLINICAL HISTORY: 56 years old, female; Condition or disease; Other: Effusion; Prior surgery; Surgery type: Chest tube ; Patient HX: F/u effusions TECHNIQUE: Axial computed tomography images of the chest without intravenous contrast. Coronal reformatted images were created and reviewed. COMPARISON: No relevant prior studies available. FINDINGS: Lungs: There are airspace consolidations of bilateral lower lobes. Pleural space: Bilateral pleural effusions. There is Small left marginal pneumothorax. Heart: Unremarkable. No cardiomegaly. Mediastinum: ?pericardial thickening versus accentuation by mediastinal fat stranding. Tiny pneumome diastinum. Bones/joints: Unremarkable. No acute fracture. No dislocation. Soft tissues: Unremarkable. Vasculature: Unremarkable. No thoracic aortic aneurysm. Lymph nodes: Unremarkable. No enlarged lymph nodes. Gallbladder and bile ducts: Possible gallstones or sludge in the partially visualized gallbladder. Tubes, lines and devices: There are bilateral chest tubes in place with the distal tip residing with in the posterior superior upper lobes. Distal tip of ET tube measures 6.4 cm above the glenda. IMPRESSION: Bilateral pleural effusions. Small left marginal pneumothorax. Tiny pneumomediastinum. ?pericardial thickening versus accentuation by mediastinal fat stranding. airspace consolidations of bilateral lower lobes. Cannot exclude pneumonia. Possible gallstones or sludge in the partially visualized gallbladder. Thank you for allowing us to participate in the care of your patient. Dictated and Authenticated by: Alexandria Rivera DO 02/19/2017 6:06 AM Central Time ([place] \T\ [place]) FINAL REPORT CHEST CT WITHOUT CONTRAST: Date: 02/19/17 HISTORY: Follow-up pleural effusion. COMPARISON: 02/10/17. TECHNIQUE: Noncontrast chest CT is performed in the axial plane. Coronal reformatted images are submitted for i nterpretation. FINDINGS/IMPRESSION: This report is in agreement with the preliminary report by Dale. There are bilateral pleural effusio ns. The degree of pleural fluid has not significantly changed. Right-sided pleural effusion currentl y measures 4.4 x 8.0 cm (previously measuring 8.8 x 3.9 cm). The left-sided pleural effusion current ly measures 7.1 x 3.2 cm (previously measuring 6.7 x 3.4 cm). There is stable bibasilar consolidatio n. Small left-sided pneumothorax is noted. Bilateral chest tubes are identified. There is stranding in the anterior mediastinal fat, similar to the previous examination. The previously noted anterior mediastinal air is less evident. There is mild thickening of the pericardium, similar to the previou s exam. As mentioned in the previous report. Both chest tubes do not contact the loculated pleural effusions at the lung bases. POS: [facility]
--- NOTE | 2017-02-19 09:46 | PRG ---
DATE OF SERVICE: 02/19/2017 SUBJECTIVE: Ms. Parker is up in the chair, getting some exercise today with the physical therapist. She appears comfortable. PHYSICAL EXAMINATION: VITAL SIGNS: Her blood pressure 118/89, pulse 70 regular. LUNGS: Clear. CARDIAC: Normal S1 and normal S2. ASSESSMENT: 1. Atrial fibrillation, maintaining sinus rhythm. 2. Volume overload may be perhaps somewhat better than yesterday after receiving some diuretics. S he had a really good response to the diuretics. 3. Respiratory failure. PLAN: 1. Continue amiodarone. We will reduce dose to 200 mg once a day. 2. We will reduce furosemide to 20 mg once a day. 3. Reduce potassium.
--- NOTE | 2017-02-19 12:27 | PDOC.PN ---
- Subjective Encounter Start Date: 02/19/17 Encounter Start Time: 12:26 Subjective: remains stable.no overnight events . -: CT done today -: back on vent from T-collar this am - Objective Resuscitation Status: Resuscitation Status CHEM:Chem Code Only MAR Reviewed: Yes Vital Signs & Weight: Vital Signs (12 hours) Temp Pulse Pulse Pulse Resp BP BP 02/19/17 10:55 86 23 H 02/19/17 10:49 90 169/95 H 02/19/17 10:48 24 H 02/19/17 09:22 77 76 143/91 H 02/19/17 08:00 98.3 F 02/19/17 07:49 61 20 02/19/17 07:43 98.3 F 63 18 02/19/17 06:00 12 02/19/17 04:00 98.6 F 12 02/19/17 02:13 56 L 98/48 L 02/19/17 02:11 57 L 15 02/19/17 02:00 13 BP Pulse Ox Pulse Ox Pulse Ox 02/19/17 10:55 94 L 02/19/17 10:49 02/19/17 10:48 02/19/17 09:22 118/89 92 L 93 L 02/19/17 08:00 02/19/17 07:49 95 02/19/17 07:43 98 02/19/17 06:00 02/19/17 04:00 02/19/17 02:13 02/19/17 02:11 93 L 02/19/17 02:00 Weight Admit Weight 301 lb Weight 309 lb 15.519 oz Most Recent Monitor Data Heart Rate from ECG 67 NIBP 115/66 NIBP BP-Mean 77 Respiration from ECG 17 SpO2 97 I&O: 02/18/17 02/19/17 02/20/17 06:59 06:59 06:59 Intake Total 2704 2066 42 Output Total 1408 3395 1830 Balance 6856 -0237 -1788 Result Diagrams: 02/19/17 04:00 02/19/17 04:00 Additional Labs: Microbiology 01/26/17 13:26 Thoracentesis Fluid Body Fluid Culture - Final 01/20/17 03:10 Urine voided Urine Culture - Final NO GROWTH AT 36 HOURS 01/20/17 02:43 Sputum - Natural Respiratory Culture - Final Staphylococcus aureus 01/19/17 21:40 Central Line - Right Subclavian Vein Blood Culture - Final NO GROWTH IN 5 DAYS 01/19/17 21:15 Central Line - Right Subclavian Vein Blood Culture - Final Streptococcus intermedius 01/19/17 20:25 Pleural fluid Acid Fast Bacilli Smear - Final 01/19/17 20:16 Pleural fluid Body Fluid Culture - Final Streptococcus agalactiae Gp. B Streptococcus anginosus Group Alpha-Hemolytic Streptococcus Staphylococcus aureus 01/19/17 20:25 Pleural fluid Acid Fast Bacilli Culture - Preliminary Radiology Reviewed by me: Yes (CT chest -persistant pleural effusion.almost same size) Phys Exam - Physical Examination Constitutional: NAD HEENT: moist MMs, sclera anicteric Neck: no JVD Respiratory: no wheezing, no rales, no rhonchi, clear to auscultation bilateral Cardiovascular: RRR, no significant murmur Gastrointestinal: soft, non-tender, no distention, positive bowel sounds Musculoskeletal: pulses present, edema present Neurological: moves all 4 limbs Psychiatric: normal affect, A&O x 3 Skin: no rash Dx/Plan (1) Acute respiratory failure Code(s): J96.00 - ACUTE RESPIRATORY FAILURE, UNSP W HYPOXIA OR HYPERCAPNIA Status: Acute Comment: trached, on vent daily, weaning per pulm. SLOW progress (2) Empyema Code(s): J86.9 - PYOTHORAX WITHOUT FISTULA Status: Acute Comment: S/P decortication. cx with multiple GP organisms, abx restarted-Clindamycin. Ct manageemnt per CT surgery. (3) Edema Code(s): R60.9 - EDEMA, UNSPECIFIED Status: Acute (4) Hypernatremia Code(s): E87.0 - HYPEROSMOLALITY AND HYPERNATREMIA Status: Resolved Comment : increase free water through PEG (5) Pneumothorax Code(s): J93.9 - PNEUMOTHORAX, UNSPECIFIED Status: Acute Qualifiers: Pneumothorax type: spontaneous, primary Qualified Code(s): J93.11 - Primary spontaneous pneumothorax Comment: bilateral CT in. Per pulm/CT curgery. 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 Lovenox on hold as well (8) Dysphagia Code(s): R13.10 - DYSPHAGIA, UNSPECIFIED Status: Resolved Qualifiers: Dysphagia type: oropharyngeal phase Qualified Code(s): R13.12 - Dysphagia, oropharyngeal phase (9) Obesity Code(s): E66.9 - OBESITY, UNSPECIFIED Status: Chronic (10) Laryngeal cancer Status: Chronic - Plan childers catheter, continue antibiotics, DVT proph w/SCDs cont current care.on clindamycin. chest tubes in place w minimal drainage -: PCCM following.? long term care phlebotomist plan.will also need Oncology consult for CA neck -: cont amiodarone for A-fib. now in NSR.diuretics per cardiology -: cont supportive care. -: daily labs * . Review of Systems - Review of Systems Other: Limited due to intubated state. words out that she is tired - Medications/Allergies Allergies/Adverse Reactions: Allergies Allergy/AdvReac Type Severity Reaction Status Date / Time No Known Drug Allergies Allergy Verified 01/16/17 18:32 Medications: Current Medications Acetaminophen (Tylenol) 500 mg PO Q4H PRN PRN Reason: TEMP>=101.5 Last Admin: 02/17/17 11:50 Dose: 500 mg Albuterol Sulfate (Ventolin) 2.5 mg NEB Q6H PRN PRN Reason: SOB &/or Wheezing Last Admin: 01/19/17 17:27 Dose: 2.5 mg Albuterol/Ipratropium (Duoneb) 3 ml NEB [id number] [facility] Last Admin: 02/19/17 10:55 Dose: 3 ml Amiodarone HCl (Cordarone) 200 mg PO DAILY [facility] Lipase/Protease/Amylase ([place] [id number]) 1 cap FS .PER PROTOCOL PRN PRN Reason: TUBE OCCLUSION PROTOCOL Aspirin (Aspirin) 325 mg PER TUBE QPM [facility] Last Admin: 02/18/17 20:24 Dose: 325 mg Clindamycin HCl (Cleocin) 300 mg PO Q6HR [facility] Last Admin: 02/19/17 12:21 Dose: 300 mg Furosemide (Lasix) 20 mg SLOW IVP DAILY [facility] Sodium Chloride (1/2 Normal Saline) 1,000 mls @ 0 mls/hr IV .Q0M JARROD PRN Reason: KVO Metoprolol Tartrate (Lopressor) 5 mg IVP PRN PRN PRN Reason: tachycardia Nystatin (Mycostatin Powder) 0 gm TOP BID [facility] Last Admin: 02/18/17 20:24 Dose: 1 applic Pantoprazole Sodium (Protonix) 40 mg PER TUBE Q12HR [facility] Last Admin: 02/19/17 08:22 Dose: 40 mg Potassium Chloride (Klor-Con) 20 meq PO QAM-WM [facility] Prednisone (Prednisone) 10 mg PO QAM-WM [facility] Last Admin: 02/19/17 08:22 Dose: 10 mg Quetiapine Fumarate (Seroquel) 25 mg PO HS [facility] Last Admin: 02/18/17 20:25 Dose: 25 mg Saccharomyces Boulardii (Florastor) 250 mg PER TUBE DAILY [facility] Last Admin: 02/19/17 08:22 Dose: 250 mg Sodium Chloride (Flush - Normal Saline) 10 ml IVF Q12HR [facility] Last Admin: 02/19/17 08:22 Dose: 10 ml Sodium Chloride (Flush - Normal Saline) 10 ml IVF PRN PRN PRN Reason: Saline Flush Last Admin: 02/18/17 14:12 Dose: 10 ml
[2017-02-19] MEDS: Nystatin Powder 15 GM BOT TOP SCH ×2 (12:28→20:39)
[2017-02-19] MEDS ORDERED: Furosemide 40 MG/4 ML VIAL SLOW IVP SCH (13:30)
--- NOTE | 2017-02-19 16:06 | PRG ---
DATE OF SERVICE: 02/19/2017 SUBJECTIVE: Ms. Parker is still not successfully wean from mechanical ventilation. She did over 3 ho urs this morning on trach collar and chair and we had to put her back in bed, cleaned her up after a bowel movement. I have reminded the nurse and staff the chest to be ventilated when she is lying f lat, she was worn out at the end of this and is now back on the ventilator. OBJECTIVE: VITAL SIGNS: Blood pressure 103/58, heart rate 64, respiratory rate 17, oximetry is 94. LUNGS: Remarkable for equal breath sounds. CARDIOVASCULAR: Heart regular rhythm. ABDOMEN: Soft. EXTREMITIES: Without asymmetry. Chest CT was repeated at 7:00 this morning, pleural effusions essentially unchanged. 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 The question remains as to whether or not they are infected. I plan to discuss with CT andrei cheema. We will continue slow weaning attempts from mechanical ventilation. Her treatment of her throat can cer is on hold pending weaning from mechanical ventilation.
[2017-02-19] MEDS: Aspirin 325 MG TAB PER TUBE SCH (20:37)
[2017-02-20 04:34] LABS: Anion Gap 12 mmol/L (10-20); BUN (Urea Nitrogen) 29 mg/dL (9.8-20.1); Calc. Creatinine Clearance 271 mL/min (70-130); Calcium 8.7 mg/dL (7.8-10.44); Carbon Dioxide 34 mmol/L (22-29); Chloride 95 mmol/L (98-107); Estimated GFR-MDRD Greater than 90; Magnesium 1.8 mg/dL (1.6-2.6); Phosphorus 3.5 mg/dL (2.3-4.7)
[2017-02-20 05:16] LABS: #Eosinphils 0.1 thou/uL (0.0-0.7); #Lymphocytes 1.2 thou/uL (1.20-3.40); #Monocytes 0.6 thou/uL (0.11-0.59); #Neutrophils 4.1 thou/uL (1.40-6.50); %Eosinophils 1.2 % (0.0-10.0); %Lymphocytes 20.6 % (21.0-51.0); %Monocytes 9.4 % (0.0-10.0); Hematocrit 31.4 % (36.0-47.0); Mean Platelet Volume 9.3 fL (7.4-10.4); Red Blood Cell (RBC) Count 3.23 mill/uL (4.20-5.40)
[2017-02-20] MEDS: Clindamycin 150 MG CAP PO SCH ×4 (05:24→23:25)
[2017-02-20] MEDS: Pantoprazole 40 MG GRANULES PACKET PER TUBE SCH ×2 (08:26→20:48)
[2017-02-20] MEDS: Saccharomyces boulardii 250 MG CAP PER TUBE SCH (08:26)
[2017-02-20] MEDS: Furosemide 20 MG/2 ML VIAL SLOW IVP SCH (08:26)
[2017-02-20] MEDS: predniSONE 20 MG TAB PO SCH (08:27)
[2017-02-20] MEDS: Nystatin Powder 15 GM BOT TOP SCH ×2 (08:29→20:48)
--- NOTE | 2017-02-20 10:55 | PDOC.PN ---
- Subjective Encounter Start Date: 02/20/17 Encounter Start Time: 10:53 Subjective: up in neuro chair again. on and off vent per nursing -: denies any new complaints .tired - Objective Resuscitation Status: Resuscitation Status CHEM:Chem Code Only MAR Reviewed: Yes Vital Signs & Weight: Vital Signs (12 hours) Temp Pulse Resp BP Pulse Ox 02/20/17 10:12 96 02/20/17 10:09 88 28 H 02/20/17 08:00 98.4 F 02/20/17 07:29 91 L 02/20/17 07:28 91 L 02/20/17 07:14 98.4 F 67 17 96 02/20/17 07:08 63 18 02/20/17 06:00 6 L 02/20/17 04:00 97.5 F L 02/20/17 03:36 3 L 02/20/17 03:33 63 02/20/17 02:00 3 L 02/20/17 00:47 64 113/60 02/19/17 23:30 0 L 02/19/17 23:00 98.9 F Weight Admit Weight 301 lb Weight 303 lb 2.17 oz Most Recent Monitor Data Heart Rate from ECG 91 NIBP 135/78 NIBP BP-Mean 108 Respiration from ECG 27 SpO2 96 I&O: 02/19/17 02/20/17 02/21/17 06:59 06:59 06:59 Intake Total 2065 8033 116 Output Total 4608 5425 880 [facility]8480 -2957 -764 Result Diagrams: 02/20/17 04:12 02/20/17 04:12 Additional Labs: Microbiology 01/26/17 13:26 Thoracentesis Fluid Body Fluid Culture - Final 01/20/17 03:10 Urine voided Urine Culture - Final NO GROWTH AT 36 HOURS 01/20/17 02:43 Sputum - Natural Respiratory Culture - Final Staphylococcus aureus 01/19/17 21:40 Central Line - Right Subclavian Vein Blood Culture - Final NO GROWTH IN 5 DAYS 01/19/17 21:15 Central Line - Right Subclavian Vein Blood Culture - Final Streptococcus intermedius 01/19/17 20:25 Pleural fluid Acid Fast Bacilli Smear - Final 01/19/17 20:16 Pleural fluid Body Fluid Culture - Final Streptococcus agalactiae Gp. B Streptococcus anginosus Group Alpha-Hemolytic Streptococcus Staphylococcus aureus 01/19/17 20:25 Pleural fluid Acid Fast Bacilli Culture - Preliminary Phys Exam - Physical Examination Constitutional: NAD HEENT: PERRLA, moist MMs, sclera anicteric, oral pharynx no lesions phlegmn noticed on chest.coughs good Respiratory: no wheezing, no rales, no rhonchi Cardiovascular: RRR, no significant murmur Gastrointestinal: soft, non-tender, no distention, positive bowel sounds Musculoskeletal: pulses present, edema present Neurological: non-focal, normal sensation, moves all 4 limbs Psychiatric: normal affect, A&O x 3 Skin: no rash Dx/Plan (1) Acute respiratory failure Code(s): J96.00 - ACUTE RESPIRATORY FAILURE, UNSP W HYPOXIA OR HYPERCAPNIA Status: Acute Comment: trached, on vent daily, weaning per pulm. SLOW progress (2) Empyema Code(s): J86.9 - PYOTHORAX WITHOUT FISTULA Status: Acute Comment: S/P decortication. cx with multiple GP organisms, abx restarted-Clindamycin. Ct management per CT surgery. (3) Edema Code(s): R60.9 - EDEMA, UNSPECIFIED Status: Acute Comment: Om low dose lasix (4) Hypernatremia Code(s): E87.0 - HYPEROSMOLALITY AND HYPERNATREMIA Status: Resolved Comment : free water through PEG (5) Pneumothorax Code(s): J93.9 - PNEUMOTHORAX, UNSPECIFIED Status: Acute Qualifiers: Pneumothorax type: spontaneous, primary Qualified Code(s): J93.11 - Primary spontaneous pneumothorax Comment: bilateral CT in. Per pulm/CT curgery. 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 Lovenox on hold as well .NSR. om Amiodarone. Cardiology following (8) Dysphagia Code(s): R13.10 - DYSPHAGIA, UNSPECIFIED Status: Resolved Qualifiers: Dysphagia type: oropharyngeal phase Qualified Code(s): R13.12 - Dysphagia, oropharyngeal phase (9) Obesity Code(s): E66.9 - OBESITY, UNSPECIFIED Status: Chronic (10) Laryngeal cancer Status: Chronic - Plan childers catheter, continue antibiotics, PT/OT, social media content specialist, respiratory therapy, incentive spirometry, DVT proph w/SCDs Cont Chest tube.concern for minimal drainnge.may need decortication. -: defer to PCCM & CTVS for now.vent support prn. -: cont Amiodarone,ASA.lasix per cardiology. -: supportive care.am labs -: PO steroids per PCCM * . Review of Systems - Review of Systems Other: Largely unobtainable due to T-collar - Medications/Allergies Allergies/Adverse Reactions: Allergies Allergy/AdvReac Type Severity Reaction Status Date / Time No Known Drug Allergies Allergy Verified 01/16/17 18:32 Medications: Current Medications Acetaminophen (Tylenol) 500 mg PO Q4H PRN PRN Reason: TEMP>=101.5 Last Admin: 02/17/17 11:50 Dose: 500 mg Albuterol Sulfate (Ventolin) 2.5 mg NEB Q6H PRN PRN Reason: SOB &/or Wheezing Last Admin: 01/19/17 17:27 Dose: 2.5 mg Albuterol/Ipratropium (Duoneb) 3 ml NEB [id number] [facility] Last Admin: 02/20/17 10:09 Dose: 3 ml Amiodarone HCl (Cordarone) 200 mg PO DAILY [facility] Last Admin: 02/20/17 08:26 Dose: 200 mg Lipase/Protease/Amylase ([place] [id number]) 1 cap FS .PER PROTOCOL PRN PRN Reason: TUBE OCCLUSION PROTOCOL Aspirin (Aspirin) 325 mg PER TUBE QPM [facility] Last Admin: 02/19/17 20:37 Dose: 325 mg Clindamycin HCl (Cleocin) 300 mg PO Q6HR [facility] Last Admin: 02/20/17 05:24 Dose: 300 mg Furosemide (Lasix) 20 mg SLOW IVP DAILY [facility] Last Admin: 02/20/17 08:26 Dose: 20 mg Sodium Chloride (1/2 Normal Saline) 1,000 mls @ 0 mls/hr IV .Q0M JARROD PRN Reason: KVO Metoprolol Tartrate (Lopressor) 5 mg IVP PRN PRN PRN Reason: tachycardia Nystatin (Mycostatin Powder) 0 gm TOP BID [facility] Last Admin: 02/20/17 08:29 Dose: 1 applic Pantoprazole Sodium (Protonix) 40 mg PER TUBE Q12HR [facility] Last Admin: 02/20/17 08:26 Dose: 40 mg Potassium Chloride (Klor-Con) 20 meq PO QAM-WM [facility] Last Admin: 02/20/17 08:26 Dose: 20 meq Prednisone (Prednisone) 10 mg PO QAM-WM [facility] Last Admin: 02/20/17 08:27 Dose: 10 mg Quetiapine Fumarate (Seroquel) 25 mg PO HS [facility] Last Admin: 02/19/17 20:38 Dose: 25 mg Saccharomyces Boulardii (Florastor) 250 mg PER TUBE DAILY [facility] Last Admin: 02/20/17 08:26 Dose: 250 mg Sodium Chloride (Flush - Normal Saline) 10 ml IVF Q12HR [facility] Last Admin: 02/20/17 08:27 Dose: 10 ml Sodium Chloride (Flush - Normal Saline) 10 ml IVF PRN PRN PRN Reason: Saline Flush Last Admin: 02/19/17 13:41 Dose: 10 ml
--- NOTE | 2017-02-20 12:45 | SPC ---
FLUOROSCOPIC GUIDED LEFT UPPER EXTREMITY PICC EXCHANGE: HISTORY: Partial removal of left PICC line. FINDINGS: After explaining the procedure and answering all questions, the external portions of the left upper extremity PICC were prepped and draped in the usual sterile fashion. Guidewire was used to hold pos ition and the catheter was exchanged for a new 46 cm dual-lumen 5 [place] PICC, placing the tip at th e superior vena cava. The patient tolerated the procedure well. IMPRESSION: Technically successful left upper extremity PICC exchange. The catheter is now ready for use. POS: [facility]
--- NOTE | 2017-02-20 17:09 | PRG ---
DATE OF SERVICE: 02/20/2017 SUBJECTIVE: Ms. Parker is doing well as long as she is in reverse Trendelenburg, sitting up. Her desiree tilatory mechanics are actually pretty good. Her extremity strength is improving with her /s ignificant other and answered all of his questions. She is pleased with her progress. OBJECTIVE: VITAL SIGNS: Heart rate is 80, respiratory rate in the 20s, blood pressure 142/79. LUNGS: Remarkable for equal breath sounds. CARDIOVASCULAR: Regular rhythm. ABDOMEN: Soft. LABORATORY DATA: White count 6, hemoglobin 10, platelets 105,000. Electrolytes are unremarkable. Creatinine is 0.5. IMPRESSION: Persistent loculated effusions bilaterally. She is tentatively on schedule for Wednesday for attempted decortication on the left. She will probably need eventually procedure on the right. She is medically stable for surgery. She is still not a candidate for treatment of her throat cancer. 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 We will continue with current supportive car e. She still probably has some degree of underlying coronary artery disease. This obviously can be worked up at this point in time. She had several abnormal EKGs earlier in her hospitalization. He r renal function is tolerating the diuresis at this point.
[2017-02-20] MEDS: Aspirin 325 MG TAB PER TUBE SCH (20:48)
[2017-02-21 04:32] LABS: #Eosinphils 0.1 thou/uL (0.0-0.7); #Lymphocytes 1.3 thou/uL (1.20-3.40); #Monocytes 0.5 thou/uL (0.11-0.59); #Neutrophils 3.6 thou/uL (1.40-6.50); %Basophils 0.8 % (0.0-1.0); %Eosinophils 1.3 % (0.0-10.0); %Monocytes 9.6 % (0.0-10.0); Hematocrit 31.1 % (36.0-47.0); Mean Platelet Volume 8.7 fL (7.4-10.4); Red Blood Cell (RBC) Count 3.17 mill/uL (4.20-5.40); White Blood Cell (WBC) Count 5.6 thou/uL (4.8-10.8)
[2017-02-21 04:45] LABS: BUN (Urea Nitrogen) 27 mg/dL (9.8-20.1); Calc. Creatinine Clearance 282 mL/min (70-130); Estimated GFR-MDRD Greater than 90
[2017-02-21 04:53] LABS: Anion Gap 11 mmol/L (10-20); Carbon Dioxide 35 mmol/L (22-29); Chloride 96 mmol/L (98-107)
[2017-02-21] MEDS: Clindamycin 150 MG CAP PO SCH ×4 (05:27→23:51)
[2017-02-21] MEDS: Furosemide 20 MG/2 ML VIAL SLOW IVP SCH (08:47)
[2017-02-21] MEDS: Pantoprazole 40 MG GRANULES PACKET PER TUBE SCH ×2 (08:47→19:54)
[2017-02-21] MEDS: Saccharomyces boulardii 250 MG CAP PER TUBE SCH (08:47)
[2017-02-21] MEDS: predniSONE 20 MG TAB PO SCH (08:47)
[2017-02-21] MEDS: Nystatin Powder 15 GM BOT TOP SCH ×2 (09:00→20:12)
--- NOTE | 2017-02-21 10:54 | PDOC.PN ---
- Subjective Encounter Start Date: 02/21/17 Encounter Start Time: 10:53 Subjective: pt in neuro chair.Awake and reports that she feels ok by mouthing words -: on T-collar for now.denies any discomfort - Objective Resuscitation Status: Resuscitation Status CHEM:Chem Code Only MAR Reviewed: Yes Vital Signs & Weight: Vital Signs (12 hours) Temp Pulse Resp Pulse Ox 02/21/17 08:00 97.6 F 68 30 H 98 02/21/17 07:22 98 02/21/17 07:20 57 L 27 H 98 02/21/17 06:00 20 02/21/17 04:00 97.0 F L 16 02/21/17 03:09 65 02/21/17 03:08 69 22 H 93 L 02/21/17 02:00 15 02/21/17 00:00 97.6 F 16 Weight Admit Weight 301 lb Weight 298 lb 8.094 oz Most Recent Monitor Data Heart Rate from ECG 72 NIBP 136/82 NIBP BP-Mean 96 Respiration from ECG 28 SpO2 91 I&O: 02/20/17 02/21/17 02/22/17 06:59 06:59 06:59 Intake Total 2468 1659 Output Total 5425 2485 125 [facility], [place] -2957 -826 -125 Result Diagrams: 02/21/17 03:35 02/21/17 03:35 Additional Labs: Laboratory Tests 02/16/17 02/17/17 02/19/17 05:36 05:15 04:00 Plt Count 74 L 80 L 87 L 02/20/17 02/21/17 04:12 03:35 Plt Count 105 L 117 L Phys Exam - Physical Examination Constitutional: NAD HEENT: PERRLA, moist MMs, sclera anicteric, oral pharynx no lesions Neck: no nodes, no JVD, supple, full ROM Respiratory: no wheezing, no rales, no rhonchi decreased at bases. B/L chest tubes Cardiovascular: RRR, no significant murmur Gastrointestinal: soft, non-tender, no distention, positive bowel sounds Musculoskeletal: pulses present, edema present (improved) Psychiatric: normal affect, A&O x 3 Skin: no rash Dx/Plan (1) Acute respiratory failure Code(s): J96.00 - ACUTE RESPIRATORY FAILURE, UNSP W HYPOXIA OR HYPERCAPNIA Status: Acute Comment: trached, on vent daily, weaning per pulm. SLOW progress (2) Empyema Code(s): J86.9 - PYOTHORAX WITHOUT FISTULA Status: Acute Comment: S/P decortication. cx with multiple GP organisms, abx restarted-Clindamycin. Ct management per CT surgery. Plans for repeat Decortication tomorrow 02/21/17 (3) Edema Code(s): R60.9 - EDEMA, UNSPECIFIED Status: Acute Comment: Om low dose lasix (4) Hypernatremia Code(s): E87.0 - HYPEROSMOLALITY AND HYPERNATREMIA Status: Resolved Comment : free water through PEG (5) Pneumothorax Code(s): J93.9 - PNEUMOTHORAX, UNSPECIFIED Status: Acute Qualifiers: Pneumothorax type: spontaneous, primary Qualified Code(s): J93.11 - Primary spontaneous pneumothorax Comment: bilateral CT in. Per pulm/CT curgery. 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 Lovenox on hold as well .NSR. om Amiodarone. Cardiology following (8) Dysphagia Code(s): R13.10 - DYSPHAGIA, UNSPECIFIED Status: Resolved Qualifiers: Dysphagia type: oropharyngeal phase Qualified Code(s): R13.12 - Dysphagia, oropharyngeal phase (9) Obesity Code(s): E66.9 - OBESITY, UNSPECIFIED Status: Chronic (10) Laryngeal cancer Status: Chronic - Plan cont current plan of care, childers catheter, continue antibiotics, PT/OT, respiratory therapy, incentive spirometry, out of bed/ambulate, DVT proph w/SCDs Hemodynamically stable.cont supportive care. vent at night. T-collar in day -: Decortication tomorrow.On Clindamycin.finished 1 round of ABx earlier -: Vent per PCCM.tarch and PEG in place. cont TF. -: am labs. -: Oncology consult for layrngeal CA when stable * . Review of Systems - Review of Systems Other: Limited ROS due to T-collar - Medications/Allergies Allergies/Adverse Reactions: Allergies Allergy/AdvReac Type Severity Reaction Status Date / Time No Known Drug Allergies Allergy Verified 01/16/17 18:32 Medications: Current Medications Acetaminophen (Tylenol) 500 mg PO Q4H PRN PRN Reason: TEMP>=101.5 Last Admin: 02/17/17 11:50 Dose: 500 mg Albuterol Sulfate (Ventolin) 2.5 mg NEB Q6H PRN PRN Reason: SOB &/or Wheezing Last Admin: 01/19/17 17:27 Dose: 2.5 mg Albuterol/Ipratropium (Duoneb) 3 ml NEB [id number] [facility] Last Admin: 02/21/17 07:20 Dose: 3 ml Amiodarone HCl (Cordarone) 200 mg PO DAILY [facility] Last Admin: 02/21/17 08:47 Dose: 200 mg Lipase/Protease/Amylase ([place] [id number]) 1 cap FS .PER PROTOCOL PRN PRN Reason: TUBE OCCLUSION PROTOCOL Aspirin (Aspirin) 325 mg PER TUBE QPM [facility] Last Admin: 02/20/17 20:48 Dose: 325 mg Clindamycin HCl (Cleocin) 300 mg PO Q6HR [facility] Last Admin: 02/21/17 05:27 Dose: 300 mg Furosemide (Lasix) 20 mg SLOW IVP DAILY [facility] Last Admin: 02/21/17 08:47 Dose: 20 mg Sodium Chloride (1/2 Normal Saline) 1,000 mls @ 0 mls/hr IV .Q0M JARROD PRN Reason: KVO Metoprolol Tartrate (Lopressor) 5 mg IVP PRN PRN PRN Reason: tachycardia Nystatin (Mycostatin Powder) 0 gm TOP BID [facility] Last Admin: 02/20/17 20:48 Dose: 1 applic Pantoprazole Sodium (Protonix) 40 mg PER TUBE Q12HR [facility] Last Admin: 02/21/17 08:47 Dose: 40 mg Potassium Chloride (Klor-Con) 20 meq PO QAM-WM [facility] Last Admin: 02/21/17 08:47 Dose: 20 meq Prednisone (Prednisone) 10 mg PO QAM-WM [facility] Last Admin: 02/21/17 08:47 Dose: 10 mg Quetiapine Fumarate (Seroquel) 25 mg PO HS [facility] Last Admin: 02/20/17 20:48 Dose: 25 mg Saccharomyces Boulardii (Florastor) 250 mg PER TUBE DAILY [facility] Last Admin: 02/21/17 08:47 Dose: 250 mg Sodium Chloride (Flush - Normal Saline) 10 ml IVF Q12HR [facility] Last Admin: 02/21/17 08:48 Dose: 10 ml Sodium Chloride (Flush - Normal Saline) 10 ml IVF PRN PRN PRN Reason: Saline Flush Last Admin: 02/19/17 13:41 Dose: 10 ml
[2017-02-21] MEDS: Acetaminophen 500 MG TAB PO PRN (13:49)
--- NOTE | 2017-02-21 15:43 | PRG ---
DATE OF SERVICE: 02/21/2017 SUBJECTIVE: Ms. Parker did well overnight. She has no complaints. She is sitting up in the chair on trach collar. OBJECTIVE: VITAL SIGNS: Respiratory rate was in the high 20s, heart rate is in the 70s. Oximetry is 96, blood pressure 157/88, CHEST: Equal breath sounds. HEART: Regular rhythm. ABDOMEN: Soft. LABORATORY DATA: White count 5.6, hemoglobin 9.9, platelets 117. Sodium 138, potassium 3.9, chloride 96, bicarbonate 35, BUN 27, creatinine 0.4. IMPRESSION: 1. Respiratory failure, status post tracheostomy. 2. Bilateral empyemas. 3. Bilateral aspiration pneumonias. 4. Throat cancer. 5. Obesity. 6. Status post bilateral chest tube. PLAN: Possible thoracotomy tomorrow for decortication on the left. Continue trach collar during day as much as possible ventilation at night.
[2017-02-21] MEDS: Aspirin 325 MG TAB PER TUBE SCH (19:54)
[2017-02-22 04:46] LABS: #Basophils 0.1 thou/uL (0.0-0.2); #Eosinphils 0.1 thou/uL (0.0-0.7); #Lymphocytes 1.3 thou/uL (1.20-3.40); #Monocytes 0.6 thou/uL (0.11-0.59); #Neutrophils 3.4 thou/uL (1.40-6.50); %Basophils 1.5 % (0.0-1.0); %Eosinophils 1.4 % (0.0-10.0); %Lymphocytes 23.4 % (21.0-51.0); %Monocytes 11.4 % (0.0-10.0); Hematocrit 32.8 % (36.0-47.0); Mean Platelet Volume 8.3 fL (7.4-10.4); Red Blood Cell (RBC) Count 3.34 mill/uL (4.20-5.40); White Blood Cell (WBC) Count 5.5 thou/uL (4.8-10.8)
[2017-02-22 04:59] LABS: BUN (Urea Nitrogen) 24 mg/dL (9.8-20.1); Calc. Creatinine Clearance 283 mL/min (70-130); Calcium 9.2 mg/dL (7.8-10.44); Estimated GFR-MDRD Greater than 90; Magnesium 1.9 mg/dL (1.6-2.6); Phosphorus 2.9 mg/dL (2.3-4.7)
[2017-02-22 05:09] LABS: Anion Gap 12 mmol/L (10-20); Carbon Dioxide 36 mmol/L (22-29); Chloride 94 mmol/L (98-107)
[2017-02-22] MEDS: Clindamycin 150 MG CAP PO SCH ×3 (06:09→17:57)
[2017-02-22] MEDS ORDERED: Fentanyl 100 MCG/2 ML VIAL ONE (09:11)
[2017-02-22] MEDS ORDERED: Midazolam HCl 2 mg/2 ml Vial ONE (09:11)
[2017-02-22] MEDS ORDERED: hydrALAZINE 20 MG/ML VIAL ONE (09:12)
[2017-02-22] MEDS ORDERED: Phenylephrine 10 MG/NS 250 ML 0 ML ONE (09:12)
[2017-02-22] MEDS ORDERED: Promethazine HCl 25 MG/ML VIAL ONE (09:12)
[2017-02-22] MEDS ORDERED: SUGAMMADEX SODIUM 500 MG/5 ML VIAL ONE (09:12)
[2017-02-22] MEDS ORDERED: SUGAMMADEX SODIUM 200 MG/2 ML VIAL ONE (09:12)
[2017-02-22] MEDS ORDERED: Propofol 500 MG/50 ML VIAL ONE (09:13)
[2017-02-22] MEDS ORDERED: ePHEDrine/0.9% NaCl/PF SYRINGE 50 mg/10 ml ONE (10:22)
[2017-02-22] MEDS ORDERED: PHENYLEPHRINE-NS 100 MCG/ML 10 ML SYRINGE ONE (10:22)
[2017-02-22] MEDS ORDERED: Glycopyrrolate 0.2 MG/ML 5 ML SYRINGE ONE (10:22)
[2017-02-22] MEDS ORDERED: Propofol 200 MG/20 ML VIAL ONE (10:22)
--- NOTE | 2017-02-22 12:28 | PRG ---
DATE OF SERVICE: 02/22/2017 SUBJECTIVE: Erika Parker is doing well. She is tentatively for thoracotomy today. PHYSICAL EXAMINATION: VITAL SIGNS: Respiratory rate is 20, heart rates in the 60s, blood pressure 118/65, oximetry is 98. LUNGS: Remarkable for equal breath sounds. CARDIOVASCULAR: Regular rhythm. ABDOMEN: Soft. IMPRESSION: 1. Bilateral empyemas. 2. Throat cancer. 3. Status post trach emergently. 4. Deconditioning with critical illness myopathy. PLAN: Continue slow weaning thoracotomy today with ventilatory support afterwards. Then at some po int in time, she probably needs procedure on the opposite side.
--- NOTE | 2017-02-22 12:35 | PDOC.PN ---
- Subjective Encounter Start Date: 02/22/17 Encounter Start Time: 07:30 Pt seen and exmained, chart reviewed. It has been several days since i have seen this patient. Interval history reviewed in its entirety. Plan to go to OR later today/this morning for decortication. No F/c, no N/V/dc/, no other acute events, no new compalints - Objective Resuscitation Status: Resuscitation Status CHEM:Chem Code Only MAR Reviewed: Yes Vital Signs & Weight: Vital Signs (12 hours) Temp Pulse Resp BP Pulse Ox 02/22/17 10:00 20 02/22/17 09:00 98.0 F 02/22/17 08:00 98.0 F 95 21 H 95 02/22/17 06:59 95 104/56 L 02/22/17 06:57 70 21 H 92 L 02/22/17 06:00 15 02/22/17 04:00 97.6 F 16 02/22/17 03:08 63 96/51 L 02/22/17 02:00 15 Weight Admit Weight 301 lb Weight 293 lb 10.491 oz Most Recent Monitor Data Heart Rate from ECG 66 NIBP 118/65 NIBP BP-Mean 98 Respiration from ECG 22 SpO2 93 I&O: 02/21/17 02/22/17 02/23/17 06:59 06:59 06:59 Intake Total 1659 1413 Output Total 2485 1735 150 Balance -826 -322 -150 Result Diagrams: 02/22/17 04:30 02/22/17 04:30 Radiology Reviewed by me: Yes EKG Reviewed by me: Yes Phys Exam - Physical Examination Constitutional: NAD HEENT: PERRLA, moist MMs, sclera anicteric, oral pharynx no lesions Neck: no nodes, no JVD, supple, full ROM Trach C/D/I Respiratory: no wheezing, no rales, no rhonchi coarse bialteral BS, crackles Cardiovascular: RRR, no significant murmur, no rub Gastrointestinal: soft, non-tender, no distention, positive bowel sounds PEG C/D/I Musculoskeletal: pulses present, edema present Neurological: non-focal, normal sensation, moves all 4 limbs Lymphatic: no nodes Psychiatric: A&O x 3 Deviation from normal: anxious Skin: no rash, normal turgor, cap refill <2 seconds Dx/Plan (1) Acute respiratory failure Code(s): J96.00 - ACUTE RESPIRATORY FAILURE, UNSP W HYPOXIA OR HYPERCAPNIA Status: Acute Comment: trached, on vent daily, weaning per pulm. SLOW progress. to OR for decortication later this morning, will certainly be a set back (2) Atrial fibrillation Code(s): I48.91 - UNSPECIFIED ATRIAL FIBRILLATION Status: Resolved Qualifiers: Atrial fibrillation type: chronic Qualified Code(s): I48.2 - Chronic atrial fibrillation Comment: Not a candidate for anticoagulation due to low platelets. Lovenox on hold as well .NSR. om Amiodarone. Cardiology following (3) Empyema Code(s): J86.9 - PYOTHORAX WITHOUT FISTULA Status: Acute Comment: S/P decortication. cx with multiple GP organisms, abx restarted-Clindamycin. Ct management per CT surgery. Plans for repeat Decortication 02/22/2017 (4) Pneumothorax Code(s): J93.9 - PNEUMOTHORAX, UNSPECIFIED Status: Acute Qualifiers: Pneumothorax type: spontaneous, primary Qualified Code(s): J93.11 - Primary spontaneous pneumothorax Comment: bilateral CT in. Per pulm/CT curgery. appreciate their assistance (5) Supraglottic mass Code(s): J38.7 - OTHER DISEASES OF LARYNX Status: Acute Comment: Squamous Cell cacinoma. 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
--- NOTE | 2017-02-22 13:08 | PRG ---
DATE OF SERVICE: 02/22/2017 Ms. Parker is postoperative after having a decortication. PHYSICAL EXAMINATION: GENERAL: She is awake and alert, looking around the room. VITAL SIGNS: Blood pressure 118/65, pulse 90s earlier, now it is 70s, it is sinus. LUNGS: Clear. CARDIAC: Normal S1, S2. ASSESSMENT: 1. Atrial fibrillation, maintaining sinus rhythm. 2. Postoperative status. PLAN: 1. She is on metoprolol if needed. 2. Amiodarone 200 mg a day.
--- NOTE | 2017-02-22 13:50 | RAD ---
CHEST 1 VIEW: HISTORY: Postop. COMPARISON: Chest 1 view 02/04/17. FINDINGS: Thoracostomy tube tip projects 5 .8 cm above the glenda. There is volume loss in the right middle l obe, right lower lobe, and right upper lobe. There is some layering effusion. Left thoracostomy is again seen. Post surgical changes of left hemithorax are present. There is a new left thoracostomy drain which is kinked at its sidehole. There are bilateral central venous catheters with a new right IJ central venous catheter at the tip of the right atrium. IMPRESSION: 1. New right internal jugular central venous catheter with tip at the right atrium. 2. Layering right effusion. 3. Bibasilar opacities with volume loss in the right hemithorax. This is actually relatively simil ar dating back to 02/04/17. 4. New left thoracostomy tube with postsurgical changes with kinking of the sideport. POS: OFF
[2017-02-22] MEDS: predniSONE 20 MG TAB PO SCH (14:03)
[2017-02-22] MEDS: Pantoprazole 40 MG GRANULES PACKET PER TUBE SCH ×2 (14:03→20:08)
[2017-02-22] MEDS: Saccharomyces boulardii 250 MG CAP PER TUBE SCH (14:03)
--- NOTE | 2017-02-22 14:03 | OP ---
PREOPERATIVE DIAGNOSES: 1. Loculated left empyema. 2. Poor venous access. SURGEON: Barney Bauer M.D. CHAUFFEUR: None. POSTOPERATIVE DIAGNOSES: 1. Loculated left empyema. 2. Poor venous access. SPONGE AND NEEDLE COUNTS: Correct. ANESTHESIA: General. OPERATIONS PERFORMED: 1. Total left pulmonary decortication. 2. Right subclavian vein central line placement. FINDINGS AT OPERATION: Inferior posterolateral loculations containing approximately 400 to 500 mL of purulent fluid and gelatinous debris. PROCEDURE IN TECHNIQUE: The patient was taken to the operating room. Right radial arterial line was established. Due to poor venous access, right subclavian vein central line placement was performed under full sterile technique. The catheter was secured to the skin with silk sutures and ports flushed with heparinized saline. General anesthesia had been obtained. Tracheostomy had been performed on the patient's admission several weeks ago. The patient was positioned in a modified right decubitus position using a large foam bump. The previously placed left chest tube was removed. This wound was isolated. The patient was then prepped and draped in usual sterile fashion. A small lateral thoracotomy incision was made. Pleural space was carefully entered. Due to her tenuous pulmonary condition, no plans were made for one- lung ventilation. The lung was carefully from the chest wall using primarily blunt dissection. Ultimately, the inferior posterolateral loculated pockets were identified. These were broken down retrieving the above volume of purulent fluid and gelatinous debris. Fluid and debris were sent for culture. Ultimately, the entire lung was re-isolated. Copious irrigation was performed. Hemostasis was assured. 32-Gib[place]tarian right angle and 36-Gib[place]tarian straight chest tubes were placed. Each exited via a separate stab wound and were secured to the skin with silk sutures. A fracture of the lower rib of the thoracotomy incision was created with placement of the small retractor. The ends were completely excised. The chest wall tissues were now reapproximated with interrupted [id number] #1 Vicryl paracostal sutures. Soft tissues were closed anatomically with a combination of running 0 Vicryl and 2-0 Vicryl sutures. Skin edges were reapproximated with lanny. Dressing was applied. The previous chest tube site was debrided and packed with a dry dressing. The patient was returned to the full supine position. She was subsequently returned to the CCU. EBL < 50ml. MTDD
[2017-02-22] MEDS: Furosemide 20 MG/2 ML VIAL SLOW IVP SCH (14:05)
[2017-02-22] MEDS: Nystatin Powder 15 GM BOT TOP SCH ×2 (14:05→20:12)
[2017-02-22] MEDS: Aspirin 325 MG TAB PER TUBE SCH (20:08)
[2017-02-23] MEDS: Clindamycin 150 MG CAP PO SCH ×4 (00:14→18:26)
[2017-02-23 04:25] LABS: #Lymphocytes 1.2 thou/uL (1.20-3.40); #Monocytes 0.7 thou/uL (0.11-0.59); #Neutrophils 7.1 thou/uL (1.40-6.50); %Basophils 0.3 % (0.0-1.0); %Eosinophils 0.5 % (0.0-10.0); %Lymphocytes 12.8 % (21.0-51.0); %Monocytes 7.5 % (0.0-10.0); Hematocrit 33.3 % (36.0-47.0); Mean Platelet Volume 8.3 fL (7.4-10.4); Red Blood Cell (RBC) Count 3.41 mill/uL (4.20-5.40); White Blood Cell (WBC) Count 9.1 thou/uL (4.8-10.8)
[2017-02-23 05:47] LABS: Anion Gap 11 mmol/L (10-20); BUN (Urea Nitrogen) 27 mg/dL (9.8-20.1); Calc. Creatinine Clearance 236 mL/min (70-130); Calcium 8.8 mg/dL (7.8-10.44); Carbon Dioxide 35 mmol/L (22-29); Chloride 95 mmol/L (98-107); Estimated GFR-MDRD Greater than 90; Phosphorus 3.5 mg/dL (2.3-4.7)
[2017-02-23] MEDS: Saccharomyces boulardii 250 MG CAP PER TUBE SCH (08:55)
[2017-02-23] MEDS: predniSONE 20 MG TAB PO SCH (08:55)
[2017-02-23] MEDS: Pantoprazole 40 MG GRANULES PACKET PER TUBE SCH ×2 (08:55→21:27)
[2017-02-23] MEDS: Furosemide 20 MG/2 ML VIAL SLOW IVP SCH (08:56)
[2017-02-23] MEDS: Nystatin Powder 15 GM BOT TOP SCH ×2 (08:56→21:29)
[2017-02-23] MEDS ORDERED: Cefepime 2 GM in Sodium Chloride 0.9% 100 ML IVPB SCH (09:00)
--- NOTE | 2017-02-23 13:38 | PDOC.PN ---
- Subjective Encounter Start Date: 02/23/17 Encounter Start Time: 09:00 Pt seen and examined earlier on orunds. Sitting up in Bed/chair. On trach collar for just over 2 hours and doing well. no F/C, no n/V/D/C, no new CP, no increased SOB S/P Left lung decortication 02/22. no complications. discussed with micro, lung tissue growing GNR, swarming. looks like Proteus. Plan to return to OR next week for repeat decotication for the right lung 10 point ROS performed and neg for all systems except as per HPI - Objective Resuscitation Status: Resuscitation Status CHEM:Chem Code Only MAR Reviewed: Yes Vital Signs & Weight: Vital Signs (12 hours) Temp Pulse Pulse Pulse Resp BP BP 02/23/17 12:00 98.9 F 28 H 02/23/17 10:48 87 113/70 02/23/17 10:47 86 30 H 02/23/17 10:00 24 H 02/23/17 08:35 107 H 100 147/86 H 02/23/17 08:00 99 F 82 23 H 02/23/17 07:00 99 F 02/23/17 06:53 82 23 H 02/23/17 06:00 23 H 02/23/17 04:00 97.6 F 15 02/23/17 02:46 80 20 02/23/17 02:00 18 BP Pulse Ox Pulse Ox Pulse Ox 02/23/17 12:00 02/23/17 10:48 02/23/17 10:47 98 02/23/17 10:00 02/23/17 08:35 148/91 H 92 L 100 02/23/17 08:00 95 02/23/17 07:00 02/23/17 06:53 93 L 02/23/17 06:00 02/23/17 04:00 02/23/17 02:46 100 02/23/17 02:00 Weight Admit Weight 301 lb Weight 295 lb 3.183 oz Most Recent Monitor Data Heart Rate from ECG 80 NIBP 97/63 NIBP BP-Mean 70 Respiration from ECG 20 SpO2 100 I&O: 02/22/17 02/23/17 02/24/17 06:59 06:59 06:59 Intake Total 1413 1593 400 Output Total 2401 1715 213 Balance -322 -122 187 Result Diagrams: 02/23/17 03:40 02/23/17 03:40 Radiology Reviewed by me: Yes EKG Reviewed by me: Yes Phys Exam - Physical Examination Constitutional: NAD HEENT: PERRLA, moist MMs, sclera anicteric, oral pharynx no lesions Neck: no nodes, no JVD, supple, full ROM Respiratory: no wheezing coard bilateral crackles, no rhonchi Cardiovascular: RRR, no significant murmur, no rub Gastrointestinal: soft, non-tender, no distention, positive bowel sounds Musculoskeletal: no edema, pulses present, edema present Neurological: non-focal, normal sensation, moves all 4 limbs Lymphatic: no nodes Psychiatric: normal affect, A&O x 3 Skin: no rash, normal turgor, cap refill <2 seconds Dx/Plan (1) Acute respiratory failure Code(s): J96.00 - ACUTE RESPIRATORY FAILURE, UNSP W HYPOXIA OR HYPERCAPNIA Status: Acute Comment: trached, on vent daily, weaning per pulm. SLOW progress. to OR for decortication later this morning, will certainly be a set back (2) Atrial fibrillation Code(s): I48.91 - UNSPECIFIED ATRIAL FIBRILLATION Status: Resolved Qualifiers: Atrial fibrillation type: chronic Qualified Code(s): I48.2 - Chronic atrial fibrillation Comment: Not a candidate for anticoagulation due to low platelets. Lovenox on hold as well .NSR. om Amiodarone. Cardiology following (3) Empyema Code(s): J86.9 - PYOTHORAX WITHOUT FISTULA Status: Acute Comment: S/P decortication. cx with multiple GP organisms, abx restarted-Clindamycin. Ct management per CT surgery. Repeat Decortication 02/22/2017 on Left, planning for repeat on right next week. culture with proteus, will add cefepime pending final ID and sensitivities (4) Pneumothorax Code(s): J93.9 - PNEUMOTHORAX, UNSPECIFIED Status: Acute Qualifiers: Pneumothorax type: spontaneous, primary Qualified Code(s): J93.11 - Primary spontaneous pneumothorax Comment: bilateral CT in. Per pulm/CT curgery. appreciate their assistance (5) Supraglottic mass Code(s): J38.7 - OTHER DISEASES OF LARYNX Status: Acute Comment: Squamous Cell cacinoma. 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
[2017-02-23] MEDS: Cefepime 2 GM in Sodium Chloride 0.9% 100 ML IVPB SCH (14:32)
--- NOTE | 2017-02-23 16:51 | PRG ---
DATE OF SERVICE: 02/23/2017 SUBJECTIVE Ms. Parker underwent a thoracotomy and decortication. She has spent time up in chair off the ventilator today. Cultures from yesterday are growing Proteus species. OBJECTIVE: LUNGS: She has equal breath sounds. HEART: Regular rhythm. ABDOMEN: Soft. IMPRESSION: 1. Empyema, probably polymicrobial. Loculated fluid is still infected. Her last cultures from the left side and chest tube in place for sterile. Plan: Antimicrobial therapy. Cefepime has been st arted today by Dr. Bergeron. 2. Critical illness myopathy, slowly improving. 3. Throat cancer. 4. Status post emergent tracheostomy. 5. Obesity. 6. Deconditioning. We reminded the staff that it is imperative that she be in the sitting position if she is on a trach collar. She absolutely cannot breathe lying in bed. We need to be increasing her time of ventilator each day. We decreased her nocturnal settings now. We will continue to support in the ICU.
[2017-02-23] MEDS: Aspirin 325 MG TAB PER TUBE SCH (21:28)
[2017-02-24] MEDS: Clindamycin 150 MG CAP PO SCH ×4 (00:29→17:11)
[2017-02-24] MEDS: Cefepime 2 GM in Sodium Chloride 0.9% 100 ML IVPB SCH (02:49)
[2017-02-24 04:26] LABS: Anion Gap 10 mmol/L (10-20); BUN (Urea Nitrogen) 26 mg/dL (9.8-20.1); Calc. Creatinine Clearance 258 mL/min (70-130); Calcium 8.7 mg/dL (7.8-10.44); Carbon Dioxide 36 mmol/L (22-29); Chloride 94 mmol/L (98-107); Estimated GFR-MDRD Greater than 90; Magnesium 1.8 mg/dL (1.6-2.6)
[2017-02-24 04:27] LABS: #Eosinphils 0.1 thou/uL (0.0-0.7); #Lymphocytes 1.5 thou/uL (1.20-3.40); #Monocytes 0.7 thou/uL (0.11-0.59); %Basophils 0.5 % (0.0-1.0); %Eosinophils 0.9 % (0.0-10.0); %Lymphocytes 20.1 % (21.0-51.0); %Monocytes 9.7 % (0.0-10.0); Hematocrit 29.7 % (36.0-47.0); Red Blood Cell (RBC) Count 2.99 mill/uL (4.20-5.40); White Blood Cell (WBC) Count 7.2 thou/uL (4.8-10.8)
[2017-02-24] MEDS ORDERED: Dextrose 50% Abboject 50 ML SYRINGE SLOW IVP PRN (08:05)
[2017-02-24] MEDS ORDERED: Dextrose 5% in Water 1,000 ML IV PRN (08:05)
[2017-02-24] MEDS: Furosemide 20 MG/2 ML VIAL SLOW IVP SCH (08:27)
[2017-02-24] MEDS: predniSONE 20 MG TAB PO SCH (08:27)
[2017-02-24] MEDS: Saccharomyces boulardii 250 MG CAP PER TUBE SCH (08:27)
[2017-02-24] MEDS: Pantoprazole 40 MG GRANULES PACKET PER TUBE SCH ×2 (08:27→20:47)
[2017-02-24] MEDS: Nystatin Powder 15 GM BOT TOP SCH ×2 (08:28→20:48)
[2017-02-24] MEDS: cefTRIAXone\\ROCEPHIN 2 GM in Sodium Chloride 0.9% 100 ML IVPB SCH (10:41)
[2017-02-24] MEDS: HumaLOG 300 UNITS/3 ML VIAL SC PRN (10:42)
--- NOTE | 2017-02-24 10:50 | PDOC.PN ---
- Subjective Encounter Start Date: 02/24/17 Encounter Start Time: 08:00 PT seen and examined. sitting up in chair on Trach collar. Nort really SOb, no f/C, no pain, no N/V/D/C cx with proteus, mcduffie-susceptible. results disccussed ith Mrs. Parker and Pulmonary. Plans are to go back to OR next week for right sided repeat decortication 10 point ROS neg for all systems except as above - Objective Resuscitation Status: Resuscitation Status CHEM:Chem Code Only MAR Reviewed: Yes Vital Signs & Weight: Vital Signs (12 hours) Temp Pulse Resp Pulse Ox 02/24/17 06:39 68 21 H 99 02/24/17 06:00 18 02/24/17 04:00 97.5 F L 18 02/24/17 02:46 76 24 H 100 02/24/17 02:00 12 02/24/17 00:00 97.7 F 75 24 H 96 Weight Admit Weight 301 lb Weight 294 lb 5.074 oz Most Recent Monitor Data Heart Rate from ECG 74 NIBP 109/65 NIBP BP-Mean 77 Respiration from ECG 30 SpO2 100 I&O: 02/23/17 02/24/17 02/25/17 06:59 06:59 06:59 Intake Total 1593 4275 Output Total 1715 1538 Balance -122 2737 Result Diagrams: 02/24/17 03:34 02/24/17 03:34 Radiology Reviewed by me: Yes EKG Reviewed by me: Yes Phys Exam - Physical Examination Constitutional: NAD HEENT: PERRLA, moist MMs, sclera anicteric, oral pharynx no lesions Neck: no nodes, no JVD, supple, full ROM trach site c/D/I bilaterla chest tubes. coarse bilateral BS, good air movement Cardiovascular: RRR, no significant murmur, no rub Gastrointestinal: soft, non-tender, no distention, positive bowel sounds PEG C/D/I Musculoskeletal: pulses present, edema present Neurological: non-focal, normal sensation, moves all 4 limbs Lymphatic: no nodes Psychiatric: normal affect Skin: no rash, normal turgor, cap refill <2 seconds Deviation from normal: right chest triple lumen CVC with blood tinged dressing Dx/Plan (1) Acute respiratory failure Code(s): J96.00 - ACUTE RESPIRATORY FAILURE, UNSP W HYPOXIA OR HYPERCAPNIA Status: Acute Qualifiers: Respiratory failure complication: hypoxia Qualified Code(s): J96.01 - Acute respiratory failure with hypoxia Comment: trached, on vent daily, weaning per pulm. SLOW progress. to OR for decortication ofn right next week. left lung decort culture with proteus, on cefepime so will streamline to rocephin once daily (2) Atrial fibrillation Code(s): I48.91 - UNSPECIFIED ATRIAL FIBRILLATION Status: Resolved Qualifiers: Atrial fibrillation type: chronic Qualified Code(s): I48.2 - Chronic atrial fibrillation Comment: Not a candidate for anticoagulation due to low platelets. Lovenox on hold as well .NSR. om Amiodarone. Cardiology following (3) Empyema Code(s): J86.9 - PYOTHORAX WITHOUT FISTULA Status: Acute Comment: S/P decortication. Original cx with multiple GP organisms, abx restarted- Clindamycin, now on po. Ct management per CT surgery. Repeat Decortication 02/22/2017 on Left and culture iwth mcduffie-susceptible proteus. Will streamoline cefepime to rocephin. CT surgery planning for repeat on right next week. culture with proteus, will add cefepime pending final ID and sensitivities (4) Pneumothorax Code(s): J93.9 - PNEUMOTHORAX, UNSPECIFIED Status: Acute Qualifiers: Pneumothorax type: spontaneous, primary Qualified Code(s): J93.11 - Primary spontaneous pneumothorax Comment: bilateral CT in. Per pulm/CT curgery. appreciate their assistance (5) Supraglottic mass Code(s): J38.7 - OTHER DISEASES OF LARYNX Status: Acute Comment: Squamous Cell cacinoma. 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
[2017-02-24] MEDS ORDERED: Ondansetron HCl/PF 4 MG/2 ML Vial IVP PRN (13:04)
[2017-02-24] MEDS: Aspirin 325 MG TAB PER TUBE SCH (20:47)
[2017-02-25] MEDS: Clindamycin 150 MG CAP PO SCH ×3 (01:25→12:48)
[2017-02-25 05:03] LABS: #Eosinphils 0.1 thou/uL (0.0-0.7); #Lymphocytes 1.2 thou/uL (1.20-3.40); #Monocytes 0.6 thou/uL (0.11-0.59); #Neutrophils 3.8 thou/uL (1.40-6.50); %Basophils 0.4 % (0.0-1.0); %Lymphocytes 20.6 % (21.0-51.0); %Monocytes 10.4 % (0.0-10.0); Hematocrit 28.3 % (36.0-47.0); Mean Platelet Volume 8.1 fL (7.4-10.4); Red Blood Cell (RBC) Count 2.86 mill/uL (4.20-5.40); White Blood Cell (WBC) Count 5.7 thou/uL (4.8-10.8)
[2017-02-25 05:35] LABS: Anion Gap 9 mmol/L (10-20); BUN (Urea Nitrogen) 25 mg/dL (9.8-20.1); Calc. Creatinine Clearance 291 mL/min (70-130); Calcium 8.7 mg/dL (7.8-10.44); Carbon Dioxide 36 mmol/L (22-29); Chloride 95 mmol/L (98-107); Estimated GFR-MDRD Greater than 90; Magnesium 1.9 mg/dL (1.6-2.6); Phosphorus 3.1 mg/dL (2.3-4.7)
[2017-02-25] MEDS: Saccharomyces boulardii 250 MG CAP PER TUBE SCH (08:11)
[2017-02-25] MEDS: predniSONE 20 MG TAB PO SCH (08:11)
[2017-02-25] MEDS: cefTRIAXone\\ROCEPHIN 2 GM in Sodium Chloride 0.9% 100 ML IVPB SCH (08:12)
[2017-02-25] MEDS: Furosemide 20 MG/2 ML VIAL SLOW IVP SCH (08:12)
[2017-02-25] MEDS: Pantoprazole 40 MG GRANULES PACKET PER TUBE SCH ×2 (08:12→20:44)
[2017-02-25] MEDS: Nystatin Powder 15 GM BOT TOP SCH ×2 (08:19→20:46)
[2017-02-25] MEDS: HumaLOG 300 UNITS/3 ML VIAL SC PRN ×2 (10:11→16:16)
--- NOTE | 2017-02-25 13:25 | PDOC.PN ---
- Subjective Encounter Start Date: 02/25/17 Encounter Start Time: 10:30 Pt seen and examined earlier on rounds. No pain, no complaints, denies F/C, no N/V/D/C, no CP. No acute overnight events, labs and cultrues removed. 10 point ROS performed and neg for all systems except as per HPI - Objective Resuscitation Status: Resuscitation Status CHEM:Chem Code Only MAR Reviewed: Yes Vital Signs & Weight: Vital Signs (12 hours) Temp Pulse Resp Pulse Ox 02/25/17 10: 79 02/25/17 10:00 28 H 02/25/17 08:00 25 H 02/25/17 07:15 97.7 F 61 28 H 98 02/25/17 07:00 97.7 F 02/25/17 06:59 65 02/25/17 06:00 27 H 02/25/17 04:00 98.7 F 16 02/25/17 02:18 74 24 H 100 02/25/17 02:00 15 Weight Admit Weight 301 lb Weight 291 lb 10.745 oz Most Recent Monitor Data Heart Rate from ECG 78 NIBP 125/72 NIBP BP-Mean 79 Respiration from ECG 25 SpO2 99 I&O: 02/24/17 02/25/17 02/26/17 06:59 06:59 06:59 Intake Total 4275 3411 142 Output Total 1538 2880 247 Balance 2737 531 -105 Result Diagrams: 02/25/17 04:40 02/25/17 04:40 Additional Labs: Accuchecks 02/25/17 02/25/17 02/24/17 10:09 04:39 22:36 POC Glucose 168 H 120 H 117 H 02/24/17 16:40 POC Glucose 94 Radiology Reviewed by me: No EKG Reviewed by me: No Phys Exam - Physical Examination Constitutional: NAD HEENT: PERRLA, moist MMs, sclera anicteric, oral pharynx no lesions Neck: no nodes, no JVD, supple, full ROM trach site C/D/I coarse bilateral breathsounds. crackles posteriorly R more than left Cardiovascular: no significant murmur, no rub, irregular Gastrointestinal: soft, non-tender, no distention, positive bowel sounds PEG C/D/I Musculoskeletal: pulses present, edema present Neurological: non-focal, normal sensation, moves all 4 limbs Lymphatic: no nodes Psychiatric: A&O x 3 Deviation from normal: seems depressed Skin: no rash, normal turgor, cap refill <2 seconds Dx/Plan (1) Acute respiratory failure Code(s): J96.00 - ACUTE RESPIRATORY FAILURE, UNSP W HYPOXIA OR HYPERCAPNIA Status: Acute Qualifiers: Respiratory failure complication: hypoxia Qualified Code(s): J96.01 - Acute respiratory failure with hypoxia Comment: trached, on vent daily, weaning per pulm. SLOW progress. to OR for decortication of right chest next week. left lung decort culture with proteus adn now prevotella. On rocephin for proteus, on po clinda for prevotella, will change to IV. could transition to flagyl as well (2) Atrial fibrillation Code(s): I48.91 - UNSPECIFIED ATRIAL FIBRILLATION Status: Resolved Qualifiers: Atrial fibrillation type: chronic Qualified Code(s): I48.2 - Chronic atrial fibrillation Comment: Not a candidate for anticoagulation due to low platelets. Lovenox on hold as well .NSR. on Amiodarone. Cardiology following (3) Empyema Code(s): J86.9 - PYOTHORAX WITHOUT FISTULA Status: Acute Comment: S/P decortication. Original cx with multiple GP organisms, abx restarted- Clindamycin, now on po, back to IV for now. Ct management per CT surgery. Repeat Decortication 02/22/2017 on Left and culture with mcduffie-susceptible proteus , now with prevotella. on rocephin. CT surgery planning for repeat on right next week. culture with proteus, will add cefepime pending final ID and sensitivities (4) Pneumothorax Code(s): J93.9 - PNEUMOTHORAX, UNSPECIFIED Status: Acute Qualifiers: Pneumothorax type: spontaneous, primary Qualified Code(s): J93.11 - Primary spontaneous pneumothorax Comment: bilateral CT in. Per pulm/CT curgery. appreciate their assistance (5) Supraglottic mass Code(s): J38.7 - OTHER DISEASES OF LARYNX Status: Acute Comment: Squamous Cell cacinoma. 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
[2017-02-25] MEDS: Clindamycin/D5W 900 MG in Premix Bag 1 BAG IVPB SCH ×2 (14:11→21:01)
--- NOTE | 2017-02-25 17:16 | PRG ---
DATE OF SERVICE: 02/25/2017 SUBJECTIVE: Ms. Parker remains intermittently mechanically ventilated. She sat up on a trach collar this morning. She was placed back on the ventilator for a short period and will be placed back on a trach collar this afternoon. I think some of her problems are anxiety mediated. OBJECTIVE: VITAL SIGNS: Heart rate is in the 80s, respiratory rates in the 20s, oximetries in the 90s. LUNGS: Clear. HEART: Regular rhythm. ABDOMEN: Soft. LABORATORY DATA: White count 5.7, hemoglobin 8.9, platelets 137. Sodium 136, potassium 3.5, chlori de 95, bicarbonate 36, BUN 25, creatinine 0.4, glucose 121. IMPRESSION: Multiorgan dysfunction associated with throat cancer with bilateral aspiration pneumoni as and bilateral empyemas. Cultures have been reviewed. Proteus and Prevotella as expected are jeferson ng isolated from her pleural space on the left. Cleocin has been added. We added Seroquel routinel y during the day to see if this helps with her anxiety and alprazolam as well. Hopefully, this will facilitate longer periods off the mechanical ventilation. At some point, she will probably need de cortication on the right.
[2017-02-25] MEDS: Aspirin 325 MG TAB PER TUBE SCH (20:44)
[2017-02-26 04:27] LABS: #Eosinphils 0.1 thou/uL (0.0-0.7); #Lymphocytes 0.9 thou/uL (1.20-3.40); #Monocytes 0.6 thou/uL (0.11-0.59); %Basophils 0.5 % (0.0-1.0); %Eosinophils 1.3 % (0.0-10.0); %Lymphocytes 20.1 % (21.0-51.0); %Monocytes 12.9 % (0.0-10.0); White Blood Cell (WBC) Count 4.6 thou/uL (4.8-10.8)
[2017-02-26 04:47] LABS: Anion Gap 11 mmol/L (10-20); BUN (Urea Nitrogen) 22 mg/dL (9.8-20.1); Calc. Creatinine Clearance 270 mL/min (70-130); Calcium 8.8 mg/dL (7.8-10.44); Carbon Dioxide 37 mmol/L (22-29); Chloride 95 mmol/L (98-107); Estimated GFR-MDRD Greater than 90; Magnesium 1.9 mg/dL (1.6-2.6); Phosphorus 3.3 mg/dL (2.3-4.7)
[2017-02-26] MEDS: Clindamycin/D5W 900 MG in Premix Bag 1 BAG IVPB SCH ×3 (05:18→22:15)
[2017-02-26] MEDS: ALPRAZolam 0.25 MG TAB PO PRN ×2 (05:19→13:21)
[2017-02-26] MEDS: Furosemide 20 MG/2 ML VIAL SLOW IVP SCH (08:33)
[2017-02-26] MEDS: Pantoprazole 40 MG GRANULES PACKET PER TUBE SCH ×2 (08:33→19:36)
[2017-02-26] MEDS: predniSONE 20 MG TAB PO SCH (08:38)
[2017-02-26] MEDS: cefTRIAXone\\ROCEPHIN 2 GM in Sodium Chloride 0.9% 100 ML IVPB SCH (08:44)
--- NOTE | 2017-02-26 08:49 | PRG ---
DATE OF SERVICE: 02/26/2017 Ms. Parker is still on the ventilator when I examined her this morning. PHYSICAL EXAMINATION: VITAL SIGNS: Heart rate is in the 60s. Blood pressure 107/69, respiratory rate of 20, blood pressu re 101/61. LUNGS: Remarkable for equal breath sounds. HEART: Regular rhythm. ABDOMEN: Abdomen is soft. Intake and output was positive 323, she had 160 mL out of her left chest tube. Her admitting weight was 308, she is 290 pounds now. LABORATORY: White count 4.6, hemoglobin 8.8, platelets 145,000. Electrolytes; sodium 139, potassium 3.5, chloride 95, bicarbonate 37, BUN 22, creatinine 0.49. IMPRESSION: 1. Respiratory failure. 2. Throat cancer. 3. Bilateral empyema status post bilateral chest tubes in then eventual decortication on the left. She is for a possible decortication on the right next week. 4. Anxiety, on Xanax p.r.n. 4 times a day as well as Seroquel. 5. Atrial fibrillation on the amiodarone. 6. Possible coronary disease with ischemic changes on EKG after a code with a spontaneous pneumotho rax. 7. Critical illness myopathy. 8. Extreme deconditioning from inactivity and poor nutritional intake prior to admission. PLAN: Continue support with T-collar trials during the day. She is sitting up in the neuro chair. She needs to begin exercising her legs. She has been instructed when she is watching TV to try to lifting her arms over her head. Her arm strength has improved. Ten days ago she could not lift her arms off of the bed and now she can get them up to at least parallel with her chest or a little hig her. She remains quite weak.
[2017-02-26] MEDS: Nystatin Powder 15 GM BOT TOP SCH ×2 (10:00→19:38)
[2017-02-26] MEDS: HumaLOG 300 UNITS/3 ML VIAL SC PRN (10:11)
--- NOTE | 2017-02-26 12:49 | PDOC.PN ---
- Subjective Encounter Start Date: 02/26/17 Encounter Start Time: 11:15 -: non-verbal Pt sitting up in bed/chair. On trach collar about 4 hours and doing well. no f /c, no N/V/d/c, no CP or SOb. Records reviewed, pt moving extremeties X 4 more. no acute events, no new complaints, denies needs. updated pt to culture results and current antibiotic plan - Objective Resuscitation Status: Resuscitation Status CHEM:Chem Code Only MAR Reviewed: Yes Vital Signs & Weight: Vital Signs (12 hours) Temp Pulse Resp BP Pulse Ox 02/26/17 11:20 82 23 H 95 02/26/17 08:00 97.6 F 77 26 H 96 02/26/17 07:20 66 107/69 02/26/17 07:19 69 24 H 100 02/26/17 06:00 18 02/26/17 04:00 98.2 F 21 H 02/26/17 02:09 68 95/56 L 02/26/17 02:00 21 H Weight Admit Weight 301 lb Weight 290 lb 5.581 oz Most Recent Monitor Data Heart Rate from ECG 79 NIBP 129/77 NIBP BP-Mean 105 Respiration from ECG 31 SpO2 92 I&O: 02/25/17 02/26/17 02/27/17 06:59 06:59 06:59 Intake Total 3411 2540 110 Output Total 2880 2217 470 Balance 531 323 -360 Result Diagrams: 02/26/17 03:50 02/26/17 03:50 Additional Labs: Accuchecks 02/26/17 02/25/17 02/25/17 03:50 20:51 16:13 POC Glucose 119 H 109 165 H Radiology Reviewed by me: No EKG Reviewed by me: No Phys Exam - Physical Examination Constitutional: NAD HEENT: PERRLA, moist MMs, sclera anicteric, oral pharynx no lesions Neck: no nodes, no JVD, supple, full ROM trach site c/d/i Respiratory: no wheezing, no rhonchi coarse bilateral bs unchanged. no wheezing, no rhonchi Cardiovascular: RRR, no significant murmur, no rub Gastrointestinal: soft, non-tender, no distention, positive bowel sounds PEG c/d/I Musculoskeletal: pulses present, edema present Neurological: non-focal, normal sensation, moves all 4 limbs Lymphatic: no nodes Psychiatric: normal affect Skin: no rash, normal turgor, cap refill <2 seconds Dx/Plan (1) Acute respiratory failure Code(s): J96.00 - ACUTE RESPIRATORY FAILURE, UNSP W HYPOXIA OR HYPERCAPNIA Status: Acute Qualifiers: Respiratory failure complication: hypoxia Qualified Code(s): J96.01 - Acute respiratory failure with hypoxia Comment: trached, on vent daily, weaning per pulm. SLOW progress. to OR for decortication of right chest next week. left lung decort culture with proteus adn now prevotella. On rocephin for proteus,IV clinda for prevotella could transition to keflex/flagyl or Augmentin when time for PO (2) Atrial fibrillation Code(s): I48.91 - UNSPECIFIED ATRIAL FIBRILLATION Status: Resolved Qualifiers: Atrial fibrillation type: paroxysmal Qualified Code(s): I48.0 - Paroxysmal atrial fibrillation Comment: Not a candidate for anticoagulation due to low platelets. Lovenox on hold as well .NSR. on Amiodarone. Cardiology following (3) Empyema Code(s): J86.9 - PYOTHORAX WITHOUT FISTULA Status: Acute Comment: S/P decortication. Original cx with multiple GP organisms, abx restarted- Clindamycin, now on po, back to IV for now. Ct management per CT surgery. Repeat Decortication 02/22/2017 on Left and culture with mcduffie-susceptible proteus , now with prevotella. on rocephin. CT surgery planning for repeat on right next week. culture with proteus, will add cefepime pending final ID and sensitivities (4) Pneumothorax Code(s): J93.9 - PNEUMOTHORAX, UNSPECIFIED Status: Acute Qualifiers: Pneumothorax type: spontaneous, primary Qualified Code(s): J93.11 - Primary spontaneous pneumothorax Comment: bilateral CT in. Per pulm/CT curgery. appreciate their assistance (5) Supraglottic mass Code(s): J38.7 - OTHER DISEASES OF LARYNX Status: Acute Comment: Squamous Cell cacinoma. 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
[2017-02-26] MEDS: Aspirin 325 MG TAB PER TUBE SCH (19:36)
[2017-02-27 04:29] LABS: #Eosinphils 0.1 thou/uL (0.0-0.7); #Lymphocytes 1.1 thou/uL (1.20-3.40); #Monocytes 0.6 thou/uL (0.11-0.59); #Neutrophils 3.3 thou/uL (1.40-6.50); %Basophils 0.4 % (0.0-1.0); %Eosinophils 1.4 % (0.0-10.0); %Lymphocytes 21.5 % (21.0-51.0); %Monocytes 11.3 % (0.0-10.0); Hematocrit 29.1 % (36.0-47.0); Mean Platelet Volume 7.6 fL (7.4-10.4); Red Blood Cell (RBC) Count 2.93 mill/uL (4.20-5.40)
[2017-02-27 04:48] LABS: BUN (Urea Nitrogen) 22 mg/dL (9.8-20.1); Calc. Creatinine Clearance 294 mL/min (70-130); Calcium 8.8 mg/dL (7.8-10.44); Estimated GFR-MDRD Greater than 90; Magnesium 1.8 mg/dL (1.6-2.6); Phosphorus 3.3 mg/dL (2.3-4.7)
[2017-02-27 04:57] LABS: Anion Gap 12 mmol/L (10-20); Carbon Dioxide 35 mmol/L (22-29); Chloride 95 mmol/L (98-107)
[2017-02-27] MEDS: Clindamycin/D5W 900 MG in Premix Bag 1 BAG IVPB SCH ×3 (05:31→21:43)
[2017-02-27] MEDS: ALPRAZolam 0.25 MG TAB PO PRN ×2 (05:31→11:42)
[2017-02-27] MEDS: predniSONE 5 MG TAB PO SCH (08:30)
[2017-02-27] MEDS: Nystatin Powder 15 GM BOT TOP SCH ×2 (08:33→21:44)
[2017-02-27] MEDS: Pantoprazole 40 MG GRANULES PACKET PER TUBE SCH ×2 (08:33→21:42)
[2017-02-27] MEDS: Furosemide 20 MG/2 ML VIAL SLOW IVP SCH (08:33)
[2017-02-27] MEDS: cefTRIAXone\\ROCEPHIN 2 GM in Sodium Chloride 0.9% 100 ML IVPB SCH (08:37)
--- NOTE | 2017-02-27 10:37 | PDOC.PN ---
- Subjective Encounter Start Date: 02/27/17 Encounter Start Time: 08:35 Pt seen and examined. just placed on trach collar and anxious, no F/c, no N/V/d /C, no CP. 10 point ROS performed and neg fora ll systems except as above tolerating IV abx, no itching or rash. pulm notes reviewed - Objective Resuscitation Status: Resuscitation Status CHEM:Chem Code Only MAR Reviewed: Yes Vital Signs & Weight: Vital Signs (12 hours) Temp Pulse Resp BP Pulse Ox 02/27/17 08:00 97.4 F L 02/27/17 07:50 60 96/59 L 02/27/17 07:48 61 22 H 100 02/27/17 06:00 21 H 02/27/17 04:00 97.6 F 02/27/17 03:40 15 02/27/17 02:42 68 23 H 98 02/27/17 02:00 22 H 02/27/17 00:00 97.8 F 21 H Weight Admit Weight 301 lb Weight 290 lb Most Recent Monitor Data Heart Rate from ECG 83 NIBP 113/76 NIBP BP-Mean 93 Respiration from ECG 21 SpO2 97 I&O: 02/26/17 02/27/17 02/28/17 06:59 06:59 06:59 Intake Total 2540 1930.5 Output Total 2217 1760 100 Balance 323 170.5 -100 Result Diagrams: 02/27/17 04:00 02/27/17 04:00 Additional Labs: Accuchecks 02/26/17 02/26/17 02/26/17 22:08 17:14 10:08 POC Glucose 106 129 H 167 H Radiology Reviewed by me: Yes EKG Reviewed by me: Yes Phys Exam - Physical Examination Constitutional: NAD HEENT: PERRLA, moist MMs, sclera anicteric, oral pharynx no lesions Neck: no nodes, no JVD, supple, full ROM Trach site c/D/I Respiratory: no wheezing, no rales, no rhonchi Cardiovascular: RRR, no significant murmur, no rub Gastrointestinal: soft, non-tender, no distention, positive bowel sounds PEG C/D/I Musculoskeletal: pulses present, edema present Neurological: non-focal, normal sensation, moves all 4 limbs Lymphatic: no nodes Psychiatric: normal affect Skin: no rash, normal turgor, cap refill <2 seconds Dx/Plan (1) Acute respiratory failure Code(s): J96.00 - ACUTE RESPIRATORY FAILURE, UNSP W HYPOXIA OR HYPERCAPNIA Status: Acute Qualifiers: Respiratory failure complication: hypoxia Qualified Code(s): J96.01 - Acute respiratory failure with hypoxia Comment: trached, on vent daily, weaning per pulm. SLOW progress. to OR for decortication of right chest next week. left lung decort culture with proteus adn now prevotella. On rocephin for proteus,IV clinda for prevotella could transition to keflex/flagyl or Augmentin when time for PO (2) Atrial fibrillation Code(s): I48.91 - UNSPECIFIED ATRIAL FIBRILLATION Status: Resolved Qualifiers: Atrial fibrillation type: paroxysmal Qualified Code(s): I48.0 - Paroxysmal atrial fibrillation Comment: Not a candidate for anticoagulation due to low platelets. Lovenox on hold as well .NSR. on Amiodarone. Cardiology following (3) Empyema Code(s): J86.9 - PYOTHORAX WITHOUT FISTULA Status: Acute Comment: S/P decortication. Original cx with multiple GP organisms, abx restarted- Clindamycin, now on po, back to IV for now. Ct management per CT surgery. Repeat Decortication 02/22/2017 on Left and culture with mcduffie-susceptible proteus , now with prevotella. on rocephin. CT surgery planning for repeat on right next week. culture with proteus, will add cefepime pending final ID and sensitivities (4) Pneumothorax Code(s): J93.9 - PNEUMOTHORAX, UNSPECIFIED Status: Acute Qualifiers: Pneumothorax type: spontaneous, primary Qualified Code(s): J93.11 - Primary spontaneous pneumothorax Comment: bilateral CT in. Per pulm/CT curgery. appreciate their assistance (5) Supraglottic mass Code(s): J38.7 - OTHER DISEASES OF LARYNX Status: Acute Comment: Squamous Cell cacinoma. 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
--- NOTE | 2017-02-27 11:50 | PRG ---
DATE OF SERVICE: 02/27/2017 SERVICE: Pulmonary Medicine. INTERVAL HISTORY: The patient is doing great from a cardiovascular and respiratory standpoint. She is breathing comfortably. Otherwise, she has no specific complaints of fevers, chills, nausea, vom iting or chest discomfort. She remains extraordinarily weak. She is working her best with physical therapy, but she has a hard time participating. PHYSICAL EXAMINATION: VITAL SIGNS: Afebrile, pulse 60, blood pressure 104/59, respirations 21, saturation 100% on 30% FiO 2. HEENT: Normocephalic, atraumatic. Sclerae are white, conjunctivae pink. Oral and nasal mucosa is moist without lesions. LUNGS: Decreased air entry. There are some rhonchi present. I do not appreciate crackles. Decrea sed air entry on the right. HEART: Normal rate, regular. ABDOMEN: Soft, nontender, and nondistended. Bowel sounds positive. MUSCULOSKELETAL: No cyanosis or clubbing. There is 4+ pitting in the bilateral lower extremities. NEUROLOGIC: Grossly nonfocal. LABORATORY DATA: WBC 5.0, hemoglobin 9.1, and platelets 166,000. Potassium 3.6. Creatinine 0.45, BUN 22. Bicarbonate 35. Magnesium and phosphorus fall within the normal limits. Lung tissue is gr owing Proteus and mirabilis, and Prevotella. These organisms are pansensitive. ASSESSMENT: 1. Acute hypoxic respiratory failure. 2. Empyema, bilateral. 3. Septic shock, resolved. 4. Atrial fibrillation with recent rapid ventricular rate. 5. Critical care myopathy. 6. Severe deconditioning. 7. Throat cancer. PLAN: We will continue supportive care with antibiotics. We will continue to diurese the patient a s tolerated to promote a net negative of 1-2 liters over the next 24-48 hours. Pulmonary or Critica l Care will continue to follow and she will remain in the ICU for the time being.
[2017-02-27] MEDS: HumaLOG 300 UNITS/3 ML VIAL SC PRN (13:05)
[2017-02-27] MEDS ORDERED: Furosemide 40 MG/4 ML VIAL SLOW IVP SCH (14:00)
[2017-02-27] MEDS: Aspirin 325 MG TAB PER TUBE SCH (21:42)
[2017-02-28] MEDS: ALPRAZolam 0.25 MG TAB PO PRN ×2 (05:02→22:15)
[2017-02-28] MEDS: Clindamycin/D5W 900 MG in Premix Bag 1 BAG IVPB SCH ×3 (05:03→21:05)
[2017-02-28 06:04] LABS: #Eosinphils 0.1 thou/uL (0.0-0.7); #Lymphocytes 1.2 thou/uL (1.20-3.40); #Monocytes 0.6 thou/uL (0.11-0.59); #Neutrophils 3.9 thou/uL (1.40-6.50); %Basophils 0.5 % (0.0-1.0); %Eosinophils 1.1 % (0.0-10.0); %Lymphocytes 20.7 % (21.0-51.0); %Monocytes 10.7 % (0.0-10.0); Hematocrit 29.7 % (36.0-47.0); Mean Platelet Volume 7.6 fL (7.4-10.4); Red Blood Cell (RBC) Count 2.96 mill/uL (4.20-5.40); White Blood Cell (WBC) Count 5.8 thou/uL (4.8-10.8)
[2017-02-28 06:13] LABS: BUN (Urea Nitrogen) 24 mg/dL (9.8-20.1); Calc. Creatinine Clearance 282 mL/min (70-130); Calcium 9.1 mg/dL (7.8-10.44); Estimated GFR-MDRD Greater than 90
[2017-02-28 06:23] LABS: Chloride 95 mmol/L (98-107)
[2017-02-28 06:26] LABS: Anion Gap 12 mmol/L (10-20); Carbon Dioxide 37 mmol/L (22-29)
[2017-02-28] MEDS: predniSONE 5 MG TAB PO SCH (08:46)
[2017-02-28] MEDS: Saccharomyces boulardii 250 MG CAP PER TUBE SCH (08:46)
[2017-02-28] MEDS: Pantoprazole 40 MG GRANULES PACKET PER TUBE SCH ×2 (08:46→21:05)
[2017-02-28] MEDS: Furosemide 20 MG/2 ML VIAL SLOW IVP SCH (08:47)
[2017-02-28] MEDS: Nystatin Powder 15 GM BOT TOP SCH ×2 (08:48→21:06)
[2017-02-28] MEDS: cefTRIAXone\\ROCEPHIN 2 GM in Sodium Chloride 0.9% 100 ML IVPB SCH (08:51)
--- NOTE | 2017-02-28 12:11 | PDOC.PN ---
- Subjective Encounter Start Date: 02/28/17 Encounter Start Time: 10:50 -: non-verbal sleeping well, not awkened. No acute events ovrnight, tolerating TC longer and longer. no F/C, no N/V/d/C. - Objective Resuscitation Status: Resuscitation Status CHEM:Chem Code Only MAR Reviewed: Yes Vital Signs & Weight: Vital Signs (12 hours) Temp Pulse Resp BP Pulse Ox 02/28/17 12:00 98.1 F 19 02/28/17 11:06 65 114/73 02/28/17 11:04 67 29 H 96 02/28/17 10:00 20 02/28/17 07:27 97.7 F 61 16 100 02/28/17 07:11 61 113/67 02/28/17 07:10 63 27 H 98 02/28/17 04:00 97.4 F L 21 H 02/28/17 02:38 64 24 H 100 02/28/17 02:00 15 Weight Admit Weight 301 lb Weight 291 lb 2 oz Most Recent Monitor Data Heart Rate from ECG 63 NIBP 133/76 NIBP BP-Mean 89 Respiration from ECG 20 SpO2 95 I&O: 02/27/17 02/28/17 03/01/17 06:59 06:59 06:59 Intake Total 1930.5 1838 210 Output Total 1760 3740 1260 Balance 170.5 -1902 -1050 Result Diagrams: 02/28/17 05:10 02/28/17 05:10 Additional Labs: Accuchecks 02/28/17 02/28/17 02/27/17 10:07 04:56 21:57 POC Glucose 113 H 138 H 97 02/27/17 02/27/17 17:38 12:18 POC Glucose 109 184 H Radiology Reviewed by me: Yes Phys Exam - Physical Examination Constitutional: NAD HEENT: moist MMs, oral pharynx no lesions Neck: no nodes, no JVD, supple Respiratory: no wheezing, no rhonchi coarse rales bilaterally Cardiovascular: RRR, no significant murmur, no rub Gastrointestinal: soft, non-tender, no distention, positive bowel sounds Musculoskeletal: pulses present, edema present Skin: no rash, normal turgor, cap refill <2 seconds Dx/Plan (1) Acute respiratory failure Code(s): J96.00 - ACUTE RESPIRATORY FAILURE, UNSP W HYPOXIA OR HYPERCAPNIA Status: Acute Qualifiers: Respiratory failure complication: hypoxia Qualified Code(s): J96.01 - Acute respiratory failure with hypoxia Comment: trached, on vent daily, weaning per pulm. SLOW progress. to OR for decortication of right chest next week. left lung decort culture with proteus adn now prevotella. On rocephin for proteus,IV clinda for prevotella could transition to keflex/flagyl or Augmentin when time for PO (2) Atrial fibrillation Code(s): I48.91 - UNSPECIFIED ATRIAL FIBRILLATION Status: Resolved Qualifiers: Atrial fibrillation type: paroxysmal Qualified Code(s): I48.0 - Paroxysmal atrial fibrillation Comment: Not a candidate for anticoagulation due to low platelets. Lovenox on hold as well .NSR. on Amiodarone. Cardiology following (3) Empyema Code(s): J86.9 - PYOTHORAX WITHOUT FISTULA Status: Acute Comment: S/P decortication. Original cx with multiple GP organisms, abx restarted- Clindamycin, now on po, back to IV for now. Ct management per CT surgery. Repeat Decortication 02/22/2017 on Left and culture with mcduffie-susceptible proteus , now with prevotella. on rocephin. CT surgery planning for repeat on right next week. culture with proteus, will add cefepime pending final ID and sensitivities (4) Pneumothorax Code(s): J93.9 - PNEUMOTHORAX, UNSPECIFIED Status: Acute Qualifiers: Pneumothorax type: spontaneous, primary Qualified Code(s): J93.11 - Primary spontaneous pneumothorax Comment: bilateral CT in. Per pulm/CT curgery. appreciate their assistance (5) Supraglottic mass Code(s): J38.7 - OTHER DISEASES OF LARYNX Status: Acute Comment: Squamous Cell cacinoma. 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
--- NOTE | 2017-02-28 12:41 | PRG ---
DATE OF SERVICE: 02/28/2017 SERVICE: Pulmonary Medicine. INTERVAL HISTORY: The patient is doing fine from a respiratory standpoint. She is not able to tole rate breathing trial for very long. That being said, she is frequently on T-collar trials. She den ies any current fevers, chills, nausea or vomiting. She has significant amount of sputum production , but is not strong enough to cough this to get out. Otherwise, there has been no interval change t o her condition. PHYSICAL EXAMINATION: VITAL SIGNS: Afebrile, pulse 65, blood pressure 114/73, respirations 19, saturation 97% on 27% FIO2 and a PEEP of 5. GENERAL: Patient is awake and alert, in no apparent distress. LUNGS: Decreased air entry. There are some rhonchi present. No prolonged expiratory phase or whee zing are present. HEART: Normal rate, regular. ABDOMEN: Soft, nontender, nondistended. Bowel sounds positive. MUSCULOSKELETAL: No cyanosis or clubbing. There is no pitting in the bilateral lower extremities. NEUROLOGIC: Grossly nonfocal. LABORATORY DATA: WBC 5.8, hemoglobin 9.0. Platelets 180,000. Creatinine 0.47. Basic metabolic pr ofile is otherwise unremarkable with chloride that is stable at 95 and sodium is stable at 140. ASSESSMENT: 1. Acute hypoxic respiratory failure. 2. Empyema, bilateral. 3. Septic shock, resolved. 4. Atrial fibrillation with rapid ventricular response, currently sinus. 5. Critical care myopathy. 6. Severe deconditioning. 7. Squamous cell carcinoma of the larynx. PLAN: Supportive care will be continued. This includes antibiotics and nebulized medications. We will continue to focus on aggressively mobilizing the patient as tolerated. She is in line for a de cortication on the other side. Dr. Lainez will assume care in the morning.
[2017-02-28] MEDS: Aspirin 325 MG TAB PER TUBE SCH (21:05)
[2017-03-01] MEDS: ALPRAZolam 0.25 MG TAB PO PRN ×2 (05:15→22:53)
[2017-03-01] MEDS: Clindamycin/D5W 900 MG in Premix Bag 1 BAG IVPB SCH ×3 (05:15→21:22)
[2017-03-01] MEDS: Furosemide 20 MG/2 ML VIAL SLOW IVP SCH (09:01)
[2017-03-01] MEDS: Pantoprazole 40 MG GRANULES PACKET PER TUBE SCH ×2 (09:01→21:23)
[2017-03-01] MEDS: cefTRIAXone\\ROCEPHIN 2 GM in Sodium Chloride 0.9% 100 ML IVPB SCH (09:01)
[2017-03-01] MEDS: predniSONE 5 MG TAB PO SCH (09:02)
[2017-03-01] MEDS: Saccharomyces boulardii 250 MG CAP PER TUBE SCH (09:02)
[2017-03-01] MEDS: Nystatin Powder 15 GM BOT TOP SCH ×2 (09:05→21:23)
--- NOTE | 2017-03-01 15:27 | PDOC.PN ---
- Subjective Encounter Start Date: 03/01/17 Encounter Start Time: 15:10 Subjective: No new events reported. Continues to receive PT/OT in neuro chair. -: Tolerating TC as well as CPAP at 27% FIO2. - Objective Resuscitation Status: Resuscitation Status CHEM:Chem Code Only MAR Reviewed: Yes Vital Signs & Weight: Vital Signs (12 hours) Temp Pulse Resp BP Pulse Ox 03/01/17 13:57 80 28 H 100 03/01/17 12:00 98.0 F 03/01/17 10:03 83 28 H 100 03/01/17 07:27 78 115/66 03/01/17 07:04 97.7 F 70 15 99 03/01/17 07:00 97.7 F 03/01/17 06:00 17 03/01/17 04:00 97.6 F 16 Weight Admit Weight 301 lb Weight 292 lb 9.6 oz Most Recent Monitor Data Heart Rate from ECG 106 NIBP 120/89 NIBP BP-Mean 109 Respiration from ECG 23 SpO2 100 I&O: 02/28/17 03/01/17 03/02/17 06:59 06:59 06:59 Intake Total 1838 1859 480 Output Total 0124 9608 1040 Balance -1902 -396 -560 Result Diagrams: 02/28/17 05:10 02/28/17 05:10 Additional Labs: Accuchecks 03/01/17 03/01/17 02/28/17 10:09 06:28 21:08 POC Glucose 146 H 121 H 92 02/28/17 15:53 POC Glucose 101 Laboratory Tests 02/28/17 02/28/17 05:10 05:10 WBC 5.8 Hgb 9.0 L Hct 29.7 L MCV 100.0 H Plt Count 180 Sodium 140 Potassium 3.8 Chloride 95 L Carbon Dioxide 37 H Anion Gap 12 BUN 24 H Creatinine 0.47 L Estimated GFR (MDRD) Greater than 90 Glucose 127 H Calcium 9.1 EKG Reviewed by me: Yes (Tele - SR) Phys Exam - Physical Examination alert, opens eyes and nods head HEENT: PERRLA, oral pharynx no lesions Trach in place Neck: no JVD, supple diminished in bases Cardiovascular: RRR Gastrointestinal: soft, non-tender, no distention, positive bowel sounds Musculoskeletal: no edema, pulses present Neurological: moves all 4 limbs Skin: normal turgor, cap refill <2 seconds Dx/Plan (1) Acute respiratory failure Code(s): J96.00 - ACUTE RESPIRATORY FAILURE, UNSP W HYPOXIA OR HYPERCAPNIA Status: Acute Qualifiers: Respiratory failure complication: hypoxia Qualified Code(s): J96.01 - Acute respiratory failure with hypoxia Comment: trached, on vent daily, weaning per pulm. SLOW progress. to OR for decortication of right chest next week. left lung decort culture with proteus adn now prevotella. On rocephin for proteus,IV clinda for prevotella could transition to keflex/flagyl or Augmentin when time for PO (2) Empyema Code(s): J86.9 - PYOTHORAX WITHOUT FISTULA Status: Acute Comment: S/P decortication. Original cx with multiple GP organisms, abx restarted- Clindamycin, now on po, back to IV for now. Ct management per CT surgery. Repeat Decortication 02/22/2017 on Left and culture with mcduffie-susceptible proteus , now with prevotella. on rocephin. CT surgery planning for repeat on right next week. culture with proteus, will add cefepime pending final ID and sensitivities (3) Pneumothorax Code(s): J93.9 - PNEUMOTHORAX, UNSPECIFIED Status: Acute Qualifiers: Pneumothorax type: spontaneous, primary Qualified Code(s): J93.11 - Primary spontaneous pneumothorax Comment: bilateral CT in. Per pulm/CT curgery. appreciate their assistance, resolved (4) Squamous cell cancer of hypopharynx Code(s): C13.9 - MALIGNANT NEOPLASM OF HYPOPHARYNX, UNSPECIFIED Status: Acute Comment: new diagnosis (5) Obesity Code(s): E66.9 - OBESITY, UNSPECIFIED Status: Chronic (6) Dysphagia Code(s): R13.10 - DYSPHAGIA, UNSPECIFIED Status: Resolved Qualifiers: Dysphagia type: oropharyngeal phase Qualified Code(s): R13.12 - Dysphagia, oropharyngeal phase (7) Macrocytic anemia Code(s): D53.9 - NUTRITIONAL ANEMIA, UNSPECIFIED Status: Chronic Comment: Stable currently, no evidence of acute blood loss - Plan continue antibiotics, PT/OT, social media designer, speech therapy, respiratory therapy, DVT proph w/SCDs Continue aggressive supportive measures -: Pulmonary support with Duonebs, Prednisone -: PT for mobilization and ROM exercises -: Continue Clindamycin and Rocephin -: Continue ASA 325mg Daily * CM for placement options
--- NOTE | 2017-03-01 16:48 | PRG ---
DATE OF SERVICE: 03/01/2017 SUBJECTIVE: Ms. Parker did well overnight. OBJECTIVE: VITAL SIGNS: Heart rate is 80, respiratory rate is 28, oximetry is in the high 90s on trach collar. LUNGS: Clear. HEART: Regular rhythm. ABDOMEN: Soft. LABORATORY DATA: There is no new lab today. IMPRESSION: 1. Bilateral empyema. 2. Head and neck cancer. 3. Deconditioning/critical illness myopathy. 4. Status post tracheostomy and percutaneous endoscopic gastrostomy. PLAN: Continue physical therapy, nutritional support. Slow weaning from mechanical ventilation and nocturnal pressure support will be decreased tonight.
[2017-03-01] MEDS: Aspirin 325 MG TAB PER TUBE SCH (21:22)
[2017-03-02] MEDS: Clindamycin/D5W 900 MG in Premix Bag 1 BAG IVPB SCH ×2 (05:03→13:56)
[2017-03-02] MEDS: ALPRAZolam 0.25 MG TAB PO PRN ×4 (05:04→23:45)
[2017-03-02] MEDS: Pantoprazole 40 MG GRANULES PACKET PER TUBE SCH ×2 (08:30→20:59)
[2017-03-02] MEDS: predniSONE 5 MG TAB PO SCH (08:31)
[2017-03-02] MEDS: Saccharomyces boulardii 250 MG CAP PER TUBE SCH (08:31)
[2017-03-02] MEDS: Furosemide 20 MG/2 ML VIAL SLOW IVP SCH (08:31)
[2017-03-02] MEDS: cefTRIAXone\\ROCEPHIN 2 GM in Sodium Chloride 0.9% 100 ML IVPB SCH (08:36)
[2017-03-02] MEDS: Nystatin Powder 15 GM BOT TOP SCH ×2 (08:36→21:33)
[2017-03-02] MEDS: Acetaminophen 500 MG TAB PO PRN (10:46)
--- NOTE | 2017-03-02 13:46 | PRG ---
DATE OF SERVICE: 03/02/2017 Ms. Parker continues to do reasonably well. She has spent more time off the vent. PHYSICAL EXAMINATION: VITAL SIGNS: She is afebrile, blood pressure 120/71, heart rate 70. LUNGS: She has equal breath sounds. HEART: Regular rhythm. ABDOMEN: Abdomen is soft. Intake and output is negative 89. LABORATORY DATA: There is no new lab today. We will recheck on her tomorrow. IMPRESSION: 1. Multiorgan dysfunction associated with throat cancer and bilateral empyema' s. 2. Critical illness myopathy, slowly improving. 3. Possible coronary disease. PLAN: Discussed Radiation Oncology and she really is not at a point where she could tolerate concurrent chemo and radiation or even radiation alone. We will just continue with our current care. CORIE
[2017-03-02] MEDS: metroNIDAZOLE 500 MG TAB PO SCH ×2 (16:45→20:59)
--- NOTE | 2017-03-02 17:16 | PDOC.PN ---
- Subjective Encounter Start Date: 03/02/17 Encounter Start Time: 17:00 Subjective: f/u for resp failure on T-collar at 28% FIO2. Tolerating TF's with Vital -: High Protein at 50ml/h. - Objective Resuscitation Status: Resuscitation Status CHEM:Chem Code Only MAR Reviewed: Yes Vital Signs & Weight: Vital Signs (12 hours) Temp Pulse Pulse Pulse Resp BP BP 03/02/17 16:00 97.6 F 03/02/17 15:21 72 67 138/80 126/82 03/02/17 14:50 65 29 H 03/02/17 12:00 97.5 F L 03/02/17 10:53 66 29 H 03/02/17 09:00 97.5 F L 03/02/17 08:00 97.5 F L 82 20 03/02/17 07:45 03/02/17 06:50 76 03/02/17 06:00 16 Pulse Ox Pulse Ox Pulse Ox 03/02/17 16:00 03/02/17 15:21 98 99 03/02/17 14:50 98 03/02/17 12:00 03/02/17 10:53 100 03/02/17 09:00 03/02/17 08:00 100 03/02/17 07:45 97 03/02/17 06:50 03/02/17 06:00 Weight Admit Weight 301 lb Weight 291 lb 14.4 oz Most Recent Monitor Data Heart Rate from ECG 68 NIBP 132/77 NIBP BP-Mean 101 Respiration from ECG 32 SpO2 97 I&O: 03/01/17 03/02/17 03/03/17 06:59 06:59 06:59 Intake Total 1859 1866 1358 Output Total 0835 9189 3042 Balance -396 -89 -352 Result Diagrams: 02/28/17 05:10 02/28/17 05:10 Additional Labs: Accuchecks 03/02/17 03/02/17 03/02/17 16:51 10:52 04:30 POC Glucose 134 H 145 H 121 H 03/01/17 22:14 POC Glucose 92 EKG Reviewed by me: Yes (Tele - SR in 90's) Phys Exam - Physical Examination Constitutional: NAD HEENT: PERRLA Trach in place Neck: no JVD, supple diminished in bases Cardiovascular: RRR PEG in place Gastrointestinal: soft, non-tender, no distention, positive bowel sounds Musculoskeletal: no edema, pulses present Neurological: moves all 4 limbs Skin: normal turgor, cap refill <2 seconds Dx/Plan (1) Acute respiratory failure Code(s): J96.00 - ACUTE RESPIRATORY FAILURE, UNSP W HYPOXIA OR HYPERCAPNIA Status: Acute Qualifiers: Respiratory failure complication: hypoxia Qualified Code(s): J96.01 - Acute respiratory failure with hypoxia Comment: trached, on vent daily, weaning per pulm. SLOW progress. Left lung decort culture with proteus adn now prevotella. Omnicef 300mg BID (2) Empyema Code(s): J86.9 - PYOTHORAX WITHOUT FISTULA Status: Acute Comment: S/P decortication. Original cx with multiple GP organisms, abx restarted- Clindamycin, now on po, back to IV for now. Ct management per CT surgery. Repeat Decortication 02/22/2017 on Left and culture with mcduffie-susceptible proteus , now with prevotella. on rocephin. CT surgery planning for repeat on right next week. culture with proteus, will add cefepime pending final ID and sensitivities (3) Pneumothorax Code(s): J93.9 - PNEUMOTHORAX, UNSPECIFIED Status: Acute Qualifiers: Pneumothorax type: spontaneous, primary Qualified Code(s): J93.11 - Primary spontaneous pneumothorax Comment: bilateral CT in. Per pulm/CT surgery. appreciate their assistance, resolved (4) Squamous cell cancer of hypopharynx Code(s): C13.9 - MALIGNANT NEOPLASM OF HYPOPHARYNX, UNSPECIFIED Status: Acute Comment: new diagnosis, no current chemo/XRT (5) Obesity Code(s): E66.9 - OBESITY, UNSPECIFIED Status: Chronic (6) Dysphagia Code(s): R13.10 - DYSPHAGIA, UNSPECIFIED Status: Resolved Qualifiers: Dysphagia type: oropharyngeal phase Qualified Code(s): R13.12 - Dysphagia, oropharyngeal phase Comment: s/p PEG with nutritional support with Vital High Protein at 50ml/h (7) Macrocytic anemia Code(s): D53.9 - NUTRITIONAL ANEMIA, UNSPECIFIED Status: Chronic Comment: Stable currently, no evidence of acute blood loss - Plan continue antibiotics, PT/OT, addiction social worker, speech therapy, respiratory therapy Stable currently -: Continue weaning trials with CPAP -: Nutritional support with Vital High Protein -: PT/OT for ROM exercises -: CM for LTAC/SNF options * .
[2017-03-02] MEDS: Aspirin 325 MG TAB PER TUBE SCH (20:58)
[2017-03-02] MEDS: Cefdinir 300 MG CAP PO SCH (20:59)
[2017-03-03] MEDS: ALPRAZolam 0.25 MG TAB PO PRN ×4 (06:25→21:38)
[2017-03-03] MEDS: Furosemide 20 MG/2 ML VIAL SLOW IVP SCH (08:51)
[2017-03-03] MEDS: metroNIDAZOLE 500 MG TAB PO SCH ×3 (08:52→21:38)
[2017-03-03] MEDS: Pantoprazole 40 MG GRANULES PACKET PER TUBE SCH (08:52)
[2017-03-03] MEDS: Saccharomyces boulardii 250 MG CAP PER TUBE SCH (08:52)
[2017-03-03] MEDS: Cefdinir 300 MG CAP PO SCH ×2 (08:52→21:38)
[2017-03-03] MEDS: predniSONE 5 MG TAB PO SCH (08:52)
[2017-03-03] MEDS: Nystatin Powder 15 GM BOT TOP SCH ×2 (08:54→21:49)
--- NOTE | 2017-03-03 16:01 | PDOC.PN ---
- Subjective Encounter Start Date: 03/03/17 Encounter Start Time: 15:40 Subjective: f/u for resp failure on T-collar with 28% FIO2, nocturnal SIMV. -: No new events currently. - Objective Resuscitation Status: Resuscitation Status CHEM:Chem Code Only MAR Reviewed: Yes Vital Signs & Weight: Vital Signs (12 hours) Temp Pulse Pulse Pulse Resp BP BP 03/03/17 14:27 73 62 154/85 H 131/72 03/03/17 14:14 75 34 H 03/03/17 12:00 98 F 03/03/17 10:25 66 28 H 03/03/17 08:00 97.6 F 66 28 H 03/03/17 07:19 67 31 H 03/03/17 07:00 97.6 F 03/03/17 06:00 16 03/03/17 04:00 98.1 F 22 H Pulse Ox Pulse Ox Pulse Ox 03/03/17 14:27 93 L 96 03/03/17 14:14 97 03/03/17 12:00 03/03/17 10:25 99 03/03/17 08:00 97 03/03/17 07:19 94 L 03/03/17 07:00 03/03/17 06:00 03/03/17 04:00 Weight Admit Weight 301 lb Weight 282 lb 10.122 oz Most Recent Monitor Data Heart Rate from ECG 74 NIBP 131/77 NIBP BP-Mean 96 Respiration from ECG 31 SpO2 95 I&O: 03/02/17 03/03/17 03/04/17 06:59 06:59 06:59 Intake Total 186 1780 60 Output Total 7151 0222 1165 Balance -31 -717 -7482 Result Diagrams: 02/28/17 05:10 02/28/17 05:10 Additional Labs: Accuchecks 03/03/17 03/03/17 03/02/17 10:27 05:25 23:43 POC Glucose 150 H 125 H 116 H 03/02/17 16:51 POC Glucose 134 H EKG Reviewed by me: Yes (Tele - SR in 80's) Phys Exam - Physical Examination opens eyes and nods to questions HEENT: PERRLA Trach in place Neck: no JVD diminished in bases Cardiovascular: RRR PEG tube in place Gastrointestinal: soft, non-tender, no distention, positive bowel sounds Musculoskeletal: no edema, pulses present Neurological: normal sensation, moves all 4 limbs Skin: normal turgor, cap refill <2 seconds Dx/Plan (1) Acute respiratory failure Code(s): J96.00 - ACUTE RESPIRATORY FAILURE, UNSP W HYPOXIA OR HYPERCAPNIA Status: Acute Qualifiers: Respiratory failure complication: hypoxia Qualified Code(s): J96.01 - Acute respiratory failure with hypoxia Comment: trached, nocturnal vent, spontaneous trials during the day, Left lung decort culture with proteus adn now prevotella. Omnicef 300mg BID (2) Empyema Code(s): J86.9 - PYOTHORAX WITHOUT FISTULA Status: Acute Comment: S/P decortication. Original cx with multiple GP organisms, abx restarted- Clindamycin, now on po, back to IV for now. Ct management per CT surgery. Repeat Decortication 02/22/2017 on Left and culture with mcduffie-susceptible proteus , now with prevotella. on rocephin. CT surgery planning for repeat on right next week. culture with proteus, will add cefepime pending final ID and sensitivities (3) Pneumothorax Code(s): J93.9 - PNEUMOTHORAX, UNSPECIFIED Status: Acute Qualifiers: Pneumothorax type: spontaneous, primary Qualified Code(s): J93.11 - Primary spontaneous pneumothorax Comment: bilateral CT in. Per pulm/CT surgery. appreciate their assistance. 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 - MALIGNANT NEOPLASM OF HYPOPHARYNX, UNSPECIFIED Status: Acute Comment: new diagnosis, no current chemo/XRT (5) Obesity Code(s): E66.9 - OBESITY, UNSPECIFIED Status: Chronic (6) Dysphagia Code(s): R13.10 - DYSPHAGIA, UNSPECIFIED Status: Resolved Qualifiers: Dysphagia type: oropharyngeal phase Qualified Code(s): R13.12 - Dysphagia, oropharyngeal phase Comment: s/p PEG with nutritional support with Vital High Protein at 50ml/h (7) Macrocytic anemia Code(s): D53.9 - NUTRITIONAL ANEMIA, UNSPECIFIED Status: Chronic Comment: Stable currently, no evidence of acute blood loss - Plan continue antibiotics, PT/OT, social work instructor, respiratory therapy, DVT proph w/ SCDs Continue respiratory support -: Continue Omnicef and Flagyl -: Spontaneous breathing trials continuing for daytime -: Nutritional support with Vital High Protein at 50ml/l -: CM for LTAC options * .
--- NOTE | 2017-03-03 17:18 | PRG ---
DATE OF SERVICE: 03/03/2017 SUBJECTIVE: Ms. Parker continues to try to stay off ventilator during the day. We found that Allan h elps when she starts complaining of hunger. I think anxiety plays big role combined with her weakness. OBJECTIVE: VITAL SIGNS: Heart rate 75, respiratory rate in the low 30s, oximetry is 97, blood pressure 120/37. LUNGS: Clear. HEART: Regular rhythm. ABDOMEN: Soft. LABORATORY DATA: No new lab. IMPRESSION: Respiratory failure. PLAN: Continue slow weaning. Dr. Bauer plans to probably reimage her chest at some point consider decortication on the right if indicated. We will continue supportive care, continue anxiolytics.
[2017-03-03] MEDS: Aspirin 325 MG TAB PER TUBE SCH (21:38)
[2017-03-04] MEDS: ALPRAZolam 0.25 MG TAB PO PRN ×3 (06:52→21:21)
[2017-03-04] MEDS: metroNIDAZOLE 500 MG TAB PO SCH ×3 (09:00→21:21)
[2017-03-04] MEDS: predniSONE 5 MG TAB PO SCH (09:00)
[2017-03-04] MEDS: Furosemide 20 MG/2 ML VIAL SLOW IVP SCH (09:00)
[2017-03-04] MEDS: Saccharomyces boulardii 250 MG CAP PER TUBE SCH (09:00)
[2017-03-04] MEDS: Cefdinir 300 MG CAP PO SCH ×2 (09:00→21:20)
[2017-03-04] MEDS: Pantoprazole 40 MG GRANULES PACKET PER TUBE SCH (09:01)
[2017-03-04] MEDS: Acetaminophen 500 MG TAB PO PRN ×2 (11:03→21:20)
[2017-03-04] MEDS: HumaLOG 300 UNITS/3 ML VIAL SC PRN (11:13)
[2017-03-04] MEDS ORDERED: Furosemide 100 MG/10 ML VIAL SLOW IVP SCH ×2 (12:56→14:00)
[2017-03-04] MEDS: Nystatin Powder 15 GM BOT TOP SCH ×2 (13:13→21:21)
--- NOTE | 2017-03-04 16:21 | PDOC.PN ---
- Subjective Encounter Start Date: 03/04/17 Encounter Start Time: 16:05 Subjective: f/u for resp failure on T-collar with 35% FIO2, SIMV at night. - Objective Resuscitation Status: Resuscitation Status CHEM:Chem Code Only MAR Reviewed: Yes Vital Signs & Weight: Vital Signs (12 hours) Temp Pulse Pulse Pulse Resp BP BP 03/04/17 14:57 95 26 H 03/04/17 11:09 03/04/17 11:06 91 03/04/17 11:00 98.3 F 03/04/17 09:57 84 79 143/97 H 03/04/17 09:00 97.9 F 03/04/17 08:00 97.9 F 77 25 H 03/04/17 07:02 78 129/72 03/04/17 06:00 29 H BP Pulse Ox Pulse Ox Pulse Ox 03/04/17 14:57 96 03/04/17 11:09 97 03/04/17 11:06 26 L 03/04/17 11:00 03/04/17 09:57 153/88 H 91 L 96 03/04/17 09:00 03/04/17 08:00 97 03/04/17 07:02 03/04/17 06:00 Weight Admit Weight 301 lb Weight 285 lb 0.923 oz Most Recent Monitor Data Heart Rate from ECG 80 NIBP 164/81 NIBP BP-Mean 114 Respiration from ECG 20 SpO2 98 I&O: 03/03/17 03/04/17 03/05/17 06:59 06:59 06:59 Intake Total 1780 1470 420 Output Total 2105 1640 1750 Balance -325 170 -4607 Result Diagrams: 02/28/17 05:10 02/28/17 05:10 Additional Labs: Accuchecks 03/04/17 03/04/17 03/03/17 11:01 06:19 22:06 POC Glucose 162 H 126 H 97 EKG Reviewed by me: Yes (Tele - SR) Phys Exam - Physical Examination alert, nods to questions HEENT: PERRLA, oral pharynx no lesions Trach in place Neck: no JVD, supple diminished in bases Respiratory: no wheezing Cardiovascular: RRR PEG site CDI Gastrointestinal: soft, non-tender, no distention, positive bowel sounds Musculoskeletal: pulses present, edema present Neurological: moves all 4 limbs Psychiatric: A&O x 3 Skin: normal turgor, cap refill <2 seconds Dx/Plan (1) Acute respiratory failure Code(s): J96.00 - ACUTE RESPIRATORY FAILURE, UNSP W HYPOXIA OR HYPERCAPNIA Status: Acute Qualifiers: Respiratory failure complication: hypoxia Qualified Code(s): J96.01 - Acute respiratory failure with hypoxia Comment: trached, nocturnal vent, spontaneous trials during the day, Left lung decort culture with proteus adn now prevotella. Omnicef 300mg BID (2) Empyema Code(s): J86.9 - PYOTHORAX WITHOUT FISTULA Status: Acute Comment: S/P decortication. Original cx with multiple GP organisms, abx restarted- Clindamycin, now on po, back to IV for now. Ct management per CT surgery. Repeat Decortication 02/22/2017 on Left and culture with mcduffie-susceptible proteus , now with prevotella. on rocephin. CT surgery planning for repeat on right next week. culture with proteus, will add cefepime pending final ID and sensitivities (3) Pneumothorax Code(s): J93.9 - PNEUMOTHORAX, UNSPECIFIED Status: Acute Qualifiers: Pneumothorax type: spontaneous, primary Qualified Code(s): J93.11 - Primary spontaneous pneumothorax Comment: bilateral CT in. Per pulm/CT surgery. appreciate their assistance. 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 - MALIGNANT NEOPLASM OF HYPOPHARYNX, UNSPECIFIED Status: Acute Comment: new diagnosis, no current chemo/XRT (5) Obesity Code(s): E66.9 - OBESITY, UNSPECIFIED Status: Chronic (6) Dysphagia Code(s): R13.10 - DYSPHAGIA, UNSPECIFIED Status: Resolved Qualifiers: Dysphagia type: oropharyngeal phase Qualified Code(s): R13.12 - Dysphagia, oropharyngeal phase Comment: s/p PEG with nutritional support with Vital High Protein at 50ml/h, Prostat 30ml BID (7) Macrocytic anemia Code(s): D53.9 - NUTRITIONAL ANEMIA, UNSPECIFIED Status: Chronic Comment: Stable currently, no evidence of acute blood loss - Plan continue antibiotics, PT/OT, social media campaign manager, speech therapy, respiratory therapy, DVT proph w/SCDs Continue pulmonary supportive care -: PT/OT for ROM exercises -: Spontaneous breathing trials for daytime -: SIMV for nocturnal settings -: Nutritional support with Vital High Protein 50ml/h * .
--- NOTE | 2017-03-04 17:09 | PRG ---
DATE OF SERVICE: 03/04/2017 SUBJECTIVE: Erika Parker continues to have intermittent issues with secretions and shortness of breath . OBJECTIVE: VITAL SIGNS: She is afebrile, respiratory rate is 26, oximetry is 96%. Blood pressure 164/81. LUNGS: Remarkable for mild rhonchi. HEART: Regular rhythm. ABDOMEN: Soft. IMPRESSION: 1. Respiratory failure. 2. Severe anxiety. 3. Throat cancer. 4. Bilateral empyemas, status post bilateral chest tubes, followed by left-sided decortication. At some point, she needs another CAT scan in consideration possibly for right-sided decortication. There is no urgency for this. We will continue with current care. Her myopathy and her weakness co ntinue to improve, but she has a great deal of anxiety with her tracheostomy and the weaning process .
[2017-03-04] MEDS: Aspirin 325 MG TAB PER TUBE SCH (21:21)
[2017-03-05] MEDS: Furosemide 100 MG/10 ML VIAL SLOW IVP SCH ×2 (06:00→13:58)
[2017-03-05] MEDS: Saccharomyces boulardii 250 MG CAP PER TUBE SCH (07:32)
[2017-03-05] MEDS: ALPRAZolam 0.25 MG TAB PO PRN ×2 (07:32→14:01)
[2017-03-05] MEDS: Pantoprazole 40 MG GRANULES PACKET PER TUBE SCH (07:33)
[2017-03-05] MEDS: Enoxaparin Sodium 40 MG/0.4 ML SYRINGE SC SCH (07:33)
[2017-03-05] MEDS: Cefdinir 300 MG CAP PO SCH ×2 (07:33→20:19)
[2017-03-05] MEDS: metroNIDAZOLE 500 MG TAB PO SCH ×3 (07:33→20:19)
[2017-03-05] MEDS: Nystatin Powder 15 GM BOT TOP SCH ×2 (07:34→20:20)
[2017-03-05] MEDS: predniSONE 5 MG TAB PO SCH (07:45)
--- NOTE | 2017-03-05 10:30 | PRG ---
DATE OF SERVICE: 03/05/2017 SUBJECTIVE: Erika Parker remains afebrile. She has no new problems. She is in a chair, but still desiree tilated when I saw her this morning. OBJECTIVE: VITAL SIGNS: Heart rate is 53, respiratory rate 28, oximetry is 99%, blood pressure 154/79. LUNGS: She has equal breath sounds. HEART: Regular rhythm. ABDOMEN: Soft. IMPRESSION: 1. Bilateral empyemas. 2. Status post decortication on the left. 3. Throat cancer, status post emergent tracheostomy. 4. Status post percutaneous endoscopic gastrostomy. 5. ST changes with her pneumothorax, suggestive of coronary artery disease. 6. Bilateral pneumothorax that was spontaneous this admission. 7. Still persistent loculated fluid on the right. At some point, she may need a decortication on t he right. 8. Atrial fibrillation, on amiodarone. PLAN: Continue current care. She is being diuresed for volume. Her admitting weight was 304, she is down to 286; a lot of this is muscle mass combined with extravascular volume. We will continue c urrent care, intake and output today was negative 50 mL.
[2017-03-05 10:36] LABS: BUN (Urea Nitrogen) 26 mg/dL (9.8-20.1); Calc. Creatinine Clearance 251 mL/min (70-130); Calcium 9.6 mg/dL (7.8-10.44); Estimated GFR-MDRD Greater than 90
[2017-03-05 10:45] LABS: Anion Gap 19 mmol/L (10-20); Carbon Dioxide 38 mmol/L (22-29); Chloride 87 mmol/L (98-107)
[2017-03-05 10:50] LABS: Hematocrit 34.4 % (36.0-47.0); Mean Platelet Volume 7.3 fL (7.4-10.4); Red Blood Cell (RBC) Count 3.44 mill/uL (4.20-5.40); White Blood Cell (WBC) Count 7.5 thou/uL (4.8-10.8)
[2017-03-05 10:55] LABS: Band 33 % (5-11); Neutrophil 42 % (42-75); Nucleated RBC 1 % (0); Polychromasia MODERATE = 3-4 cells (100X) (0-2/hpf)
[2017-03-05] MEDS: Acetaminophen 500 MG TAB PO PRN (14:01)
[2017-03-05] MEDS: HumaLOG 300 UNITS/3 ML VIAL SC PRN (16:04)
--- NOTE | 2017-03-05 17:33 | PDOC.PN ---
- Subjective Encounter Start Date: 03/05/17 Encounter Start Time: 17:00 Subjective: f/u resp failure, empyema on nocturnal vent and T-collar for daytime. -: No new issues overnight. - Objective Resuscitation Status: Resuscitation Status CHEM:Chem Code Only MAR Reviewed: Yes Vital Signs & Weight: Vital Signs (12 hours) Temp Pulse Resp Pulse Ox 03/05/17 16:00 97.6 F 03/05/17 15:51 76 35 H 92 L 03/05/17 12:27 74 31 H 97 03/05/17 12:00 98.9 F 03/05/17 08:00 98.1 F 63 28 H 99 03/05/17 07:39 99 03/05/17 07:38 63 28 H 99 03/05/17 07:00 98.1 F 03/05/17 06:00 23 H Weight Admit Weight 301 lb Weight 286 lb 6.087 oz Most Recent Monitor Data Heart Rate from ECG 75 NIBP 123/71 NIBP BP-Mean 85 Respiration from ECG 21 SpO2 90 I&O: 03/04/17 03/05/17 03/06/17 06:59 06:59 06:59 Intake Total 1470 2730 60 Output Total 1640 2780 1845 Balance -547 -72 -8963 Result Diagrams: 03/05/17 09:55 03/05/17 09:55 Additional Labs: Accuchecks 03/05/17 03/05/17 03/05/17 16:04 12:35 04:22 POC Glucose 169 H 155 H 124 H 03/04/17 22:04 POC Glucose 126 H EKG Reviewed by me: Yes (Tele - SR) Phys Exam - Physical Examination Constitutional: NAD HEENT: PERRLA, oral pharynx no lesions trach in place Neck: no JVD, supple diminished in bases CT in place Respiratory: no wheezing Cardiovascular: RRR PEG site CDI Gastrointestinal: soft, non-tender, no distention, positive bowel sounds Musculoskeletal: no edema, pulses present Skin: normal turgor, cap refill <2 seconds Deviation from normal: + Rectal tube Dx/Plan (1) Acute respiratory failure Code(s): J96.00 - ACUTE RESPIRATORY FAILURE, UNSP W HYPOXIA OR HYPERCAPNIA Status: Acute Qualifiers: Respiratory failure complication: hypoxia Qualified Code(s): J96.01 - Acute respiratory failure with hypoxia Comment: trached, nocturnal vent, spontaneous trials during the day, Left lung decort culture with proteus adn now prevotella. Omnicef 300mg BID (2) Empyema Code(s): J86.9 - PYOTHORAX WITHOUT FISTULA Status: Acute Comment: S/P decortication. Original cx with multiple GP organisms, abx restarted- Clindamycin, now on po, back to IV for now. Ct management per CT surgery. Repeat Decortication 02/22/2017 on Left and culture with mcduffie-susceptible proteus , now with prevotella. on rocephin. CT surgery planning for repeat on right next week. culture with proteus, will add cefepime pending final ID and sensitivities (3) Pneumothorax Code(s): J93.9 - PNEUMOTHORAX, UNSPECIFIED Status: Acute Qualifiers: Pneumothorax type: spontaneous, primary Qualified Code(s): J93.11 - Primary spontaneous pneumothorax Comment: bilateral CT in. Per pulm/CT surgery. appreciate their assistance. 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 - MALIGNANT NEOPLASM OF HYPOPHARYNX, UNSPECIFIED Status: Acute Comment: new diagnosis, no current chemo/XRT (5) Obesity Code(s): E66.9 - OBESITY, UNSPECIFIED Status: Chronic (6) Dysphagia Code(s): R13.10 - DYSPHAGIA, UNSPECIFIED Status: Resolved Qualifiers: Dysphagia type: oropharyngeal phase Qualified Code(s): R13.12 - Dysphagia, oropharyngeal phase Comment: s/p PEG with nutritional support with Vital High Protein at 50ml/h, Prostat 30ml BID (7) Macrocytic anemia Code(s): D53.9 - NUTRITIONAL ANEMIA, UNSPECIFIED Status: Chronic Comment: Stable currently, no evidence of acute blood loss - Plan continue antibiotics, PT/OT, director of social media marketing, speech therapy, respiratory therapy, DVT proph w/SCDs Continue supportive mgmt -: Nocturnal SIMV, daytime T-collar -: Nutritional support Vital High Protein 50ml/h -: Prostat 30ml BID -: CM to assist with any SNF options * Poor prognosis, ? Palliative care
[2017-03-05] MEDS: Aspirin 325 MG TAB PER TUBE SCH (20:19)
[2017-03-06] MEDS: ALPRAZolam 0.25 MG TAB PO PRN ×3 (04:21→19:47)
[2017-03-06] MEDS: Furosemide 100 MG/10 ML VIAL SLOW IVP SCH ×2 (06:15→14:20)
[2017-03-06] MEDS: Cefdinir 300 MG CAP PO SCH ×2 (08:40→20:15)
[2017-03-06] MEDS: Saccharomyces boulardii 250 MG CAP PER TUBE SCH (08:40)
[2017-03-06] MEDS: Pantoprazole 40 MG GRANULES PACKET PER TUBE SCH (08:40)
[2017-03-06] MEDS: predniSONE 5 MG TAB PO SCH (08:41)
[2017-03-06] MEDS: Enoxaparin Sodium 40 MG/0.4 ML SYRINGE SC SCH (08:42)
[2017-03-06] MEDS: metroNIDAZOLE 500 MG TAB PO SCH ×3 (08:42→20:15)
[2017-03-06] MEDS: Nystatin Powder 15 GM BOT TOP SCH ×2 (09:10→20:16)
[2017-03-06] MEDS: HumaLOG 300 UNITS/3 ML VIAL SC PRN (10:29)
[2017-03-06] MEDS: Scopolamine 1.5 mg/72 hour Patch TD SCH (10:32)
--- NOTE | 2017-03-06 12:46 | PRG ---
DATE OF SERVICE: 03/06/2017 SUBJECTIVE: This morning, she is on a trach collar. OBJECTIVE: VITAL SIGNS: Sats are 91%, respiratory rate 22, pulse 80, blood pressure is 137/85. CHEST: Anterior rhonchi, extensive. CARDIOVASCULAR: Sinus tachycardia. ABDOMEN: No masses. NEUROLOGIC: She is awake and responsive. LABORATORY DATA: White count 7000, H\T\H is 10 and 34, platelet count 200. Electrolytes are normal . IMPRESSION: 1. Status post decortication, bilateral empyema. 2. Severe deconditioning with respiratory failure. PLAN: Continue neb treatment. Continue low-dose prednisone, supportive care, and PT. We will follow.
--- NOTE | 2017-03-06 18:28 | PDOC.PN ---
- Subjective Encounter Start Date: 03/06/17 Encounter Start Time: 16:00 Subjective: f/u for respiratory failure, empyema tx with trach and weaning from -: vent support. Nsg reports off vent until almost midnight last pm. - Objective Resuscitation Status: Resuscitation Status CHEM:Chem Code Only MAR Reviewed: Yes Vital Signs & Weight: Vital Signs (12 hours) Temp Pulse Pulse Pulse Resp BP BP 03/06/17 15:51 69 22 H 03/06/17 12:37 85 79 138/66 119/73 03/06/17 12:00 98.6 F 03/06/17 11:50 85 35 H 03/06/17 08:00 98.1 F 81 32 H 03/06/17 07:20 81 32 H Pulse Ox 03/06/17 15:51 229 H 03/06/17 12:37 03/06/17 12:00 03/06/17 11:50 93 L 03/06/17 08:00 97 03/06/17 07:20 91 L Weight Admit Weight 301 lb Weight 284 lb 9.868 oz Most Recent Monitor Data Heart Rate from ECG 78 NIBP 136/73 NIBP BP-Mean 117 Respiration from ECG 28 SpO2 92 I&O: 03/05/17 03/06/17 03/07/17 06:59 06:59 06:59 Intake Total 2730 1404 240 Output Total 2780 2885 1485 Balance -50 -1481 -1245 Result Diagrams: 03/05/17 09:55 03/05/17 09:55 Additional Labs: Accuchecks 03/06/17 03/06/17 03/05/17 10:29 04:03 22:09 POC Glucose 160 H 140 H 128 H EKG Reviewed by me: Yes (Tele - SR ) Phys Exam - Physical Examination nods to questions HEENT: PERRLA, oral pharynx no lesions Trach in place Neck: no JVD, supple diminished in bases CT in place Respiratory: no wheezing Cardiovascular: RRR Gastrointestinal: soft, non-tender, no distention, positive bowel sounds Musculoskeletal: no edema, pulses present opens eyes to command Neurological: moves all 4 limbs Skin: normal turgor, cap refill <2 seconds Dx/Plan (1) Acute respiratory failure Code(s): J96.00 - ACUTE RESPIRATORY FAILURE, UNSP W HYPOXIA OR HYPERCAPNIA Status: Acute Qualifiers: Respiratory failure complication: hypoxia Qualified Code(s): J96.01 - Acute respiratory failure with hypoxia Comment: trached, nocturnal vent, spontaneous trials during the day, Left lung decort culture with proteus adn now prevotella. Omnicef 300mg BID (2) Empyema Code(s): J86.9 - PYOTHORAX WITHOUT FISTULA Status: Acute Comment: S/P decortication. Original cx with multiple GP organisms, abx restarted- Clindamycin, now on po, back to IV for now. Ct management per CT surgery. Repeat Decortication 02/22/2017 on Left and culture with mcduffie-susceptible proteus , now with prevotella. on rocephin. CT surgery planning for repeat on right next week. culture with proteus, will add cefepime pending final ID and sensitivities (3) Pneumothorax Code(s): J93.9 - PNEUMOTHORAX, UNSPECIFIED Status: Acute Qualifiers: Pneumothorax type: spontaneous, primary Qualified Code(s): J93.11 - Primary spontaneous pneumothorax Comment: bilateral CT in. Per pulm/CT surgery. appreciate their assistance. 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 - MALIGNANT NEOPLASM OF HYPOPHARYNX, UNSPECIFIED Status: Acute Comment: new diagnosis, no current chemo/XRT (5) Obesity Code(s): E66.9 - OBESITY, UNSPECIFIED Status: Chronic (6) Dysphagia Code(s): R13.10 - DYSPHAGIA, UNSPECIFIED Status: Resolved Qualifiers: Dysphagia type: oropharyngeal phase Qualified Code(s): R13.12 - Dysphagia, oropharyngeal phase Comment: s/p PEG with nutritional support with Vital High Protein at 50ml/h, Prostat 30ml BID (7) Macrocytic anemia Code(s): D53.9 - NUTRITIONAL ANEMIA, UNSPECIFIED Status: Chronic Comment: Stable currently, no evidence of acute blood loss - Plan continue antibiotics, PT/OT, manager social work, speech therapy, respiratory therapy, DVT proph w/SCDs Continue supportive mgmt -: Wean off vent support -: CM attempting to identify SNF/Rehab options which are limited -: Continue Nutritional support Vital High Protein 50ml/h -: Poor prognosis * Palliative care consult
[2017-03-06] MEDS: Aspirin 325 MG TAB PER TUBE SCH (20:15)
[2017-03-07] MEDS: HumaLOG 300 UNITS/3 ML VIAL SC PRN ×3 (04:43→17:11)
[2017-03-07] MEDS: Furosemide 100 MG/10 ML VIAL SLOW IVP SCH ×2 (05:20→14:44)
[2017-03-07] MEDS: predniSONE 5 MG TAB PO SCH (07:28)
[2017-03-07] MEDS: ALPRAZolam 0.25 MG TAB PO PRN (07:28)
--- NOTE | 2017-03-07 08:58 | PDOC.PN ---
- Subjective Encounter Start Date: 03/07/17 Encounter Start Time: 08:57 Patient seen and examined. No new complaints. No overnight events. sitting up in the chair tachypneic and baseline per RT and bedside nurse. lasted till midnight on trach collar yesterday. No complaints reported. - Objective Resuscitation Status: Resuscitation Status CHEM:Chem Code Only MAR Reviewed: Yes Vital Signs & Weight: Vital Signs (12 hours) Temp Pulse Resp Pulse Ox 03/07/17 08:02 95 03/07/17 07:59 90 23 H 95 03/07/17 06:00 26 H 03/07/17 04:00 98.8 F 17 03/07/17 02:50 67 15 95 03/07/17 02:00 16 03/07/17 00:00 98.8 F 03/06/17 22:27 72 30 H 90 L Weight Admit Weight 301 lb Weight 282 lb 6.594 oz Most Recent Monitor Data Heart Rate from ECG 83 NIBP 136/78 NIBP BP-Mean 85 Respiration from ECG 28 SpO2 92 I&O: 03/06/17 03/07/17 03/08/17 06:59 06:59 06:59 Intake Total 1404 1625 Output Total 2885 2733 Balance -1481 -1108 Result Diagrams: 03/05/17 09:55 03/05/17 09:55 Additional Labs: Accuchecks 03/07/17 03/06/17 03/06/17 04:43 22:28 18:16 POC Glucose 162 H 138 H 136 H 03/06/17 10:29 POC Glucose 160 H Phys Exam - Physical Examination on trach sittin up in the chair bilateral chest tube HEENT: sclera anicteric Neck: supple coarse breath sounds tachypneic on trach collar Cardiovascular: RRR Gastrointestinal: soft Musculoskeletal: edema present Neurological: non-focal, moves all 4 limbs Psychiatric: normal affect, A&O x 3 Skin: no rash Dx/Plan (1) Edema Code(s): R60.9 - EDEMA, UNSPECIFIED Status: Acute Comment: Om low dose lasix (2) Acute respiratory failure Code(s): J96.00 - ACUTE RESPIRATORY FAILURE, UNSP W HYPOXIA OR HYPERCAPNIA Status: Acute Qualifiers: Respiratory failure complication: hypoxia Qualified Code(s): J96.01 - Acute respiratory failure with hypoxia Comment: trached, nocturnal vent, spontaneous trials during the day, Left lung decort culture with proteus adn now prevotella. Omnicef 300mg BID (3) Empyema Code(s): J86.9 - PYOTHORAX WITHOUT FISTULA Status: Acute Comment: S/P decortication. Original cx with multiple GP organisms, abx restarted- Clindamycin, now on po, back to IV for now. Ct management per CT surgery. Repeat Decortication 02/22/2017 on Left and culture with mcduffie-susceptible proteus , now with prevotella. on rocephin. CT surgery planning for repeat on right next week. culture with proteus, will add cefepime pending final ID and sensitivities (4) Pneumothorax Code(s): J93.9 - PNEUMOTHORAX, UNSPECIFIED Status: Acute Qualifiers: Pneumothorax type: spontaneous, primary Qualified Code(s): J93.11 - Primary spontaneous pneumothorax Comment: bilateral CT in. Per pulm/CT surgery. appreciate their assistance. L CT remains (5) Squamous cell cancer of hypopharynx Code(s): C13.9 - MALIGNANT NEOPLASM OF HYPOPHARYNX, UNSPECIFIED Status: Acute Comment: new diagnosis, no current chemo/XRT (6) Supraglottic mass Code(s): J38.7 - OTHER DISEASES OF LARYNX Status: Acute Comment: Squamous Cell cacinoma. (7) Atrial fibrillation Code(s): I48.91 - UNSPECIFIED ATRIAL FIBRILLATION Status: Resolved Qualifiers: Atrial fibrillation type: paroxysmal Qualified Code(s): I48.0 - Paroxysmal atrial fibrillation Comment: Not a candidate for anticoagulation due to low platelets. Lovenox on hold as well .NSR. on Amiodarone. Cardiology following (8) Hypernatremia Code(s): E87.0 - HYPEROSMOLALITY AND HYPERNATREMIA Status: Resolved Comment : free water through PEG - Plan cont current plan of care, continue antibiotics, PT/OT, social insurance administrator, respiratory therapy, out of bed/ambulate, DVT proph w/lovenox * . continue current plan on abx and low dose steroids CT surgery and Pulm on board AM labs Prognosis poor. CM to have DC planning - difficult placement Palliative care consulted.
[2017-03-07] MEDS: Loperamide HCl 2 MG CAP PO PRN ×2 (09:07→20:37)
[2017-03-07] MEDS: Saccharomyces boulardii 250 MG CAP PER TUBE SCH (09:08)
[2017-03-07] MEDS: metroNIDAZOLE 500 MG TAB PO SCH ×3 (09:08→20:37)
[2017-03-07] MEDS: Pantoprazole 40 MG GRANULES PACKET PER TUBE SCH (09:08)
[2017-03-07] MEDS: Enoxaparin Sodium 40 MG/0.4 ML SYRINGE SC SCH (09:09)
[2017-03-07] MEDS: Cefdinir 300 MG CAP PO SCH ×2 (09:09→20:37)
[2017-03-07] MEDS: Nystatin Powder 15 GM BOT TOP SCH ×2 (09:10→21:12)
--- NOTE | 2017-03-07 12:13 | PRG ---
DATE OF SERVICE: 03/07/2017 SUBJECTIVE: Intubated on the vent, still has trach collar this morning, breathing 40 times a minute . PHYSICALEXAMINATION: VITAL SIGNS: Sats around 90%, pulse 87, blood pressure 159/86. GENERAL: Awake, responsive, and severely deconditioned. Denies any pain or discomfort. CHEST: Decreased breath sounds. No wheezing. CARDIAC: Normal S1 and S2. ABDOMEN: Soft. No masses. IMPRESSION: 1. Status post decortication of empyema. 2. Supraventricular tachycardia. 3. Chronic obstructive pulmonary disease. 4. History of morbid obesity. 5. Profuse diarrhea, C. diff negative. PLAN: Imodium has been reinitiated. Otherwise, continue supportive care. We will follow.
[2017-03-07] MEDS: Aspirin 325 MG TAB PER TUBE SCH (20:37)
[2017-03-08] MEDS: HumaLOG 300 UNITS/3 ML VIAL SC PRN ×4 (03:58→22:31)
[2017-03-08 05:00] LABS: BUN (Urea Nitrogen) 33 mg/dL (9.8-20.1); Calc. Creatinine Clearance 226 mL/min (70-130); Calcium 9.6 mg/dL (7.8-10.44); Estimated GFR-MDRD Greater than 90
[2017-03-08 05:14] LABS: Chloride 85 mmol/L (98-107)
[2017-03-08 05:17] LABS: Anion Gap 9 mmol/L (10-20)
[2017-03-08 05:20] LABS: Carbon Dioxide 52 mmol/L (22-29)
[2017-03-08] MEDS: ALPRAZolam 0.25 MG TAB PO PRN ×2 (05:39→21:25)
[2017-03-08] MEDS: Furosemide 100 MG/10 ML VIAL SLOW IVP SCH (05:40)
[2017-03-08] MEDS: predniSONE 5 MG TAB PO SCH (09:05)
[2017-03-08] MEDS: Saccharomyces boulardii 250 MG CAP PER TUBE SCH (09:05)
[2017-03-08] MEDS: metroNIDAZOLE 500 MG TAB PO SCH ×3 (09:05→21:22)
[2017-03-08] MEDS: Enoxaparin Sodium 40 MG/0.4 ML SYRINGE SC SCH (09:06)
[2017-03-08] MEDS: Nystatin Powder 15 GM BOT TOP SCH ×2 (09:06→21:26)
[2017-03-08] MEDS: Pantoprazole 40 MG GRANULES PACKET PER TUBE SCH (09:06)
[2017-03-08] MEDS: Cefdinir 300 MG CAP PO SCH ×2 (09:06→21:22)
--- NOTE | 2017-03-08 11:09 | PDOC.PN ---
- Subjective Encounter Start Date: 03/08/17 Encounter Start Time: 11:08 Patient seen and examined. No new complaints. No overnight events. tired this am had CT scan. No chest pain or fever or chills. - Objective Resuscitation Status: Resuscitation Status CHEM:Chem Code Only MAR Reviewed: Yes Vital Signs & Weight: Vital Signs (12 hours) Temp Pulse Resp Pulse Ox 03/08/17 07:58 97.7 F 87 30 H 03/08/17 07:29 65 23 H 100 03/08/17 07:25 100 03/08/17 07:00 97.7 F 03/08/17 06:00 18 03/08/17 04:00 98.4 F 03/08/17 02:20 75 20 93 L 03/08/17 00:00 98.4 F Weight Admit Weight 301 lb Weight 280 lb 13.903 oz Most Recent Monitor Data Heart Rate from ECG 76 NIBP 143/64 NIBP BP-Mean 107 Respiration from ECG 40 SpO2 85 I&O: 03/07/17 03/08/17 03/09/17 06:59 06:59 06:59 Intake Total 1625 1621 300 Output Total 2733 3000 690 Balance -1108 -1379 -390 Result Diagrams: 03/05/17 09:55 03/08/17 03:59 Additional Labs: Accuchecks 03/08/17 03/08/17 03/07/17 09:08 03:55 21:13 POC Glucose 169 H 179 H 124 H 03/07/17 17:00 POC Glucose 162 H Phys Exam - Physical Examination moderate distress trach present HEENT: sclera anicteric Neck: supple Respiratory: no wheezing, no rales tachypneic Cardiovascular: RRR Gastrointestinal: soft Musculoskeletal: edema present Neurological: non-focal, moves all 4 limbs Psychiatric: normal affect, A&O x 3 Skin: no rash, normal turgor Dx/Plan (1) Edema Code(s): R60.9 - EDEMA, UNSPECIFIED Status: Acute Comment: Om low dose lasix (2) Acute respiratory failure Code(s): J96.00 - ACUTE RESPIRATORY FAILURE, UNSP W HYPOXIA OR HYPERCAPNIA Status: Acute Qualifiers: Respiratory failure complication: hypoxia Qualified Code(s): J96.01 - Acute respiratory failure with hypoxia Comment: trached, nocturnal vent, spontaneous trials during the day, Left lung decort culture with proteus adn now prevotella. Omnicef 300mg BID (3) Empyema Code(s): J86.9 - PYOTHORAX WITHOUT FISTULA Status: Acute Comment: S/P decortication. Original cx with multiple GP organisms, abx restarted- Clindamycin, now on po, back to IV for now. Ct management per CT surgery. Repeat Decortication 02/22/2017 on Left and culture with mcduffie-susceptible proteus , now with prevotella. on rocephin. CT surgery planning for repeat on right next week. culture with proteus, will add cefepime pending final ID and sensitivities (4) Pneumothorax Code(s): J93.9 - PNEUMOTHORAX, UNSPECIFIED Status: Acute Qualifiers: Pneumothorax type: spontaneous, primary Qualified Code(s): J93.11 - Primary spontaneous pneumothorax Comment: bilateral CT in. Per pulm/CT surgery. appreciate their assistance. L CT remains (5) Squamous cell cancer of hypopharynx Code(s): C13.9 - MALIGNANT NEOPLASM OF HYPOPHARYNX, UNSPECIFIED Status: Acute Comment: new diagnosis, no current chemo/XRT (6) Supraglottic mass Code(s): J38.7 - OTHER DISEASES OF LARYNX Status: Acute Comment: Squamous Cell cacinoma. (7) Atrial fibrillation Code(s): I48.91 - UNSPECIFIED ATRIAL FIBRILLATION Status: Resolved Qualifiers: Atrial fibrillation type: paroxysmal Qualified Code(s): I48.0 - Paroxysmal atrial fibrillation Comment: Not a candidate for anticoagulation due to low platelets. Lovenox on hold as well .NSR. on Amiodarone. Cardiology following (8) Hypernatremia Code(s): E87.0 - HYPEROSMOLALITY AND HYPERNATREMIA Status: Resolved Comment : free water through PEG - Plan continue antibiotics, PT/OT, social welfare research worker, DVT proph w/lovenox * . Alkalosis this am will reduce the dose of lasix still edematous will check AM labs. repeat ABG. Appreciate input from PCCM and CV surgery. Repeat CT chest done today.
[2017-03-08] MEDS: Furosemide 20 MG/2 ML VIAL SLOW IVP SCH (14:04)
--- NOTE | 2017-03-08 14:31 | CT ---
CT THORAX NONCONTRAST: Date: 03/08/17 HISTORY: 56-year-old with empyema. Follow-up. COMPARISON: 02/19/17. FINDINGS: Bilateral chest tubes are noted. These chest tubes do not traverse the loculated bilateral pleural f luid collections. The right chest tube is unchanged in position. The right pleural fluid collection is unilocular, located at the posteromedial lower chest. This has not significantly changed in volu me. Again noted is the consolidation of right basilar lung tissue adjacent to it, with air bronchogr am, which could be atelectasis or pneumonia. It appears similar to the previous CT. The contralateral left loculated pleural effusion has decreased in volume, and is smaller than that of the right. It appears to have two components that communicate with each other. The previously dem onstrated very small left pneumothorax has become slightly larger on the current CT, currently measu ring approximately 5-10% volume of the left hemithorax. There is another new finding of displaced re cent fracture of the lateral aspect of the left 7th rib, apparently a surgical breakage. Just latera l to that, there is a moderate sized pocket of air in the soft tissues that reaches the dermis (with skin lanny) overlying the left lateral chest wall, and also reaches the chest wall and intercosta l space. There is a new small air fluid level located within the right anterior paracardial fat pad. Previous ly, there was a tiny amount of gas in this fat pad, but this has become larger. Again noted is the c ardiomegaly and small pericardial effusion. Left-sided PICC and right subclavian central venous cath eter, as well as tracheostomy tube, remain. In addition to the previously demonstrated left-sided ch est tube, another left chest tube has been inserted. The original chest tube has been retracted many centimeters, such that its distal tip is barely within the left pleural space now. The second, newl y inserted chest tube, enters the rib cage slightly anterior to the old one, and ascends the left an terolateral pleural surface, with distal tip reaching and abutting the left second rib. There are multiple, faint, noncalcified gallstones. IMPRESSION: 1. Bilateral empyema. 2. Right empyema is unchanged and the right-sided chest tube is unchanged. 3. The left empyema has become smaller. 4. The original left chest tube has been retracted and is barely within the pleural space now. A ne w left-sided chest tube has been inserted. Neither one of them traverse the empyema. 5. Small left pneumothorax and small right pneumomediastinum isolated to the right anterior paracar dial fat pad. 6. No major interval change in the consolidation at the base of the right lower lobe with air bronc hogram. This could be atelectasis or pneumonia. 7. There has been interval improvement in the small left basilar air space density with air broncho gram abutting the left empyema. This now has the appearance of atelectasis. 8. Cholelithiasis. 9. Surgical intervention at the left lateral chest wall. DEUCE Andrade POS: ZULY
[2017-03-08] MEDS ORDERED: Sterile Water 10 ML ONE (15:41)
[2017-03-08] MEDS ORDERED: acetaZOLAMIDE Sodium 500 mg Vial IVP SCH (15:45)
--- NOTE | 2017-03-08 19:41 | PRG ---
DATE: 03/08/2017 Erika Parker did better with ventilation over the weekend. She had about 6 hours at night, has done we ll with that. Today, she went down for CT to follow up for empyema. She has some loculated posteri or medial fluid on the right. Her left side looks great. Dr. Bauer is contemplating surgery for t he right side. After CT scan and travel downstairs and back up, she became hypoxic and dyspneic, so she was placed back on mechanical ventilation. PHYSICAL EXAMINATION: LUNGS: Clear. HEART: Regular rhythm. ABDOMEN: Soft. She still has a relatively weak cough and can always clear secretions. I think this is the biggest problem we are facing with her now. Her electrolytes are normal. Her bicarbonate went up to 52. No blood gas was done. I suspect her bicarbonate went up with for the most part diuresis. She would benefit from Diamox for 3 days. We will continue with supportive care.
[2017-03-08] MEDS: Aspirin 325 MG TAB PER TUBE SCH (21:22)
[2017-03-09] MEDS: HumaLOG 300 UNITS/3 ML VIAL SC PRN (04:14)
[2017-03-09 04:17] LABS: BUN (Urea Nitrogen) 36 mg/dL (9.8-20.1); Calc. Creatinine Clearance 232 mL/min (70-130); Calcium 9.3 mg/dL (7.8-10.44); Estimated GFR-MDRD Greater than 90
[2017-03-09 04:24] LABS: #Eosinphils 0.1 thou/uL (0.0-0.7); #Lymphocytes 1.8 thou/uL (1.20-3.40); #Monocytes 0.6 thou/uL (0.11-0.59); #Neutrophils 4.6 thou/uL (1.40-6.50); %Basophils 0.6 % (0.0-1.0); %Eosinophils 1.7 % (0.0-10.0); %Lymphocytes 24.6 % (21.0-51.0); %Monocytes 8.8 % (0.0-10.0); Hematocrit 31.1 % (36.0-47.0); Red Blood Cell (RBC) Count 3.02 mill/uL (4.20-5.40); White Blood Cell (WBC) Count 7.1 thou/uL (4.8-10.8)
[2017-03-09 04:26] LABS: Anion Gap 11 mmol/L (10-20); Chloride 87 mmol/L (98-107)
[2017-03-09 04:36] LABS: Carbon Dioxide 48 mmol/L (22-29)
[2017-03-09] MEDS: ALPRAZolam 0.25 MG TAB PO PRN ×3 (06:27→21:11)
[2017-03-09] MEDS: Furosemide 20 MG/2 ML VIAL SLOW IVP SCH ×2 (06:39→14:46)
[2017-03-09] MEDS ORDERED: Potassium Chloride 60 MEQ in Premix Bag 1 BAG IVPB SCH (08:30)
--- NOTE | 2017-03-09 08:34 | PDOC.PN ---
- Subjective Encounter Start Date: 03/09/17 Encounter Start Time: 08:32 Patient seen and examined. No new complaints. No overnight events. less tired today. To have surgery tomorrow. No chest pain. - Objective Resuscitation Status: Resuscitation Status CHEM:Chem Code Only MAR Reviewed: Yes Vital Signs & Weight: Vital Signs (12 hours) Temp Pulse Resp BP Pulse Ox 03/09/17 06:49 68 130/74 03/09/17 06:48 72 32 H 96 03/09/17 06:00 32 H 03/09/17 04:00 98.8 F 34 H 03/09/17 02:35 73 26 H 96 03/09/17 02:00 17 03/09/17 00:00 98.7 F 21 H 88 L 03/08/17 22:14 79 28 H 92 L Weight Admit Weight 301 lb Weight 282 lb 6.594 oz Most Recent Monitor Data Heart Rate from ECG 71 NIBP 125/73 NIBP BP-Mean 98 Respiration from ECG 25 SpO2 95 I&O: 03/08/17 03/09/17 03/10/17 06:59 06:59 06:59 Intake Total 1621 2049 Output Total 3000 2590 Balance -3349 541 Result Diagrams: 03/09/17 03:50 03/09/17 03:50 Additional Labs: Accuchecks 03/09/17 03/08/17 03/08/17 03:49 22:27 15:20 POC Glucose 175 H 156 H 167 H 03/08/17 09:08 POC Glucose 169 H Radiology Reviewed by me: Yes Phys Exam - Physical Examination Constitutional: NAD trach present HEENT: sclera anicteric Neck: supple Respiratory: no wheezing, no rales Cardiovascular: RRR Gastrointestinal: soft Musculoskeletal: edema present Neurological: non-focal, moves all 4 limbs Psychiatric: normal affect, A&O x 3 Skin: no rash Dx/Plan (1) Edema Code(s): R60.9 - EDEMA, UNSPECIFIED Status: Acute Comment: Om low dose lasix (2) Acute respiratory failure Code(s): J96.00 - ACUTE RESPIRATORY FAILURE, UNSP W HYPOXIA OR HYPERCAPNIA Status: Acute Qualifiers: Respiratory failure complication: hypoxia Qualified Code(s): J96.01 - Acute respiratory failure with hypoxia Comment: trached, nocturnal vent, spontaneous trials during the day, Left lung decort culture with proteus adn now prevotella. Omnicef 300mg BID (3) Empyema Code(s): J86.9 - PYOTHORAX WITHOUT FISTULA Status: Acute Comment: S/P decortication. Original cx with multiple GP organisms, abx restarted- Clindamycin, now on po, back to IV for now. Ct management per CT surgery. Repeat Decortication 02/22/2017 on Left and culture with mcduffie-susceptible proteus , now with prevotella. on rocephin. CT surgery planning for repeat on right next week. culture with proteus, will add cefepime pending final ID and sensitivities (4) Pneumothorax Code(s): J93.9 - PNEUMOTHORAX, UNSPECIFIED Status: Acute Qualifiers: Pneumothorax type: spontaneous, primary Qualified Code(s): J93.11 - Primary spontaneous pneumothorax Comment: bilateral CT in. Per pulm/CT surgery. appreciate their assistance. L CT remains (5) Squamous cell cancer of hypopharynx Code(s): C13.9 - MALIGNANT NEOPLASM OF HYPOPHARYNX, UNSPECIFIED Status: Acute Comment: new diagnosis, no current chemo/XRT (6) Supraglottic mass Code(s): J38.7 - OTHER DISEASES OF LARYNX Status: Acute Comment: Squamous Cell cacinoma. (7) Atrial fibrillation Code(s): I48.91 - UNSPECIFIED ATRIAL FIBRILLATION Status: Resolved Qualifiers: Atrial fibrillation type: paroxysmal Qualified Code(s): I48.0 - Paroxysmal atrial fibrillation Comment: Not a candidate for anticoagulation due to low platelets. Lovenox on hold as well .NSR. on Amiodarone. Cardiology following (8) Hypernatremia Code(s): E87.0 - HYPEROSMOLALITY AND HYPERNATREMIA Status: Resolved Comment : free water through PEG - Plan cont current plan of care, continue antibiotics, PT/OT, social media campaign manager, DVT proph w/lovenox * . Right sided decortication tomorrow. Replete K Monitor Mg,phos and K on tube feeds. continue reduced dose of lasix and diamox. ABG in AM for alkalosis check CMP and lipase change childers send UA and urine culture as urine looks cloudy. AM labs. Appreciate input from CV surgery and PCCM.
[2017-03-09] MEDS ORDERED: POTASSIUM CHLORIDE IVPB SCH (08:45)
[2017-03-09] MEDS ORDERED: SODIUM CHLORIDE IVPB SCH (08:45)
[2017-03-09] MEDS ORDERED: ADMIXTURE FEE IVPB SCH (08:45)
[2017-03-09] MEDS: Cefdinir 300 MG CAP PO SCH ×2 (09:17→21:11)
[2017-03-09] MEDS: acetaZOLAMIDE Sodium 500 mg Vial IVP SCH (09:17)
[2017-03-09] MEDS: Scopolamine 1.5 mg/72 hour Patch TD SCH (09:17)
[2017-03-09] MEDS: Pantoprazole 40 MG GRANULES PACKET PER TUBE SCH (09:20)
[2017-03-09] MEDS: metroNIDAZOLE 500 MG TAB PO SCH ×3 (09:20→21:11)
[2017-03-09] MEDS: predniSONE 5 MG TAB PO SCH (09:20)
[2017-03-09] MEDS: Saccharomyces boulardii 250 MG CAP PER TUBE SCH (09:20)
[2017-03-09] MEDS: Enoxaparin Sodium 40 MG/0.4 ML SYRINGE SC SCH (09:21)
[2017-03-09] MEDS: Nystatin Powder 15 GM BOT TOP SCH ×2 (09:21→21:47)
[2017-03-09 10:32] LABS: Bacteria/HPF Rare-Few HPF (None Seen)
[2017-03-09 10:42] LABS: Yeast-All Forms 2+ HPF (None Seen)
[2017-03-09 10:43] LABS: Hyaline Casts/LPF NONE SEEN LPF (0-3 Hyaline)
[2017-03-09 16:17] LABS: Magnesium 2.1 mg/dL (1.6-2.6)
[2017-03-09] MEDS: Aspirin 325 MG TAB PER TUBE SCH (21:10)
--- NOTE | 2017-03-09 21:23 | PRG ---
DATE OF SERVICE: 03/09/2017 SUBJECTIVE: Erika Parker was placed on trach collar this morning, and did not tolerate it very well. She became very anxious. She did not become tachycardic with her anxiety and tachypnea. In any event, she eventually was placed back on mechanical ventilation, after she failed to improve with Xanax. She began telling the staff including me that she wanted to stop all of this. I asked her if she was ready for hospice and she did not give me a firm answer. Her hemodynamics have been stable. OBJECTIVE: VITAL SIGNS: She is not febrile, blood pressure 114/84, heart rate 71, respiratory rates in the 20s to low 30s. LUNGS: Clear with the exception of a few rhonchi that improved with suctioning. HEART: Regular rhythm. ABDOMEN: Soft. LABORATORY DATA: White count 7.1, hemoglobin 9.7, platelets 140,000. Sodium 143, potassium 2.9, ch loride 87, bicarb , BUN 36, creatinine 0.55, glucose 171. Intake and output is negative 541. IMPRESSION: 1. Respiratory failure, associated with bilateral empyemas, bilateral pneumothoraces, bilateral req uirements for decortication. The left side has been decorticated. She is tentatively scheduled to have the right done this week. She decides she wants hospice. There would be no reason to do a dec ortication procedure. We were asked to discuss her current feelings with her family. She has been this way in the past and usually within a day or two, she is back to her baseline personality, but s he is very upset today and wants to stop. 2. Other problems include metabolic alkalosis associated with diuresis, slight prerenal azotemia. Her diuretics probably could be held for a little while with the exception of Diamox. We will disco ntinue the Diamox probably after tomorrow. Her throat cancer still has not been addressed and will be addressable for probably many months to come.
[2017-03-10 05:14] LABS: #Basophils 0.1 thou/uL (0.0-0.2); #Eosinphils 0.2 thou/uL (0.0-0.7); #Lymphocytes 1.6 thou/uL (1.20-3.40); #Monocytes 0.6 thou/uL (0.11-0.59); #Neutrophils 4.5 thou/uL (1.40-6.50); %Basophils 1.1 % (0.0-1.0); %Eosinophils 3.3 % (0.0-10.0); %Monocytes 8.8 % (0.0-10.0); Hematocrit 31.5 % (36.0-47.0); Mean Platelet Volume 7.7 fL (7.4-10.4); Red Blood Cell (RBC) Count 3.16 mill/uL (4.20-5.40); White Blood Cell (WBC) Count 7.1 thou/uL (4.8-10.8)
[2017-03-10 05:29] LABS: ALT (SGPT) 34 U/L (8-55); AST (SGOT) 26 U/L (5-34); Alkaline Phosphatase 66 U/L (40-150); BUN (Urea Nitrogen) 36 mg/dL (9.8-20.1); Bilirubin, Total 0.6 mg/dL (0.2-1.2); Calc. Creatinine Clearance 251 mL/min (70-130); Calcium 9.1 mg/dL (7.8-10.44); Estimated GFR-MDRD Greater than 90; Globulin 3.7 g/dL (2.4-3.5); Lipase 4 U/L (8-78); Phosphorus 3.2 mg/dL (2.3-4.7); Protein, Total 6.5 g/dL (6.0-8.3)
[2017-03-10 05:38] LABS: Anion Gap 11 mmol/L (10-20); Chloride 90 mmol/L (98-107)
[2017-03-10 05:45] LABS: Carbon Dioxide 45 mmol/L (22-29)
[2017-03-10] MEDS: Furosemide 20 MG/2 ML VIAL SLOW IVP SCH ×2 (05:48→13:27)
[2017-03-10] MEDS ORDERED: Potassium Chloride 20 MEQ TAB PO PRN (06:24)
[2017-03-10] MEDS ORDERED: Potassium Phosphate 15 MMOL in Sodium Chloride 0.9% 250 ML 250 ML IV PRN (06:24)
[2017-03-10] MEDS ORDERED: Magnesium 2 GM/NS 0.9% 100 ML 2 GM in Premix Bag 1 BAG IVPB PRN (06:24)
[2017-03-10] MEDS ORDERED: Potassium Phosphate 9 MMOL in Sodium Chloride 0.9% 100 ML IVPB PRN (06:24)
[2017-03-10] MEDS ORDERED: Potassium Chloride 40 MEQ in Sodium Chloride 0.9% 250 ML 250 ML IVPB PRN (06:24)
[2017-03-10] MEDS ORDERED: Potassium Chloride 40 MEQ in Premix Bag 1 BAG IVPB PRN (06:24)
[2017-03-10] MEDS ORDERED: Magnesium Oxide 400 MG TAB PO PRN ×2 (06:24)
[2017-03-10] MEDS ORDERED: CCU ELECTROLYTE REPLACEMENT PROTOCOL FS PRN (06:24)
[2017-03-10] MEDS ORDERED: Potassium Phosphate 12 MMOL in Sodium Chloride 0.9% 250 ML 250 ML IV PRN (06:24)
[2017-03-10] MEDS ORDERED: Fentanyl 250 MCG/5 ML VIAL ONE (06:59)
[2017-03-10] MEDS ORDERED: Midazolam HCl 2 mg/2 ml Vial ONE (06:59)
[2017-03-10] MEDS ORDERED: Promethazine HCl 25 MG/ML VIAL ONE (06:59)
[2017-03-10] MEDS ORDERED: Phenylephrine 10 MG/NS 250 ML 0 ML ONE (06:59)
[2017-03-10] MEDS ORDERED: Midazolam HCl 5 mg/5 ml Vial ONE (07:15)
[2017-03-10] MEDS ORDERED: ePHEDrine/0.9% NaCl/PF SYRINGE 50 mg/10 ml ONE (07:53)
[2017-03-10] MEDS ORDERED: Ondansetron HCl/PF 4 MG/2 ML Vial ONE (07:53)
[2017-03-10] MEDS ORDERED: PHENYLEPHRINE-NS 100 MCG/ML 10 ML SYRINGE ONE (07:53)
[2017-03-10] MEDS ORDERED: Lidocaine 1% PF 5 ML VIAL ONE (07:53)
[2017-03-10] MEDS: predniSONE 5 MG TAB PO SCH (09:55)
[2017-03-10] MEDS: Cefdinir 300 MG CAP PO SCH ×2 (09:55→21:26)
[2017-03-10] MEDS: metroNIDAZOLE 500 MG TAB PO SCH ×3 (09:55→21:26)
[2017-03-10] MEDS: Pantoprazole 40 MG GRANULES PACKET PER TUBE SCH (09:55)
[2017-03-10] MEDS: Saccharomyces boulardii 250 MG CAP PER TUBE SCH (09:56)
[2017-03-10] MEDS: Enoxaparin Sodium 40 MG/0.4 ML SYRINGE SC SCH (09:56)
[2017-03-10] MEDS: acetaZOLAMIDE Sodium 500 mg Vial IVP SCH (09:56)
[2017-03-10] MEDS: Nystatin Powder 15 GM BOT TOP SCH ×2 (09:56→21:28)
--- NOTE | 2017-03-10 10:33 | OP ---
DATE OF PROCEDURE: 03/10/2017 PREOPERATIVE DIAGNOSIS: Loculated right empyema. SURGEON: Barney Bauer M.D. SHEET METAL LAY OUT WORKER: None. POSTOPERATIVE DIAGNOSIS: Loculated right empyema. SPONGE AND NEEDLE COUNTS: Correct. ANESTHESIA: General. OPERATION PERFORMED: Total right pulmonary decortication. FINDINGS AT OPERATION: Inferior, posterior-medial loculations containing approximately 300-400 mL of purulent fluid. DESCRIPTION OF OPERATION: The patient was taken to the operating room. General anesthesia was obtained. The patient was positioned in a modified left decubitus position using a large bump. The previously placed right chest tube had been removed. This wound was isolated. The patient was then prepped and draped in the usual sterile fashion. A small lateral thoracotomy incision was made. Pleural space was entered carefully. Lung was partially stuck to the chest wall. It was isolated primarily using blunt dissection. Ultimately, the entire lung was freed up. The area of loculated fluid was broken down. Copious irrigation was now performed. Hemostasis was assured. 36 Uzbek straight and right angled chest tubes were placed. Each exited via separate stab wounds and were secured to the skin with silk sutures. The chest wall was then reapproximated with interrupted [id number] #1 Vicryl paracostal sutures. The chest wall tissues were closed anatomically with a combination of running 0 Vicryl and 2-0 Vicryl sutures. Skin was closed with lanny. Dressing was applied. The patient was subsequently returned to the supine position. She was returned to the CCU. Blood loss 50 mL. MTDD
--- NOTE | 2017-03-10 12:09 | RAD ---
PORTABLE CHEST: History: Tube placement. Comparison: 02-22-17 x-ray, 03-08-17 CT FINDINGS: Tracheostomy tube remains in place. Right subclavian line and left sided PICC line also remain uncha nged in position. Left sided chest tube is in place. I do not see any signs of a left sided pneumoth orax. On the right side there appears to be a tiny right sided pneumothorax. Right chest tube appear s to have been advanced as compared to the previous CT examination. There is a second right sided tu be which lies along the right lateral upper abdominal wall. I am not entirely certain of the locatio n of this. Consolidation in the right base appears slightly improved. IMPRESSION: Bilateral chest tubes in place. There is a tiny right sided pneumothorax identified. There is consol idation in the right base appears slightly improved. Other findings as noted above. POS: OFF
[2017-03-10] MEDS: Morphine 2 MG/ML SYRINGE SLOW IVP PRN (13:27)
[2017-03-10] MEDS ORDERED: traMADol HCl 50 MG TAB PO PRN (15:57)
--- NOTE | 2017-03-10 16:00 | PDOC.PN ---
- Subjective Encounter Start Date: 03/10/17 Encounter Start Time: 15:58 MsGeorgiana Parker is back from her decortication. She notes some soreness on the right side, otherwise she indicates by nodding, and shaking her head that she is ok. - Objective Resuscitation Status: Resuscitation Status CHEM:Chem Code Only MAR Reviewed: Yes Vital Signs & Weight: Vital Signs (12 hours) Temp Pulse Pulse Pulse Resp BP BP 03/10/17 15:22 92 28 H 03/10/17 13:45 100 95 125/85 129/79 03/10/17 12:00 97.8 F 03/10/17 10:59 94 03/10/17 10:56 93 10 L 03/10/17 10:00 10 L 03/10/17 09:30 97.8 F 91 10 L 03/10/17 06:00 16 03/10/17 04:00 17 Pulse Ox Pulse Ox Pulse Ox 03/10/17 15:22 96 03/10/17 13:45 94 L 94 L 03/10/17 12:00 03/10/17 10:59 03/10/17 10:56 100 03/10/17 10:00 03/10/17 09:30 94 L 03/10/17 06:00 03/10/17 04:00 Weight Admit Weight 301 lb Weight 281 lb 12.012 oz Most Recent Monitor Data Heart Rate from ECG 91 NIBP 115/73 NIBP BP-Mean 92 Respiration from ECG 20 SpO2 96 I&O: 03/09/17 03/10/17 03/11/17 06:59 06:59 06:59 Intake Total 2049 1536 300 Output Total 8290 3335 855 Balance -541 -1799 -555 Result Diagrams: 03/10/17 04:50 03/10/17 11:38 Additional Labs: Accuchecks 03/10/17 03/09/17 03/09/17 04:55 21:22 15:55 POC Glucose 127 H 141 H 151 H Phys Exam - Physical Examination HEENT: PERRLA Respiratory: no wheezing, no rales, no rhonchi, clear to auscultation bilateral Cardiovascular: RRR, no significant murmur Gastrointestinal: soft, non-tender, positive bowel sounds Musculoskeletal: edema present 1+ edema, in both her upper and lower extremities Dx/Plan (1) Empyema Code(s): J86.9 - PYOTHORAX WITHOUT FISTULA Status: Acute Comment: S/P decortication. Original cx with multiple GP organisms, abx restarted- Clindamycin, now on po, back to IV for now. Ct management per CT surgery. Repeat Decortication 02/22/2017 on Left and culture with mcduffie-susceptible proteus , now with prevotella. on rocephin. CT surgery planning for repeat on right next week. culture with proteus, will add cefepime pending final ID and sensitivities (2) Acute respiratory failure Code(s): J96.00 - ACUTE RESPIRATORY FAILURE, UNSP W HYPOXIA OR HYPERCAPNIA Status: Acute Qualifiers: Respiratory failure complication: hypoxia Qualified Code(s): J96.01 - Acute respiratory failure with hypoxia Comment: trached, nocturnal vent, spontaneous trials during the day, Left lung decort culture with proteus adn now prevotella. Omnicef 300mg BID (3) Atrial fibrillation Code(s): I48.91 - UNSPECIFIED ATRIAL FIBRILLATION Status: Resolved Qualifiers: Atrial fibrillation type: paroxysmal Qualified Code(s): I48.0 - Paroxysmal atrial fibrillation Comment: Not a candidate for anticoagulation due to low platelets. Lovenox on hold as well .NSR. on Amiodarone. Cardiology following (4) Supraglottic mass Code(s): J38.7 - OTHER DISEASES OF LARYNX Status: Acute Comment: Squamous Cell cacinoma. - Plan * Right Empyema- patient is s/p decortication- continue Omnicef and Flagyl * Symptom control * AFIB- her heart rate is stable, in sinus * DM- blood glucose is stable * Metabolic Alkalosis- likely from diuretics, which are o hold, with the exception of Diamox * Squamous Cell carcinoma of the Larynx- not yet addressed due to critical nature of her current illness.
[2017-03-10] MEDS: HYDROcodone/Acetaminophen 10/325 mg Tablet PO PRN (18:14)
--- NOTE | 2017-03-10 19:08 | PRG ---
DATE OF SERVICE: 03/10/2017 SUBJECTIVE: Erika Parker still has flat affect. She has had surgery today. She is still not sure she wants to continue on per my discussion with palliative care. OBJECTIVE: VITAL SIGNS: Heart rate 92, respiratory rate 20, oximetry is 96%, postop blood pressure 118/72. LUNGS: She has equal breath sounds anteriorly. HEART: Regular rhythm. ABDOMEN: Soft. IMPRESSION AND PLAN: 1. Respiratory failure, now ventilated for over a month. Fortunately, there are numerous issues he re that really are not quick fixes. The throat cancer can be addressed at this time. 2. We have no idea what her premorbid pulmonary function while she was a very heavy smoker, some of her failure to wean from mechanical ventilation may be secondary to obstructive lung disease and ch ronic bronchitis. 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 She has intermittent motivation to get better. At times, she was depressed and does not want be off the ventilator. She also has severe anxiety which I am sure she was treating with her tobacco. She has now had bilateral thoracotomies for decortication. Her central line will be removed if okay with Thoracic Surgery. She will continue with a PICC line for now. Microbiology of the pleural effusion on the left as a pansensitive organism. We will continue with supportive care. Palliative care assistance is greatly appreciated. She is very adamant that she w anted to stop yesterday, but would not convincingly tell me she is ready to pass away. We will cont inue to support.
[2017-03-10] MEDS: Aspirin 325 MG TAB PER TUBE SCH (21:26)
[2017-03-10] MEDS: ALPRAZolam 0.25 MG TAB PO PRN (21:28)
[2017-03-10] MEDS: HYDROcodone/Acetaminophen 5/325 mg Tablet PO PRN (21:31)
[2017-03-11] MEDS: HYDROcodone/Acetaminophen 10/325 mg Tablet PO PRN ×2 (01:37→18:41)
[2017-03-11] MEDS: Furosemide 20 MG/2 ML VIAL SLOW IVP SCH (06:04)
[2017-03-11] MEDS: HumaLOG 300 UNITS/3 ML VIAL SC PRN ×2 (06:07→11:25)
[2017-03-11] MEDS: Acetaminophen 500 MG TAB PO PRN ×2 (07:08→14:58)
[2017-03-11 07:17] LABS: BUN (Urea Nitrogen) 43 mg/dL (9.8-20.1); Calc. Creatinine Clearance 202 mL/min (70-130); Calcium 8.9 mg/dL (7.8-10.44); Estimated GFR-MDRD Greater than 90
[2017-03-11 07:26] LABS: Anion Gap 11 mmol/L (10-20); Chloride 93 mmol/L (98-107)
[2017-03-11 07:28] LABS: Carbon Dioxide 42 mmol/L (22-29)
--- NOTE | 2017-03-11 08:02 | PDOC.PN ---
- Subjective Encounter Start Date: 03/11/17 Encounter Start Time: 08:00 Ms. Parker is sitting up in a Neuro-chair this morning. She indicates that she is doing OK. She fees comfortable, and the pain in her side is controlled. - Objective Resuscitation Status: Resuscitation Status CHEM:Chem Code Only MAR Reviewed: Yes Vital Signs & Weight: Vital Signs (12 hours) Temp Pulse Resp Pulse Ox 03/11/17 06:56 86 22 H 99 03/11/17 06:00 17 03/11/17 04:00 18 03/11/17 03:00 98.2 F 03/11/17 02:29 85 11 L 94 L 03/11/17 02:00 17 03/11/17 00:00 17 03/10/17 23:00 98.3 F 03/10/17 21:58 100 28 H 93 L Weight Admit Weight 301 lb Weight 275 lb 9.245 oz Most Recent Monitor Data Heart Rate from ECG 82 NIBP 105/64 NIBP BP-Mean 83 Respiration from ECG 23 SpO2 96 I&O: 03/10/17 03/11/17 03/12/17 06:59 06:59 06:59 Intake Total 1536 1366 Output Total 3335 1785 Balance -1799 -419 Result Diagrams: 03/10/17 04:50 03/11/17 06:16 Additional Labs: Accuchecks 03/11/17 03/10/17 03/10/17 06:07 21:25 16:19 POC Glucose 205 H 149 H 149 H Phys Exam - Physical Examination HEENT: PERRLA Respiratory: no wheezing, no rales + rhonchi bilaterally Cardiovascular: RRR, no significant murmur, no rub Gastrointestinal: soft, positive bowel sounds Musculoskeletal: edema present 1+ leg edema, and 3+ pedal edema Neurological: non-focal Dx/Plan (1) Empyema Code(s): J86.9 - PYOTHORAX WITHOUT FISTULA Status: Acute Comment: S/P decortication. Original cx with multiple GP organisms, abx restarted- Clindamycin, now on po, back to IV for now. Ct management per CT surgery. Repeat Decortication 02/22/2017 on Left and culture with mcduffie-susceptible proteus , now with prevotella. on rocephin. CT surgery planning for repeat on right next week. culture with proteus, will add cefepime pending final ID and sensitivities (2) Acute respiratory failure Code(s): J96.00 - ACUTE RESPIRATORY FAILURE, UNSP W HYPOXIA OR HYPERCAPNIA Status: Acute Qualifiers: Respiratory failure complication: hypoxia Qualified Code(s): J96.01 - Acute respiratory failure with hypoxia Comment: trached, nocturnal vent, spontaneous trials during the day, Left lung decort culture with proteus adn now prevotella. Omnicef 300mg BID (3) Atrial fibrillation Code(s): I48.91 - UNSPECIFIED ATRIAL FIBRILLATION Status: Resolved Qualifiers: Atrial fibrillation type: paroxysmal Qualified Code(s): I48.0 - Paroxysmal atrial fibrillation Comment: Not a candidate for anticoagulation due to low platelets. Lovenox on hold as well .NSR. on Amiodarone. Cardiology following (4) Supraglottic mass Code(s): J38.7 - OTHER DISEASES OF LARYNX Status: Acute Comment: Squamous Cell cacinoma. - Plan * Patient is post Right decortication for Empyema. She continues to require Ventilator support. * Continue Omnicef and Flagyl * Critical Illness Myopathy- improving- continue PT/OT * AFIB- her heart rate is controlled * Contraction Alkalosis- improving * Hypokalemia- corrected * DM- blood glucose is stable * Nutritional support- tube feeds- which she is tolerating
[2017-03-11] MEDS: metroNIDAZOLE 500 MG TAB PO SCH (08:18)
[2017-03-11] MEDS: predniSONE 5 MG TAB PO SCH (08:18)
[2017-03-11] MEDS: Pantoprazole 40 MG GRANULES PACKET PER TUBE SCH (08:18)
[2017-03-11] MEDS: Cefdinir 300 MG CAP PO SCH ×2 (08:18→21:34)
[2017-03-11] MEDS: Nystatin Powder 15 GM BOT TOP SCH ×2 (08:18→21:36)
[2017-03-11] MEDS: Enoxaparin Sodium 40 MG/0.4 ML SYRINGE SC SCH (08:18)
[2017-03-11] MEDS: Saccharomyces boulardii 250 MG CAP PER TUBE SCH (08:18)
[2017-03-11] MEDS: acetaZOLAMIDE Sodium 500 mg Vial IVP SCH (09:42)
--- NOTE | 2017-03-11 11:55 | PRG ---
DATE OF SERVICE: 03/11/2017 SUBJECTIVE: Ms. Parker is in no distress today. She says she is feeling better. OBJECTIVE: VITAL SIGNS: Temperature is 99, heart rate is 97, blood pressure 98/66, respiratory rate is in the 20 this morning, on a trach collar. She said she was comfortable, spirits are better today and she says she actually wants to keep going. LUNGS: Clear. HEART: Regular rhythm. ABDOMEN: Soft. LABORATORY DATA: Sodium 142, potassium 3.9, chloride 92, bicarbonate 42, BUN 43, creatinine 0.6. IMPRESSION: 1. Respiratory failure associated with bilateral empyemas and bilateral spontaneous pneumothoraces. 2. Throat cancer. 3. Metabolic alkalosis secondary to Lasix. Stopped her Lasix and stopped her Diamox for now. We w ill continue to monitor intake and output: She is negative 419 in the last 24 hours. No new positi ve cultures and yeast in her urine, but this is a colonizer. She has had a Ventura in and any pathoge n we isolate will be contaminants/colonizers related to the duration of her Ventura. We will place her in a chair today roller down the em and let her sit outside on the round to the helicopter pad hopefully, so she gets some fresh air and realized that there is a World outside that she cannot get back to and keep making progress.
[2017-03-11] MEDS: ALPRAZolam 0.25 MG TAB PO PRN ×2 (12:32→21:34)
[2017-03-11] MEDS: Aspirin 325 MG TAB PER TUBE SCH (21:34)
[2017-03-12] MEDS: HYDROcodone/Acetaminophen 5/325 mg Tablet PO PRN (02:36)
[2017-03-12] MEDS: HumaLOG 300 UNITS/3 ML VIAL SC PRN ×3 (05:46→16:59)
--- NOTE | 2017-03-12 08:25 | PDOC.PN ---
- Subjective Encounter Start Date: 03/12/17 Encounter Start Time: 08:20 Ms. Parker is sitting up in the Neuro-chair this morning. She says she feels comfortable. - Objective Resuscitation Status: Resuscitation Status CHEM:Chem Code Only MAR Reviewed: Yes Vital Signs & Weight: Vital Signs (12 hours) Temp Pulse Resp BP Pulse Ox 03/12/17 07:52 99 03/12/17 07:46 88 32 H 99 03/12/17 07:00 98.2 F 03/12/17 06:00 16 03/12/17 04:00 14 03/12/17 03:00 98.2 F 03/12/17 02:32 78 91/48 L 03/12/17 02:30 78 31 H 99 03/12/17 02:00 18 03/12/17 00:00 18 03/11/17 23:00 98.1 F 03/11/17 22:33 81 79/52 L 03/11/17 22:30 81 23 H 97 03/11/17 22:00 22 H Weight Admit Weight 301 lb Weight 494 lb 0.894 oz Most Recent Monitor Data Heart Rate from ECG 70 NIBP 100/63 NIBP BP-Mean 78 Respiration from ECG 18 SpO2 98 I&O: 03/11/17 03/12/17 03/13/17 06:59 06:59 06:59 Intake Total 1366 1849 Output Total 1785 1270 360 Balance -419 579 -360 Result Diagrams: 03/10/17 04:50 03/11/17 06:16 Additional Labs: Accuchecks 03/12/17 03/11/17 03/11/17 05:28 21:34 16:15 POC Glucose 156 H 136 H 134 H 03/11/17 10:59 POC Glucose 171 H Phys Exam - Physical Examination HEENT: PERRLA Respiratory: no wheezing, no rales + scattered rhonchi Cardiovascular: RRR, no significant murmur Gastrointestinal: soft, non-tender, positive bowel sounds Musculoskeletal: no edema Dx/Plan (1) Empyema Code(s): J86.9 - PYOTHORAX WITHOUT FISTULA Status: Acute Comment: S/P decortication. Original cx with multiple GP organisms, abx restarted- Clindamycin, now on po, back to IV for now. Ct management per CT surgery. Repeat Decortication 02/22/2017 on Left and culture with mcduffie-susceptible proteus , now with prevotella. on rocephin. CT surgery planning for repeat on right next week. culture with proteus, will add cefepime pending final ID and sensitivities (2) Acute respiratory failure Code(s): J96.00 - ACUTE RESPIRATORY FAILURE, UNSP W HYPOXIA OR HYPERCAPNIA Status: Acute Qualifiers: Respiratory failure complication: hypoxia Qualified Code(s): J96.01 - Acute respiratory failure with hypoxia Comment: trached, nocturnal vent, spontaneous trials during the day, Left lung decort culture with proteus adn now prevotella. Omnicef 300mg BID (3) Atrial fibrillation Code(s): I48.91 - UNSPECIFIED ATRIAL FIBRILLATION Status: Resolved Qualifiers: Atrial fibrillation type: paroxysmal Qualified Code(s): I48.0 - Paroxysmal atrial fibrillation Comment: Not a candidate for anticoagulation due to low platelets. Lovenox on hold as well .NSR. on Amiodarone. Cardiology following (4) Supraglottic mass Code(s): J38.7 - OTHER DISEASES OF LARYNX Status: Acute Comment: Squamous Cell cacinoma. - Plan * Respiratory failure- patient continue to require ventilator support at night * Emypema, s/p right decortication recently, and prior decortication on the left * Continue Omnicef and Flagyl * DM- blood glucose is stable * AFIB- heart rate is stable and in sinus on Amiodarone * Nutritional support with tube feeds.
[2017-03-12] MEDS: predniSONE 5 MG TAB PO SCH (09:39)
[2017-03-12] MEDS: Cefdinir 300 MG CAP PO SCH ×2 (09:40→20:21)
[2017-03-12] MEDS: Nystatin Powder 15 GM BOT TOP SCH ×2 (09:41→20:24)
[2017-03-12] MEDS: Enoxaparin Sodium 40 MG/0.4 ML SYRINGE SC SCH (09:41)
[2017-03-12] MEDS: Pantoprazole 40 MG GRANULES PACKET PER TUBE SCH (09:41)
[2017-03-12] MEDS: Saccharomyces boulardii 250 MG CAP PER TUBE SCH (09:42)
[2017-03-12] MEDS: Scopolamine 1.5 mg/72 hour Patch TD SCH (09:42)
--- NOTE | 2017-03-12 12:41 | PRG ---
DATE OF SERVICE: 03/12/2017 SUBJECTIVE: Ms. Erika Parker did well overnight. She actually sat outside for 20 minutes yesterday. OBJECTIVE: VITAL SIGNS: She is afebrile, heart rate is 82, respiratory rate 20s to low 30s, oximetry is 99, bl ood pressure is 97/56. LUNGS: Remarkable for mild rhonchi. HEART: Regular rhythm. ABDOMEN: Soft. LABORATORY DATA: There is no new lab today. IMPRESSION: 1. Respiratory failure, making slow progress. 2. Reactive depression. 3. Throat cancer. 4. Bilateral empyema, status post bilateral decortication. PLAN: Continue supportive care.
[2017-03-12] MEDS: ALPRAZolam 0.25 MG TAB PO PRN ×2 (14:08→20:21)
[2017-03-12] MEDS: Aspirin 325 MG TAB PER TUBE SCH (20:21)
[2017-03-12] MEDS: Morphine 2 MG/ML SYRINGE SLOW IVP PRN (23:47)
[2017-03-13] MEDS: ALPRAZolam 0.25 MG TAB PO PRN (03:33)
--- NOTE | 2017-03-13 07:46 | PDOC.PN ---
- Subjective Encounter Start Date: 03/13/17 Encounter Start Time: 07:44 Ms. Parker is laying in bed. she is awake and alert. She indicates some discomfort on her side from the decortication, but it is improved with medication. - Objective Resuscitation Status: Resuscitation Status CHEM:Chem Code Only MAR Reviewed: Yes Vital Signs & Weight: Vital Signs (12 hours) Temp Pulse Resp Pulse Ox 03/13/17 07:38 79 36 H 96 03/13/17 07:00 98.1 F 03/13/17 06:00 26 H 03/13/17 04:00 98.6 F 26 H 03/13/17 02:39 73 03/13/17 02:38 75 29 H 94 L 03/13/17 02:00 26 H 03/13/17 00:00 98.2 F 26 H 03/12/17 22:40 76 31 H 93 L 03/12/17 22:00 26 H 03/12/17 20:00 98.3 F 73 21 H 100 Weight Admit Weight 301 lb Weight 492 lb 4.675 oz Most Recent Monitor Data Heart Rate from ECG 75 NIBP 106/51 NIBP BP-Mean 87 Respiration from ECG 29 SpO2 96 I&O: 03/12/17 03/13/17 03/14/17 06:59 06:59 06:59 Intake Total 1849 1623 Output Total 1270 1795 30 Balance 579 -172 -30 Result Diagrams: 03/10/17 04:50 03/11/17 06:16 Additional Labs: Accuchecks 03/12/17 03/12/17 03/12/17 23:42 16:43 10:33 POC Glucose 142 H 154 H 206 H Phys Exam - Physical Examination HEENT: PERRLA Respiratory: no wheezing + rhonchi Cardiovascular: RRR, no significant murmur, no rub Gastrointestinal: soft, non-tender, positive bowel sounds Musculoskeletal: edema present + edema -pedal bilaterally Dx/Plan (1) Empyema Code(s): J86.9 - PYOTHORAX WITHOUT FISTULA Status: Acute Comment: S/P decortication. Original cx with multiple GP organisms, abx restarted- Clindamycin, now on po, back to IV for now. Ct management per CT surgery. Repeat Decortication 02/22/2017 on Left and culture with mcduffie-susceptible proteus , now with prevotella. on rocephin. CT surgery planning for repeat on right next week. culture with proteus, will add cefepime pending final ID and sensitivities (2) Acute respiratory failure Code(s): J96.00 - ACUTE RESPIRATORY FAILURE, UNSP W HYPOXIA OR HYPERCAPNIA Status: Acute Qualifiers: Respiratory failure complication: hypoxia Qualified Code(s): J96.01 - Acute respiratory failure with hypoxia Comment: trached, nocturnal vent, spontaneous trials during the day, Left lung decort culture with proteus adn now prevotella. Omnicef 300mg BID (3) Atrial fibrillation Code(s): I48.91 - UNSPECIFIED ATRIAL FIBRILLATION Status: Resolved Qualifiers: Atrial fibrillation type: paroxysmal Qualified Code(s): I48.0 - Paroxysmal atrial fibrillation Comment: Not a candidate for anticoagulation due to low platelets. Lovenox on hold as well .NSR. on Amiodarone. Cardiology following (4) Supraglottic mass Code(s): J38.7 - OTHER DISEASES OF LARYNX Status: Acute Comment: Squamous Cell cacinoma. - Plan * Respiratory failure- stable, she is requiring mechanical ventilation at night * She is s/p biltaeral decortication for bilateral empyema * AFIB- she is now in sinus with rate controlled * DM- blood glucose is stable . * Nutritional support - tube feeds
[2017-03-13] MEDS: Enoxaparin Sodium 40 MG/0.4 ML SYRINGE SC SCH (09:18)
[2017-03-13] MEDS: predniSONE 5 MG TAB PO SCH (09:19)
[2017-03-13] MEDS: Saccharomyces boulardii 250 MG CAP PER TUBE SCH (09:21)
[2017-03-13] MEDS: Pantoprazole 40 MG GRANULES PACKET PER TUBE SCH (09:22)
[2017-03-13] MEDS: Nystatin Powder 15 GM BOT TOP SCH ×2 (09:24→21:18)
[2017-03-13] MEDS: HumaLOG 300 UNITS/3 ML VIAL SC PRN ×2 (11:05→22:21)
--- NOTE | 2017-03-13 16:11 | PRG ---
DATE OF SERVICE: 03/13/2017 SUBJECTIVE: Ms. Erika Parker is again saying she wants to stop. We ended up placing her back on the v entilator this morning because of respiratory distress and inability to clear secretions. OBJECTIVE: VITAL SIGNS: Blood pressure 113/58, heart rate 69, respiratory rate in the 30s. LUNGS: She has mild rhonchi bilaterally. HEART: Regular rhythm. ABDOMEN: Soft. LABORATORY DATA: There is no new lab today. Check CBC, BMP and chest x-ray in the morning. ASSESSMENT AND PLAN: I had a long discussion with her significant other and her about honor ing her wishes, but also making sure she is consistent and wishes to stop. It is imperative that avtar shelby understand that she may not have a fixable muscle weakness. It could be that she has some de gree of obstructive lung disease, it was preexisting. She definitely has deconditioning that was pr eexisting. She also had poor nutritional intake for several months leading up to this admission. Darian hernandez could as well have a perineoplastic muscle weakness. 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 We will continue supportive care. Her significant other/ wants me to meet with her cousin to [place] and discuss all of these issues, but I also reminded him that ultimately it is her decision. If she consistently tells as she wants to go into hospice and inpatient hospice, maybe the only via ble option, he certainly take care of her in the hospital or across the street. She probably would require significant amount of morphine for comfort if we withdrew ventilatory sup port completely.
[2017-03-13] MEDS: Aspirin 325 MG TAB PER TUBE SCH (21:17)
[2017-03-14 04:23] LABS: Anisocytosis SLIGHT = 6-15 cells (100X) (0-5/hpf); Band 7 % (5-11); Hematocrit 28.8 % (36.0-47.0); Macrocytosis SLIGHT = 6-15 cells (100X) (0-5/hpf); Mean Platelet Volume 7.9 fL (7.4-10.4); Neutrophil 64 % (42-75); Red Blood Cell (RBC) Count 2.77 mill/uL (4.20-5.40); White Blood Cell (WBC) Count 7.6 thou/uL (4.8-10.8)
[2017-03-14 04:34] LABS: BUN (Urea Nitrogen) 25 mg/dL (9.8-20.1); Calc. Creatinine Clearance 521 mL/min (70-130); Calcium 9.1 mg/dL (7.8-10.44); Estimated GFR-MDRD Greater than 90
[2017-03-14 04:44] LABS: Chloride 95 mmol/L (98-107)
[2017-03-14 04:47] LABS: Anion Gap 11 mmol/L (10-20)
[2017-03-14 04:50] LABS: Carbon Dioxide 42 mmol/L (22-29)
--- NOTE | 2017-03-14 08:16 | PDOC.PN ---
- Subjective Encounter Start Date: 03/14/17 Encounter Start Time: 08:14 Ms. Parker is awake and alert. She does not relate any problems. Her boyfriend is at her bedside. - Objective Resuscitation Status: Resuscitation Status CHEM:Chem Code Only MAR Reviewed: Yes Vital Signs & Weight: Vital Signs (12 hours) Temp Pulse Resp BP Pulse Ox 03/14/17 07:50 67 93/44 L 03/14/17 07:49 69 32 H 99 03/14/17 07:24 16 03/14/17 07:00 98.4 F 03/14/17 06:00 20 03/14/17 04:00 98.3 F 27 H 03/14/17 02:37 71 03/14/17 02:36 71 17 97 03/14/17 02:00 27 H 03/14/17 00:00 21 H 03/13/17 23:00 98.4 F 03/13/17 22:26 73 03/13/17 22:25 76 29 H 97 03/13/17 22:00 24 H Weight Admit Weight 301 lb Weight 272 lb 11.389 oz Most Recent Monitor Data Heart Rate from ECG 66 NIBP 93/44 NIBP BP-Mean 68 Respiration from ECG 17 SpO2 99 I&O: 03/13/17 03/14/17 03/15/17 06:59 06:59 06:59 Intake Total 1623 1429 Output Total 1795 1150 20 Balance -172 279 -20 Result Diagrams: 03/14/17 04:01 03/14/17 04:01 Additional Labs: Accuchecks 03/14/17 03/13/17 03/13/17 04:01 22:19 16:28 POC Glucose 140 H 155 H 119 H 03/13/17 11:00 POC Glucose 169 H Phys Exam - Physical Examination HEENT: PERRLA Respiratory: no wheezing, no rhonchi + rhonchi Cardiovascular: RRR, no significant murmur Gastrointestinal: soft, non-tender, positive bowel sounds Musculoskeletal: edema present trace pedal edema Dx/Plan (1) Empyema Code(s): J86.9 - PYOTHORAX WITHOUT FISTULA Status: Acute Comment: S/P decortication. Original cx with multiple GP organisms, abx restarted- Clindamycin, now on po, back to IV for now. Ct management per CT surgery. Repeat Decortication 02/22/2017 on Left and culture with mcduffie-susceptible proteus , now with prevotella. on rocephin. CT surgery planning for repeat on right next week. culture with proteus, will add cefepime pending final ID and sensitivities (2) Acute respiratory failure Code(s): J96.00 - ACUTE RESPIRATORY FAILURE, UNSP W HYPOXIA OR HYPERCAPNIA Status: Acute Qualifiers: Respiratory failure complication: hypoxia Qualified Code(s): J96.01 - Acute respiratory failure with hypoxia Comment: trached, nocturnal vent, spontaneous trials during the day, Left lung decort culture with proteus adn now prevotella. Omnicef 300mg BID (3) Atrial fibrillation Code(s): I48.91 - UNSPECIFIED ATRIAL FIBRILLATION Status: Resolved Qualifiers: Atrial fibrillation type: paroxysmal Qualified Code(s): I48.0 - Paroxysmal atrial fibrillation Comment: Not a candidate for anticoagulation due to low platelets. Lovenox on hold as well .NSR. on Amiodarone. Cardiology following (4) Supraglottic mass Code(s): J38.7 - OTHER DISEASES OF LARYNX Status: Acute Comment: Squamous Cell cacinoma. - Plan * Acute respiratory failure- She continue to require ventilator support overnight * Bilateral Empyema, s/p bilateral decortication- continue Omnicef and Flagyl * Symptom management * AFIB- her heart rate is controlled * Hypokalemia- replace according to CCU protocol * DM- blood glucose is stable.
--- NOTE | 2017-03-14 08:56 | RAD ---
1 VIEW CHEST: Date: 03/14/17 HISTORY: Respiratory distress. Ventilated patient. COMPARISON: 03/10/17. FINDINGS: Redemonstration of two separate right-sided chest tubes. Subcutaneous emphysema in right hemithorax has decreased. Stable left-sided PICC line. Tracheostomy is redemonstrated. The previously noted rig ht-sided central venous catheter is no longer present. Currently, there is no evidence of pneumothor ax. There are worsening opacities in the left and right lung base. Left-sided chest tube is unchange d. IMPRESSION: 1. Worsening opacification lung bases. 2. Interval removal of right-sided central venous catheter. 3. Redemonstration of bilateral chest tubes. POS: [facility]
[2017-03-14] MEDS: Pantoprazole 40 MG GRANULES PACKET PER TUBE SCH (09:09)
[2017-03-14] MEDS: Saccharomyces boulardii 250 MG CAP PER TUBE SCH (09:10)
[2017-03-14] MEDS: predniSONE 5 MG TAB PO SCH (09:11)
[2017-03-14] MEDS: Enoxaparin Sodium 40 MG/0.4 ML SYRINGE SC SCH (09:12)
[2017-03-14] MEDS: Nystatin Powder 15 GM BOT TOP SCH (09:13)
[2017-03-14] MEDS: HumaLOG 300 UNITS/3 ML VIAL SC PRN (10:55)
[2017-03-14] MEDS: ALPRAZolam 0.5 MG TAB PO SCH ×3 (13:00→20:04)
--- NOTE | 2017-03-14 14:54 | PRG ---
DATE OF SERVICE: 03/14/2017 SUBJECTIVE: Ms. Parker did well overnight, because she is ventilated. She is declining everything to day. She keeps telling everyone involved with her care that she is ready to go. I had long meeting with her significant other/ today and her cousin and went over everything and discussed the options. I have suggested that we increased her Seroquel and Xanax, and see if her mood improves in the next 24-48 hours, palliative care input will be appreciated tomorrow when they get back. She h as an early stage throat cancer apparently, but we have been unable to successfully wean her from me chanical ventilation. It is impossible to determine whether or not this is critical illness related , paraneoplastic or related to obesity, deconditioning, and malnutrition prior to admission or a com bination of the above. I am not sure she will ever be strong enough to go through cancer therapy. She told me she did not want chemotherapy prior to her initial intubation. All this was again discu ssed with family, but ultimately it is her decision. There is no overall change in the plan of care other than change in Seroquel and Xanax dosing. Critical care time was 30 minutes.
[2017-03-14] MEDS: HYDROcodone/Acetaminophen 5/325 mg Tablet PO PRN (20:03)
[2017-03-14] MEDS: Aspirin 325 MG TAB PER TUBE SCH (20:04)
[2017-03-15] MEDS: Nystatin Powder 15 GM BOT TOP SCH ×3 (00:38→21:34)
[2017-03-15 05:40] LABS: Band 10 % (5-11); Mean Platelet Volume 7.7 fL (7.4-10.4); Metamyelocyte 1 % (0-0); Neutrophil 67 % (42-75); Ovalocytes SLIGHT = 2-5 cells (100X) (0-1/hpf); Red Blood Cell (RBC) Count 2.99 mill/uL (4.20-5.40); Stomatocytes MODERATE= 6-15 cells (100X) (0-1/hpf); White Blood Cell (WBC) Count 7.4 thou/uL (4.8-10.8)
[2017-03-15 05:51] LABS: BUN (Urea Nitrogen) 25 mg/dL (9.8-20.1); Calc. Creatinine Clearance 270 mL/min (70-130); Calcium 9.3 mg/dL (7.8-10.44); Estimated GFR-MDRD Greater than 90
[2017-03-15 06:00] LABS: Anion Gap 13 mmol/L (10-20); Carbon Dioxide 38 mmol/L (22-29); Chloride 96 mmol/L (98-107)
[2017-03-15] MEDS: Enoxaparin Sodium 40 MG/0.4 ML SYRINGE SC SCH (08:53)
[2017-03-15] MEDS: Pantoprazole 40 MG GRANULES PACKET PER TUBE SCH (08:54)
[2017-03-15] MEDS: Saccharomyces boulardii 250 MG CAP PER TUBE SCH (08:54)
[2017-03-15] MEDS: predniSONE 5 MG TAB PO SCH (08:54)
--- NOTE | 2017-03-15 08:57 | PDOC.PN ---
- Subjective Encounter Start Date: 03/15/17 Encounter Start Time: 08:56 Ms. Parker has refused to sit up in the Neuro-chair. She seems a bit more agitated this morning. She tells me she doesn't want to do this anymore, and says that " I'm not depressed." - Objective Resuscitation Status: Resuscitation Status CHEM:Chem Code Only MAR Reviewed: Yes Vital Signs & Weight: Vital Signs (12 hours) Temp Pulse Resp Pulse Ox 03/15/17 08:13 70 03/15/17 08:00 98.0 F 03/15/17 06:00 24 H 03/15/17 04:00 97.6 F 24 H 03/15/17 02:17 68 16 96 03/15/17 02:00 19 03/15/17 00:00 97.5 F L 16 03/14/17 22:16 77 03/14/17 22:15 78 19 97 03/14/17 22:00 18 Weight Admit Weight 301 lb Weight 273 lb 5.971 oz Most Recent Monitor Data Heart Rate from ECG 67 NIBP 111/58 NIBP BP-Mean 92 Respiration from ECG 23 SpO2 95 I&O: 03/14/17 03/15/17 03/16/17 06:59 06:59 06:59 Intake Total 1429 1792 Output Total 1150 1080 70 Balance 279 712 -70 Result Diagrams: 03/15/17 05:00 03/15/17 05:00 Additional Labs: Accuchecks 03/15/17 03/15/17 03/14/17 05:06 00:43 16:18 POC Glucose 137 H 116 H 145 H 03/14/17 10:38 POC Glucose 196 H Phys Exam - Physical Examination HEENT: PERRLA Respiratory: no wheezing + rhonchi Cardiovascular: RRR, no significant murmur Gastrointestinal: soft, non-tender, positive bowel sounds Musculoskeletal: no edema Dx/Plan (1) Empyema Code(s): J86.9 - PYOTHORAX WITHOUT FISTULA Status: Acute Comment: S/P decortication. Original cx with multiple GP organisms, abx restarted- Clindamycin, now on po, back to IV for now. Ct management per CT surgery. Repeat Decortication 02/22/2017 on Left and culture with mcduffie-susceptible proteus , now with prevotella. on rocephin. CT surgery planning for repeat on right next week. culture with proteus, will add cefepime pending final ID and sensitivities (2) Acute respiratory failure Code(s): J96.00 - ACUTE RESPIRATORY FAILURE, UNSP W HYPOXIA OR HYPERCAPNIA Status: Acute Qualifiers: Respiratory failure complication: hypoxia Qualified Code(s): J96.01 - Acute respiratory failure with hypoxia Comment: trached, nocturnal vent, spontaneous trials during the day, Left lung decort culture with proteus adn now prevotella. Omnicef 300mg BID (3) Atrial fibrillation Code(s): I48.91 - UNSPECIFIED ATRIAL FIBRILLATION Status: Resolved Qualifiers: Atrial fibrillation type: paroxysmal Qualified Code(s): I48.0 - Paroxysmal atrial fibrillation Comment: Not a candidate for anticoagulation due to low platelets. Lovenox on hold as well .NSR. on Amiodarone. Cardiology following (4) Supraglottic mass Code(s): J38.7 - OTHER DISEASES OF LARYNX Status: Acute Comment: Squamous Cell cacinoma. - Plan * Respiratory Failure- she is still ventilator dependent * Continue Omnicef and Flagyl * Hypokalemia- replace per CCU protocol * DM- blood glucose is stable * AFIB- her heart rate is stable * Laryngeal Cancer- untreated due her current illness * She will be seen by Palliative Care team to help address the patient's goals of care. She seems intent upon stopping aggressive treatment
[2017-03-15] MEDS: ALPRAZolam 0.5 MG TAB PO SCH ×4 (09:03→22:33)
[2017-03-15] MEDS: Scopolamine 1.5 mg/72 hour Patch TD SCH (09:04)
--- NOTE | 2017-03-15 10:40 | RAD ---
FRONTAL RADIOGRAPH CHEST: 03/15/2017 HISTORY: Ventilated patient. COMPARISON: 03/14/2017 FINDINGS: Stable bilateral chest tubes. Stable tracheostomy tube and left upper extremity PICC. There is dense opacity in both lung bases, suggesting a combination of pleural fluid and lower lobe consolidation/collapse, right greater than left, not significantly changed. IMPRESSION: No significant interval change. POS: [facility]
[2017-03-15] MEDS ORDERED: Morphine 10 MG/ML VIAL SLOW IVP PRN (11:38)
[2017-03-15] MEDS ORDERED: Lorazepam 2 MG/ML VIAL SLOW IVP PRN (11:39)
--- NOTE | 2017-03-15 13:30 | PRG ---
DATE OF SERVICE: 03/15/2017 PHYSICAL EXAMINATION: VITAL SIGNS: Blood pressure 117/72, heart rate 79, respiratory rate is in the 30s. GENERAL: She says she is less anxious with changes, we made yesterday. Lungs, heart, and abdomen are unchanged. Chest radiograph is unchanged. LABORATORY: Labs are essentially unchanged with white count 7.4, hemoglobin 9.2, platelets 196. E lectrolytes were unchanged. She again says she wants to stop. She has explained this to her family and explained this to [facility]. Orders have been written for comfort. She wants to go on a trach collar tonight when osman bhatia can be here. I again met with her and friends. Father Andrea has also seen her. I do believe s he is competent to make these decisions and we are obligated to honor her wishes.
[2017-03-15 14:37] VITALS: BP 102/54
[2017-03-15] MEDS: Morphine 2 MG/ML SYRINGE SLOW IVP SCH (19:32)
[2017-03-15] MEDS: Aspirin 325 MG TAB PER TUBE SCH (20:51)
[2017-03-15] MEDS: Acetaminophen 500 MG TAB PO PRN (23:00)
[2017-03-16] MEDS: Morphine 2 MG/ML SYRINGE SLOW IVP SCH ×7 (00:25→14:41)
[2017-03-16] MEDS: ALPRAZolam 0.5 MG TAB PO SCH ×3 (01:47→12:44)
--- NOTE | 2017-03-16 07:56 | PDOC.PN ---
- Subjective Encounter Start Date: 03/16/17 Encounter Start Time: 07:53 Ms. Parker is now on a Tach Collar. She is a bit lethargic, but indicates that she is comfortable. - Objective Resuscitation Status: Resuscitation Status CHEM:Chem Code Only MAR Reviewed: Yes Vital Signs & Weight: Vital Signs (12 hours) Temp Pulse Resp Pulse Ox 03/16/17 04:00 97.8 F 03/16/17 00:00 97.7 F 90 L 03/15/17 23:43 86 L 03/15/17 22:15 24 H 90 L 03/15/17 22:00 90 L 03/15/17 20:00 97.9 F 83 30 H 94 L Weight Admit Weight 301 lb Weight 271 lb 13.279 oz Most Recent Monitor Data Heart Rate from ECG 79 NIBP 109/61 NIBP BP-Mean 84 Respiration from ECG 21 SpO2 94 I&O: 03/15/17 03/16/17 03/17/17 06:59 06:59 06:59 Intake Total 1792 1724 Output Total 1080 870 Balance 712 854 Result Diagrams: 03/15/17 05:00 03/15/17 05:00 Additional Labs: Accuchecks 03/15/17 11:44 POC Glucose 134 H Phys Exam - Physical Examination HEENT: PERRLA Respiratory: no wheezing Cardiovascular: RRR, no significant murmur Gastrointestinal: soft, non-tender, positive bowel sounds Musculoskeletal: edema present trace pedal edema Dx/Plan (1) Empyema Code(s): J86.9 - PYOTHORAX WITHOUT FISTULA Status: Acute Comment: S/P decortication. Original cx with multiple GP organisms, abx restarted- Clindamycin, now on po, back to IV for now. Ct management per CT surgery. Repeat Decortication 02/22/2017 on Left and culture with mcduffie-susceptible proteus , now with prevotella. on rocephin. CT surgery planning for repeat on right next week. culture with proteus, will add cefepime pending final ID and sensitivities (2) Acute respiratory failure Code(s): J96.00 - ACUTE RESPIRATORY FAILURE, UNSP W HYPOXIA OR HYPERCAPNIA Status: Acute Qualifiers: Respiratory failure complication: hypoxia Qualified Code(s): J96.01 - Acute respiratory failure with hypoxia Comment: trached, nocturnal vent, spontaneous trials during the day, Left lung decort culture with proteus adn now prevotella. Omnicef 300mg BID (3) Atrial fibrillation Code(s): I48.91 - UNSPECIFIED ATRIAL FIBRILLATION Status: Resolved Qualifiers: Atrial fibrillation type: paroxysmal Qualified Code(s): I48.0 - Paroxysmal atrial fibrillation Comment: Not a candidate for anticoagulation due to low platelets. Lovenox on hold as well .NSR. on Amiodarone. Cardiology following (4) Supraglottic mass Code(s): J38.7 - OTHER DISEASES OF LARYNX Status: Acute Comment: Squamous Cell cacinoma. - Plan * Ms. Parker has opted to pursue comfort care only, and wishes to be placed on Hospice * She is on Morphine to control pain, and she appears comfortable * Will pursue other symptoms control as it arises * She continues on Amiodarone for AFIB * Anticipate transfer out of the ICU soon
[2017-03-16] MEDS: Saccharomyces boulardii 250 MG CAP PER TUBE SCH (09:30)
[2017-03-16] MEDS: Nystatin Powder 15 GM BOT TOP SCH (09:31)
[2017-03-16 11:41] VITALS: TEMP 97.5
--- NOTE | 2017-03-16 13:35 | PRG ---
DATE OF SERVICE: 03/16/2017 SUBJECTIVE: Erika Parker is felt to be comfortable by the nursing staff. She was somnolent when I mad e rounds. She is in no distress. Her exam is unchanged. She is on a trach collar. She will be mo poly to a different part of the hospital for comfort care. Her medications have been simplified.
[2017-03-16 13:48] VITALS: BMI 46.6
--- NOTE | 2017-03-16 20:31 | DS ---
DATE OF ADMISSION: 01/16/2017 DATE OF : 03/16/2017 DIANGOSES: Include; 1. Squamous cell carcinoma of the lung. 2. Acute respiratory failure. 3. Bilateral empyema. 4. Diabetes mellitus, type 2. 5. Morbid obesity. PROCEDURES DONE DURING ADMISSION: The patient had an emergent placement of a tracheostomy with dire ct laryngoscopy and biopsy. Patient had a CT scan of the neck on 01/18/2017, showing a supraglottic mass which began at the aryepiglottic fold on the left and extends inferiorly to the supraglottic r egion. The patient had an echocardiogram on 01/20/2017 and this revealed a normal left ventricular size, normal right ventricular cavity, there is no evidence of any pericardial effusion. The EF cou ld not be precisely estimated due to technical difficulties in the study. The patient also had bila teral decortication procedures on the right and left. CODE STATUS: DNR. ALLERGIES: No known drug allergies. HOSPITAL COURSE: Ms. Parker is a 56-year-old female who was admitted after she began having shortness of breath for the last 4 days and then her voice was hoarse, and she was having throat pain and dif ficulty swallowing. She was admitted originally to the ENT Service with Dr. Dubois and she decompen sated and required urgent tracheostomy placement and was placed on the surgical floor shortly after being admitted, the patient went into respiratory distress and required placement in the ICU. Pulmo rosemary was consulted and it was found that the patient had an empyema on the right side. She was plac ed on broad spectrum antibiotics and had been transferred to the ICU. The patient remained in the c ritical care during the majority of her hospital stay. She developed an empyema on the left side as well and ultimately required bilateral decortication procedures as well as a chest tube placement. Unfortunately, the patient was never able to be successfully weaned from the mechanical ventilator. It is unclear if she had underlying COPD as she had not had medical followup prior to her hospital ization. It was also unsure whether or not she had developed some ICU myopathy or critical care luz elena iesha or possible paraneoplastic syndrome, which caused her severe muscle weakness, making it diffic ult for her to be weaned from the ventilator. However, the patient was alert and oriented during mu ch of her hospital stay and indicated on numerous occasions that she was tired of being treated aggr essively and was repeatedly requesting to be taken off of aggressive measures. [facility] as well. She was also placed on antidepressant medications for a trial to make sure that depression was not a factor contributing to her decision making. However , the patient stressed that she was not depressed that she was cleared in her thinking and did not w ant to continue on with aggressive treatment. There are multiple family meetings between the [facility] care specialists, the patient and family and the decision was made on 03/16/2017 to extubate the patient and leave her on a trach collar and she was moved to the medical oncology floor under [facility]. The patient decompensated and shortly after being moved to the oncology sharpe and wa s pronounced .
== END 2017-03-16 13:48 | disposition expired | DRG 3 ==
LOC: ERS 11:20 → CCU 14:58 → SURG B 01-18 17:57 → CCU 01-19 18:49 → ONC 03-16 13:46
PROVIDERS: ADMIT Internal Medicine; ATTEND Internal Medicine
PROC: 0B110F4 Bypass Trachea to Cutaneous with Tracheostomy Device, Open Approach (ICD-10-PCS; principal; 2017-01-16)
PROC: 5A1935Z Respiratory Ventilation, Less than 24 Consecutive Hours (ICD-10-PCS; 2017-01-16)
PROC: 0CBR8ZX Excision of Epiglottis, Via Natural or Artificial Opening Endoscopic, Diagnostic (ICD-10-PCS; 2017-01-16)
PROC: 0CJS8ZZ Inspection of Larynx, Via Natural or Artificial Opening Endoscopic (ICD-10-PCS; 2017-01-16)
PROC: 5A1955Z Respiratory Ventilation, Greater than 96 Consecutive Hours (ICD-10-PCS; 2017-01-19)
PROC: 0W9930Z Drainage of Right Pleural Cavity with Drainage Device, Percutaneous Approach (ICD-10-PCS; 2017-01-19)
PROC: 5A12012 Performance of Cardiac Output, Single, Manual (ICD-10-PCS; 2017-01-19)
PROC: 5A2204Z Restoration of Cardiac Rhythm, Single (ICD-10-PCS; 2017-01-19)
PROC: 02HV33Z Insertion of Infusion Device into Superior Vena Cava, Percutaneous Approach (ICD-10-PCS; 2017-01-19)
PROC: 0W9900Z Drainage of Right Pleural Cavity with Drainage Device, Open Approach (ICD-10-PCS; 2017-01-20)
PROC: 0W9B00Z Drainage of Left Pleural Cavity with Drainage Device, Open Approach (ICD-10-PCS; 2017-01-26)
PROC: 0DH63UZ Insertion of Feeding Device into Stomach, Percutaneous Approach (ICD-10-PCS; 2017-01-27)
PROC: 02HV33Z Insertion of Infusion Device into Superior Vena Cava, Percutaneous Approach (ICD-10-PCS; 2017-02-01)
PROC: B548ZZA Ultrasonography of Superior Vena Cava, Guidance (ICD-10-PCS; 2017-02-01)
PROC: 02PYX3Z Removal of Infusion Device from Great Vessel, External Approach (ICD-10-PCS; 2017-02-20)
PROC: 02HV33Z Insertion of Infusion Device into Superior Vena Cava, Percutaneous Approach (ICD-10-PCS; 2017-02-20)
PROC: 0BNL0ZZ Release Left Lung, Open Approach (ICD-10-PCS; 2017-02-22)
PROC: 02H633Z Insertion of Infusion Device into Right Atrium, Percutaneous Approach (ICD-10-PCS; 2017-02-22)
PROC: 0BNK0ZZ Release Right Lung, Open Approach (ICD-10-PCS; 2017-03-10)
DX: C32.1 Malignant neoplasm of supraglottis (principal); N17.0 Acute kidney failure with tubular necrosis; R65.21 Severe sepsis with septic shock; J69.0 Pneumonitis due to inhalation of food and vomit; J86.9 Pyothorax without fistula; G93.41 Metabolic encephalopathy; J96.01 Acute respiratory failure with hypoxia; J96.02 Acute respiratory failure with hypercapnia; J18.9 Pneumonia, unspecified organism; A40.8 Other streptococcal sepsis; I50.31 Acute diastolic (congestive) heart failure; J44.0 Chronic obstructive pulmonary disease with (acute) lower respiratory infection; G72.81 Critical illness myopathy; E87.2 Acidosis; I47.2 Ventricular tachycardia; Z68.43 Body mass index [BMI] 50.0-59.9, adult; E87.3 Alkalosis; E87.1 Hypo-osmolality and hyponatremia; I24.8 Other forms of acute ischemic heart disease; J93.11 Primary spontaneous pneumothorax; I46.8 Cardiac arrest due to other underlying condition; Z51.5 Encounter for palliative care; R13.10 Dysphagia, unspecified; E11.9 Type 2 diabetes mellitus without complications; E66.01 Morbid (severe) obesity due to excess calories; I25.10 Atherosclerotic heart disease of native coronary artery without angina pectoris; I48.0 Paroxysmal atrial fibrillation; D50.0 Iron deficiency anemia secondary to blood loss (chronic); D63.8 Anemia in other chronic diseases classified elsewhere; K82.8 Other specified diseases of gallbladder; C13.1 Malignant neoplasm of aryepiglottic fold, hypopharyngeal aspect; D69.6 Thrombocytopenia, unspecified; F41.9 Anxiety disorder, unspecified; R19.7 Diarrhea, unspecified; F17.210 Nicotine dependence, cigarettes, uncomplicated; T50.1X5A Adverse effect of loop [high-ceiling] diuretics, initial encounter; F32.89 Other specified depressive episodes; E87.6 Hypokalemia; E87.5 Hyperkalemia; B96.4 Proteus (mirabilis) (morganii) as the cause of diseases classified elsewhere; D53.9 Nutritional anemia, unspecified; K76.89 Other specified diseases of liver; Z66 Do not resuscitate; Z23 Encounter for immunization
CPT/HCPCS: 36415; 36416; 36569; 70360; 70491; 71010; 71250; 74000; 74230; 80048; 80053; 80162; 81001; 81015; 82553; 82805; 82945; 83605; 83615; 83690; 83735; 83880; 83986; 84100; 84157; 84484; 85007; 85025; 85027; 85060; 85730; 87070; 87076; 87077; 87086; 87116; 87149; 87186; 87205; 87206; 87324; 87449; 88112; 88305; 88342; 89051; 90471; 90682; 90732; 92950; 93005; 93010; 93306; 93923; 94002; 94003; 94640; 94760; 96361; 96374; 96375; A4216; C1751; C9113; G0008; G0009; G8978-GP-CM; G8978-GP-CN; G8979-GP-CL; G8979-GP-CM; G8981-GP-CN; G8982-GP-CK; G8987-GO-CM; G8988-GO-CK; G8996-GN-CM; G8996-GN-CN; G8997-GN-CK; G8997-GN-CL; G8997-GN-CM; J0171; J0282; J0360; J0692; J0696; J1100; J1120; J1160; J1170; J1644; J1650; J1940; J2001; J2185; J2250; J2270; J2405; J2550; J2704; J2920; J2930; J3010; J3370; J3475; J3480; J3490; J7050; J7070; J7506; J7611; J7620; P9047; Q2036; S0028